=== PATIENT | female | born 1975 | race American Indian/Alaskan Native ===

== ENCOUNTER 2016-05-27 12:19 | Day surgery (SDC) | payer MEDICAID ==
--- NOTE | 2016-05-27 13:15 | History and Physical Report ---
HISTORY OF PRESENT ILLNESS: This is a female with a known history of HIV disease, asthma who comes in for procedure secondary to persistent cough, shortness of breath. The patient has been treated on multiple occasions for upper respiratory tract infection and still has a persistent cough. _she___ denies any lightheadedness, dizziness, numbness, any constipation, dysuria, hematuria, or polyuria. ALLERGIES: Penicillin. SOCIAL HISTORY: Lives at home. REVIEW OF SYSTEMS: No lightheadedness, dizziness. No numbness. No constipation. No dysuria, hematuria, or polyuria. PHYSICAL EXAMINATION: VITAL SIGNS: Blood pressure 120/60, pulse 92, respirations 18. GENERAL: -Central African, morbidly obese female. HEENT: Pupils reactive. Trachea midline. NECK: Supple. CARDIOVASCULAR: Normal S1, S2. LUNGS: Mild expiratory wheezes. ABDOMEN: Positive bowel sounds, soft, nontender. EXTREMITIES: Failed to reveal cyanosis, clubbing, or edema. SKIN: Eczema noted on face and hands. IMPRESSION: Female with HIV, Crohn's disease, asthma, persistent cough. The patient is to undergo bronchoscopy, we will send sputum for analysis. Risk and benefits explained to the patient. We will continue to monitor. The patient may need to receive nebulizer treatment in the perioperative period. JOB# [id number] SOFÍA/JULIETTE WHITFIELD
--- NOTE | 2016-05-27 13:29 | Anesthesia Consultation ---
Anesthesia Consult and Med Hx Date of service: 05/27/16 - Pre-Operative Health Status ASA Pre-Surgery Classification: ASA3 Proposed Anesthetic Plan: MAC - Pulmonary Hx Smoking: Yes (1/2 PPD X 17 YEARS) Hx Asthma: Yes Hx Sleep Apnea: No (possible WESTLEY) - Central Nervous System Hx Psychiatric Problems: No - Other Systems Hx Cancer: No - Additional Comments Anesthesia Medical History Comments: Morbid obesity with increased risk of WESTLEY, HIV+, Chrohn's disease. Patient states she has "constant cough."
== END 2016-05-27 12:20 | disposition home or self-care (01) ==
LOC: GIO 12:19
PROVIDERS: ATTEND Specialist
DX: R05 Cough (principal); Z53.8 Procedure and treatment not carried out for other reasons; J45.909 Unspecified asthma, uncomplicated

== ENCOUNTER 2016-12-23 10:35 | Day surgery (SDC) | payer MEDICAID ==
[2016-12-23] MEDS ORDERED: NACL 0.9% 1000 ML 1,000 ML IV SCH (11:00)
[2016-12-23] MEDS ORDERED: LIDOCAINE VISCOUS 2% ONE (11:02)
[2016-12-23] MEDS ORDERED: XYLOCAINE 1% 20 mL ONE (11:02)
[2016-12-23] MEDS ORDERED: ADRENALIN ONE (11:03)
[2016-12-23] MEDS ORDERED: WATER FOR IRRIG STERILE IR ONE (11:04)
[2016-12-23] MEDS ORDERED: HURRICAINE ONE 20% TOPICAL SPRAY MM (11:05)
--- NOTE | 2016-12-23 11:49 | Anesthesia Consultation ---
Anesthesia Consult and Med Hx Date of service: 12/23/16 - Airway Anesthetic Teeth Evaluation: Good ROM Head & Neck: Adequate Mental/Hyoid Distance: Adequate Mallampati Class: Class II Intubation Access Assessment: Probably Good - Pulmonary Exam CTA: Yes (rhonchi) - Cardiac Exam Cardiac Exam: RRR Anesthetic Concerns: HIV, crohn's disease. Chest x-ray 11/17 with unremarkable finding. - Pre-Operative Health Status ASA Pre-Surgery Classification: ASA3 Proposed Anesthetic Plan: MAC - Pulmonary Hx Smoking: Yes (stopped 11/17, 10 cigarrettes pd x 20yrs) Hx Asthma: Yes (Used inhaler this AM) Hx Respiratory Symptoms: Yes (PRODUCTIVE COUGH ) Hx Sleep Apnea: No - Cardiovascular System Hx Hypertension: No Hx Heart Attack/AMI: No - Central Nervous System Hx Psychiatric Problems: No - Other Systems Hx Cancer: No - Additional Comments Anesthesia Medical History Comments: NAC
--- NOTE | 2016-12-23 11:49 | Anesthesia Day of Surgery ---
Anesthesia Day of Surgery - Day of Surgery Patient Examined: Yes Patient H&P Reviewed: Yes Patient is NPO: Yes
[2016-12-23] MEDS ORDERED: DIPRIVAN 10 MG/ML IV ONE (11:50)
[2016-12-23] MEDS ORDERED: VERSED ONE (11:50)
[2016-12-23] MEDS ORDERED: AMIDATE IV ONE (12:20)
--- NOTE | 2016-12-23 12:53 | History and Physical Report ---
History of Present Illness History of present illness: This is a patient with hx of asthma, AIDS and crohns disease who has recurrent upper and lower resp tract infection with recent admission. She has persistent cough and congestion and is scheduled for bronch Past History Past Medical History: other (AIDS, Crohns disease) Social history: single, lives with family, smoking Family history: CAD, hypertension Medications and Allergies Allergies Allergy/AdvReac Type Severity Reaction Status Date / Time Penicillins Allergy Swelling Verified 12/14/14 17:38 Home Medications Medication Instructions Recorded Confirmed Last Taken Type Dolutegravir (Nf) [Tivicay (Nf)] 50 mg PO BID 03/29/14 12/22/16 12/22/16 History Emtricitabin/Tenofovir [TRUVADA 1 tab PO BID 03/29/14 12/22/16 12/22/16 History 200-300 mg] ALBUTEROL Inhaler [ProAir HFA 2 puff IH QID PRN #30 inha 11/06/16 12/22/16 Unknown Rx Inhaler] Acetaminophen [Acetaminophen TAB] 325 mg PO Q4H PRN #30 tablet 11/06/16 Unknown Rx Fluticasone/Salmeterol [Advair 1 puff IH Q12H #1 blst.w.dev 11/06/16 12/23/16 Rx Diskus 100-50 mcg] Ipratropium/Albuterol Sulfate 1 ampul IH Q8HR #30 ampul.neb 11/06/16 12/22/16 Unknown Rx [Duoneb 0.5 mg-3 mg/3 ml Soln] Sulfamethoxazole/Trimethoprim 1 each PO DAILY #30 tablet 11/06/16 12/22/1612/22 Rx [Bactrim DS TAB] Abacavir 300 mg PO BID 12/22/16 12/22/16 12/22/16 History Promethazine 5 ml PO Q6H PRN 12/22/16 12/23/16 12/22/16 History Active Meds: Active Medications Sodium Chloride (Nacl 0.9% 1000 Ml) 1,000 mls @ 50 mls/hr IV DIRECT BAY Last Admin: 12/23/16 11:15 Dose: 50 mls/hr Review of Systems Constitutional: fatigue Ears, nose, mouth and throat: nasal congestion, nasal discharge, sinus pressure , sore throat, post-nasal drip, headache Breasts: deferred Respiratory: cough, cough with sputum, excessive sputum, shortness of breath, congestion, wheezing, respiratory infections, home oxygen Gastrointestinal: nausea Musculoskeletal: morning stiffness Physical Examination Vital signs: Vital Signs Temp Pulse Resp BP Pulse Ox 98.8 F 114 H 21 143/83 90 12/23/16 11:00 12/23/16 11:00 12/23/16 11:00 12/23/16 11:00 12/23/16 11:00 General appearance: no acute distress Eyes: non-icteric ENT: oropharynx moist Neck: supple Ascultation: Bilateral: wheezes, rhonchi Cardiovascular: regular rate and rhythm Gastrointestinal: normoactive bowel sounds, soft, non-tender, non-distended Musculoskeletal: no deformities Gait: normal gait, normal posture normal mental status, non-focal exam Assessment and Plan - Patient Problems (1) Chronic respiratory failure with hypoxia Current Visit: Yes Status: Acute (2) Cough in adult Current Visit: Yes Status: Acute (3) Shortness of breath Current Visit: Yes Status: Acute (4) AIDS Current Visit: No Status: Acute (5) History of Crohn's disease Current Visit: No Status: Acute
--- NOTE | 2016-12-23 13:10 | Post Anesthesia Evaluation ---
- Post Anesthesia Evaluation Patient Participated: Yes Airway Patent: Yes Stable Respiratory Function: Yes Nausea/Vomiting: No Temp > 96.8F: Yes Pain Manageable: Yes Adequeate Hydration: Yes Anesthesia Complications: No Block Receding Appropriately: Not Applicable Patient on Ventilator: No
[2016-12-23] MEDS ORDERED: PROVENTIL IH ONE (13:30)
--- NOTE | 2016-12-23 13:41 | Procedure Note ---
Date of procedure: 12/23/16 Pre-op diagnosis: AIDS w chronic cough and shortness of breath Post-op diagnosis: same Procedure: bronch Anesthesia: MAC Surgeon: RADHA MCCLOUD Estimated blood loss: none Pathology: none Specimen disposition: to lab Condition: stable Disposition: other (home)
[2016-12-23 13:51] VITALS: BP 152/87
--- NOTE | 2016-12-23 21:01 | Operative Report ---
PROCEDURE: Bronchoscopy. INDICATION: Persistent cough, shortness of breath in a patient with HIV. DESCRIPTION OF PROCEDURE: With informed consent, procedure was performed. See nurse's note in reference to local analgesics given prior to procedure. See anesthesia and nursing note in reference to vitals. Via the left nares, endoscope was introduced. There was a lot of upper airway white plaque noted and especially over the epiglottis, consistent with Linda. Vocal cords appeared to be within normal limits with good abduction and adduction noted. There was a lot of mucus endotracheally. A lot of mucus also noted in the right main and left main stem area mainly on the right especially on the right lateral lobe. Area was suctioned, washing and brushings done in the right lateral lobe area. Specimens sent to pathology, C and S, fungal, AFB. The patient was placed on supplemental oxygen during the procedure. I spoke to patient's mother and patient at the end of procedure. JOB# [id number] SOFÍA/JULIETTE
== END 2016-12-23 10:36 | disposition home or self-care (01) ==
LOC: GIO 10:35
PROVIDERS: ATTEND Specialist
DX: J96.11 Chronic respiratory failure with hypoxia (principal); J45.909 Unspecified asthma, uncomplicated; B20 Human immunodeficiency virus [HIV] disease; Z87.19 Personal history of other diseases of the digestive system; Z88.0 Allergy status to penicillin; Z79.899 Other long term (current) drug therapy; Z87.891 Personal history of nicotine dependence; Z82.49 Family history of ischemic heart disease and other diseases of the circulatory system
CPT/HCPCS: 31623; 87102; 87116; 87220; 88104; 88112; J0171; J2250; J2704; J7030

== ENCOUNTER 2018-05-19 06:53 | Inpatient (IN) | payer MEDICAID ==
--- NOTE | 2018-05-19 07:05 | Emergency Department Report ---
ED Shortness of Breath HPI - General Chief Complaint: Dyspnea/Respdistress Stated Complaint: ELBA Time Seen by Provider: 05/19/18 06:55 Source: patient, EMS Mode of arrival: Stretcher Limitations: Other - History of Present Illness Initial Comments: Patient is a 42-year-old female that presents emergency room with respiratory distress and shortness of breath. Patient states her regular distress shortness of breath started approximately 3 days ago and have gradually worsened. Patient states that she recently started antibiotics for an upper respiratory infection but symptoms have worsened. Patient denies fever and chills. Patient complains of cough that is productive with yellow sputum. Patient states that she has a history of CHF and COPD but this feels like a COPD exacerbation. Patient was brought in by EMS and given mag, breathing treatment, Lasix and Solu-Medrol in route. MD Complaint: shortness of breath, cough -: Sudden - Related Data Home Medications Medication Instructions Recorded Confirmed Last Taken Emtricitabin/Tenofovir [TRUVADA 1 tab PO BID 03/29/14 02/26/18 02/19/18 200-300 mg] Previous Rx's Medication Instructions Recorded Last Taken Type Acetaminophen [Acetaminophen TAB] 325 mg PO Q4H PRN #30 tablet 11/06/16 02/19/18 Rx Fluticasone/Salmeterol [Advair 1 puff IH Q12H #1 blst.w.dev 11/06/16 02/19/18 Rx Diskus 100-50 mcg] Aspirin EC [Aspirin Enteric Coated 81 mg PO QDAY #30 tablet 02/28/18 Unknown Rx TAB] Atazanavir [Reyataz] 300 mg PO QDAY #30 capsule 02/28/18 Unknown Rx Azithromycin [Zithromax TAB] 1,200 mg PO QWEEK #4 tablet 02/28/18 Unknown Rx Benzocaine/Menth/Cetylpyrd 1 each MM Q2H PRN 2 Days packet 02/28/18 Unknown Rx [Cepacol X Strength] Budesonide [Pulmicort Respules] 0.5 mg IH Q12HRT #30 nebu 02/28/18 Unknown Rx Carvedilol [Coreg] 6.25 mg PO BID #60 tablet 02/28/18 Unknown Rx Darunavir [Prezista] 600 mg PO BID tablet 02/28/18 Unknown Rx Furosemide [Lasix TAB] 40 mg PO QDAY #30 tablet 02/28/18 Unknown Rx Ipratropium/Albuterol Sulfate 1 ampul IH Q8HR PRN #30 ampul.neb 02/28/18 Unknown Rx [DUONEB *Not for PRN Use*] LORazepam [Ativan] 0.5 mg PO Q4H PRN #20 tablet 02/28/18 Unknown Rx Lisinopril [Zestril TAB] 10 mg PO QDAY #30 tablet 02/28/18 Unknown Rx Nystatin [Nystatin SUSP] 500,000 unit PO QID 21 Days udc 02/28/18 Unknown Rx Posaconazole [Noxafil] 300 mg IV QDAY #1 vial 02/28/18 Unknown Rx Ritonavir [Norvir] 100 mg PO BID tab 02/28/18 Unknown Rx Sulfamethoxazole/Trimethoprim 2 each PO Q8HR 19 Days tablet 02/28/18 Unknown Rx [Bactrim DS TAB] predniSONE [Deltasone] 1 dose PO DAILY 20 Days tablet 02/28/18 Unknown Rx Allergies Allergy/AdvReac Type Severity Reaction Status Date / Time Penicillins Allergy Swelling Verified 12/14/14 17:38 ED Review of Systems ROS: Stated complaint: ELBA Other details as noted in HPI Constitutional: denies: chills, fever Eyes: denies: eye pain, eye discharge, vision change ENT: denies: ear pain, throat pain Respiratory: cough, shortness of breath, SOB with exertion, SOB at rest, wheezing Cardiovascular: denies: chest pain, palpitations Endocrine: no symptoms reported Gastrointestinal: denies: abdominal pain, nausea, diarrhea Genitourinary: denies: urgency, dysuria, discharge Musculoskeletal: denies: back pain, joint swelling, arthralgia Skin: denies: rash, lesions Neurological: denies: headache, weakness, paresthesias Psychiatric: denies: anxiety, depression Hematological/Lymphatic: denies: easy bleeding, easy bruising ED Past Medical Hx - Past Medical History Previous Medical History?: Yes Hx Congestive Heart Failure: Yes Hx Asthma: Yes Hx COPD: Yes Hx HIV: Yes Additional medical history: Eczema, Bronchitis - Surgical History Past Surgical History?: Yes Additional Surgical History: c section. CROHNS DISEASE - Family History Family history: no significant - Social History Smoking Status: Never Smoker Substance Use Type: None - Medications Home Medications: Home Medications Medication Instructions Recorded Confirmed Last Taken Type Emtricitabin/Tenofovir [TRUVADA 1 tab PO BID 03/29/14 02/26/18 02/19/18 History 200-300 mg] Acetaminophen [Acetaminophen TAB] 325 mg PO Q4H PRN #30 tablet 11/06/16 02/26/18 02/19/18 Rx Fluticasone/Salmeterol [Advair 1 puff IH Q12H #1 blst.w.dev 11/06/16 02/26/18 02/19/18 Rx Diskus 100-50 mcg] Aspirin EC [Aspirin Enteric Coated 81 mg PO QDAY #30 tablet 02/28/18 Unknown Rx TAB] Atazanavir [Reyataz] 300 mg PO QDAY #30 capsule 02/28/18 Unknown Rx Azithromycin [Zithromax TAB] 1,200 mg PO QWEEK #4 tablet 02/28/18 Unknown Rx Benzocaine/Menth/Cetylpyrd 1 each MM Q2H PRN 2 Days packet 02/28/18 Unknown Rx [Cepacol X Strength] Budesonide [Pulmicort Respules] 0.5 mg IH Q12HRT #30 nebu 02/28/18 Unknown Rx Carvedilol [Coreg] 6.25 mg PO BID #60 tablet 02/28/18 Unknown Rx Darunavir [Prezista] 600 mg PO BID tablet 02/28/18 Unknown Rx Furosemide [Lasix TAB] 40 mg PO QDAY #30 tablet 02/28/18 Unknown Rx Ipratropium/Albuterol Sulfate 1 ampul IH Q8HR PRN #30 ampul.neb 02/28/18 Unknown Rx [DUONEB *Not for PRN Use*] LORazepam [Ativan] 0.5 mg PO Q4H PRN #20 tablet 02/28/18 Unknown Rx Lisinopril [Zestril TAB] 10 mg PO QDAY #30 tablet 02/28/18 Unknown Rx Nystatin [Nystatin SUSP] 500,000 unit PO QID 21 Days udc 02/28/18 Unknown Rx Posaconazole [Noxafil] 300 mg IV QDAY #1 vial 02/28/18 Unknown Rx Ritonavir [Norvir] 100 mg PO BID tab 02/28/18 Unknown Rx Sulfamethoxazole/Trimethoprim 2 each PO Q8HR 19 Days tablet 02/28/18 Unknown Rx [Bactrim DS TAB] predniSONE [Deltasone] 1 dose PO DAILY 20 Days tablet 02/28/18 Unknown Rx ED Physical Exam - General Limitations: No Limitations, Other General appearance: alert, in distress - Head Head exam: Present: atraumatic, normocephalic - Eye Eye exam: Present: normal appearance - ENT ENT exam: Present: mucous membranes dry - Neck Neck exam: Present: normal inspection - Respiratory Respiratory exam: Present: respiratory distress, wheezes, accessory muscle use, decreased breath sounds - Cardiovascular Cardiovascular Exam: Present: regular rate, normal rhythm, tachycardia. Absent: systolic murmur, diastolic murmur, rubs, gallop - GI/Abdominal GI/Abdominal exam: Present: soft, normal bowel sounds - Extremities Exam Extremities exam: Present: normal inspection - Back Exam Back exam: Present: normal inspection - Neurological Exam Neurological exam: Present: alert, oriented X3 - Psychiatric Psychiatric exam: Present: normal affect, normal mood - Skin Skin exam: Present: warm, dry, intact, normal color. Absent: rash ED Course Vital Signs 05/19/18 05/19/18 05/19/18 06:56 06:58 07:00 Temperature 97.1 F L Pulse Rate 137 H 124 H 137 H Pulse Rate [ Anterior Bilateral Throughout] Respiratory 40 H 39 H Rate Respiratory Rate [Anterior Bilateral Throughout] Blood Pressure Blood Pressure 140/60 [Left] O2 Sat by Pulse 97 96 Oximetry 05/19/18 05/19/18 05/19/18 07:09 07:15 07:25 Temperature Pulse Rate 128 H 122 H Pulse Rate [ 128 H 122 H Anterior Bilateral Throughout] Respiratory 27 H 19 Rate Respiratory 24 24 Rate [Anterior Bilateral Throughout] Blood Pressure 140/60 89/45 Blood Pressure [Left] O2 Sat by Pulse 99 97 Oximetry 05/19/18 05/19/18 05/19/18 07:30 07:45 08:00 Temperature Pulse Rate 110 H 114 H 116 H Pulse Rate [ Anterior Bilateral Throughout] Respiratory 32 H 30 H 32 H Rate Respiratory Rate [Anterior Bilateral Throughout] Blood Pressure 81/54 94/55 96/52 Blood Pressure [Left] O2 Sat by Pulse 96 99 95 Oximetry 05/19/18 05/19/18 05/19/18 08:15 08:30 08:45 Temperature Pulse Rate 117 H 113 H 108 H Pulse Rate [ Anterior Bilateral Throughout] Respiratory 24 25 H 26 H Rate Respiratory Rate [Anterior Bilateral Throughout] Blood Pressure 104/39 91/54 89/50 Blood Pressure [Left] O2 Sat by Pulse 96 96 98 Oximetry 05/19/18 05/19/18 05/19/18 09:15 09:30 09:46 Temperature Pulse Rate 105 H 105 H 105 H Pulse Rate [ Anterior Bilateral Throughout] Respiratory 14 13 20 Rate Respiratory Rate [Anterior Bilateral Throughout] Blood Pressure 83/48 89/47 98/55 Blood Pressure [Left] O2 Sat by Pulse 100 100 99 Oximetry - Reevaluation(s) Reevaluation #1: Patient dilation done. Patient is placed on BiPAP. Patient's symptoms fully improving. Patient's wheezing. Patient was given a DuoNeb. An ABG has been ordered. Labs have been ordered. 05/19/18 06:56 Reevaluation #2: Patient's wheezing has decreased. Patient's work to breathe has improved. Retractions have resolved. 05/19/18 07:10 Reevaluation #3: Blood pressure is low. We'll monitor blood pressure. Blood pressure now is 90/60. 05/19/18 07:40 Patient's blood pressures improving. Patient states she is feeling better. 05/19/18 08:21 Discussed all results with patient. Patient admitted to the hospitalist alexsandra oates Patient will be given antibiotics as well as fluids. Blood pressure is 100/80. 05/19/18 10:24 - Consultations Consultation #1: Hospitalist consultation for admission. Hospitalist to admit patient. Hospitalist to assume care and bridge orders placed 05/19/18 10:35 ED Medical Decision Making - Lab Data Result diagrams: 05/19/18 07:31 05/19/18 07:40 - EKG Data -: EKG Interpreted by Mi EKG shows normal: sinus rhythm, axis, intervals, QRS complexes, ST-T waves Rate: tachycardia - Radiology Data Radiology results: report reviewed CTA CHEST INDICATION: Shortness of breath. COMPARISON: 02/22/[address] FINDINGS: Chest CTA performed following intravenous administration of 100 cc of Omnipaque 350. Rotational MIP's also obtained. Interval worsening noted with a new, large predominantly right upper and some right middle lobe pneumonia extending from the hilum and measuring approximately 6.3 x 5.8 cm adnexa series 2, image 52 with approximately 9 cm craniocaudal extent. Mild adjacent ground glass haziness also noted. Numerous scattered bilateral pulmonary nodules are also new as in the right upper lobe measuring 0.7 cm medially, axial series 2, image 30, an approximately 1.2 cm left upper lobe nodule, axial image 41, a 1.5 cm nodular consolidation in the right middle lobe, axial image 74, a 1 cm in the right lower lobe, axial image 74 and a 0.8 cm left lower lobe nodule as on axial image 71, amongst others. Lower lobes predominantly also demonstrates tree-in-bud opacities, subtle interstitial nodularity as also mild peribronchial thickening and areas of inspissated mucus along the secondary and tertiary airways. At least 4 bibasilar peripheral/pleural based calcified nodules/masses again noted as measuring approximately 2 cm laterally, axial image 180, series 4 and approximately 1 cm on axial image 201 at the right lung base while similar densities on the left are noted at 0.5 cm posterolaterally on axial image 194 and approximately 1.2 cm posteriorly on axial image 207. Normal heart size. No effusions or definite size significant adenopathy. Few small subcarinal lymph node calcifications may be present. Patent central airway. No aortic aneurysm or dissection. Mild pulmonary arterial hypertension. No suspicious pulmonary arterial filling defects. Normal imaged thyroid. Nonspecific distal esophageal mild wall prominence/thickening, not excluded for gastroesophageal reflux and/or hiatal hernia, amongst others. Few upper abdominal images again suggest cholelithiasis measuring up to 1.2 cm. Left hepatic lobe tip again extends into the left upper quadrant. Slightly lobulated renal contours, more so on the left. Mild multilevel mid to lower thoracic spine degenerative spurring. CONCLUSION: 1. Interval pulmonary worsening with new moderate to large right mid lung pneumonia noted, as described. Numerous bilateral pulmonary nodules are also new, again concerning for infection or inflammation. 2. Associated mild peribronchial thickening and inspissated mucus within peripheral bronchi again noted, though also may be worse. 3. Few other incidental findings, including cholelithiasis and mild pulmonary arterial hypertension without CT evidence of pulmonary embolism, as described. Thank you for the opportunity to participate in this patient's care. Transcribed By: RS Dictated By: ELIZABETH CRAWLEY MD Electronically Authenticated By: ELIZABETH CRAWLEY MD Signed Date/Time: 05/19/18 0952 - Medical Decision Making Patient is a 42-year-old female that presents emergency with complaints of hypoxia, shortness of breath and respiratory distress and cough. Patient found to have a right-sided pneumonia. Patient admitted to the hospitalist service for further evaluation treatment. Patient had an elevated white count as well as a lactic acidosis. Findings consistent with right-sided pneumonia and sepsis. Patient also had low blood pressure that improved on its own. Patient was placed on BiPAP upon arrival and lung sounds and worked her breathing improved. Patient's blood gas done on BiPAP was unremarkable. - Differential Diagnosis CHF. COPD. PNA. HYPOXIA. SOB. Critical Care Time: Yes Critical care attestation.: If time is entered above; I have spent that time in minutes in the direct care of this critically ill patient, excluding procedure time. Critical Care Time: 55 minutes ED Disposition Clinical Impression: Respiratory distress, Hypoxia, SOB (shortness of breath), Elevated brain natriuretic peptide (BNP) level, Lactic acid acidosis Sepsis Qualifiers: Sepsis type: sepsis due to unspecified organism Qualified Code(s): A41.9 - Sepsis, unspecified organism Pneumonia Qualifiers: Pneumonia type: due to unspecified organism Laterality: right Lung location: unspecified part of lung Qualified Code(s): J18.9 - Pneumonia, unspecified organism Disposition: -09 OP ADMIT IP TO THIS HOSP Is pt being admited?: Yes Does the pt Need Aspirin: No Condition: Critical Time of Disposition: 10:20
[2018-05-19] MEDS ORDERED: DUONEB *Not for PRN Use IH ONE (07:09)
[2018-05-19 07:55] LABS: Hemoglobin 9.6 gm/dl (10.1-14.3); Mean Corpuscular HGB Conc 33 % (30-34); Mean Corpuscular Volume 91 fl (79-97); Platelet Count 597 K/mm3 (140-440); Red Cell Distribution Width 18.7 % (13.2-15.2)
[2018-05-19 08:19] LABS: Albumin 2.5 g/dL (3.9-5); Calcium 9.3 mg/dL (8.4-10.2)
[2018-05-19] MEDS ORDERED: NACL 0.9% 300 ML ONE (08:45)
[2018-05-19 08:56] LABS: Creatine Kinase MB < 1.0 ng/mL (0.0-4.0)
[2018-05-19 09:13] LABS: Band Neutrophils # (Manual) 3.3 K/mm3; Basophils % (Manual) 0 % (0.0-1.8); Eosinophils % (Manual) 0 % (0.0-4.3); Myelocytes # (Manual) 0.9 K/mm3; Promyelocytes # (Manual) 0.1 K/mm3; Total Cells Counted 100
[2018-05-19 09:14] LABS: Anisocytosis 1+; Ovalocytes Few; Platelet Estimate Consistent w Auto; Target Cells 1+
--- NOTE | 2018-05-19 09:56 | Cat Scan Report ---
CTA CHEST INDICATION: Shortness of breath. COMPARISON: 02/22/[address] FINDINGS: Chest CTA performed following intravenous administration of 100 cc of Omnipaque 350. Rotational MIP's also obtained. Interval worsening noted with a new, large predominantly right upper and some right middle lobe pneumonia extending from the hilum and measuring approximately 6.3 x 5.8 cm adnexa series 2, image 52 with approximately 9 cm craniocaudal extent. Mild adjacent ground glass haziness also noted. Numerous scattered bilateral pulmonary nodules are also new as in the right upper lobe measuring 0.7 cm medially, axial series 2, image 30, an approximately 1.2 cm left upper lobe nodule, axial image 41, a 1.5 cm nodular consolidation in the right middle lobe, axial image 74, a 1 cm in the right lower lobe, axial image 74 and a 0.8 cm left lower lobe nodule as on axial image 71, amongst others. Lower lobes predominantly also demonstrates tree-in-bud opacities, subtle interstitial nodularity as also mild peribronchial thickening and areas of inspissated mucus along the secondary and tertiary airways. At least 4 bibasilar peripheral/pleural based calcified nodules/masses again noted as measuring approximately 2 cm laterally, axial image 180, series 4 and approximately 1 cm on axial image 201 at the right lung base while similar densities on the left are noted at 0.5 cm posterolaterally on axial image 194 and approximately 1.2 cm posteriorly on axial image 207. Normal heart size. No effusions or definite size significant adenopathy. Few small subcarinal lymph node calcifications may be present. Patent central airway. No aortic aneurysm or dissection. Mild pulmonary arterial hypertension. No suspicious pulmonary arterial filling defects. Normal imaged thyroid. Nonspecific distal esophageal mild wall prominence/thickening, not excluded for gastroesophageal reflux and/or hiatal hernia, amongst others. Few upper abdominal images again suggest cholelithiasis measuring up to 1.2 cm. Left hepatic lobe tip again extends into the left upper quadrant. Slightly lobulated renal contours, more so on the left. Mild multilevel mid to lower thoracic spine degenerative spurring. CONCLUSION: 1. Interval pulmonary worsening with new moderate to large right mid lung pneumonia noted, as described. Numerous bilateral pulmonary nodules are also new, again concerning for infection or inflammation. 2. Associated mild peribronchial thickening and inspissated mucus within peripheral bronchi again noted, though also may be worse. 3. Few other incidental findings, including cholelithiasis and mild pulmonary arterial hypertension without CT evidence of pulmonary embolism, as described. Thank you for the opportunity to participate in this patient's care.
[2018-05-19] MEDS ORDERED: NACL 0.9% 500 ML 500 ML IV ONE (10:22)
[2018-05-19] MEDS ORDERED: LEVAQUIN 500MG/100ML 500 MG/100 ML BAG IV ONE ×2 (10:23→11:36)
--- NOTE | 2018-05-19 17:39 | History and Physical Report ---
History of Present Illness Date of examination: 05/19/18 Date of admission: 05/19/18 10:39 Chief complaint: Worsening Shortness of breath and cough for the last 3-4 days History of present illness: Pleasant 42-year-old female patient with significant past medical history of HIV AIDS, on antiretrovirals, follows with private ID Dr. rodriguez, claims compliance with medications , presents to the emergency room with respiratory distress and shortness of breath. Patient states her regular distress shortness of breath started approximately 3 days ago and have gradually worsened. Patient states that she recently started antibiotics for an upper respiratory infection but symptoms have worsened. Patient denies fever and chills. Patient complains of cough that is productive with yellow sputum. Patient states that she has a history of CHF and COPD but this feels like a COPD exacerbation. Patient was brought in by EMS and given mag, breathing treatment, Lasix and Solu-Medrol in route. Patient complains of mild wheeze productive cough CTA chest consistent with pneumonia and pulmonary nodules Past History Past Medical History: COPD, heart failure, HIV/AIDS, hypertension, other (cardiomyopathy) Past Surgical History: , Other Social history: lives with family, full code. denies: smoking, alcohol abuse, IV drug use Family history: hypertension Medications and Allergies Allergies Allergy/AdvReac Type Severity Reaction Status Date / Time Penicillins Allergy Swelling Verified 12/14/14 17:38 Home Medications Medication Instructions Recorded Confirmed Last Taken Type Aspirin EC [Aspirin Enteric Coated 81 mg PO QDAY #30 tablet 02/28/18 05/19/18 Unknown Rx TAB] Atazanavir [Reyataz] 300 mg PO QDAY #30 capsule 02/28/18 05/19/18 Unknown Rx Carvedilol [Coreg] 6.25 mg PO BID #60 tablet 02/28/18 05/19/18 Unknown Rx Darunavir [Prezista] 600 mg PO BID tablet 02/28/18 05/19/18 Unknown Rx Furosemide [Lasix TAB] 40 mg PO QDAY #30 tablet 02/28/18 05/19/18 Unknown Rx Ipratropium/Albuterol Sulfate 1 ampul IH Q8HR PRN #30 ampul.neb 02/28/18 05/19/18 Unknown Rx [DUONEB *Not for PRN Use*] Lisinopril [Zestril TAB] 10 mg PO QDAY #30 tablet 02/28/18 05/19/18 Unknown Rx Nystatin [Nystatin SUSP] 500,000 unit PO QID 21 Days udc 02/28/18 05/19/18 Unknown Rx Ritonavir [Norvir] 100 mg PO BID tab 02/28/18 05/19/18 Unknown Rx Doxycycline [Vibramycin] 100 mg PO Q12HR 05/19/18 05/19/18 Unknown History Emtricitabine/Tenofov Alafenam 1 each PO DAILY 05/19/18 05/19/18 Unknown History [Descovy 200-25 mg Tablet] Review of Systems Constitutional: weakness, no weight loss, no weight gain, no anorexia, no fatigue Ears, nose, mouth and throat: no nasal congestion, no nasal discharge Cardiovascular: chest pain, palpitations, edema, shortness of breath, no orthopnea Respiratory: cough with sputum, shortness of breath Gastrointestinal: nausea, vomiting Genitourinary Female: no pelvic pain, no dysuria Musculoskeletal: no neck stiffness, no neck pain, no myalgias Integumentary: no rash, no lesions Neurological: no parathesias, no numbness Psychiatric: no anxiety, no depression Endocrine: no cold intolerance, no heat intolerance Hematologic/Lymphatic: no easy bruising, no easy bleeding Allergic/Immunologic: no urticaria, no allergic rhinitis Exam - Constitutional Vitals: Temp Pulse Resp BP Pulse Ox 97.1 F L 88 26 H 99/59 99 05/19/18 06:56 05/19/18 16:00 05/19/18 16:00 05/19/18 16:00 05/19/18 16:00 General appearance: Present: mild distress, well-nourished - EENT Eyes: Present: PERRL, EOM intact - Neck Neck: Present: supple, normal ROM - Respiratory Respiratory effort: normal Respiratory: bilateral: diminished, wheezing, negative: rales, rhonchi - Cardiovascular Rhythm: regular Heart Sounds: Present: S1 & S2 - Extremities Extremities: no ischemia, No edema - Abdominal General gastrointestinal: Present: soft, non-tender, non-distended, normal bowel sounds - Integumentary Integumentary: Present: clear, warm - Musculoskeletal Musculoskeletal: strength equal bilaterally - Psychiatric Psychiatric: appropriate mood/affect, cooperative - Neurologic Neurologic: moves all extremities Results - Labs CBC & Chem 7: 05/19/18 07:31 05/19/18 07:40 Labs: Abnormal lab results 05/19/18 05/19/18 05/19/18 Range/Units 07:31 07:36 07:40 WBC 14.8 H (4.5-11.0) K/mm3 RBC 3.20 L (3.65-5.03) M/mm3 Hgb 9.6 L (10.1-14.3) gm/dl Hct 29.0 L (30.3-42.9) % RDW 18.7 H (13.2-15.2) % Plt Count 597 H (140-440) K/mm3 Lymphocytes % (Manual) 0 L (13.4-35.0) % Lymphocytes # (Manual) 0.0 L (1.2-5.4) K/mm3 D-Dimer 1206.90 H (0-234) ng/mlDDU POC ABG pH 7.480 H (7.35-7.45) POC ABG pO2 69 L (80-105) Sodium (137-145) mmol/L Potassium (3.6-5.0) mmol/L Chloride (98-107) mmol/L BUN (7-17) mg/dL Glucose (65-100) mg/dL Lactic Acid (0.7-2.0) mmol/L ALT (7-56) units/L Total Creatine Kinase (30-135) units/L CK-MB (CK-2) Rel Index (0-4) NT-Pro-B Natriuret Pep (0-450) pg/mL Albumin (3.9-5) g/dL 05/19/18 05/19/18 05/19/18 Range/Units 07:40 07:40 07:40 WBC (4.5-11.0) K/mm3 RBC (3.65-5.03) M/mm3 Hgb (10.1-14.3) gm/dl Hct (30.3-42.9) % RDW (13.2-15.2) % Plt Count (140-440) K/mm3 Lymphocytes % (Manual) (13.4-35.0) % Lymphocytes # (Manual) (1.2-5.4) K/mm3 D-Dimer (0-234) ng/mlDDU POC ABG pH (7.35-7.45) POC ABG pO2 (80-105) Sodium 136 L (137-145) mmol/L Potassium 3.4 L (3.6-5.0) mmol/L Chloride 93.0 L (98-107) mmol/L BUN 32 H (7-17) mg/dL Glucose 153 H (65-100) mg/dL Lactic Acid 2.10 H* (0.7-2.0) mmol/L ALT 6 L (7-56) units/L Total Creatine Kinase 24 L (30-135) units/L CK-MB (CK-2) Rel Index 4.1 H (0-4) NT-Pro-B Natriuret Pep (0-450) pg/mL Albumin 2.5 L (3.9-5) g/dL 05/19/18 05/19/18 Range/Units 07:40 09:16 WBC (4.5-11.0) K/mm3 RBC (3.65-5.03) M/mm3 Hgb (10.1-14.3) gm/dl Hct (30.3-42.9) % RDW (13.2-15.2) % Plt Count (140-440) K/mm3 Lymphocytes % (Manual) (13.4-35.0) % Lymphocytes # (Manual) (1.2-5.4) K/mm3 D-Dimer (0-234) ng/mlDDU POC ABG pH (7.35-7.45) POC ABG pO2 (80-105) Sodium (137-145) mmol/L Potassium (3.6-5.0) mmol/L Chloride (98-107) mmol/L BUN (7-17) mg/dL Glucose (65-100) mg/dL Lactic Acid 2.10 H* (0.7-2.0) mmol/L ALT (7-56) units/L Total Creatine Kinase (30-135) units/L CK-MB (CK-2) Rel Index (0-4) NT-Pro-B Natriuret Pep 1473 H (0-450) pg/mL Albumin (3.9-5) g/dL Assessment and Plan --Acute on chronic hypoxic respiratory failure; requiring BiPAP Secondary to pneumonia underlying lung disease, oxygen titrate O2 sats to 90% Nebulizers, IV antibiotics, IV steroids, BiPAP as needed Pulmonary consultation Down grade to medical floor with telemetry, --HIV AIDS; Resume home antiretroviral medications Supportive care, ID evaluation --Sepsis secondary to pneumonia; Continue current management, antibiotics following cultures IV evaluation --Cardiomyopathy severe; EF 15%, continue anti-inflammatory medications Cardiology evaluation if needed --Leukocytosis ; due to sepsis --Lactic acidosis; due to underlying disease process --Hypokalemia; replace per protocol and monitor --Severe malnutrition hypoalbuminemia; nutrition supplements and supportive care --DVT prophylaxis; Lovenox ID consultation and pulmonary requested Monitor the patient and adjust management as needed DC planning but case management
[2018-05-19] MEDS ORDERED: DUONEB *Not for PRN Use IH (17:42)
[2018-05-19] MEDS: NYSTATIN PO SCH ×2 (21:51→21:52)
[2018-05-19] MEDS: COREG PO SCH (21:52)
[2018-05-19] MEDS: LOVENOX SUB-Q SCH (21:52)
[2018-05-19] MEDS: PREZISTA PO SCH (23:46)
[2018-05-20 07:22] LABS: Hematocrit 26.2 % (30.3-42.9); Hemoglobin 8.7 gm/dl (10.1-14.3); Mean Corpuscular HGB Conc 33 % (30-34); Mean Corpuscular Volume 91 fl (79-97); Platelet Count 525 K/mm3 (140-440); Red Blood Count 2.88 M/mm3 (3.65-5.03); Red Cell Distribution Width 18.8 % (13.2-15.2)
[2018-05-20 09:03] LABS: Alanine Aminotransferase 5 units/L (7-56); Albumin 2.4 g/dL (3.9-5); BUN/Creatinine Ratio 36; Blood Urea Nitrogen 32 mg/dL (7-17); Calcium 9.6 mg/dL (8.4-10.2); Hemolysis Index 10
[2018-05-20 09:16] LABS: Basophils % (Manual) 0 % (0.0-1.8); Eosinophils % (Manual) 0 % (0.0-4.3); Total Cells Counted 100
[2018-05-20 09:17] LABS: Anisocytosis 1+; Ovalocytes Few; Platelet Estimate Consistent w Auto; Target Cells Few
--- NOTE | 2018-05-20 09:30 | Progress Note ---
Assessment and Plan Assessment and plan: --Acute on chronic hypoxic respiratory failure; requiring BiPAP Secondary to pneumonia underlying lung disease, oxygen titrate O2 sats to 90% Nebulizers, IV antibiotics, IV steroids, BiPAP as needed Pulmonary consultation, possible bronchoscopy tomorrow --HIV AIDS; Resume home antiretroviral medications Supportive care, ID evaluation --Sepsis secondary to pneumonia; Continue current management, antibiotics following cultures, ID evaluation --Cardiomyopathy severe; EF 15%, continue anti-failure medications Cardiology evaluation if needed --Leukocytosis ; due to sepsis --Lactic acidosis; due to underlying disease process --Oral thrush; Diflucan, nystatin swish and swallow --Hypokalemia; replace per protocol and monitor --Severe malnutrition hypoalbuminemia; nutrition supplements and supportive care --DVT prophylaxis; Lovenox ID consultation and pulmonary requested Monitor the patient and adjust management as needed DC planning but case management History Interval history: Family medical records reviewed Patient feels slightly better no new complaints Saturating well on nasal cannula oxygen Alert awake oriented 3 Vital signs noted Hospitalist Physical - Constitutional Vitals: Temp Pulse Resp BP Pulse Ox 98.5 F 97 H 18 124/66 99 05/20/18 04:53 05/20/18 04:53 05/20/18 04:53 05/20/18 04:53 05/20/18 04:53 General appearance: Present: no acute distress, well-nourished - EENT Eyes: Present: PERRL, EOM intact ENT: other (thrush) - Neck Neck: Present: supple, normal ROM - Respiratory Respiratory effort: normal Respiratory: bilateral: diminished, rhonchi, negative: rales, wheezing - Cardiovascular Rhythm: regular Heart Sounds: Present: S1 & S2 - Extremities Extremities: no ischemia, No edema - Abdominal General gastrointestinal: soft, non-tender, non-distended, normal bowel sounds - Integumentary Integumentary: Present: clear, warm - Psychiatric Psychiatric: appropriate mood/affect, cooperative - Neurologic Neurologic: CNII-XII intact, moves all extremities Results - Labs CBC & Chem 7: 05/20/18 06:18 05/20/18 08:17 Labs: Laboratory Last Values WBC 9.3 K/mm3 (4.5-11.0) 05/20/18 06:18 RBC 2.88 M/mm3 (3.65-5.03) L 05/20/18 06:18 Hgb 8.7 gm/dl (10.1-14.3) L 05/20/18 06:18 Hct 26.2 % (30.3-42.9) L 05/20/18 06:18 MCV 91 fl (79-97) 05/20/18 06:18 MCH 30 pg (28-32) 05/20/18 06:18 MCHC 33 % (30-34) 05/20/18 06:18 RDW 18.8 % (13.2-15.2) H 05/20/18 06:18 Plt Count 525 K/mm3 (140-440) H 05/20/18 06:18 Add Manual Diff Complete 05/20/18 06:18 Total Counted 100 05/20/18 06:18 Seg Neutrophils % Instrument Adjuster 05/20/18 06:18 Seg Neuts % (Manual) 95.0 % (40.0-70.0) H 05/20/18 06:18 Band Neutrophils % 0 % 05/20/18 06:18 Lymphocytes % (Manual) 3.0 % (13.4-35.0) L 05/20/18 06:18 Reactive Lymphs % (Man) 0 % 05/20/18 06:18 Monocytes % (Manual) 2.0 % (0.0-7.3) 05/20/18 06:18 Eosinophils % (Manual) 0 % (0.0-4.3) 05/20/18 06:18 Basophils % (Manual) 0 % (0.0-1.8) 05/20/18 06:18 Metamyelocytes % 0 % 05/20/18 06:18 Myelocytes % 0 % 05/20/18 06:18 Promyelocytes % 0 % 05/20/18 06:18 Blast Cells % 0 % 05/20/18 06:18 Nucleated RBC % Not Reportable 05/20/18 06:18 Seg Neutrophils # Man 8.8 K/mm3 (1.8-7.7) H 05/20/18 06:18 Band Neutrophils # 0.0 K/mm3 05/20/18 06:18 Lymphocytes # (Manual) 0.3 K/mm3 (1.2-5.4) L 05/20/18 06:18 Abs React Lymphs (Man) 0.0 K/mm3 05/20/18 06:18 Monocytes # (Manual) 0.2 K/mm3 (0.0-0.8) 05/20/18 06:18 Eosinophils # (Manual) 0.0 K/mm3 (0.0-0.4) 05/20/18 06:18 Basophils # (Manual) 0.0 K/mm3 (0.0-0.1) 05/20/18 06:18 Metamyelocytes # 0.0 K/mm3 05/20/18 06:18 Myelocytes # 0.0 K/mm3 05/20/18 06:18 Promyelocytes # 0.0 K/mm3 05/20/18 06:18 Blast Cells # 0.0 K/mm3 05/20/18 06:18 WBC Morphology Not Reportable 05/20/18 06:18 Hypersegmented Neuts Not Reportable 05/20/18 06:18 Hyposegmented Neuts Not Reportable 05/20/18 06:18 Hypogranular Neuts Not Reportable 05/20/18 06:18 Smudge Cells Not Reportable 05/20/18 06:18 Toxic Granulation Not Reportable 05/20/18 06:18 Toxic Vacuolation Not Reportable 05/20/18 06:18 Dohle Bodies Not Reportable 05/20/18 06:18 Pelger-Huet Anomaly Not Reportable 05/20/18 06:18 Kj Rods Not Reportable 05/20/18 06:18 Platelet Estimate Consistent w auto 05/20/18 06:18 Clumped Platelets Not Reportable 05/20/18 06:18 Plt Clumps, EDTA Not Reportable 05/20/18 06:18 Large Platelets Not Reportable 05/20/18 06:18 Giant Platelets Not Reportable 05/20/18 06:18 Platelet Satelliting Not Reportable 05/20/18 06:18 Plt Morphology Comment Not Reportable 05/20/18 06:18 RBC Morphology Not Reportable 05/20/18 06:18 Dimorphic RBCs Not Reportable 05/20/18 06:18 Polychromasia 1+ 05/20/18 06:18 Hypochromasia Not Reportable 05/20/18 06:18 Poikilocytosis Not Reportable 05/20/18 06:18 Anisocytosis 1+ 05/20/18 06:18 Microcytosis Not Reportable 05/20/18 06:18 Macrocytosis Not Reportable 05/20/18 06:18 Spherocytes Not Reportable 05/20/18 06:18 Pappenheimer Bodies Not Reportable 05/20/18 06:18 Sickle Cells Not Reportable 05/20/18 06:18 Target Cells Few 05/20/18 06:18 Tear Drop Cells Not Reportable 05/20/18 06:18 Ovalocytes Few 05/20/18 06:18 Helmet Cells Not Reportable 05/20/18 06:18 [place] Bodies Not Reportable 05/20/18 06:18 [place] Rings Not Reportable 05/20/18 06:18 [place] Cells Not Reportable 05/20/18 06:18 Bite Cells Not Reportable 05/20/18 06:18 Crenated Cell Not Reportable 05/20/18 06:18 Elliptocytes Not Reportable 05/20/18 06:18 Acanthocytes (Spur) Not Reportable 05/20/18 06:18 Rouleaux Not Reportable 05/20/18 06:18 Hemoglobin C Crystals Not Reportable 05/20/18 06:18 Schistocytes Not Reportable 05/20/18 06:18 Malaria parasites Not Reportable 05/20/18 06:18 Ham Bodies Not Reportable 05/20/18 06:18 Hem Pathologist Commnt No 05/20/18 06:18 D-Dimer 1206.90 ng/mlDDU (0-234) H 05/19/18 07:40 POC ABG pH 7.480 (7.35-7.45) H 05/19/18 07:36 POC ABG pCO2 39.9 (35-45) 05/19/18 07:36 POC ABG pO2 69 (80-105) L 05/19/18 07:36 POC ABG HCO3 29.7 05/19/18 07:36 POC ABG Total CO2 31 05/19/18 07:36 POC ABG O2 Sat 95 05/19/18 07:36 POC ABG Base Excess 6 05/19/18 07:36 FiO2 50 % 05/19/18 07:36 Sodium 135 mmol/L (137-145) L 05/20/18 08:17 Potassium 4.2 mmol/L (3.6-5.0) D 05/20/18 08:17 Chloride 93.4 mmol/L (98-107) L 05/20/18 08:17 Carbon Dioxide 28 mmol/L (22-30) 05/20/18 08:17 Anion Gap 18 mmol/L 05/20/18 08:17 BUN 32 mg/dL (7-17) H 05/20/18 08:17 Creatinine 0.9 mg/dL (0.7-1.2) 05/20/18 08:17 Estimated GFR > 60 ml/min 05/20/18 08:17 BUN/Creatinine Ratio 36 % 05/20/18 08:17 Glucose 154 mg/dL (65-100) H 05/20/18 08:17 Lactic Acid 2.10 mmol/L (0.7-2.0) H* 05/19/18 09:16 Calcium 9.6 mg/dL (8.4-10.2) 05/20/18 08:17 Phosphorus 4.50 mg/dL (2.5-4.5) 05/20/18 08:17 Magnesium 2.10 mg/dL (1.7-2.3) 05/20/18 08:17 Total Bilirubin 0.20 mg/dL (0.1-1.2) 05/20/18 08:17 AST 14 units/L (5-40) 05/20/18 08:17 ALT 5 units/L (7-56) L 05/20/18 08:17 Alkaline Phosphatase 90 units/L (35-129) 05/20/18 08:17 Total Creatine Kinase 24 units/L (30-135) L 05/19/18 07:40 CK-MB (CK-2) < 1.0 ng/mL (0.0-4.0) 05/19/18 07:40 CK-MB (CK-2) Rel Index 4.1 (0-4) H 05/19/18 07:40 Troponin T < 0.010 ng/mL (0.00-0.029) 05/19/18 07:40 NT-Pro-B Natriuret Pep 1473 pg/mL (0-450) H 05/19/18 07:40 Total Protein 7.1 g/dL (6.3-8.2) 05/20/18 08:17 Albumin 2.4 g/dL (3.9-5) L 05/20/18 08:17 Albumin/Globulin Ratio 0.5 % 05/20/18 08:17
[2018-05-20] MEDS ORDERED: NON-FORMULARY (Emtricitabine/Tenofov Alafenam [Descovy 200-25 Mg Tablet] 1 EACH) PO SCH (10:00)
[2018-05-20] MEDS ORDERED: LEVAQUIN 750MG/150ML 750 MG/150 ML BAG IV SCH (10:00)
[2018-05-20] MEDS: NYSTATIN PO SCH ×4 (10:21→22:28)
[2018-05-20] MEDS: COREG PO SCH ×2 (10:21→22:31)
[2018-05-20] MEDS: ZESTRIL PO SCH (10:22)
[2018-05-20] MEDS: REYATAZ PO SCH (10:22)
[2018-05-20] MEDS: PREZISTA PO SCH ×2 (10:23→22:28)
[2018-05-20] MEDS: HALFPRIN EC PO SCH (10:23)
[2018-05-20] MEDS: LASIX PO SCH (10:23)
[2018-05-20] MEDS ORDERED: VANCOMYCIN PHARMACY TO DOSE IV SCH (13:00)
[2018-05-20] MEDS ORDERED: EMTRIVA 200 MG, VIREAD 300 MG PO SCH (13:00)
--- NOTE | 2018-05-20 13:05 | Consultation ---
History of Present Illness - Reason for Consult Consult date: 05/20/18 HIV, AIDS, PNA Requesting physician: BRANDON OCASIO - History of Present Illness The patient is a 42-year-old female with advanced HIV/AIDS, uncontrolled, highly treatment experienced, [id number] HIV, COPD, chronic respiratory failure, dilated cardiomyopathy who is known to us from her previous hospitalization in February 2018. The patient presented to the emergency room on 05/19/2018 with complaints of worsening shortness of breath. The patient reports that since her discharge from February 2018, she followed up with her outpatient HIV providers, had her regimen changed to Prezista twice a day, Reyataz once a day, Descovy once a day. She still hasn't been approved for IV Trogarzo. She has remained compliant with once weekly azithromycin however intermittently compliant with her PCP prophylaxis with Bactrim taking it every other day. She had been doing well since discharge. About 3 weeks ago, her nephew had been diagnosed with the flu. She tried to stay away from him however patient then started having some fevers, cough and shortness of breath. She did well in the first week however then started to have worsening shortness of breath. She saw her statistical financial analyst outpatient and was given a prescription for doxycycline. It did not help her much and finally she called the EMS and was hospitalized. CT scan here shows a moderate to large right-sided pneumonia with bilateral pulmonary nodules. Infectious diseases was consulted. Patient was empirically started on IV levofloxacin. Here, she has been afebrile. Denies any nausea, vomiting or diarrhea. Denies any urinary burning. Does still have some cough with expectoration. Still complains of oral thrush. Review of Systems: General: fevers,chills at home HEENT: no new visual disturbance Respiratory: cough, sputum, shortness of breath + Cardiovascular: mild pleuritic Right sided chest pain, no syncope Gastrointestinal: No nausea, vomiting or diarrhea Genitourinary: No dysuria or hematuria Musculoskeletal: No new or worsening neck pain or back pain Neurologic: No headaches, seizures Hematologic: No easy bruising or bleeding Endocrine: + night sweats. no acute weight loss Skin: negative for rash, jaundice Psychiatric: No suicidal or homicidal ideation Past History Past Medical History: COPD, heart failure, HIV/AIDS, hypertension, other (cardiomyopathy) Past Surgical History: , Other Social history: lives with family, full code. denies: smoking, alcohol abuse, IV drug use Family history: hypertension Medications and Allergies Allergies Allergy/AdvReac Type Severity Reaction Status Date / Time Penicillins Allergy Swelling Verified 12/14/14 17:38 Home Medications Medication Instructions Recorded Confirmed Last Taken Type Aspirin EC [Aspirin Enteric Coated 81 mg PO QDAY #30 tablet 02/28/18 05/19/18 Unknown Rx TAB] Atazanavir [Reyataz] 300 mg PO QDAY #30 capsule 02/28/18 05/19/18 Unknown Rx Carvedilol [Coreg] 6.25 mg PO BID #60 tablet 02/28/18 05/19/18 Unknown Rx Darunavir [Prezista] 600 mg PO BID tablet 02/28/18 05/19/18 Unknown Rx Furosemide [Lasix TAB] 40 mg PO QDAY #30 tablet 02/28/18 05/19/18 Unknown Rx Ipratropium/Albuterol Sulfate 1 ampul IH Q8HR PRN #30 ampul.neb 02/28/18 05/19/18 Unknown Rx [DUONEB *Not for PRN Use*] Lisinopril [Zestril TAB] 10 mg PO QDAY #30 tablet 02/28/18 05/19/18 Unknown Rx Nystatin [Nystatin SUSP] 500,000 unit PO QID 21 Days udc 02/28/18 05/19/18 Unknown Rx Ritonavir [Norvir] 100 mg PO BID tab 02/28/18 05/19/18 Unknown Rx Doxycycline [Vibramycin] 100 mg PO Q12HR 05/19/18 05/19/18 Unknown History Emtricitabine/Tenofov Alafenam 1 each PO DAILY 05/19/18 05/19/18 Unknown History [Descovy 200-25 mg Tablet] Active Meds: Active Medications Albuterol/Ipratropium (Duoneb *Not For Prn Use*) 1 ampul IH Q8HR PRN PRN Reason: Shortness Of Breath Aspirin (Halfprin Ec) 81 mg PO QDAY [facility] Last Admin: 05/20/18 10:23 Dose: 81 mg Documented by: Atazanavir (Reyataz) 300 mg PO QDAY [facility] Last Admin: 05/20/18 10:22 Dose: 300 mg Documented by: Carvedilol (Coreg) 6.25 mg PO BID [facility] Last Admin: 05/20/18 10:21 Dose: 6.25 mg Documented by: Emtricitabine 200 mg/Tenofovir Disoproxil Fumarate 300 mg 0 mg PO QDAY [facility] Darunavir (Prezista) 600 mg PO BID [facility] Last Admin: 05/20/18 10:23 Dose: 600 mg Documented by: Enoxaparin Sodium (Lovenox) 40 mg SUB-Q QDAY@2200 [facility] Last Admin: 05/19/18 21:52 Dose: 40 mg Documented by: Fluconazole (Diflucan) 200 mg PO ONCE ONE Stop: 05/21/18 12:31 Fluconazole (Diflucan) 100 mg PO QDAY [facility] Furosemide (Lasix) 40 mg PO QDAY [facility] Last Admin: 05/20/18 10:23 Dose: 40 mg Documented by: Cefepime HCl (Maxipime/Ns 2 Gm/100 Ml) 2 gm in 100 mls @ 200 mls/hr IV Q12HR [facility]; Protocol Lisinopril (Zestril) 10 mg PO QDAY [facility] Last Admin: 05/20/18 10:22 Dose: 10 mg Documented by: Miscellaneous Medication (Emtricitabine/Tenofov Alafenam [Descovy 200-25 Mg Tablet]) 1 each PO DAILY [facility] Nystatin (Nystatin) 500,000 unit PO QID [facility] Last Admin: 05/20/18 10:21 Dose: 500,000 unit Documented by: Ritonavir (Norvir) 100 mg PO BID [facility] Physical Examination - Physical Exam Narrative exam: Physical Exam: Constitutional: Alert, cooperative. No acute distress Head, Ears, Nose: Normocephalic, atraumatic. External ears, nose normal Eyes: Conjunctivae/corneas clear. No icterus. No ptosis. Neck: Supple, no meningeal signs Oral: dentition fair, + for thrush Cardiovascular: S1, S2 normal. Respiratory: right sided crackles + GI: Soft, non-tender; bowel sounds normal. No peritoneal signs Musculoskeletal: No pedal edema, no cyanosis. Skin: No rash or abscess Hem/Lymphatic: No palpable cervical or supraclavicular nodes. No lymphangitis Psych: Mood ok. Affect normal Neurological: Awake, alert, oriented. No gross abnormality - Constitutional Vitals: Vital Signs Temp Pulse Resp BP Pulse Ox 98.5 F 92 H 18 124/66 95 05/20/18 04:53 05/20/18 10:00 05/20/18 04:53 05/20/18 04:53 05/20/18 10:00 Temperature -Last 24 Hours Temperature 98.5 F Temperature 97.4 F Temperature 97.6 F Temperature 97.8 F Results - Labs CBC & Chem 7: 05/20/18 06:18 05/20/18 08:17 Labs: Abnormal lab results 05/20/18 05/20/18 Range/Units 06:18 08:17 RBC 2.88 L (3.65-5.03) M/mm3 Hgb 8.7 L (10.1-14.3) gm/dl Hct 26.2 L (30.3-42.9) % RDW 18.8 H (13.2-15.2) % Plt Count 525 H (140-440) K/mm3 Seg Neuts % (Manual) 95.0 H (40.0-70.0) % Lymphocytes % (Manual) 3.0 L (13.4-35.0) % Seg Neutrophils # Man 8.8 H (1.8-7.7) K/mm3 Lymphocytes # (Manual) 0.3 L (1.2-5.4) K/mm3 Sodium 135 L (137-145) mmol/L Chloride 93.4 L (98-107) mmol/L BUN 32 H (7-17) mg/dL Glucose 154 H (65-100) mg/dL ALT 5 L (7-56) units/L Albumin 2.4 L (3.9-5) g/dL - Imaging and Cardiology CT scan - chest: report reviewed, image reviewed (CT chest showed new moderate to large right mid lung pneumonia with numerous bilateral pulmonary nodules also appeared new compared to a prior CT scan in February 2018.) Assessment and Plan Cultures: None this admission A/P: 42-year-old female with advanced HIV/AIDS, uncontrolled, highly treatment experienced, [id number] HIV, COPD, chronic respiratory failure, dilated cardiomyopathy who is known to us from her previous hospitalization in February 2018, admitted with: #1 Sepsis, likely secondary to severe right-sided pneumonia: Patient reportedly had a sick contact: Her nephew was diagnosed with flu. CT scan findings con cerning for a dense pneumonia. Don't see much ground glass which would be more suspicious of PCP. Patient has been taking Bactrim every other day which would be reasonably good to prevent a PCP pneumonia. We will check her for influenza, order sputum culture. Start IV cefepime and vancomycin. Also check legionella urine Ag. #2 Bilateral pulmonary nodules: Will check serum cryptococcal antigen. Also await pulmonary consult. It is possible she may need a bronchoscopy. #3 HIV/AIDS: Secondary to [id number] HIV, highly treatment experienced, previously noncompliant but lately she has been. She is on an unusual regimen with 2 protease inhibitors. Continue norvir boosted darunavir twice a day, atazanavir once a day, replace nonformulary Descovy with Truvada. Check HIV RNA PCR and CD4 count. #4 Acute on chronic respiratory failure: Stable #5 oral candidiasis: Continue nystatin and fluconazole #6 dilated cardiomyopathy: Presumed to be HIV related in etiology. #7 PCN allergy: remote per patient. She thinks she has taken Keflex in the past without issues. Recs: - HIV regimen ordered: norvir boosted darunavir twice a day, atazanavir once a day, replace nonformulary Descovy with Truvada - check her for influenza, order sputum culture. Started IV cefepime and vanc omycin. Also check legionella urine Ag. - ordered serum Crypto Ag - continue fluconazole and nystatin - ordered HIV RNA PCR and CD4 count - await pulm consult, ?may need bronch due to bilateral pulm nodules, lora if crypto Ag negative. D/W Dr. Ocasio. Harris Cottrell MD [facility] C: [phone] O: [phone] F: [phone]
--- NOTE | 2018-05-20 14:38 | Consultation ---
History of Present Illness Consult date: 05/20/18 Requesting physician: BRANDON OCASIO Reason for consult: abnormal CXR/CT History of present illness: 42 y/o female, well known to our service admitted with acute shortness of breath. Abnormal CXR led to CTA being done. CTA shows dense consolidation, almost mass like in the right mid lung. Patient intitally required continuous bipap but has since been weaned off. Per patient nephew was sick recently with Flu. Patient follows with Dr. Aquino. Last Bronch was the one that I complete back in February/Mar. CT now shows the above with pulmonary nodules. Past History Past Medical History: COPD, heart failure, HIV/AIDS, hypertension, other (cardiomyopathy) Past Surgical History: , Other Social history: lives with family, full code. denies: smoking, alcohol abuse, IV drug use Family history: hypertension Medications and Allergies Allergies Allergy/AdvReac Type Severity Reaction Status Date / Time Penicillins Allergy Swelling Verified 12/14/14 17:38 Home Medications Medication Instructions Recorded Confirmed Last Taken Type Aspirin EC [Aspirin Enteric Coated 81 mg PO QDAY #30 tablet 02/28/18 05/19/18 Unknown Rx TAB] Atazanavir [Reyataz] 300 mg PO QDAY #30 capsule 02/28/18 05/19/18 Unknown Rx Carvedilol [Coreg] 6.25 mg PO BID #60 tablet 02/28/18 05/19/18 Unknown Rx Darunavir [Prezista] 600 mg PO BID tablet 02/28/18 05/19/18 Unknown Rx Furosemide [Lasix TAB] 40 mg PO QDAY #30 tablet 02/28/18 05/19/18 Unknown Rx Ipratropium/Albuterol Sulfate 1 ampul IH Q8HR PRN #30 ampul.neb 02/28/18 05/19/18 Unknown Rx [DUONEB *Not for PRN Use*] Lisinopril [Zestril TAB] 10 mg PO QDAY #30 tablet 02/28/18 05/19/18 Unknown Rx Nystatin [Nystatin SUSP] 500,000 unit PO QID 21 Days udc 02/28/18 05/19/18 Unknown Rx Ritonavir [Norvir] 100 mg PO BID tab 02/28/18 05/19/18 Unknown Rx Doxycycline [Vibramycin] 100 mg PO Q12HR 05/19/18 05/19/18 Unknown History Emtricitabine/Tenofov Alafenam 1 each PO DAILY 05/19/18 05/19/18 Unknown History [Descovy 200-25 mg Tablet] Active Meds: Active Medications Albuterol/Ipratropium (Duoneb *Not For Prn Use*) 1 ampul IH Q8HR PRN PRN Reason: Shortness Of Breath Aspirin (Halfprin Ec) 81 mg PO QDAY [facility] Last Admin: 05/20/18 10:23 Dose: 81 mg Documented by: Atazanavir (Reyataz) 300 mg PO QDAY [facility] Last Admin: 05/20/18 10:22 Dose: 300 mg Documented by: Carvedilol (Coreg) 6.25 mg PO BID [facility] Last Admin: 05/20/18 10:21 Dose: 6.25 mg Documented by: Emtricitabine 200 mg/Tenofovir Disoproxil Fumarate 300 mg 0 mg PO QDAY [facility] Darunavir (Prezista) 600 mg PO BID [facility] Last Admin: 05/20/18 10:23 Dose: 600 mg Documented by: Enoxaparin Sodium (Lovenox) 40 mg SUB-Q QDAY@2200 [facility] Last Admin: 05/19/18 21:52 Dose: 40 mg Documented by: Fluconazole (Diflucan) 200 mg PO ONCE ONE Stop: 05/21/18 12:31 Fluconazole (Diflucan) 100 mg PO QDAY [facility] Furosemide (Lasix) 40 mg PO QDAY [facility] Last Admin: 05/20/18 10:23 Dose: 40 mg Documented by: Cefepime HCl (Maxipime/Ns 2 Gm/100 Ml) 2 gm in 100 mls @ 200 mls/hr IV Q12HR [facility]; Protocol Vancomycin HCl 2,000 mg/ (Sodium Chloride) 540 mls @ 250 mls/hr IV ONCE ONE Stop: 05/20/18 17:09 Lisinopril (Zestril) 10 mg PO QDAY [facility] Last Admin: 05/20/18 10:22 Dose: 10 mg Documented by: Miscellaneous Medication (Emtricitabine/Tenofov Alafenam [Descovy 200-25 Mg Tablet]) 1 each PO DAILY [facility] Nystatin (Nystatin) 500,000 unit PO QID [facility] Last Admin: 05/20/18 10:21 Dose: 500,000 unit Documented by: Ritonavir (Norvir) 100 mg PO BID [facility] Physical Examination Vital signs: Vital Signs Temp Pulse Resp BP Pulse Ox 97.1 F L 137 H 40 H 140/60 97 05/19/18 06:56 05/19/18 06:56 05/19/18 06:56 05/19/18 06:56 05/19/18 06:56 General appearance: no acute distress, alert Eyes: non-icteric Neck: supple Ascultation: Bilateral: diminished breath sounds Percussion: Bilateral: not dull Tactile fremitus: Bilateral: normal Gastrointestinal: normoactive bowel sounds, soft, non-tender Results - Laboratory Findings CBC and BMP: 05/20/18 06:18 05/20/18 08:17 ABG POC ABG pH 7.480 (7.35-7.45) H 05/19/18 07:36 POC ABG pCO2 39.9 (35-45) 05/19/18 07:36 POC ABG pO2 69 (80-105) L 05/19/18 07:36 POC ABG HCO3 29.7 05/19/18 07:36 POC ABG Total CO2 31 05/19/18 07:36 POC ABG O2 Sat 95 05/19/18 07:36 PT/INR, D-dimer D-Dimer 1206.90 ng/mlDDU (0-234) H 05/19/18 07:40 Abnormal lab findings: Abnormal Labs 05/19/18 05/19/18 05/19/18 07:31 07:36 07:40 WBC 14.8 H RBC 3.20 L Hgb 9.6 L Hct 29.0 L RDW 18.7 H Plt Count 597 H Seg Neuts % (Manual) Lymphocytes % (Manual) 0 L Seg Neutrophils # Man Lymphocytes # (Manual) 0.0 L D-Dimer 1206.90 H POC ABG pH 7.480 H POC ABG pO2 69 L Sodium Potassium Chloride BUN Glucose Lactic Acid ALT Total Creatine Kinase CK-MB (CK-2) Rel Index NT-Pro-B Natriuret Pep Albumin 05/19/18 05/19/18 05/19/18 07:40 07:40 07:40 WBC RBC Hgb Hct RDW Plt Count Seg Neuts % (Manual) Lymphocytes % (Manual) Seg Neutrophils # Man Lymphocytes # (Manual) D-Dimer POC ABG pH POC ABG pO2 Sodium 136 L Potassium 3.4 L Chloride 93.0 L BUN 32 H Glucose 153 H Lactic Acid 2.10 H* ALT 6 L Total Creatine Kinase 24 L CK-MB (CK-2) Rel Index 4.1 H NT-Pro-B Natriuret Pep Albumin 2.5 L 05/19/18 05/19/18 05/20/18 07:40 09:16 06:18 WBC RBC 2.88 L Hgb 8.7 L Hct 26.2 L RDW 18.8 H Plt Count 525 H Seg Neuts % (Manual) 95.0 H Lymphocytes % (Manual) 3.0 L Seg Neutrophils # Man 8.8 H Lymphocytes # (Manual) 0.3 L D-Dimer POC ABG pH POC ABG pO2 Sodium Potassium Chloride BUN Glucose Lactic Acid 2.10 H* ALT Total Creatine Kinase CK-MB (CK-2) Rel Index NT-Pro-B Natriuret Pep 1473 H Albumin 05/20/18 08:17 WBC RBC Hgb Hct RDW Plt Count Seg Neuts % (Manual) Lymphocytes % (Manual) Seg Neutrophils # Man Lymphocytes # (Manual) D-Dimer POC ABG pH POC ABG pO2 Sodium 135 L Potassium Chloride 93.4 L BUN 32 H Glucose 154 H Lactic Acid ALT 5 L Total Creatine Kinase CK-MB (CK-2) Rel Index NT-Pro-B Natriuret Pep Albumin 2.4 L - Diagnostic Findings CT scan - chest: image reviewed Assessment and Plan 42 y/o female with acute on chronic respiratory failure. 1. Will attempt to bronch tomorrow. May consider biopsy but will check coags first 2. Supplemental O2 3. Follow ID recs.
[2018-05-20] MEDS ORDERED: VANCOMYCIN 2,000 MG in NACL 0.9% 500 ML 500 ML IV ONE (15:00)
[2018-05-20 16:10] LABS: INR 1.11 (0.87-1.13)
[2018-05-20 16:11] LABS: Partial Thromboplastin Time 38.5 Sec. (24.2-36.6)
[2018-05-20] MEDS: MAXIPIME/NS 2 GM/100 ML 2 GM/100 ML BAG IV SCH ×2 (17:31→22:27)
[2018-05-20] MEDS: VIREAD PO SCH (18:36)
[2018-05-20] MEDS: NORVIR PO SCH ×2 (18:36→22:28)
[2018-05-20] MEDS: EMTRIVA PO SCH (18:36)
[2018-05-20] MEDS: LOVENOX SUB-Q SCH (22:31)
[2018-05-20] MEDS ORDERED: DILAUDID IM PRN (22:42)
[2018-05-21] MEDS: VANCOMYCIN 1,250 MG in NACL 0.9% 250ML 250 ML IV SCH ×2 (05:14→19:06)
[2018-05-21] MEDS: MAXIPIME/NS 2 GM/100 ML 2 GM/100 ML BAG IV SCH ×2 (09:42→22:53)
[2018-05-21] MEDS ORDERED: KETALAR ONE (10:17)
[2018-05-21] MEDS ORDERED: DIPRIVAN 10 MG/ML IV ONE (10:19)
[2018-05-21] MEDS ORDERED: VERSED ONE (10:23)
[2018-05-21] MEDS ORDERED: PROAIR IH ONE (10:25)
--- NOTE | 2018-05-21 10:28 | Anesthesia Day of Surgery ---
Anesthesia Day of Surgery - Day of Surgery Patient Examined: Yes Patient H&P Reviewed: Yes Patient is NPO: Yes Beta Blockers: Yes
--- NOTE | 2018-05-21 10:28 | Anesthesia Consultation ---
Anesthesia Consult and Med Hx Date of service: 05/21/18 - Airway Anesthetic Teeth Evaluation: Poor (denies loose theeth) ROM Head & Neck: Adequate Mental/Hyoid Distance: Adequate Mallampati Class: Class II Intubation Access Assessment: Probably Good - Pulmonary Exam CTA: No - Cardiac Exam Cardiac Exam: RRR - Pre-Operative Health Status ASA Pre-Surgery Classification: ASA4 Proposed Anesthetic Plan: MAC - Pulmonary Hx Smoking: Yes Hx Asthma: Yes Hx Respiratory Symptoms: Yes (productive cough) SOB: Yes (on admission; possibly 2/2 pulmonary consolidation) COPD: Yes Hx Sleep Apnea: Yes - Cardiovascular System Hx Hypertension: Yes Hx Pacemaker: No Hx Internal Defibrillator: No - Central Nervous System Hx Seizures: No CVA: No - Endocrine Hx Renal Disease: No Hx Liver Disease: No Hx Insulin Dependent Diabetes: No Hx Non-Insulin Dependent Diabetes: No - Hematic Hx Anemia: Yes - Additional Comments Anesthesia Medical History Comments: Hx HIV, CHF EF 15-20% with moderate pulmonary hypertension, COPD, recent flu exposure and dyspnea with pulmonary consolidation and nodules on imaging scheduled for bronchoscopy. Has had multiple bronchs in the past and denies hx anesthetic complications.
[2018-05-21] MEDS ORDERED: XYLOCAINE 1% 20 mL ONE (10:36)
[2018-05-21] MEDS ORDERED: LIDOCAINE VISCOUS 2% ONE (10:36)
[2018-05-21] MEDS ORDERED: HURRICAINE ONE 20% TOPICAL SPRAY MM (10:36)
[2018-05-21] MEDS ORDERED: NACL 0.9% 1000 ML 1,000 ML IV SCH (11:00)
[2018-05-21] MEDS ORDERED: WATER FOR IRRIG STERILE IR ONE (11:02)
--- NOTE | 2018-05-21 11:31 | Procedure Note ---
Date of procedure: 05/21/18 Pre-op diagnosis: Pneumonia Post-op diagnosis: same Procedure: Flexible Bronchoscopy After obtaining informed consent, transitioned to Endo. Prepped and right nare most patent. Once adequate sedation achieved, scoped passed without difficulty. Lidocaine used on vocal cords, trachea and right and left main stem. Thick copious secretions seen immediately in trachea and right mainstem. Trap applied and samples taken from right middle lobe. Attempted to clean out right lung as best as possible. Samples taken and sent for cytology with special stains for PCP and CMV. Fungal and AFB cultures sent as well as respiratory culture. Anesthesia: MAC Surgeon: ADELE MARTINEZ Estimated blood loss: none Specimen disposition: to lab Condition: stable Disposition: floor
[2018-05-21] MEDS ORDERED: DIFLUCAN PO ONE (12:30)
--- NOTE | 2018-05-21 13:44 | Progress Note ---
Assessment and Plan 42 y/o female with acute on chronic respiratory failure. 1. Follow up bronch results. Washing sent for cytology with special stains for PCP and CMV. Also respiratory cultures, AFB and FUngal cultures as well as gram stain. 2. Stop isolation as flu is negative 3. Will continue to follow. Subjective Date of service: 05/21/18 Interval history: Tolerated bronch well with no complications. Thick copious secretions seen on the right and sample taken from right middle lobe. No biopsies Objective Vital Signs - 12hr 05/21/18 05/21/18 05/21/18 01:54 05:59 10:10 Temperature 97.5 F L 98.3 F Pulse Rate 77 59 L 66 Respiratory 20 18 66 H Rate Blood Pressure 127/74 139/78 O2 Sat by Pulse 100 100 98 Oximetry 05/21/18 05/21/18 05/21/18 11:16 11:31 11:46 Temperature 97.5 F L Pulse Rate 96 H 104 H 99 H Respiratory 22 14 19 Rate Blood Pressure 121/67 114/92 119/77 O2 Sat by Pulse 100 99 100 Oximetry 05/21/18 05/21/18 12:07 12:09 Temperature 98.3 F 98.3 F Pulse Rate 66 66 Respiratory 20 20 Rate Blood Pressure 139/78 139/78 O2 Sat by Pulse 98 98 Oximetry Constitutional: no acute distress, alert Eyes: non-icteric Neck: supple Ascultation: Bilateral: diminished breath sounds Percussion: Bilateral: not dull Tactile fremitus: Bilateral: normal Gastrointestinal: normoactive bowel sounds, soft, non-tender CBC and BMP: 05/20/18 06:18 05/20/18 08:17 ABG, PT/INR, D-dimer: ABG POC ABG pH 7.480 (7.35-7.45) H 05/19/18 07:36 POC ABG pCO2 39.9 (35-45) 05/19/18 07:36 POC ABG pO2 69 (80-105) L 05/19/18 07:36 POC ABG HCO3 29.7 05/19/18 07:36 POC ABG Total CO2 31 05/19/18 07:36 POC ABG O2 Sat 95 05/19/18 07:36 PT/INR, D-dimer PT 14.7 Sec. (12.2-14.9) 05/20/18 15:22 INR 1.11 (0.87-1.13) 05/20/18 15:22 D-Dimer 1206.90 ng/mlDDU (0-234) H 05/19/18 07:40 Abnormal lab findings: Abnormal Labs 05/19/18 05/19/18 05/19/18 07:31 07:36 07:40 WBC 14.8 H RBC 3.20 L Hgb 9.6 L Hct 29.0 L RDW 18.7 H Plt Count 597 H Seg Neuts % (Manual) Lymphocytes % (Manual) 0 L Seg Neutrophils # Man Lymphocytes # (Manual) 0.0 L APTT D-Dimer 1206.90 H POC ABG pH 7.480 H POC ABG pO2 69 L Sodium Potassium Chloride BUN Glucose Lactic Acid ALT Total Creatine Kinase CK-MB (CK-2) Rel Index NT-Pro-B Natriuret Pep Albumin 05/19/18 05/19/18 05/19/18 07:40 07:40 07:40 WBC RBC Hgb Hct RDW Plt Count Seg Neuts % (Manual) Lymphocytes % (Manual) Seg Neutrophils # Man Lymphocytes # (Manual) APTT D-Dimer POC ABG pH POC ABG pO2 Sodium 136 L Potassium 3.4 L Chloride 93.0 L BUN 32 H Glucose 153 H Lactic Acid 2.10 H* ALT 6 L Total Creatine Kinase 24 L CK-MB (CK-2) Rel Index 4.1 H NT-Pro-B Natriuret Pep Albumin 2.5 L 05/19/18 05/19/18 05/20/18 07:40 09:16 06:18 WBC RBC 2.88 L Hgb 8.7 L Hct 26.2 L RDW 18.8 H Plt Count 525 H Seg Neuts % (Manual) 95.0 H Lymphocytes % (Manual) 3.0 L Seg Neutrophils # Man 8.8 H Lymphocytes # (Manual) 0.3 L APTT D-Dimer POC ABG pH POC ABG pO2 Sodium Potassium Chloride BUN Glucose Lactic Acid 2.10 H* ALT Total Creatine Kinase CK-MB (CK-2) Rel Index NT-Pro-B Natriuret Pep 1473 H Albumin 05/20/18 05/20/18 08:17 15:22 WBC RBC Hgb Hct RDW Plt Count Seg Neuts % (Manual) Lymphocytes % (Manual) Seg Neutrophils # Man Lymphocytes # (Manual) APTT 38.5 H D-Dimer POC ABG pH POC ABG pO2 Sodium 135 L Potassium Chloride 93.4 L BUN 32 H Glucose 154 H Lactic Acid ALT 5 L Total Creatine Kinase CK-MB (CK-2) Rel Index NT-Pro-B Natriuret Pep Albumin 2.4 L
--- NOTE | 2018-05-21 15:55 | Progress Note ---
Assessment and Plan Cultures: Influenza PCR negative Sputum culture in process BAL culture in process Serum crypto Ag negative A/P: 42-year-old female with advanced HIV/AIDS, uncontrolled, highly treatment experienced, [id number] HIV, COPD, chronic respiratory failure, dilated cardiomyopathy who is known to us from her previous hospitalization in February 2018, admitted with: #1 Sepsis, likely secondary to severe right-sided pneumonia: Patient reportedly had a sick contact: Her nephew was diagnosed with flu. CT scan findings concerning for a dense pneumonia. Don't see much ground glass which would be more suspicious of PCP. Patient has been taking Bactrim every other day which would be reasonably good to prevent a PCP pneumonia. Continue IV cefepime and vancomycin. F/U legionella urine Ag. Influenza PCR negative. #2 Bilateral pulmonary nodules: serum cryptococcal antigen negative. s/p bronchoscopy. Pulm following. D/W Dr. Landa. #3 HIV/AIDS: Secondary to [id number] HIV, highly treatment experie nced, previously noncompliant but lately she has been compliant. She is on an unusual regimen with 2 protease inhibitors (but that apparently is per some discussions with a physician at [facility]). Continue norvir boosted darunavir twice a day, atazanavir once a day, replace nonformulary Descovy with Truvada. F/U HIV RNA PCR and CD4 count. #4 Acute on chronic respiratory failure: Stable #5 oral candidiasis: Continue nystatin and fluconazole #6 Dilated cardiomyopathy: Presumed to be HIV related in etiology. #7 PCN allergy: remote per patient. She thinks she has taken Keflex in the past without issues. Recs: - continue HIV regimen: norvir boosted darunavir twice a day, atazanavir once a day, replaced nonformulary Descovy with Truvada - Continue IV cefepime and vancomycin. - f/u legionella urine Ag. - continue fluconazole and nystatin - f/u HIV RNA PCR and CD4 count - appreciate pulm recs, may need a repeat CT scan on outpatient follow up - continue Bactrim prophylaxis D/W MD [facility] C: [phone] O: [phone] F: [phone] Subjective Date of service: 05/21/18 Interval history: Feeling better today. Had bronch with extensive secretions suctioned. Slight cough still present along with SOB. No fever. Objective - Exam Narrative Exam: Physical Exam: Constitutional: Alert, cooperative. No acute distress. Head, Ears, Nose: Normocephalic, atraumatic. External ears, nose normal Eyes: Conjunctivae/corneas clear. No icterus. No ptosis. Neck: Supple, no meningeal signs Oral: dentition fair, + for thrush Cardiovascular: S1, S2 normal. Respiratory: bilateral basal crackles + GI: Soft, non-tender; bowel sounds normal. No peritoneal signs. Musculoskeletal: No pedal edema, no cyanosis. Skin: No rash or abscess. Hem/Lymphatic: No palpable cervical or supraclavicular nodes. No lymphangitis Psych: Mood ok. Affect normal. Neurological: Awake, alert, oriented. No gross abnormality - Constitutional Vitals: Vital Signs Temp Pulse Resp BP Pulse Ox 98.3 F 66 20 139/78 98 05/21/18 12:09 05/21/18 12:09 05/21/18 12:09 05/21/18 12:09 05/21/18 12:09 Temperature -Last 24 Hours Temperature 98.3 F Temperature 98.3 F Temperature 97.5 F Temperature 98.3 F Temperature 97.5 F Temperature 98.3 F Temperature 97.6 F - Labs CBC & Chem 7: 05/20/18 06:18 05/20/18 08:17 Labs: Abnormal lab results 05/20/18 Range/Units 15:22 APTT 38.5 H (24.2-36.6) Sec.
[2018-05-21] MEDS: COREG PO SCH ×2 (16:55→23:05)
[2018-05-21] MEDS: LASIX PO SCH (16:55)
[2018-05-21] MEDS: DIFLUCAN PO SCH (16:56)
[2018-05-21] MEDS: HALFPRIN EC PO SCH (16:57)
[2018-05-21] MEDS: EMTRIVA PO SCH (16:57)
[2018-05-21] MEDS: NYSTATIN PO SCH ×4 (16:58→22:52)
[2018-05-21] MEDS: NORVIR PO SCH ×2 (16:58→22:53)
[2018-05-21] MEDS: REYATAZ PO SCH (17:00)
[2018-05-21] MEDS: PREZISTA PO SCH ×2 (17:00→22:53)
[2018-05-21] MEDS: VIREAD PO SCH (17:01)
[2018-05-21] MEDS: ZESTRIL PO SCH (17:01)
[2018-05-21] MEDS: BACTRIM DS PO SCH (17:09)
--- NOTE | 2018-05-21 17:41 | Progress Note ---
Assessment and Plan Assessment and plan: --Acute on chronic hypoxic respiratory failure; requiring BiPAP Secondary to pneumonia underlying lung disease, oxygen titrate O2 sats to 90% Nebulizers, IV antibiotics, IV steroids, BiPAP as needed Pulmonary following S/P bronchoscopy; copious secretions in trachea and right mainstem Attempted to clean right lung, samples taken for histopathology Stains for PCP CMV and fungal and AFB respiratory cultures sent. --HIV AIDS; Resume home antiretroviral medications Supportive care, ID evaluation --Sepsis secondary to pneumonia; Continue current management, antibiotics following cultures ID evaluation noted and appreciated, antibiotics adjusted --Cardiomyopathy severe; EF 15%, continue anti-failure medications Cardiology evaluation if needed --Leukocytosis ; due to sepsis --Lactic acidosis; due to underlying disease process --Oral thrush; Diflucan, nystatin swish and swallow --Hypokalemia; replace per protocol and monitor --Severe malnutrition hypoalbuminemia; nutrition supplements and supportive care --DVT prophylaxis; Lovenox Consults and recommendations noted and appreciated Monitor the patient and adjust management as needed DC planning but case management History Interval history: Patient seen and examined medical records reviewed Patient feels better no new complaints Underwent bronchoscopy today Alert awake oriented 3 Not in acute distress Hospitalist Physical - Constitutional Vitals: Temp Pulse Resp BP Pulse Ox 98.3 F 101 H 20 125/75 98 05/21/18 12:09 05/21/18 17:01 05/21/18 12:09 05/21/18 17:01 05/21/18 12:09 General appearance: Present: no acute distress, well-nourished - EENT Eyes: Present: PERRL, EOM intact - Neck Neck: Present: supple, normal ROM - Respiratory Respiratory effort: normal Respiratory: bilateral: diminished, rhonchi, negative: rales, wheezing - Cardiovascular Rhythm: regular Heart Sounds: Present: S1 & S2 - Extremities Extremities: no ischemia, No edema - Abdominal General gastrointestinal: soft, non-tender, non-distended, normal bowel sounds - Integumentary Integumentary: Present: clear, warm - Psychiatric Psychiatric: appropriate mood/affect, cooperative - Neurologic Neurologic: CNII-XII intact, moves all extremities Results - Labs CBC & Chem 7: 05/20/18 06:18 05/20/18 08:17 Labs: Laboratory Last Values WBC 9.3 K/mm3 (4.5-11.0) 05/20/18 06:18 RBC 2.88 M/mm3 (3.65-5.03) L 05/20/18 06:18 Hgb 8.7 gm/dl (10.1-14.3) L 05/20/18 06:18 Hct 26.2 % (30.3-42.9) L 05/20/18 06:18 MCV 91 fl (79-97) 05/20/18 06:18 MCH 30 pg (28-32) 05/20/18 06:18 MCHC 33 % (30-34) 05/20/18 06:18 RDW 18.8 % (13.2-15.2) H 05/20/18 06:18 Plt Count 525 K/mm3 (140-440) H 05/20/18 06:18 Add Manual Diff Complete 05/20/18 06:18 Total Counted 100 05/20/18 06:18 Seg Neutrophils % Technical Operator 05/20/18 06:18 Seg Neuts % (Manual) 95.0 % (40.0-70.0) H 05/20/18 06:18 Band Neutrophils % 0 % 05/20/18 06:18 Lymphocytes % (Manual) 3.0 % (13.4-35.0) L 05/20/18 06:18 Reactive Lymphs % (Man) 0 % 05/20/18 06:18 Monocytes % (Manual) 2.0 % (0.0-7.3) 05/20/18 06:18 Eosinophils % (Manual) 0 % (0.0-4.3) 05/20/18 06:18 Basophils % (Manual) 0 % (0.0-1.8) 05/20/18 06:18 Metamyelocytes % 0 % 05/20/18 06:18 Myelocytes % 0 % 05/20/18 06:18 Promyelocytes % 0 % 05/20/18 06:18 Blast Cells % 0 % 05/20/18 06:18 Nucleated RBC % Not Reportable 05/20/18 06:18 Seg Neutrophils # Man 8.8 K/mm3 (1.8-7.7) H 05/20/18 06:18 Band Neutrophils # 0.0 K/mm3 05/20/18 06:18 Lymphocytes # (Manual) 0.3 K/mm3 (1.2-5.4) L 05/20/18 06:18 Abs React Lymphs (Man) 0.0 K/mm3 05/20/18 06:18 Monocytes # (Manual) 0.2 K/mm3 (0.0-0.8) 05/20/18 06:18 Eosinophils # (Manual) 0.0 K/mm3 (0.0-0.4) 05/20/18 06:18 Basophils # (Manual) 0.0 K/mm3 (0.0-0.1) 05/20/18 06:18 Metamyelocytes # 0.0 K/mm3 05/20/18 06:18 Myelocytes # 0.0 K/mm3 05/20/18 06:18 Promyelocytes # 0.0 K/mm3 05/20/18 06:18 Blast Cells # 0.0 K/mm3 05/20/18 06:18 WBC Morphology Not Reportable 05/20/18 06:18 Hypersegmented Neuts Not Reportable 05/20/18 06:18 Hyposegmented Neuts Not Reportable 05/20/18 06:18 Hypogranular Neuts Not Reportable 05/20/18 06:18 Smudge Cells Not Reportable 05/20/18 06:18 Toxic Granulation Not Reportable 05/20/18 06:18 Toxic Vacuolation Not Reportable 05/20/18 06:18 Dohle Bodies Not Reportable 05/20/18 06:18 Pelger-Huet Anomaly Not Reportable 05/20/18 06:18 Kj Rods Not Reportable 05/20/18 06:18 Platelet Estimate Consistent w auto 05/20/18 06:18 Clumped Platelets Not Reportable 05/20/18 06:18 Plt Clumps, EDTA Not Reportable 05/20/18 06:18 Large Platelets Not Reportable 05/20/18 06:18 Giant Platelets Not Reportable 05/20/18 06:18 Platelet Satelliting Not Reportable 05/20/18 06:18 Plt Morphology Comment Not Reportable 05/20/18 06:18 RBC Morphology Not Reportable 05/20/18 06:18 Dimorphic RBCs Not Reportable 05/20/18 06:18 Polychromasia 1+ 05/20/18 06:18 Hypochromasia Not Reportable 05/20/18 06:18 Poikilocytosis Not Reportable 05/20/18 06:18 Anisocytosis 1+ 05/20/18 06:18 Microcytosis Not Reportable 05/20/18 06:18 Macrocytosis Not Reportable 05/20/18 06:18 Spherocytes Not Reportable 05/20/18 06:18 Pappenheimer Bodies Not Reportable 05/20/18 06:18 Sickle Cells Not Reportable 05/20/18 06:18 Target Cells Few 05/20/18 06:18 Tear Drop Cells Not Reportable 05/20/18 06:18 Ovalocytes Few 05/20/18 06:18 Helmet Cells Not Reportable 05/20/18 06:18 [place] Bodies Not Reportable 05/20/18 06:18 [place] Rings Not Reportable 05/20/18 06:18 [place] Cells Not Reportable 05/20/18 06:18 Bite Cells Not Reportable 05/20/18 06:18 Crenated Cell Not Reportable 05/20/18 06:18 Elliptocytes Not Reportable 05/20/18 06:18 Acanthocytes (Spur) Not Reportable 05/20/18 06:18 Rouleaux Not Reportable 05/20/18 06:18 Hemoglobin C Crystals Not Reportable 05/20/18 06:18 Schistocytes Not Reportable 05/20/18 06:18 Malaria parasites Not Reportable 05/20/18 06:18 Ham Bodies Not Reportable 05/20/18 06:18 Hem Pathologist Commnt No 05/20/18 06:18 PT 14.7 Sec. (12.2-14.9) 05/20/18 15:22 INR 1.11 (0.87-1.13) 05/20/18 15:22 APTT 38.5 Sec. (24.2-36.6) H 05/20/18 15:22 D-Dimer 1206.90 ng/mlDDU (0-234) H 05/19/18 07:40 POC ABG pH 7.480 (7.35-7.45) H 05/19/18 07:36 POC ABG pCO2 39.9 (35-45) 05/19/18 07:36 POC ABG pO2 69 (80-105) L 05/19/18 07:36 POC ABG HCO3 29.7 05/19/18 07:36 POC ABG Total CO2 31 05/19/18 07:36 POC ABG O2 Sat 95 05/19/18 07:36 POC ABG Base Excess 6 05/19/18 07:36 FiO2 50 % 05/19/18 07:36 Sodium 135 mmol/L (137-145) L 05/20/18 08:17 Potassium 4.2 mmol/L (3.6-5.0) D 05/20/18 08:17 Chloride 93.4 mmol/L (98-107) L 05/20/18 08:17 Carbon Dioxide 28 mmol/L (22-30) 05/20/18 08:17 Anion Gap 18 mmol/L 05/20/18 08:17 BUN 32 mg/dL (7-17) H 05/20/18 08:17 Creatinine 0.9 mg/dL (0.7-1.2) 05/20/18 08:17 Estimated GFR > 60 ml/min 05/20/18 08:17 BUN/Creatinine Ratio 36 % 05/20/18 08:17 Glucose 154 mg/dL (65-100) H 05/20/18 08:17 Lactic Acid 2.10 mmol/L (0.7-2.0) H* 05/19/18 09:16 Calcium 9.6 mg/dL (8.4-10.2) 05/20/18 08:17 Phosphorus 4.50 mg/dL (2.5-4.5) 05/20/18 08:17 Magnesium 2.10 mg/dL (1.7-2.3) 05/20/18 08:17 Total Bilirubin 0.20 mg/dL (0.1-1.2) 05/20/18 08:17 AST 14 units/L (5-40) 05/20/18 08:17 ALT 5 units/L (7-56) L 05/20/18 08:17 Alkaline Phosphatase 90 units/L (35-129) 05/20/18 08:17 Total Creatine Kinase 24 units/L (30-135) L 05/19/18 07:40 CK-MB (CK-2) < 1.0 ng/mL (0.0-4.0) 05/19/18 07:40 CK-MB (CK-2) Rel Index 4.1 (0-4) H 05/19/18 07:40 Troponin T < 0.010 ng/mL (0.00-0.029) 05/19/18 07:40 NT-Pro-B Natriuret Pep 1473 pg/mL (0-450) H 05/19/18 07:40 Total Protein 7.1 g/dL (6.3-8.2) 05/20/18 08:17 Albumin 2.4 g/dL (3.9-5) L 05/20/18 08:17 Albumin/Globulin Ratio 0.5 % 05/20/18 08:17 Influenza A (Rapid) Negative (Negative) 05/20/18 17:30 Influenza A (RT-PCR) Negative (Negative) 05/20/18 Unknown Influenza B (Rapid) Negative (Negative) 05/20/18 17:30 Influenza B (RT-PCR) Negative (Negative) 05/20/18 Unknown
[2018-05-21] MEDS: DILAUDID IV PRN ×2 (18:13→22:53)
--- NOTE | 2018-05-21 18:50 | Post Anesthesia Evaluation ---
- Post Anesthesia Evaluation Patient Participated: Yes Airway Patent: Yes Stable Respiratory Function: Yes Nausea/Vomiting: No Temp > 96.8F: Yes Pain Manageable: Yes Adequeate Hydration: Yes Anesthesia Complications: No
[2018-05-21 21:43] LABS: HIV-1 RNA QN PCR 5.16 Log cps/mL
[2018-05-21] MEDS: LOVENOX SUB-Q SCH (22:52)
[2018-05-22] MEDS: DILAUDID IV PRN ×4 (02:57→20:13)
[2018-05-22] MEDS: VANCOMYCIN 1,250 MG in NACL 0.9% 250ML 250 ML IV SCH ×2 (05:28→18:20)
[2018-05-22 08:01] LABS: BUN/Creatinine Ratio 28; Blood Urea Nitrogen 22 mg/dL (7-17); Calcium 8.5 mg/dL (8.4-10.2); Hemolysis Index 0
[2018-05-22 08:28] LABS: Hematocrit 25.7 % (30.3-42.9); Hemoglobin 8.6 gm/dl (10.1-14.3); Mean Corpuscular HGB Conc 34 % (30-34); Mean Corpuscular Volume 91 fl (79-97); Platelet Count 503 K/mm3 (140-440); Red Blood Count 2.81 M/mm3 (3.65-5.03)
[2018-05-22] MEDS: NYSTATIN PO SCH ×4 (09:57→21:55)
[2018-05-22] MEDS: BACTRIM DS PO SCH (09:57)
[2018-05-22] MEDS: LASIX PO SCH (09:59)
[2018-05-22] MEDS: COREG PO SCH ×2 (09:59→21:55)
[2018-05-22] MEDS: HALFPRIN EC PO SCH (10:00)
[2018-05-22] MEDS: EMTRIVA PO SCH (10:00)
[2018-05-22] MEDS: PREZISTA PO SCH ×2 (10:01→21:55)
[2018-05-22] MEDS: REYATAZ PO SCH (10:01)
[2018-05-22] MEDS: VIREAD PO SCH (10:04)
[2018-05-22] MEDS: NORVIR PO SCH ×2 (10:06→21:58)
[2018-05-22] MEDS: ZESTRIL PO SCH (10:06)
[2018-05-22] MEDS: DIFLUCAN PO SCH (10:10)
[2018-05-22] MEDS: MAXIPIME/NS 2 GM/100 ML 2 GM/100 ML BAG IV SCH ×2 (10:11→21:54)
[2018-05-22 11:10] LABS: Basophils % (Manual) 0 % (0.0-1.8); Eosinophils % (Manual) 0 % (0.0-4.3); Myelocytes # (Manual) 0.1 K/mm3; Total Cells Counted 100
[2018-05-22 11:11] LABS: Hypochromasia Few; Platelet Estimate Consistent w Auto; Stomatocytes Few
--- NOTE | 2018-05-22 11:43 | Progress Note ---
Assessment and Plan Assessment and plan: --Sepsis secondary to pneumonia;CAP Continue vancomycin and cefepime,follow cultures ID evaluation noted and appreciated, --Acute on chronic hypoxic respiratory failure; requiring BiPAP Secondary to pneumonia underlying lung disease, symptoms significantly improved S/P bronchoscopy; copious secretions in trachea and right mainstem Attempted to clean right lung, samples taken for histopathology Stains for PCP CMV and fungal and AFB respiratory cultures sent. --HIV AIDS; Resume home antiretroviral medications Supportive care, ID following, viral load 144,000s --Cardiomyopathy severe; EF 15%, continue anti-failure medications --Leukocytosis ; due to sepsis --Lactic acidosis; due to underlying disease process --Oral thrush; Diflucan, nystatin swish and swallow --Hypokalemia; corrected --Severe malnutrition hypoalbuminemia; nutrition supplements and supportive care --DVT prophylaxis; Lovenox Consults and recommendations noted and appreciated Continue current management Possible discharge in 2-3 days if stable History Interval history: Patient Seen and examined medical records reviewed No new events reported by the nursing staff Patient underwent bronchoscopy yesterday Denies any chest pain or shortness of breath Vital signs reviewed Hospitalist Physical - Constitutional Vitals: Temp Pulse Resp BP Pulse Ox 98.4 F 91 H 18 111/71 95 05/22/18 05:33 05/22/18 09:59 05/22/18 05:33 05/22/18 10:06 05/22/18 09:25 General appearance: Present: no acute distress, well-nourished - EENT Eyes: Present: PERRL, EOM intact - Neck Neck: Present: supple, normal ROM - Respiratory Respiratory effort: normal Respiratory: bilateral: diminished, rhonchi, negative: rales, wheezing - Cardiovascular Rhythm: regular Heart Sounds: Present: S1 & S2 - Extremities Extremities: no ischemia, No edema - Abdominal General gastrointestinal: soft, non-tender, non-distended, normal bowel sounds - Integumentary Integumentary: Present: clear, warm - Psychiatric Psychiatric: appropriate mood/affect, cooperative - Neurologic Neurologic: CNII-XII intact, moves all extremities Results - Labs CBC & Chem 7: 05/22/18 07:25 05/22/18 07:25 Labs: Laboratory Last Values WBC 8.3 K/mm3 (4.5-11.0) 05/22/18 07:25 RBC 2.81 M/mm3 (3.65-5.03) L 05/22/18 07:25 Hgb 8.6 gm/dl (10.1-14.3) L 05/22/18 07:25 Hct 25.7 % (30.3-42.9) L 05/22/18 07:25 MCV 91 fl (79-97) 05/22/18 07:25 MCH 31 pg (28-32) 05/22/18 07:25 MCHC 34 % (30-34) 05/22/18 07:25 RDW 19.0 % (13.2-15.2) H 05/22/18 07:25 Plt Count 503 K/mm3 (140-440) H 05/22/18 07:25 Add Manual Diff Complete 05/22/18 07:25 Total Counted 100 05/22/18 07:25 Seg Neutrophils % Sales Support Engineer 05/22/18 07:25 Seg Neuts % (Manual) 89.0 % (40.0-70.0) H 05/22/18 07:25 Band Neutrophils % 0 % 05/22/18 07:25 Lymphocytes % (Manual) 2.0 % (13.4-35.0) L 05/22/18 07:25 Reactive Lymphs % (Man) 0 % 05/22/18 07:25 Monocytes % (Manual) 6.0 % (0.0-7.3) 05/22/18 07:25 Eosinophils % (Manual) 0 % (0.0-4.3) 05/22/18 07:25 Basophils % (Manual) 0 % (0.0-1.8) 05/22/18 07:25 Metamyelocytes % 2.0 % 05/22/18 07:25 Myelocytes % 1.0 % 05/22/18 07:25 Promyelocytes % 0 % 05/22/18 07:25 Blast Cells % 0 % 05/22/18 07:25 Nucleated RBC % Not Reportable 05/22/18 07:25 Seg Neutrophils # Man 7.4 K/mm3 (1.8-7.7) 05/22/18 07:25 Band Neutrophils # 0.0 K/mm3 05/22/18 07:25 Lymphocytes # (Manual) 0.2 K/mm3 (1.2-5.4) L 05/22/18 07:25 Abs React Lymphs (Man) 0.0 K/mm3 05/22/18 07:25 Monocytes # (Manual) 0.5 K/mm3 (0.0-0.8) 05/22/18 07:25 Eosinophils # (Manual) 0.0 K/mm3 (0.0-0.4) 05/22/18 07:25 Basophils # (Manual) 0.0 K/mm3 (0.0-0.1) 05/22/18 07:25 Metamyelocytes # 0.2 K/mm3 05/22/18 07:25 Myelocytes # 0.1 K/mm3 05/22/18 07:25 Promyelocytes # 0.0 K/mm3 05/22/18 07:25 Blast Cells # 0.0 K/mm3 05/22/18 07:25 WBC Morphology Not Reportable 05/22/18 07:25 Hypersegmented Neuts Not Reportable 05/22/18 07:25 Hyposegmented Neuts Not Reportable 05/22/18 07:25 Hypogranular Neuts Not Reportable 05/22/18 07:25 Smudge Cells Not Reportable 05/22/18 07:25 Toxic Granulation Not Reportable 05/22/18 07:25 Toxic Vacuolation Not Reportable 05/22/18 07:25 Dohle Bodies Not Reportable 05/22/18 07:25 Pelger-Huet Anomaly Not Reportable 05/22/18 07:25 Kj Rods Not Reportable 05/22/18 07:25 Platelet Estimate Consistent w auto 05/22/18 07:25 Clumped Platelets Not Reportable 05/22/18 07:25 Plt Clumps, EDTA Not Reportable 05/22/18 07:25 Large Platelets Not Reportable 05/22/18 07:25 Giant Platelets Not Reportable 05/22/18 07:25 Platelet Satelliting Not Reportable 05/22/18 07:25 Plt Morphology Comment Not Reportable 05/22/18 07:25 RBC Morphology Not Reportable 05/22/18 07:25 Dimorphic RBCs Not Reportable 05/22/18 07:25 Polychromasia Not Reportable 05/22/18 07:25 Hypochromasia Few 05/22/18 07:25 Poikilocytosis Not Reportable 05/22/18 07:25 Anisocytosis Not Reportable 05/22/18 07:25 Microcytosis Not Reportable 05/22/18 07:25 Macrocytosis Not Reportable 05/22/18 07:25 Spherocytes Not Reportable 05/22/18 07:25 Pappenheimer Bodies Not Reportable 05/22/18 07:25 Sickle Cells Not Reportable 05/22/18 07:25 Target Cells Not Reportable 05/22/18 07:25 Tear Drop Cells Not Reportable 05/22/18 07:25 Ovalocytes Not Reportable 05/22/18 07:25 Stomatocytes Few 05/22/18 07:25 Helmet Cells Not Reportable 05/22/18 07:25 [place] Bodies Not Reportable 05/22/18 07:25 [place] Rings Not Reportable 05/22/18 07:25 [place] Cells Not Reportable 05/22/18 07:25 Bite Cells Not Reportable 05/22/18 07:25 Crenated Cell Not Reportable 05/22/18 07:25 Elliptocytes Not Reportable 05/22/18 07:25 Acanthocytes (Spur) Not Reportable 05/22/18 07:25 Rouleaux Not Reportable 05/22/18 07:25 Hemoglobin C Crystals Not Reportable 05/22/18 07:25 Schistocytes Not Reportable 05/22/18 07:25 Malaria parasites Not Reportable 05/22/18 07:25 Ham Bodies Not Reportable 05/22/18 07:25 Hem Pathologist Commnt No 05/22/18 07:25 PT 14.7 Sec. (12.2-14.9) 05/20/18 15:22 INR 1.11 (0.87-1.13) 05/20/18 15:22 APTT 38.5 Sec. (24.2-36.6) H 05/20/18 15:22 D-Dimer 1206.90 ng/mlDDU (0-234) H 05/19/18 07:40 POC ABG pH 7.480 (7.35-7.45) H 05/19/18 07:36 POC ABG pCO2 39.9 (35-45) 05/19/18 07:36 POC ABG pO2 69 (80-105) L 05/19/18 07:36 POC ABG HCO3 29.7 05/19/18 07:36 POC ABG Total CO2 31 05/19/18 07:36 POC ABG O2 Sat 95 05/19/18 07:36 POC ABG Base Excess 6 05/19/18 07:36 FiO2 50 % 05/19/18 07:36 Sodium 139 mmol/L (137-145) 05/22/18 07:25 Potassium 3.7 mmol/L (3.6-5.0) 05/22/18 07:25 Chloride 95.1 mmol/L (98-107) L 05/22/18 07:25 Carbon Dioxide 31 mmol/L (22-30) H 05/22/18 07:25 Anion Gap 17 mmol/L 05/22/18 07:25 BUN 22 mg/dL (7-17) H 05/22/18 07:25 Creatinine 0.8 mg/dL (0.7-1.2) 05/22/18 07:25 Estimated GFR > 60 ml/min 05/22/18 07:25 BUN/Creatinine Ratio 28 % 05/22/18 07:25 Glucose 84 mg/dL (65-100) 05/22/18 07:25 Lactic Acid 2.10 mmol/L (0.7-2.0) H* 05/19/18 09:16 Calcium 8.5 mg/dL (8.4-10.2) 05/22/18 07:25 Phosphorus 4.50 mg/dL (2.5-4.5) 05/20/18 08:17 Magnesium 2.10 mg/dL (1.7-2.3) 05/20/18 08:17 Total Bilirubin 0.20 mg/dL (0.1-1.2) 05/20/18 08:17 AST 14 units/L (5-40) 05/20/18 08:17 ALT 5 units/L (7-56) L 05/20/18 08:17 Alkaline Phosphatase 90 units/L (35-129) 05/20/18 08:17 Total Creatine Kinase 24 units/L (30-135) L 05/19/18 07:40 CK-MB (CK-2) < 1.0 ng/mL (0.0-4.0) 05/19/18 07:40 CK-MB (CK-2) Rel Index 4.1 (0-4) H 05/19/18 07:40 Troponin T < 0.010 ng/mL (0.00-0.029) 05/19/18 07:40 NT-Pro-B Natriuret Pep 1473 pg/mL (0-450) H 05/19/18 07:40 Total Protein 7.1 g/dL (6.3-8.2) 05/20/18 08:17 Albumin 2.4 g/dL (3.9-5) L 05/20/18 08:17 Albumin/Globulin Ratio 0.5 % 05/20/18 08:17 HIV-1 RNA PCR copies/ml [id number] Copies/mL H 05/20/18 12:58 HIV-1 RNA (PCR) log 5.16 Log cps/mL H 05/20/18 12:58 Influenza A (Rapid) Negative (Negative) 05/20/18 17:30 Influenza A (RT-PCR) Negative (Negative) 05/20/18 Unknown Influenza B (Rapid) Negative (Negative) 05/20/18 17:30 Influenza B (RT-PCR) Negative (Negative) 05/20/18 Unknown
[2018-05-22] MEDS: LOVENOX SUB-Q SCH (21:54)
[2018-05-23] MEDS: DILAUDID IV PRN ×4 (01:52→22:01)
[2018-05-23] MEDS: TESSALON PERLES PO SCH ×3 (06:11→22:00)
[2018-05-23] MEDS: VANCOMYCIN 1,250 MG in NACL 0.9% 250ML 250 ML IV SCH ×2 (07:04→18:03)
--- NOTE | 2018-05-23 10:31 | Progress Note ---
Assessment and Plan Assessment and plan: --Sepsis secondary to pneumonia;CAP Continue vancomycin and cefepime,follow cultures ID evaluation noted and appreciated, --Acute on chronic hypoxic respiratory failure; requiring BiPAP Secondary to pneumonia underlying lung disease, symptoms significantly improved S/P bronchoscopy; copious secretions in trachea and right mainstem Attempted to clean right lung, samples taken for histopathology Stains for PCP CMV and fungal and AFB respiratory cultures --HIV AIDS; Resume home antiretroviral medications Supportive care, ID following, viral load 144,000s --Cardiomyopathy severe; EF 15%, continue anti-failure medications --Leukocytosis ; due to sepsis --Lactic acidosis; due to underlying disease process --Oral thrush; vaginal candidiasis/ Diflucan, nystatin swish and swallow --Hypokalemia; corrected --Severe malnutrition hypoalbuminemia; nutrition supplements and supportive care --DVT prophylaxis; Lovenox Consults and recommendations noted and appreciated Continue current management Possible discharge in1-2 days, home health services if needed History Interval history: Patient seen and examined medical records reviewed Patient complains of some lower extremity numbness, probably neuropathy Also complains of vaginal yeast infection Patient is already on Diflucan for oral thrush Anxious to go home No new complaints Vital signs stable Hospitalist Physical - Constitutional Vitals: Temp Pulse Resp BP Pulse Ox 97.8 F 94 H 18 102/72 92 05/22/18 21:56 05/22/18 22:00 05/22/18 21:56 05/22/18 21:56 05/22/18 22:00 General appearance: Present: no acute distress, well-nourished - EENT Eyes: Present: PERRL, EOM intact - Neck Neck: Present: supple, normal ROM - Respiratory Respiratory effort: normal Respiratory: bilateral: diminished, negative: rales, rhonchi, wheezing - Cardiovascular Rhythm: regular Heart Sounds: Present: S1 & S2 - Extremities Extremities: no ischemia, No edema - Abdominal General gastrointestinal: soft, non-tender, non-distended, normal bowel sounds - Integumentary Integumentary: Present: clear, warm - Psychiatric Psychiatric: appropriate mood/affect, cooperative - Neurologic Neurologic: CNII-XII intact, moves all extremities Results - Labs CBC & Chem 7: 05/22/18 07:25 05/22/18 07:25 Labs: Laboratory Last Values WBC 8.3 K/mm3 (4.5-11.0) 05/22/18 07:25 RBC 2.81 M/mm3 (3.65-5.03) L 05/22/18 07:25 Hgb 8.6 gm/dl (10.1-14.3) L 05/22/18 07:25 Hct 25.7 % (30.3-42.9) L 05/22/18 07:25 MCV 91 fl (79-97) 05/22/18 07:25 MCH 31 pg (28-32) 05/22/18 07:25 MCHC 34 % (30-34) 05/22/18 07:25 RDW 19.0 % (13.2-15.2) H 05/22/18 07:25 Plt Count 503 K/mm3 (140-440) H 05/22/18 07:25 Add Manual Diff Complete 05/22/18 07:25 Total Counted 100 05/22/18 07:25 Seg Neutrophils % Cold Roll Catcher 05/22/18 07:25 Seg Neuts % (Manual) 89.0 % (40.0-70.0) H 05/22/18 07:25 Band Neutrophils % 0 % 05/22/18 07:25 Lymphocytes % (Manual) 2.0 % (13.4-35.0) L 05/22/18 07:25 Reactive Lymphs % (Man) 0 % 05/22/18 07:25 Monocytes % (Manual) 6.0 % (0.0-7.3) 05/22/18 07:25 Eosinophils % (Manual) 0 % (0.0-4.3) 05/22/18 07:25 Basophils % (Manual) 0 % (0.0-1.8) 05/22/18 07:25 Metamyelocytes % 2.0 % 05/22/18 07:25 Myelocytes % 1.0 % 05/22/18 07:25 Promyelocytes % 0 % 05/22/18 07:25 Blast Cells % 0 % 05/22/18 07:25 Nucleated RBC % Not Reportable 05/22/18 07:25 Seg Neutrophils # Man 7.4 K/mm3 (1.8-7.7) 05/22/18 07:25 Band Neutrophils # 0.0 K/mm3 05/22/18 07:25 Lymphocytes # (Manual) 0.2 K/mm3 (1.2-5.4) L 05/22/18 07:25 Abs React Lymphs (Man) 0.0 K/mm3 05/22/18 07:25 Monocytes # (Manual) 0.5 K/mm3 (0.0-0.8) 05/22/18 07:25 Eosinophils # (Manual) 0.0 K/mm3 (0.0-0.4) 05/22/18 07:25 Basophils # (Manual) 0.0 K/mm3 (0.0-0.1) 05/22/18 07:25 Metamyelocytes # 0.2 K/mm3 05/22/18 07:25 Myelocytes # 0.1 K/mm3 05/22/18 07:25 Promyelocytes # 0.0 K/mm3 05/22/18 07:25 Blast Cells # 0.0 K/mm3 05/22/18 07:25 WBC Morphology Not Reportable 05/22/18 07:25 Hypersegmented Neuts Not Reportable 05/22/18 07:25 Hyposegmented Neuts Not Reportable 05/22/18 07:25 Hypogranular Neuts Not Reportable 05/22/18 07:25 Smudge Cells Not Reportable 05/22/18 07:25 Toxic Granulation Not Reportable 05/22/18 07:25 Toxic Vacuolation Not Reportable 05/22/18 07:25 Dohle Bodies Not Reportable 05/22/18 07:25 Pelger-Huet Anomaly Not Reportable 05/22/18 07:25 Kj Rods Not Reportable 05/22/18 07:25 Platelet Estimate Consistent w auto 05/22/18 07:25 Clumped Platelets Not Reportable 05/22/18 07:25 Plt Clumps, EDTA Not Reportable 05/22/18 07:25 Large Platelets Not Reportable 05/22/18 07:25 Giant Platelets Not Reportable 05/22/18 07:25 Platelet Satelliting Not Reportable 05/22/18 07:25 Plt Morphology Comment Not Reportable 05/22/18 07:25 RBC Morphology Not Reportable 05/22/18 07:25 Dimorphic RBCs Not Reportable 05/22/18 07:25 Polychromasia Not Reportable 05/22/18 07:25 Hypochromasia Few 05/22/18 07:25 Poikilocytosis Not Reportable 05/22/18 07:25 Anisocytosis Not Reportable 05/22/18 07:25 Microcytosis Not Reportable 05/22/18 07:25 Macrocytosis Not Reportable 05/22/18 07:25 Spherocytes Not Reportable 05/22/18 07:25 Pappenheimer Bodies Not Reportable 05/22/18 07:25 Sickle Cells Not Reportable 05/22/18 07:25 Target Cells Not Reportable 05/22/18 07:25 Tear Drop Cells Not Reportable 05/22/18 07:25 Ovalocytes Not Reportable 05/22/18 07:25 Stomatocytes Few 05/22/18 07:25 Helmet Cells Not Reportable 05/22/18 07:25 [place] Bodies Not Reportable 05/22/18 07:25 [place] Rings Not Reportable 05/22/18 07:25 Farhana Cells Not Reportable 05/22/18 07:25 Bite Cells Not Reportable 05/22/18 07:25 Crenated Cell Not Reportable 05/22/18 07:25 Elliptocytes Not Reportable 05/22/18 07:25 Acanthocytes (Spur) Not Reportable 05/22/18 07:25 Rouleaux Not Reportable 05/22/18 07:25 Hemoglobin C Crystals Not Reportable 05/22/18 07:25 Schistocytes Not Reportable 05/22/18 07:25 Malaria parasites Not Reportable 05/22/18 07:25 Ham Bodies Not Reportable 05/22/18 07:25 Hem Pathologist Commnt No 05/22/18 07:25 PT 14.7 Sec. (12.2-14.9) 05/20/18 15:22 INR 1.11 (0.87-1.13) 05/20/18 15:22 APTT 38.5 Sec. (24.2-36.6) H 05/20/18 15:22 D-Dimer 1206.90 ng/mlDDU (0-234) H 05/19/18 07:40 POC ABG pH 7.480 (7.35-7.45) H 05/19/18 07:36 POC ABG pCO2 39.9 (35-45) 05/19/18 07:36 POC ABG pO2 69 (80-105) L 05/19/18 07:36 POC ABG HCO3 29.7 05/19/18 07:36 POC ABG Total CO2 31 05/19/18 07:36 POC ABG O2 Sat 95 05/19/18 07:36 POC ABG Base Excess 6 05/19/18 07:36 FiO2 50 % 05/19/18 07:36 Sodium 139 mmol/L (137-145) 05/22/18 07:25 Potassium 3.7 mmol/L (3.6-5.0) 05/22/18 07:25 Chloride 95.1 mmol/L (98-107) L 05/22/18 07:25 Carbon Dioxide 31 mmol/L (22-30) H 05/22/18 07:25 Anion Gap 17 mmol/L 05/22/18 07:25 BUN 22 mg/dL (7-17) H 05/22/18 07:25 Creatinine 0.8 mg/dL (0.7-1.2) 05/22/18 07:25 Estimated GFR > 60 ml/min 05/22/18 07:25 BUN/Creatinine Ratio 28 % 05/22/18 07:25 Glucose 84 mg/dL (65-100) 05/22/18 07:25 Lactic Acid 2.10 mmol/L (0.7-2.0) H* 05/19/18 09:16 Calcium 8.5 mg/dL (8.4-10.2) 05/22/18 07:25 Phosphorus 4.50 mg/dL (2.5-4.5) 05/20/18 08:17 Magnesium 2.10 mg/dL (1.7-2.3) 05/20/18 08:17 Total Bilirubin 0.20 mg/dL (0.1-1.2) 05/20/18 08:17 AST 14 units/L (5-40) 05/20/18 08:17 ALT 5 units/L (7-56) L 05/20/18 08:17 Alkaline Phosphatase 90 units/L (35-129) 05/20/18 08:17 Total Creatine Kinase 24 units/L (30-135) L 05/19/18 07:40 CK-MB (CK-2) < 1.0 ng/mL (0.0-4.0) 05/19/18 07:40 CK-MB (CK-2) Rel Index 4.1 (0-4) H 05/19/18 07:40 Troponin T < 0.010 ng/mL (0.00-0.029) 05/19/18 07:40 NT-Pro-B Natriuret Pep 1473 pg/mL (0-450) H 05/19/18 07:40 Total Protein 7.1 g/dL (6.3-8.2) 05/20/18 08:17 Albumin 2.4 g/dL (3.9-5) L 05/20/18 08:17 Albumin/Globulin Ratio 0.5 % 05/20/18 08:17 Vancomycin Trough 19.2 ug/mL (5.0-20.0) 05/22/18 16:58 HIV-1 RNA PCR copies/ml [id number] Copies/mL H 05/20/18 12:58 HIV-1 RNA (PCR) log 5.16 Log cps/mL H 05/20/18 12:58 Influenza A (Rapid) Negative (Negative) 05/20/18 17:30 Influenza A (RT-PCR) Negative (Negative) 05/20/18 Unknown Influenza B (Rapid) Negative (Negative) 05/20/18 17:30 Influenza B (RT-PCR) Negative (Negative) 05/20/18 Unknown
[2018-05-23] MEDS: NYSTATIN PO SCH ×4 (10:41→22:02)
[2018-05-23] MEDS: LASIX PO SCH (10:41)
[2018-05-23] MEDS: BACTRIM DS PO SCH (10:41)
[2018-05-23] MEDS: HALFPRIN EC PO SCH (10:42)
[2018-05-23] MEDS: MAXIPIME/NS 2 GM/100 ML 2 GM/100 ML BAG IV SCH ×2 (10:43→22:00)
[2018-05-23] MEDS: PREZISTA PO SCH ×2 (10:44→22:01)
[2018-05-23] MEDS: EMTRIVA PO SCH (10:44)
[2018-05-23] MEDS: NORVIR PO SCH ×2 (10:44→22:07)
[2018-05-23] MEDS: VIREAD PO SCH (10:44)
[2018-05-23] MEDS: DIFLUCAN PO SCH (10:48)
[2018-05-23] MEDS: COREG PO SCH ×2 (10:51→22:10)
--- NOTE | 2018-05-23 10:52 | Progress Note ---
Assessment and Plan 42 y/o female with HIV, admitted with acute on chronic respiratory failure found to have large right sided pneumonia on CT with bilateral nodules, all new compared to last admit. 1. Follow up bronch results. Washing sent for cytology with special stains for PCP and CMV. Also respiratory cultures, AFB and FUngal cultures as well as gram stain. 2. Follows with [facility], will need repeat CT after cycle of abx therapy has been completed, we or ID can order this pending whom she follows up with [facility] 3. Continue supplemental O2 and attempt to wean but patient may need home O2. Subjective Date of service: 05/23/18 Interval history: No acute events. Down to 2 liters NC. Micro and path not back yet. Objective Constitutional: no acute distress, alert Eyes: non-icteric Neck: supple Ascultation: Bilateral: diminished breath sounds Percussion: Bilateral: not dull Tactile fremitus: Bilateral: normal Gastrointestinal: normoactive bowel sounds, soft, non-tender CBC and BMP: 05/22/18 07:25 05/22/18 07:25 ABG, PT/INR, D-dimer: ABG POC ABG pH 7.480 (7.35-7.45) H 05/19/18 07:36 POC ABG pCO2 39.9 (35-45) 05/19/18 07:36 POC ABG pO2 69 (80-105) L 05/19/18 07:36 POC ABG HCO3 29.7 05/19/18 07:36 POC ABG Total CO2 31 05/19/18 07:36 POC ABG O2 Sat 95 05/19/18 07:36 PT/INR, D-dimer PT 14.7 Sec. (12.2-14.9) 05/20/18 15:22 INR 1.11 (0.87-1.13) 05/20/18 15:22 D-Dimer 1206.90 ng/mlDDU (0-234) H 05/19/18 07:40 Abnormal lab findings: Abnormal Labs 05/19/18 05/19/18 05/19/18 07:31 07:36 07:40 WBC 14.8 H RBC 3.20 L Hgb 9.6 L Hct 29.0 L RDW 18.7 H Plt Count 597 H Seg Neuts % (Manual) Lymphocytes % (Manual) 0 L Seg Neutrophils # Man Lymphocytes # (Manual) 0.0 L APTT D-Dimer 1206.90 H POC ABG pH 7.480 H POC ABG pO2 69 L Sodium Potassium Chloride Carbon Dioxide BUN Glucose Lactic Acid ALT Total Creatine Kinase CK-MB (CK-2) Rel Index NT-Pro-B Natriuret Pep Albumin HIV-1 RNA PCR copies/ml HIV-1 RNA (PCR) log 05/19/18 05/19/18 05/19/18 07:40 07:40 07:40 WBC RBC Hgb Hct RDW Plt Count Seg Neuts % (Manual) Lymphocytes % (Manual) Seg Neutrophils # Man Lymphocytes # (Manual) APTT D-Dimer POC ABG pH POC ABG pO2 Sodium 136 L Potassium 3.4 L Chloride 93.0 L Carbon Dioxide BUN 32 H Glucose 153 H Lactic Acid 2.10 H* ALT 6 L Total Creatine Kinase 24 L CK-MB (CK-2) Rel Index 4.1 H NT-Pro-B Natriuret Pep Albumin 2.5 L HIV-1 RNA PCR copies/ml HIV-1 RNA (PCR) log 05/19/18 05/19/18 05/20/18 07:40 09:16 06:18 WBC RBC 2.88 L Hgb 8.7 L Hct 26.2 L RDW 18.8 H Plt Count 525 H Seg Neuts % (Manual) 95.0 H Lymphocytes % (Manual) 3.0 L Seg Neutrophils # Man 8.8 H Lymphocytes # (Manual) 0.3 L APTT D-Dimer POC ABG pH POC ABG pO2 Sodium Potassium Chloride Carbon Dioxide BUN Glucose Lactic Acid 2.10 H* ALT Total Creatine Kinase CK-MB (CK-2) Rel Index NT-Pro-B Natriuret Pep 1473 H Albumin HIV-1 RNA PCR copies/ml HIV-1 RNA (PCR) log 05/20/18 05/20/18 05/20/18 08:17 12:58 15:22 WBC RBC Hgb Hct RDW Plt Count Seg Neuts % (Manual) Lymphocytes % (Manual) Seg Neutrophils # Man Lymphocytes # (Manual) APTT 38.5 H D-Dimer POC ABG pH POC ABG pO2 Sodium 135 L Potassium Chloride 93.4 L Carbon Dioxide BUN 32 H Glucose 154 H Lactic Acid ALT 5 L Total Creatine Kinase CK-MB (CK-2) Rel Index NT-Pro-B Natriuret Pep Albumin 2.4 L HIV-1 RNA PCR copies/ml [id number] H HIV-1 RNA (PCR) log 5.16 H 05/22/18 05/22/18 07:25 07:25 WBC RBC 2.81 L Hgb 8.6 L Hct 25.7 L RDW 19.0 H Plt Count 503 H Seg Neuts % (Manual) 89.0 H Lymphocytes % (Manual) 2.0 L Seg Neutrophils # Man Lymphocytes # (Manual) 0.2 L APTT D-Dimer POC ABG pH POC ABG pO2 Sodium Potassium Chloride 95.1 L Carbon Dioxide 31 H BUN 22 H Glucose Lactic Acid ALT Total Creatine Kinase CK-MB (CK-2) Rel Index NT-Pro-B Natriuret Pep Albumin HIV-1 RNA PCR copies/ml HIV-1 RNA (PCR) log
[2018-05-23] MEDS ORDERED: PROVENTIL IH PRN (10:53)
[2018-05-23] MEDS: REYATAZ PO SCH (11:02)
[2018-05-23] MEDS: ZESTRIL PO SCH (11:07)
[2018-05-23 17:04] LABS: CD4/CD8 Ratio 0.02 (0.86-5.00)
[2018-05-23] MEDS: LOVENOX SUB-Q SCH (22:00)
[2018-05-24] MEDS: VANCOMYCIN 1,250 MG in NACL 0.9% 250ML 250 ML IV SCH ×2 (06:26→18:12)
[2018-05-24] MEDS: TESSALON PERLES PO SCH ×3 (06:26→22:29)
--- NOTE | 2018-05-24 09:12 | Progress Note ---
Assessment and Plan Assessment and plan: --Sepsis secondary to pneumonia;CAP Continue vancomycin and cefepime,follow cultures ID following, may discharge on oral antibiotics --Acute on chronic hypoxic respiratory failure; requiring BiPAP Secondary to pneumonia underlying lung disease, symptoms significantly improved S/P bronchoscopy; copious secretions in trachea and right mainstem Attempted to clean right lung, samples taken for histopathology Stains for PCP CMV and fungal and AFB respiratory cultures --HIV AIDS; Resume home antiretroviral medications Supportive care, ID following, viral load 144,000s --Cardiomyopathy severe; EF 15%, continue anti-failure medications --Leukocytosis ; due to sepsis --Lactic acidosis; due to underlying disease process --Oral thrush; vaginal candidiasis/ Diflucan, nystatin swish and swallow --Hypokalemia; corrected --Severe malnutrition hypoalbuminemia; nutrition supplements and supportive care --DVT prophylaxis; Lovenox Consults and recommendations noted and appreciated Continue current management Possible discharge in1-2 days, home health services if needed History Interval history: Patient seen and examined medical records reviewed Physical aspect is anxious to go home No new complaints Vital signs reviewed Hospitalist Physical - Constitutional Vitals: Temp Pulse Resp BP Pulse Ox 97.9 F 91 H 18 92/49 99 05/23/18 22:51 05/23/18 22:51 05/23/18 22:51 05/23/18 22:51 05/23/18 22:51 General appearance: Present: no acute distress, well-nourished - EENT Eyes: Present: PERRL, EOM intact - Neck Neck: Present: supple, normal ROM - Respiratory Respiratory effort: normal Respiratory: bilateral: diminished, negative: rales, rhonchi, wheezing - Cardiovascular Rhythm: regular Heart Sounds: Present: S1 & S2 - Extremities Extremities: no ischemia, No edema - Abdominal General gastrointestinal: soft, non-tender, non-distended, normal bowel sounds - Integumentary Integumentary: Present: clear, warm - Psychiatric Psychiatric: appropriate mood/affect, cooperative - Neurologic Neurologic: CNII-XII intact, moves all extremities Results - Labs CBC & Chem 7: 05/22/18 07:25 05/22/18 07:25 Labs: Laboratory Last Values WBC 8.3 K/mm3 (4.5-11.0) 05/22/18 07:25 RBC 2.81 M/mm3 (3.65-5.03) L 05/22/18 07:25 Hgb 8.6 gm/dl (10.1-14.3) L 05/22/18 07:25 Hct 25.7 % (30.3-42.9) L 05/22/18 07:25 MCV 91 fl (79-97) 05/22/18 07:25 MCH 31 pg (28-32) 05/22/18 07:25 MCHC 34 % (30-34) 05/22/18 07:25 RDW 19.0 % (13.2-15.2) H 05/22/18 07:25 Plt Count 503 K/mm3 (140-440) H 05/22/18 07:25 Add Manual Diff Complete 05/22/18 07:25 Total Counted 100 05/22/18 07:25 Seg Neutrophils % Retail Performance Specialist 05/22/18 07:25 Seg Neuts % (Manual) 89.0 % (40.0-70.0) H 05/22/18 07:25 Band Neutrophils % 0 % 05/22/18 07:25 Lymphocytes % (Manual) 2.0 % (13.4-35.0) L 05/22/18 07:25 Reactive Lymphs % (Man) 0 % 05/22/18 07:25 Monocytes % (Manual) 6.0 % (0.0-7.3) 05/22/18 07:25 Eosinophils % (Manual) 0 % (0.0-4.3) 05/22/18 07:25 Basophils % (Manual) 0 % (0.0-1.8) 05/22/18 07:25 Metamyelocytes % 2.0 % 05/22/18 07:25 Myelocytes % 1.0 % 05/22/18 07:25 Promyelocytes % 0 % 05/22/18 07:25 Blast Cells % 0 % 05/22/18 07:25 Nucleated RBC % Not Reportable 05/22/18 07:25 Seg Neutrophils # Man 7.4 K/mm3 (1.8-7.7) 05/22/18 07:25 Band Neutrophils # 0.0 K/mm3 05/22/18 07:25 Abs Lymphs (Manual) 175 cells/uL (850-3900) L 05/20/18 12:58 Lymphocytes # (Manual) 0.2 K/mm3 (1.2-5.4) L 05/22/18 07:25 Abs React Lymphs (Man) 0.0 K/mm3 05/22/18 07:25 Monocytes # (Manual) 0.5 K/mm3 (0.0-0.8) 05/22/18 07:25 Eosinophils # (Manual) 0.0 K/mm3 (0.0-0.4) 05/22/18 07:25 Basophils # (Manual) 0.0 K/mm3 (0.0-0.1) 05/22/18 07:25 Metamyelocytes # 0.2 K/mm3 05/22/18 07:25 Myelocytes # 0.1 K/mm3 05/22/18 07:25 Promyelocytes # 0.0 K/mm3 05/22/18 07:25 Blast Cells # 0.0 K/mm3 05/22/18 07:25 WBC Morphology Not Reportable 05/22/18 07:25 Hypersegmented Neuts Not Reportable 05/22/18 07:25 Hyposegmented Neuts Not Reportable 05/22/18 07:25 Hypogranular Neuts Not Reportable 05/22/18 07:25 Smudge Cells Not Reportable 05/22/18 07:25 Toxic Granulation Not Reportable 05/22/18 07:25 Toxic Vacuolation Not Reportable 05/22/18 07:25 Dohle Bodies Not Reportable 05/22/18 07:25 Pelger-Huet Anomaly Not Reportable 05/22/18 07:25 Kj Rods Not Reportable 05/22/18 07:25 Platelet Estimate Consistent w auto 05/22/18 07:25 Clumped Platelets Not Reportable 05/22/18 07:25 Plt Clumps, EDTA Not Reportable 05/22/18 07:25 Large Platelets Not Reportable 05/22/18 07:25 Giant Platelets Not Reportable 05/22/18 07:25 Platelet Satelliting Not Reportable 05/22/18 07:25 Plt Morphology Comment Not Reportable 05/22/18 07:25 RBC Morphology Not Reportable 05/22/18 07:25 Dimorphic RBCs Not Reportable 05/22/18 07:25 Polychromasia Not Reportable 05/22/18 07:25 Hypochromasia Few 05/22/18 07:25 Poikilocytosis Not Reportable 05/22/18 07:25 Anisocytosis Not Reportable 05/22/18 07:25 Microcytosis Not Reportable 05/22/18 07:25 Macrocytosis Not Reportable 05/22/18 07:25 Spherocytes Not Reportable 05/22/18 07:25 Pappenheimer Bodies Not Reportable 05/22/18 07:25 Sickle Cells Not Reportable 05/22/18 07:25 Target Cells Not Reportable 05/22/18 07:25 Tear Drop Cells Not Reportable 05/22/18 07:25 Ovalocytes Not Reportable 05/22/18 07:25 Stomatocytes Few 05/22/18 07:25 Helmet Cells Not Reportable 05/22/18 07:25 [place] Bodies Not Reportable 05/22/18 07:25 [place] Rings Not Reportable 05/22/18 07:25 Farhana Cells Not Reportable 05/22/18 07:25 Bite Cells Not Reportable 05/22/18 07:25 Crenated Cell Not Reportable 05/22/18 07:25 Elliptocytes Not Reportable 05/22/18 07:25 Acanthocytes (Spur) Not Reportable 05/22/18 07:25 Rouleaux Not Reportable 05/22/18 07:25 Hemoglobin C Crystals Not Reportable 05/22/18 07:25 Schistocytes Not Reportable 05/22/18 07:25 Malaria parasites Not Reportable 05/22/18 07:25 Ham Bodies Not Reportable 05/22/18 07:25 Hem Pathologist Commnt No 05/22/18 07:25 PT 14.7 Sec. (12.2-14.9) 05/20/18 15:22 INR 1.11 (0.87-1.13) 05/20/18 15:22 APTT 38.5 Sec. (24.2-36.6) H 05/20/18 15:22 D-Dimer 1206.90 ng/mlDDU (0-234) H 05/19/18 07:40 POC ABG pH 7.480 (7.35-7.45) H 05/19/18 07:36 POC ABG pCO2 39.9 (35-45) 05/19/18 07:36 POC ABG pO2 69 (80-105) L 05/19/18 07:36 POC ABG HCO3 29.7 05/19/18 07:36 POC ABG Total CO2 31 05/19/18 07:36 POC ABG O2 Sat 95 05/19/18 07:36 POC ABG Base Excess 6 05/19/18 07:36 FiO2 50 % 05/19/18 07:36 Sodium 139 mmol/L (137-145) 05/22/18 07:25 Potassium 3.7 mmol/L (3.6-5.0) 05/22/18 07:25 Chloride 95.1 mmol/L (98-107) L 05/22/18 07:25 Carbon Dioxide 31 mmol/L (22-30) H 05/22/18 07:25 Anion Gap 17 mmol/L 05/22/18 07:25 BUN 22 mg/dL (7-17) H 05/22/18 07:25 Creatinine 0.8 mg/dL (0.7-1.2) 05/22/18 07:25 Estimated GFR > 60 ml/min 05/22/18 07:25 BUN/Creatinine Ratio 28 % 05/22/18 07:25 Glucose 84 mg/dL (65-100) 05/22/18 07:25 Lactic Acid 2.10 mmol/L (0.7-2.0) H* 05/19/18 09:16 Calcium 8.5 mg/dL (8.4-10.2) 05/22/18 07:25 Phosphorus 4.50 mg/dL (2.5-4.5) 05/20/18 08:17 Magnesium 2.10 mg/dL (1.7-2.3) 05/20/18 08:17 Total Bilirubin 0.20 mg/dL (0.1-1.2) 05/20/18 08:17 AST 14 units/L (5-40) 05/20/18 08:17 ALT 5 units/L (7-56) L 05/20/18 08:17 Alkaline Phosphatase 90 units/L (35-129) 05/20/18 08:17 Total Creatine Kinase 24 units/L (30-135) L 05/19/18 07:40 CK-MB (CK-2) < 1.0 ng/mL (0.0-4.0) 05/19/18 07:40 CK-MB (CK-2) Rel Index 4.1 (0-4) H 05/19/18 07:40 Troponin T < 0.010 ng/mL (0.00-0.029) 05/19/18 07:40 NT-Pro-B Natriuret Pep 1473 pg/mL (0-450) H 05/19/18 07:40 Total Protein 7.1 g/dL (6.3-8.2) 05/20/18 08:17 Albumin 2.4 g/dL (3.9-5) L 05/20/18 08:17 Albumin/Globulin Ratio 0.5 % 05/20/18 08:17 Vancomycin Trough 38.1 ug/mL (5.0-20.0) H 05/23/18 05:54 Lymph Enumerat CD4/CD8 0.02 (0.86-5.00) L 05/20/18 12:58 % CD3 Cells 66 % (57-85) 05/20/18 12:58 Absolute CD3 Count 116 cells/uL (840-3060) L 05/20/18 12:58 % CD4 Cells 1 % (30-61) L 05/20/18 12:58 Absolute CD4 Count 1 cells/uL (490-1740) L 05/20/18 12:58 % CD8 Cells 60 % (12-42) H 05/20/18 12:58 Absolute CD8 Count 113 cells/uL (180-1170) L 05/20/18 12:58 % CD19 Cells 2 % (6-29) L 05/20/18 12:58 Absolute CD19 Count 4 cells/uL (110-660) L 05/20/18 12:58 HIV-1 RNA PCR copies/ml [id number] Copies/mL H 05/20/18 12:58 HIV-1 RNA (PCR) log 5.16 Log cps/mL H 05/20/18 12:58 Influenza A (Rapid) Negative (Negative) 05/20/18 17:30 Influenza A (RT-PCR) Negative (Negative) 05/20/18 Unknown Influenza B (Rapid) Negative (Negative) 05/20/18 17:30 Influenza B (RT-PCR) Negative (Negative) 05/20/18 Unknown
--- NOTE | 2018-05-24 09:52 | Progress Note ---
Assessment and Plan Cultures: Influenza PCR negative Sputum culture in process BAL culture in process Serum crypto Ag negative A/P: 42-year-old female with advanced HIV/AIDS, uncontrolled, highly treatment experienced, [id number] HIV, COPD, chronic respiratory failure, dilated cardiomyopathy who is known to us from her previous hospitalization in February 2018, admitted with: #1 Sepsis, likely secondary to severe right-sided pneumonia: Patient reportedly had a sick contact: Her nephew was diagnosed with flu. CT scan findings concerning for a dense pneumonia. Don't see much ground glass which would be more suspicious of PCP. Patient has been taking Bactrim every other day which would be reasonably good to prevent a PCP pneumonia. Continue IV cefepime and vancomycin. F/U legionella urine Ag. Influenza PCR negative. #2 Bilateral pulmonary nodules: serum cryptococcal antigen negative. s/p bronchoscopy. Pulm following. D/W Dr. Landa. #3 HIV/AIDS: Secondary to udiir-hyij-inrbelxap HIV, highly treatment experie nced, previously noncompliant but lately she has been compliant. She is on an unusual regimen with 2 protease inhibitors (but that apparently is per some discussions with a physician at [facility]). Continue norvir boosted darunavir twice a day, atazanavir once a day, replace nonformulary Descovy with Truvada. CD4 1, VL/ 144K #4 Acute on chronic respiratory failure: Stable #5 oral candidiasis: Continue nystatin and fluconazole #6 Dilated cardiomyopathy: Presumed to be HIV related in etiology. #7 PCN allergy: remote per patient. She thinks she has taken Keflex in the past without issues. Recs: - continue HIV regimen: norvir boosted darunavir twice a day, atazanavir once a day, replaced nonformulary Descovy with Truvada - Continue IV cefepime and vancomycin. - f/u legionella urine Ag. - continue fluconazole at 400 mg and nystatin -Order Micafungin time 1 dose - appreciate pulm recs, may need a repeat CT scan on outpatient follow up - continue Bactrim prophylaxis -anticipate discharge tomorrow on oral antibiotics [facility] M: [phone] O:[phone] Subjective Date of service: 05/24/18 Interval history: Patient seen and examined. Denied genearlized pain, fever or rashes. Continues to have painful swallowing. Nurses notes, labs and reports reviewed, discussed with patient. Objective - Exam Narrative Exam: Constitutional: Alert, cooperative. Mild distress Head, Ears, Nose: Normocephalic, atraumatic. External ears, nose normal Eyes: Conjunctivae/corneas clear. No icterus. No ptosis. Neck: Supple, no meningeal signs Oral: dentition fair, + for thrush Cardiovascular: S1, S2 normal. Respiratory: bilateral basal crackles + GI: Soft, non-tender; bowel sounds normal. No peritoneal signs. Musculoskeletal: No pedal edema, no cyanosis. Skin: No rash or abscess. Hem/Lymphatic: No palpable cervical or supraclavicular nodes. No lymphangitis Psych: Mood ok. Affect normal. Neurological: Awake, alert, oriented. No gross abnormality - Constitutional Vitals: Vital Signs Temp Pulse Resp BP Pulse Ox 97.9 F 91 H 18 92/49 99 05/23/18 22:51 05/23/18 22:51 05/23/18 22:51 05/23/18 22:51 05/23/18 22:51 Temperature -Last 24 Hours Temperature 97.9 F Temperature 98.8 F Temperature 98.6 F - Labs CBC & Chem 7: 05/22/18 07:25 05/22/18 07:25 Labs: Abnormal lab results 05/20/18 05/23/18 Range/Units 12:58 05:54 Abs Lymphs (Manual) 175 L (850-3900) cells/uL Vancomycin Trough 38.1 H (5.0-20.0) ug/mL Lymph Enumerat CD4/CD8 0.02 L (0.86-5.00) Absolute CD3 Count 116 L (840-3060) cells/uL % CD4 Cells 1 L (30-61) % Absolute CD4 Count 1 L (490-1740) cells/uL % CD8 Cells 60 H (12-42) % Absolute CD8 Count 113 L (180-1170) cells/uL % CD19 Cells 2 L (6-29) % Absolute CD19 Count 4 L (110-660) cells/uL
[2018-05-24] MEDS: HALFPRIN EC PO SCH (10:58)
[2018-05-24] MEDS: LASIX PO SCH (10:58)
[2018-05-24] MEDS: EMTRIVA PO SCH (10:58)
[2018-05-24] MEDS: MAXIPIME/NS 2 GM/100 ML 2 GM/100 ML BAG IV SCH ×2 (10:58→22:30)
[2018-05-24] MEDS: DIFLUCAN PO SCH ×2 (10:58→16:02)
[2018-05-24] MEDS: PREZISTA PO SCH ×2 (10:59→22:30)
[2018-05-24] MEDS: VIREAD PO SCH (10:59)
[2018-05-24] MEDS: NORVIR PO SCH ×2 (10:59→22:30)
[2018-05-24] MEDS: REYATAZ PO SCH (10:59)
[2018-05-24] MEDS: NYSTATIN PO SCH ×4 (11:00→22:29)
[2018-05-24] MEDS: ZESTRIL PO SCH (11:00)
[2018-05-24] MEDS: COREG PO SCH ×3 (11:01→22:29)
[2018-05-24] MEDS: DILAUDID IV PRN ×3 (11:18→22:36)
[2018-05-24] MEDS: BACTRIM DS PO SCH (11:18)
--- NOTE | 2018-05-24 14:18 | Progress Note ---
Assessment and Plan Imp: 1. HIV/AIDS, CD4 of 1 2. Pneumonia 3. Pulm nodules 4. Acute respiratory failure, hypoxia 5. S/p Sepsis Rec: 1. ABX per ID 2. F/u remaining bronch data including cytology, fungal and AFB cultures 3. Repeat CXR 4. Wean O2 to off, keeping sats 88% or greater, although patient states she has it at home for unclear reasons Plan of care reviewed with patient, she understands/agrees Subjective Date of service: 05/24/18 Principal diagnosis: Pneumonia Interval history: Afebrile. SOB improving. Cough better. On minimal O2 by NC. Active Medications Albuterol (Proventil) 2.5 mg IH Q4HRT PRN PRN Reason: Shortness Of Breath Last Admin: 05/23/18 11:04 Dose: 2.5 mg Documented by: Aspirin (Halfprin Ec) 81 mg PO QDAY [facility] Last Admin: 05/24/18 10:58 Dose: 81 mg Documented by: Atazanavir (Reyataz) 300 mg PO QDAY [facility] Last Admin: 05/24/18 10:59 Dose: 300 mg Documented by: Benzonatate (Tessalon Perles) 100 mg PO Q8HR [facility] Last Admin: 05/24/18 06:26 Dose: 100 mg Documented by: Carvedilol (Coreg) 6.25 mg PO BID [facility] Last Admin: 05/24/18 11:08 Dose: 6.25 mg Documented by: Darunavir (Prezista) 600 mg PO BID [facility] Last Admin: 05/24/18 10:59 Dose: 600 mg Documented by: Emtricitabine (Emtriva) 200 mg PO QDAY [facility] Last Admin: 05/24/18 10:58 Dose: 200 mg Documented by: Enoxaparin Sodium (Lovenox) 40 mg SUB-Q QDAY@2200 [facility] Last Admin: 05/23/18 22:00 Dose: 40 mg Documented by: Fluconazole (Diflucan) 400 mg PO QDAY [facility] Furosemide (Lasix) 40 mg PO QDAY [facility] Last Admin: 05/24/18 10:58 Dose: 40 mg Documented by: Hydromorphone HCl (Dilaudid) 0.5 mg IV Q4H PRN PRN Reason: Pain , Severe (7-10) Last Admin: 05/24/18 11:18 Dose: 0.5 mg Documented by: Cefepime HCl (Maxipime/Ns 2 Gm/100 Ml) 2 gm in 100 mls @ 200 mls/hr IV Q12HR [facility]; Protocol Last Admin: 05/24/18 10:58 Dose: 200 mls/hr Documented by: Vancomycin HCl 1,250 mg/ (Sodium Chloride) 275 mls @ 166.667 mls/hr IV Q12H [facility] Last Admin: 05/24/18 06:26 Dose: 166.667 mls/hr Documented by: Sodium Chloride (Nacl 0.9% 1000 Ml) 1,000 mls @ 50 mls/hr IV DIRECT [facility] Last Admin: 05/21/18 10:25 Dose: 50 mls/hr Documented by: Micafungin Sodium 150 mg/ (Sodium Chloride) 100 mls @ 100 mls/hr IV ONCE ONE; Protocol Stop: 05/24/18 15:59 Lisinopril (Zestril) 10 mg PO QDAY [facility] Last Admin: 05/24/18 11:00 Dose: Not Given Documented by: Nystatin (Nystatin) 500,000 unit PO QID [facility] Last Admin: 05/24/18 11:00 Dose: 500,000 unit Documented by: Ritonavir (Norvir) 100 mg PO BID [facility] Last Admin: 05/24/18 10:59 Dose: 100 mg Documented by: Tenofovir Disoproxil Fumarate (Viread) 300 mg PO QDAY [facility] Last Admin: 05/24/18 10:59 Dose: 300 mg Documented by: Trimethoprim/Sulfamethoxazole (Bactrim Ds) 1 each PO Q24HR [facility] Last Admin: 05/24/18 11:18 Dose: 1 each Documented by: Objective Vital Signs - 12hr 05/24/18 05/24/18 05/24/18 10:00 11:00 11:25 Pulse Rate 93 H Blood Pressure 99/58 O2 Sat by Pulse 97 97 Oximetry Constitutional: no acute distress, alert Eyes: non-icteric Neck: supple Effort: normal Ascultation: Bilateral: clear (anteriorly) Cardiovascular: regular rate and rhythm (no mrg) Gastrointestinal: normoactive bowel sounds, soft, non-tender, non-distended Integumentary: normal Extremities: no cyanosis, no edema, pink and warm Neurologic: normal mental status, non-focal exam, pupils equal and round, CN II- XII normal Psychiatric: mood appropriate, affect normal CBC and BMP: 05/22/18 07:25 05/22/18 07:25 ABG, PT/INR, D-dimer: ABG POC ABG pH 7.480 (7.35-7.45) H 05/19/18 07:36 POC ABG pCO2 39.9 (35-45) 05/19/18 07:36 POC ABG pO2 69 (80-105) L 05/19/18 07:36 POC ABG HCO3 29.7 05/19/18 07:36 POC ABG Total CO2 31 05/19/18 07:36 POC ABG O2 Sat 95 05/19/18 07:36 PT/INR, D-dimer PT 14.7 Sec. (12.2-14.9) 05/20/18 15:22 INR 1.11 (0.87-1.13) 05/20/18 15:22 D-Dimer 1206.90 ng/mlDDU (0-234) H 05/19/18 07:40 Abnormal lab findings: Abnormal Labs 05/19/18 05/19/18 05/19/18 07:31 07:36 07:40 WBC 14.8 H RBC 3.20 L Hgb 9.6 L Hct 29.0 L RDW 18.7 H Plt Count 597 H Seg Neuts % (Manual) Lymphocytes % (Manual) 0 L Seg Neutrophils # Man Abs Lymphs (Manual) Lymphocytes # (Manual) 0.0 L APTT D-Dimer 1206.90 H POC ABG pH 7.480 H POC ABG pO2 69 L Sodium Potassium Chloride Carbon Dioxide BUN Glucose Lactic Acid ALT Total Creatine Kinase CK-MB (CK-2) Rel Index NT-Pro-B Natriuret Pep Albumin Vancomycin Trough Lymph Enumerat CD4/CD8 Absolute CD3 Count % CD4 Cells Absolute CD4 Count % CD8 Cells Absolute CD8 Count % CD19 Cells Absolute CD19 Count HIV-1 RNA PCR copies/ml HIV-1 RNA (PCR) log 05/19/18 05/19/18 05/19/18 07:40 07:40 07:40 WBC RBC Hgb Hct RDW Plt Count Seg Neuts % (Manual) Lymphocytes % (Manual) Seg Neutrophils # Man Abs Lymphs (Manual) Lymphocytes # (Manual) APTT D-Dimer POC ABG pH POC ABG pO2 Sodium 136 L Potassium 3.4 L Chloride 93.0 L Carbon Dioxide BUN 32 H Glucose 153 H Lactic Acid 2.10 H* ALT 6 L Total Creatine Kinase 24 L CK-MB (CK-2) Rel Index 4.1 H NT-Pro-B Natriuret Pep Albumin 2.5 L Vancomycin Trough Lymph Enumerat CD4/CD8 Absolute CD3 Count % CD4 Cells Absolute CD4 Count % CD8 Cells Absolute CD8 Count % CD19 Cells Absolute CD19 Count HIV-1 RNA PCR copies/ml HIV-1 RNA (PCR) log 05/19/18 05/19/18 05/20/18 07:40 09:16 06:18 WBC RBC 2.88 L Hgb 8.7 L Hct 26.2 L RDW 18.8 H Plt Count 525 H Seg Neuts % (Manual) 95.0 H Lymphocytes % (Manual) 3.0 L Seg Neutrophils # Man 8.8 H Abs Lymphs (Manual) Lymphocytes # (Manual) 0.3 L APTT D-Dimer POC ABG pH POC ABG pO2 Sodium Potassium Chloride Carbon Dioxide BUN Glucose Lactic Acid 2.10 H* ALT Total Creatine Kinase CK-MB (CK-2) Rel Index NT-Pro-B Natriuret Pep 1473 H Albumin Vancomycin Trough Lymph Enumerat CD4/CD8 Absolute CD3 Count % CD4 Cells Absolute CD4 Count % CD8 Cells Absolute CD8 Count % CD19 Cells Absolute CD19 Count HIV-1 RNA PCR copies/ml HIV-1 RNA (PCR) log 05/20/18 05/20/18 05/20/18 08:17 12:58 12:58 WBC RBC Hgb Hct RDW Plt Count Seg Neuts % (Manual) Lymphocytes % (Manual) Seg Neutrophils # Man Abs Lymphs (Manual) 175 L Lymphocytes # (Manual) APTT D-Dimer POC ABG pH POC ABG pO2 Sodium 135 L Potassium Chloride 93.4 L Carbon Dioxide BUN 32 H Glucose 154 H Lactic Acid ALT 5 L Total Creatine Kinase CK-MB (CK-2) Rel Index NT-Pro-B Natriuret Pep Albumin 2.4 L Vancomycin Trough Lymph Enumerat CD4/CD8 0.02 L Absolute CD3 Count 116 L % CD4 Cells 1 L Absolute CD4 Count 1 L % CD8 Cells 60 H Absolute CD8 Count 113 L % CD19 Cells 2 L Absolute CD19 Count 4 L HIV-1 RNA PCR copies/ml 099818 H HIV-1 RNA (PCR) log 5.16 H 05/20/18 05/22/18 05/22/18 15:22 07:25 07:25 WBC RBC 2.81 L Hgb 8.6 L Hct 25.7 L RDW 19.0 H Plt Count 503 H Seg Neuts % (Manual) 89.0 H Lymphocytes % (Manual) 2.0 L Seg Neutrophils # Man Abs Lymphs (Manual) Lymphocytes # (Manual) 0.2 L APTT 38.5 H D-Dimer POC ABG pH POC ABG pO2 Sodium Potassium Chloride 95.1 L Carbon Dioxide 31 H BUN 22 H Glucose Lactic Acid ALT Total Creatine Kinase CK-MB (CK-2) Rel Index NT-Pro-B Natriuret Pep Albumin Vancomycin Trough Lymph Enumerat CD4/CD8 Absolute CD3 Count % CD4 Cells Absolute CD4 Count % CD8 Cells Absolute CD8 Count % CD19 Cells Absolute CD19 Count HIV-1 RNA PCR copies/ml HIV-1 RNA (PCR) log 05/23/18 05:54 WBC RBC Hgb Hct RDW Plt Count Seg Neuts % (Manual) Lymphocytes % (Manual) Seg Neutrophils # Man Abs Lymphs (Manual) Lymphocytes # (Manual) APTT D-Dimer POC ABG pH POC ABG pO2 Sodium Potassium Chloride Carbon Dioxide BUN Glucose Lactic Acid ALT Total Creatine Kinase CK-MB (CK-2) Rel Index NT-Pro-B Natriuret Pep Albumin Vancomycin Trough 38.1 H Lymph Enumerat CD4/CD8 Absolute CD3 Count % CD4 Cells Absolute CD4 Count % CD8 Cells Absolute CD8 Count % CD19 Cells Absolute CD19 Count HIV-1 RNA PCR copies/ml HIV-1 RNA (PCR) log Chest x-ray: report reviewed, image reviewed CT scan - chest: report reviewed, image reviewed
[2018-05-24] MEDS ORDERED: MYCAMINE IV ONE (15:00)
[2018-05-24] MEDS ORDERED: NACL 0.9% IV ONE (15:00)
--- NOTE | 2018-05-24 15:13 | XRay Report ---
AP CHEST: HISTORY: Pneumonia Minimal patchy infiltrate is suggested in the right lung. No consolidation, pleural effusion or pneumothorax. The left lung is clear. Normal heart and mediastinal structures. IMPRESSION: Minimal patchy infiltrate in the right lung which is decreased since the CT chest performed 05/19/17.
[2018-05-24] MEDS: LOVENOX SUB-Q SCH (22:00)
[2018-05-25] MEDS: TESSALON PERLES PO SCH ×2 (07:03→15:27)
[2018-05-25] MEDS: VANCOMYCIN 1,250 MG in NACL 0.9% 250ML 250 ML IV SCH (07:03)
[2018-05-25] MEDS: DILAUDID IV PRN ×2 (07:12→12:15)
--- NOTE | 2018-05-25 09:14 | Progress Note ---
Assessment and Plan Cultures: Influenza PCR negative Sputum culture usual resp debbie BAL culture: usual resp debbie. AFB and fungal: pending Serum crypto Ag negative A/P: 42-year-old female with advanced HIV/AIDS, uncontrolled, highly treatment experienced, [id number] HIV, COPD, chronic respiratory failure, d ilated cardiomyopathy who is known to us from her previous hospitalization in February 2018, admitted with: #1 Sepsis, likely secondary to severe right-sided pneumonia: Patient reportedly had a sick contact: Her nephew was diagnosed with flu. CT scan findings concerning for a dense pneumonia. Don't see much ground glass which would be more suspicious of PCP. Patient has been taking Bactrim every other day which would be reasonably good to prevent a PCP pneumonia. Continue IV cefepime and vancomycin. F/U legionella urine Ag. Influenza PCR negative. #2 Bilateral pulmonary nodules: serum cryptococcal antigen negative. s/p bronchoscopy. Pulm following. D/W Dr. Landa. #3 HIV/AIDS: Secondary to [id number] HIV, highly treatment experienced, previously noncompliant but lately she has been compliant. She is on an unusual regimen with 2 protease inhibitors (but that apparently is per some discussions with a physician at [facility]). Continue norvir boosted darunavir twice a day, atazanavir once a day, replace nonformulary Descovy with Truvada. CD4 1, VL/ 144K #4 Acute on chronic respiratory failure: Stable #5 oral candidiasis: Continue nystatin and fluconazole #6 Dilated cardiomyopathy: Presumed to be HIV related in etiology. #7 PCN allergy: remote per patient. she has taken Keflex in the past without issues and has tolerated Cefepime without issues here. Recs: - resume home HIV regimen upon discharge: norvir boosted darunavir twice a day, atazanavir once a day, Descovy once a day - PO Ceftin 500 mg BID + PO Doxycycline 100 mg BID x 7 days - PO fluconazole 400 mg daily x 2 weeks and then resume home dose of fluconazole 100 mg daily. Continue nystatin swish + swallow - f/u pulm clinic, may need a repeat CT scan in 4-6 weeks on outpatient follow up - continue Bactrim DS 1 tab daily for prophylaxis indefinitely - follow up with her HIV providers Dr. Camara/Prokesh and hopefully she can get on IV Trogarzo to help reduce her viral load - overall poor prognosis D/W Dr. Jones. Carli Snowden, [facility] M: [phone] O:[phone] Subjective Date of service: 05/25/18 Principal diagnosis: Pneumonia Interval history: Patient seen and examined. Denied genearlized pain, fever or rashes. States that swallowing is better today. Discharge medications reviewed with patient. Follow up with HIV provider discussed. Verbalized understanding. Objective - Exam Narrative Exam: Constitutional: Alert, cooperative. Mild distress Head, Ears, Nose: Normocephalic, atraumatic. External ears, nose normal Eyes: Conjunctivae/corneas clear. No icterus. No ptosis. Neck: Supple, no meningeal signs Oral: dentition fair, + for thrush Cardiovascular: S1, S2 normal. Respiratory: bilateral basal crackles + GI: Soft, non-tender; bowel sounds normal. No peritoneal signs. Musculoskeletal: No pedal edema, no cyanosis. Skin: No rash or abscess. Hem/Lymphatic: No palpable cervical or supraclavicular nodes. No lymphangitis Psych: Mood ok. Affect flat. Neurological: Awake, alert, oriented. No gross abnormality - Constitutional Vitals: Vital Signs Temp Pulse Resp BP Pulse Ox 98.5 F 81 20 96/57 94 05/25/18 06:30 05/25/18 06:30 05/25/18 06:30 05/25/18 06:30 05/25/18 08:37 Temperature -Last 24 Hours Temperature 98.5 F Temperature 98.7 F Temperature 98.5 F Temperature 97.8 F - Labs CBC & Chem 7: 05/22/18 07:25 05/22/18 07:25
[2018-05-25] MEDS: COREG PO SCH (10:00)
[2018-05-25] MEDS: ZESTRIL PO SCH (10:00)
[2018-05-25] MEDS: DIFLUCAN PO SCH (10:28)
[2018-05-25] MEDS: HALFPRIN EC PO SCH (10:29)
[2018-05-25] MEDS: EMTRIVA PO SCH (10:29)
[2018-05-25] MEDS: NORVIR PO SCH (10:29)
[2018-05-25] MEDS: BACTRIM DS PO SCH (10:29)
[2018-05-25] MEDS: LASIX PO SCH (10:29)
[2018-05-25] MEDS: VIREAD PO SCH (10:30)
[2018-05-25] MEDS: PREZISTA PO SCH (10:30)
[2018-05-25] MEDS: REYATAZ PO SCH (10:30)
[2018-05-25] MEDS: NYSTATIN PO SCH ×2 (10:41→15:27)
[2018-05-25] MEDS: MAXIPIME/NS 2 GM/100 ML 2 GM/100 ML BAG IV SCH (12:15)
[2018-05-25 12:25] VITALS: BP 110/71
--- NOTE | 2018-05-25 12:36 | Progress Note ---
Assessment and Plan Imp: 1. HIV/AIDS, CD4 of 1 2. Pneumonia, radiographically/clinically better 3. Pulm nodules, likely infectious 4. Acute respiratory failure, hypoxia 5. S/p Sepsis Rec: 1. ABX as per ID 2. F/u remaining bronch data including cytology, fungal and AFB cultures; AFB smear, routine culture, cytology for PJP negative (CMV pending) 3. Wean O2 to off, keeping sats 88% or greater, although patient states she has it at home for unclear reasons 4. No pulmonary objections to d/c on oral regimen today as per ID recs; would f/u with Dr. Aquino for repeat CXR in 2 weeks, and can decide whether she needs a f/u CT chest re: pulm nodules at some point at that time Plan of care reviewed with patient, she understands/agrees Subjective Date of service: 05/25/18 Principal diagnosis: Pneumonia Interval history: Afebrile. SOB improving. Cough better. On minimal O2 by NC. Active Medications Albuterol (Proventil) 2.5 mg IH Q4HRT PRN PRN Reason: Shortness Of Breath Last Admin: 05/23/18 11:04 Dose: 2.5 mg Documented by: Aspirin (Halfprin Ec) 81 mg PO QDAY [facility] Last Admin: 05/25/18 10:29 Dose: 81 mg Documented by: Atazanavir (Reyataz) 300 mg PO QDAY [facility] Last Admin: 05/25/18 10:30 Dose: 300 mg Documented by: Benzonatate (Tessalon Perles) 100 mg PO Q8HR [facility] Last Admin: 05/25/18 07:03 Dose: 100 mg Documented by: Carvedilol (Coreg) 6.25 mg PO BID [facility] Last Admin: 05/25/18 10:00 Dose: Not Given Documented by: Darunavir (Prezista) 600 mg PO BID [facility] Last Admin: 05/25/18 10:30 Dose: 600 mg Documented by: Emtricitabine (Emtriva) 200 mg PO QDAY [facility] Last Admin: 05/25/18 10:29 Dose: 200 mg Documented by: Enoxaparin Sodium (Lovenox) 40 mg SUB-Q QDAY@2200 [facility] Last Admin: 05/24/18 22:00 Dose: Not Given Documented by: Fluconazole (Diflucan) 400 mg PO QDAY [facility] Last Admin: 05/25/18 10:28 Dose: 400 mg Documented by: Furosemide (Lasix) 40 mg PO QDAY [facility] Last Admin: 05/25/18 10:29 Dose: 40 mg Documented by: Hydromorphone HCl (Dilaudid) 0.5 mg IV Q4H PRN PRN Reason: Pain , Severe (7-10) Last Admin: 05/25/18 12:15 Dose: 0.5 mg Documented by: Cefepime HCl (Maxipime/Ns 2 Gm/100 Ml) 2 gm in 100 mls @ 200 mls/hr IV Q12HR [facility]; Protocol Last Admin: 05/25/18 12:15 Dose: 200 mls/hr Documented by: Vancomycin HCl 1,250 mg/ (Sodium Chloride) 275 mls @ 166.667 mls/hr IV Q12H [facility] Last Admin: 05/25/18 07:03 Dose: 166.667 mls/hr Documented by: Sodium Chloride (Nacl 0.9% 1000 Ml) 1,000 mls @ 50 mls/hr IV DIRECT [facility] Last Admin: 05/21/18 10:25 Dose: 50 mls/hr Documented by: Lisinopril (Zestril) 10 mg PO QDAY [facility] Last Admin: 05/25/18 10:00 Dose: Not Given Documented by: Nystatin (Nystatin) 500,000 unit PO QID [facility] Last Admin: 05/25/18 10:41 Dose: 500,000 unit Documented by: Ritonavir (Norvir) 100 mg PO BID [facility] Last Admin: 05/25/18 10:29 Dose: 100 mg Documented by: Tenofovir Disoproxil Fumarate (Viread) 300 mg PO QDAY [facility] Last Admin: 05/25/18 10:30 Dose: 300 mg Documented by: Trimethoprim/Sulfamethoxazole (Bactrim Ds) 1 each PO Q24HR [facility] Last Admin: 05/25/18 10:29 Dose: 1 each Documented by: Objective Vital Signs - 12hr 05/25/18 05/25/18 05/25/18 06:30 08:37 10:21 Temperature 98.5 F Pulse Rate 81 Respiratory 20 Rate Blood Pressure 96/57 111/71 O2 Sat by Pulse 95 94 Oximetry 05/25/18 12:23 Temperature 97.9 F Pulse Rate 92 H Respiratory 20 Rate Blood Pressure 110/71 O2 Sat by Pulse 94 Oximetry Constitutional: no acute distress, alert Eyes: non-icteric Neck: supple Effort: normal Ascultation: Bilateral: wheezes (few very faint expiratory wheezes bilaterally) Cardiovascular: regular rate and rhythm (no mrg) Gastrointestinal: normoactive bowel sounds, soft, non-tender, non-distended Integumentary: normal Extremities: no cyanosis, no edema, pink and warm Neurologic: normal mental status, non-focal exam, pupils equal and round, CN II- XII normal Psychiatric: mood appropriate, affect normal CBC and BMP: 05/22/18 07:25 05/22/18 07:25 ABG, PT/INR, D-dimer: ABG POC ABG pH 7.480 (7.35-7.45) H 05/19/18 07:36 POC ABG pCO2 39.9 (35-45) 05/19/18 07:36 POC ABG pO2 69 (80-105) L 05/19/18 07:36 POC ABG HCO3 29.7 05/19/18 07:36 POC ABG Total CO2 31 05/19/18 07:36 POC ABG O2 Sat 95 05/19/18 07:36 PT/INR, D-dimer PT 14.7 Sec. (12.2-14.9) 05/20/18 15:22 INR 1.11 (0.87-1.13) 05/20/18 15:22 D-Dimer 1206.90 ng/mlDDU (0-234) H 05/19/18 07:40 Abnormal lab findings: Abnormal Labs 05/19/18 05/19/18 05/19/18 07:31 07:36 07:40 WBC 14.8 H RBC 3.20 L Hgb 9.6 L Hct 29.0 L RDW 18.7 H Plt Count 597 H Seg Neuts % (Manual) Lymphocytes % (Manual) 0 L Seg Neutrophils # Man Abs Lymphs (Manual) Lymphocytes # (Manual) 0.0 L APTT D-Dimer 1206.90 H POC ABG pH 7.480 H POC ABG pO2 69 L Sodium Potassium Chloride Carbon Dioxide BUN Glucose Lactic Acid ALT Total Creatine Kinase CK-MB (CK-2) Rel Index NT-Pro-B Natriuret Pep Albumin Vancomycin Trough Lymph Enumerat CD4/CD8 Absolute CD3 Count % CD4 Cells Absolute CD4 Count % CD8 Cells Absolute CD8 Count % CD19 Cells Absolute CD19 Count HIV-1 RNA PCR copies/ml HIV-1 RNA (PCR) log 05/19/18 05/19/18 05/19/18 07:40 07:40 07:40 WBC RBC Hgb Hct RDW Plt Count Seg Neuts % (Manual) Lymphocytes % (Manual) Seg Neutrophils # Man Abs Lymphs (Manual) Lymphocytes # (Manual) APTT D-Dimer POC ABG pH POC ABG pO2 Sodium 136 L Potassium 3.4 L Chloride 93.0 L Carbon Dioxide BUN 32 H Glucose 153 H Lactic Acid 2.10 H* ALT 6 L Total Creatine Kinase 24 L CK-MB (CK-2) Rel Index 4.1 H NT-Pro-B Natriuret Pep Albumin 2.5 L Vancomycin Trough Lymph Enumerat CD4/CD8 Absolute CD3 Count % CD4 Cells Absolute CD4 Count % CD8 Cells Absolute CD8 Count % CD19 Cells Absolute CD19 Count HIV-1 RNA PCR copies/ml HIV-1 RNA (PCR) log 05/19/18 05/19/18 05/20/18 07:40 09:16 06:18 WBC RBC 2.88 L Hgb 8.7 L Hct 26.2 L RDW 18.8 H Plt Count 525 H Seg Neuts % (Manual) 95.0 H Lymphocytes % (Manual) 3.0 L Seg Neutrophils # Man 8.8 H Abs Lymphs (Manual) Lymphocytes # (Manual) 0.3 L APTT D-Dimer POC ABG pH POC ABG pO2 Sodium Potassium Chloride Carbon Dioxide BUN Glucose Lactic Acid 2.10 H* ALT Total Creatine Kinase CK-MB (CK-2) Rel Index NT-Pro-B Natriuret Pep 1473 H Albumin Vancomycin Trough Lymph Enumerat CD4/CD8 Absolute CD3 Count % CD4 Cells Absolute CD4 Count % CD8 Cells Absolute CD8 Count % CD19 Cells Absolute CD19 Count HIV-1 RNA PCR copies/ml HIV-1 RNA (PCR) log 05/20/18 05/20/18 05/20/18 08:17 12:58 12:58 WBC RBC Hgb Hct RDW Plt Count Seg Neuts % (Manual) Lymphocytes % (Manual) Seg Neutrophils # Man Abs Lymphs (Manual) 175 L Lymphocytes # (Manual) APTT D-Dimer POC ABG pH POC ABG pO2 Sodium 135 L Potassium Chloride 93.4 L Carbon Dioxide BUN 32 H Glucose 154 H Lactic Acid ALT 5 L Total Creatine Kinase CK-MB (CK-2) Rel Index NT-Pro-B Natriuret Pep Albumin 2.4 L Vancomycin Trough Lymph Enumerat CD4/CD8 0.02 L Absolute CD3 Count 116 L % CD4 Cells 1 L Absolute CD4 Count 1 L % CD8 Cells 60 H Absolute CD8 Count 113 L % CD19 Cells 2 L Absolute CD19 Count 4 L HIV-1 RNA PCR copies/ml 956494 H HIV-1 RNA (PCR) log 5.16 H 05/20/18 05/22/18 05/22/18 15:22 07:25 07:25 WBC RBC 2.81 L Hgb 8.6 L Hct 25.7 L RDW 19.0 H Plt Count 503 H Seg Neuts % (Manual) 89.0 H Lymphocytes % (Manual) 2.0 L Seg Neutrophils # Man Abs Lymphs (Manual) Lymphocytes # (Manual) 0.2 L APTT 38.5 H D-Dimer POC ABG pH POC ABG pO2 Sodium Potassium Chloride 95.1 L Carbon Dioxide 31 H BUN 22 H Glucose Lactic Acid ALT Total Creatine Kinase CK-MB (CK-2) Rel Index NT-Pro-B Natriuret Pep Albumin Vancomycin Trough Lymph Enumerat CD4/CD8 Absolute CD3 Count % CD4 Cells Absolute CD4 Count % CD8 Cells Absolute CD8 Count % CD19 Cells Absolute CD19 Count HIV-1 RNA PCR copies/ml HIV-1 RNA (PCR) log 05/23/18 05:54 WBC RBC Hgb Hct RDW Plt Count Seg Neuts % (Manual) Lymphocytes % (Manual) Seg Neutrophils # Man Abs Lymphs (Manual) Lymphocytes # (Manual) APTT D-Dimer POC ABG pH POC ABG pO2 Sodium Potassium Chloride Carbon Dioxide BUN Glucose Lactic Acid ALT Total Creatine Kinase CK-MB (CK-2) Rel Index NT-Pro-B Natriuret Pep Albumin Vancomycin Trough 38.1 H Lymph Enumerat CD4/CD8 Absolute CD3 Count % CD4 Cells Absolute CD4 Count % CD8 Cells Absolute CD8 Count % CD19 Cells Absolute CD19 Count HIV-1 RNA PCR copies/ml HIV-1 RNA (PCR) log Chest x-ray: report reviewed, image reviewed (improved R lung densities)
--- NOTE | 2018-05-25 16:02 | Discharge Summary ---
Providers - Providers Date of Admission: 05/19/18 10:39 Date of discharge: 05/25/18 Attending physician: BRANDON OCASIO 05/19/18 11:28 Consult to Physician [CONS] Routine Comment: Consulting Provider: ADELE MARTINEZ Physician Instructions: Reason For Exam: critical care 05/20/18 08:00 Consult to Physician [CONS] Routine Comment: Consulting Provider: SHERMAN CARRANZA Physician Instructions: Reason For Exam: HIV/AIDS, Pneumonia Primary care physician: [employer] Hospitalization Reason for admission: acute respiratory failure/large right-sided pneumonia Condition: Fair Pertinent studies: CTA chest, chest x-ray Procedures: Bronchoscopy Hospital course: 42-year-old female patient with significant past medical history of HIV AIDS on antiretrovirals follows with private ID Dr. rodriguez who present to the emergency room with respiratory distress workup is consistent with pneumonia[community-acquired] Patient was admitted symptomatically managed with empiric antibiotics and supportive care She was evaluated by pulmonary critical, underwent bronchoscopy, and cultures were followed Subsequently evaluated by infectious diseases, adjusted antibiotics Patient's medications were optimized, Symptoms significantly improved Today patient is comfortable in no new complaints, Vital signs stable Physical examination is unremarkable, ID cleared for discharge on Diflucan, Ceftin and doxycycline Patient advised to follow with private ID, continue on antiretrovirals Discharge Diagnosis: --Sepsis secondary to right pneumonia;CAP Continue vancomycin and cefepime,follow cultures ID following, september discharge on oral antibiotics --Acute on chronic hypoxic respiratory failure; requiring BiPAP Secondary to pneumonia underlying lung disease, symptoms significantly improved S/P bronchoscopy; copious secretions in trachea and right mainstem Attempted to clean right lung, samples taken for histopathology Stains for PCP CMV and fungal and AFB respiratory cultures --HIV AIDS; antiretroviral medications ID evaluated, optimized medications, viral load 144,000s --Cardiomyopathy severe; EF 15%, continue anti-failure medications --Leukocytosis ; due to sepsis --Lactic acidosis; due to underlying disease process --Oral thrush; vaginal candidiasis/ Diflucan, nystatin swish and swallow --Hypokalemia; corrected --Severe malnutrition hypoalbuminemia; nutrition supplements and supportive care Cleared by pulmonary, ID for discharge and follow-up for further evaluation and management Disposition: TO HOME OR SELFCARE Time spent for discharge: 32 min Core Measure Documentation - Palliative Care Palliative Care/ Comfort Measures: Not Applicable - Core Measures Any of the following diagnoses?: none Exam - Constitutional Vitals: Temp Pulse Resp BP Pulse Ox 97.9 F 92 H 20 110/71 94 05/25/18 12:23 05/25/18 12:23 05/25/18 12:23 05/25/18 12:23 05/25/18 12:23 General appearance: Present: no acute distress, well-nourished - EENT Eyes: Present: PERRL, EOM intact - Neck Neck: Present: supple, normal ROM - Respiratory Respiratory effort: normal Respiratory: bilateral: diminished, negative: rales, rhonchi, wheezing - Cardiovascular Rhythm: regular Heart Sounds: Present: S1 & S2 - Extremities Extremities: no ischemia, No edema - Abdominal General gastrointestinal: Present: soft, non-tender, non-distended, normal bowel sounds - Integumentary Integumentary: Present: clear, warm - Musculoskeletal Musculoskeletal: strength equal bilaterally, generalized weakness - Psychiatric Psychiatric: appropriate mood/affect, cooperative - Neurologic Neurologic: CNII-XII intact, moves all extremities Plan Activity: advance as tolerated Diet: low salt Additional Instructions: Follow private ID per schedule. Follow-up private cardiology per schedule Follow up with: PRIMARY CARE, [Primary Care Provider] - 3-5 Days RADHA MCCLOUD MD [Staff Physician] - 7 Days Prescriptions: Benzonatate [Tessalon Perles] 100 mg PO Q8HR #15 capsule cefUROXime [Ceftin] 500 mg PO Q12H 7 Days #28 tablet Doxycycline [Vibramycin CAP] 100 mg PO Q12HR #14 capsule Fluconazole [Diflucan TAB] 400 mg PO QDAY 14 Days #28 tablet Sulfamethoxazole/Trimethoprim [Bactrim DS TAB] 1 each PO Q24HR #30 tablet
== END 2018-05-25 17:50 | disposition home or self-care (01) | DRG 974 ==
LOC: ED 06:53 → CC1 10:39 → 3A 18:19
PROVIDERS: ADMIT Internal Medicine; ATTEND Internal Medicine
PROC: 5A09357 Assistance with Respiratory Ventilation, Less than 24 Consecutive Hours, Continuous Positive Airway Pressure (ICD-10-PCS; 2018-05-19)
PROC: 4A033R1 Measurement of Arterial Saturation, Peripheral, Percutaneous Approach (ICD-10-PCS; 2018-05-19)
PROC: 0BDD8ZX Extraction of Right Middle Lung Lobe, Via Natural or Artificial Opening Endoscopic, Diagnostic (ICD-10-PCS; principal; 2018-05-21)
DX: A41.9 Sepsis, unspecified organism (principal); B20 Human immunodeficiency virus [HIV] disease; J96.21 Acute and chronic respiratory failure with hypoxia; J18.9 Pneumonia, unspecified organism; E43 Unspecified severe protein-calorie malnutrition; F17.200 Nicotine dependence, unspecified, uncomplicated; J44.0 Chronic obstructive pulmonary disease with (acute) lower respiratory infection; J44.9 Chronic obstructive pulmonary disease, unspecified; G47.30 Sleep apnea, unspecified; B37.0 Candidal stomatitis; B37.3 Candidiasis of vulva and vagina; E87.6 Hypokalemia; E88.09 Other disorders of plasma-protein metabolism, not elsewhere classified; I11.0 Hypertensive heart disease with heart failure; I50.9 Heart failure, unspecified; K50.90 Crohn's disease, unspecified, without complications; I42.0 Dilated cardiomyopathy; R91.1 Solitary pulmonary nodule; Z68.32 Body mass index [BMI] 32.0-32.9, adult; Z82.49 Family history of ischemic heart disease and other diseases of the circulatory system; Z88.0 Allergy status to penicillin; Z79.82 Long term (current) use of aspirin; Z79.899 Other long term (current) drug therapy
CPT/HCPCS: 36415; 71045; 71275; 80048; 80053; 80202; 82024; 82140; 82550; 82553; 82803; 83735; 83880; 84100; 84484; 85007; 85025; 85379; 85610; 85730; 86403; 87040; 87070; 87102; 87116; 87205; 87400; 87536; 88112; 88312; 88342; 93005; 93010; 94640; 94760; 96365; G0378; J0692; J1170; J1650; J1956; J2248; J2250; J2704; J3370; J7030; J7040; J7050; Q9967

== ENCOUNTER 2018-07-22 12:49 | Inpatient (IN) | payer MEDICAID ==
[2018-07-22] MEDS ORDERED: IBUPROFEN PO ONE (14:05)
--- NOTE | 2018-07-22 14:05 | Emergency Department Report ---
Blank Doc - Documentation Documentation: This is a 42-year-old female that presents with URI symptoms. This initial assessment/diagnostic orders/clinical plan/treatment(s) is/are subject to change based on patient's health status, clinical progression and re- assessment by fellow clinical providers in the ED. Further treatment and workup at subsequent clinical providers discretion. Patient/guardians urged not to elope from the ED as their condition may be serious if not clinically assessed and managed. Initial orders include: 1- Patient sent to [facility] for further evaluation and treatment 2- CXR 3- Motrin
--- NOTE | 2018-07-22 14:29 | XRay Report ---
ROUTINE CHEST, TWO VIEWS: HISTORY: Cough. Subtle infiltration in the right lung has resolved since 06/01/17. There is new subtle infiltration in the superior lingula on today's exam which could represent a new infiltrate. No pleural effusion or pneumothorax. Normal heart and mediastinal structures. Normal bony thorax. IMPRESSION: Resolved right lung infiltrate since 06/01/17. New subtle infiltrate in the left upper lobe.
[2018-07-22 14:35] LABS: Hematocrit 28.3 % (30.3-42.9); Hemoglobin 9.3 gm/dl (10.1-14.3); Mean Corpuscular HGB Conc 33 % (30-34); Mean Corpuscular Volume 86 fl (79-97); Platelet Count 351 K/mm3 (140-440); Red Blood Count 3.29 M/mm3 (3.65-5.03); Red Cell Distribution Width 19.1 % (13.2-15.2)
[2018-07-22 15:00] LABS: Albumin 3.1 g/dL (3.9-5); BUN/Creatinine Ratio 15; Blood Urea Nitrogen 9 mg/dL (7-17); Hemolysis Index 13
[2018-07-22 15:06] LABS: Alanine Aminotransferase < 5 units/L (7-56)
[2018-07-22 15:14] LABS: Basophils % (Manual) 0 % (0.0-1.8); Eosinophils % (Manual) 0 % (0.0-4.3); Total Cells Counted 100
[2018-07-22] MEDS ORDERED: TYLENOL PO ONE (15:16)
[2018-07-22 15:17] LABS: Platelet Estimate Consistent w Auto
[2018-07-22 15:18] LABS: Anisocytosis 1+; Stomatocytes Few
[2018-07-22] MEDS ORDERED: LEVAQUIN 750MG/150ML 750 MG/150 ML BAG IV ONE (15:22)
--- NOTE | 2018-07-22 15:34 | Emergency Department Report ---
ED Fever HPI - General Chief Complaint: Fever Stated Complaint: FEVER 103/HBP/DOC ORDERED Time Seen by Provider: 07/22/18 14:03 Source: patient, old records Exam Limitations: no limitations - History of Present Illness Initial Comments: 42-year-old female the past medical history AIDS, COPD with O2 dependence 2.5 L, cardiomyopathy with an EF of 15%, and recurrent oral candidiasis presents to the hospital with cough and fever. Patient has had cough 2 weeks productive of green sputum. She was seen by her group contract analyst Dr. Aquino and placed on doxycycline. Patient was not improving and saw her infectious disease doctor Dr. Portillo/Mateusz 3 days ago and prednisone was added to her regimen. Patient developed fever yesterday and complains of worsening shortness of breath. Patient denies hemoptysis. Patient is on prophylactic daily Bactrim. She is compliant with her antiretrovirals. As per medical record review, patient had a CD4 count of 1 during May admission for pneumonia. ED Review of Systems ROS: Stated complaint: FEVER 103/HBP/DOC ORDERED Other details as noted in HPI Comment: All other systems reviewed and negative ED Past Medical Hx - Past Medical History Hx Hypertension: Yes Hx Congestive Heart Failure: Yes (cardiomyopathy with EF of 15%) Hx Liver Disease: No Hx Renal Disease: No Hx Seizures: No Hx Asthma: Yes Hx COPD: Yes Hx HIV: Yes Additional medical history: Eczema, Bronchitis, crohns disease - Surgical History Hx Pacemaker: No Hx Internal Defibrillator: No Additional Surgical History: c section - Social History Smoking Status: Former Smoker Substance Use Type: None - Medications Home Medications: Home Medications Medication Instructions Recorded Confirmed Last Taken Type Atazanavir [Reyataz] 300 mg PO QDAY #30 capsule 02/28/18 07/22/18 Unknown Rx Carvedilol [Coreg] 6.25 mg PO BID #60 tablet 02/28/18 07/22/18 Unknown Rx Darunavir [Prezista] 600 mg PO BID tablet 02/28/18 07/22/18 Unknown Rx Furosemide [Lasix TAB] 40 mg PO QDAY #30 tablet 02/28/18 07/22/18 Unknown Rx Ipratropium/Albuterol Sulfate 1 ampul IH Q8HR PRN #30 ampul.neb 02/28/18 07/22/18 Unknown Rx [DUONEB *Not for PRN Use*] Lisinopril [Zestril TAB] 10 mg PO QDAY #30 tablet 02/28/18 07/22/18 Unknown Rx Nystatin [Nystatin SUSP] 500,000 unit PO QID 21 Days udc 02/28/18 07/22/18 Unknown Rx Ritonavir [Norvir] 100 mg PO BID tab 02/28/18 07/22/18 Unknown Rx Emtricitabine/Tenofov Alafenam 1 each PO DAILY 05/19/18 07/22/18 Unknown History [Descovy 200-25 mg Tablet] Fluconazole [Diflucan TAB] 400 mg PO QDAY 14 Days #28 tablet 05/25/18 07/22/18 Unknown Rx Sulfamethoxazole/Trimethoprim 1 each PO Q24HR #30 tablet 05/25/18 07/22/18 Unknown Rx [Bactrim DS TAB] ED Physical Exam - General Limitations: No Limitations - Other Other exam information: General: No limitations, patient is alert in no acute distress Head exam: Atraumatic, normocephalic Eyes exam: Normal appearance ENT: Oral and posterior pharyngeal candidiasis Neck exam: Normal inspection, full range of motion, no meningismus nontender Respiratory exam: Mild crackles without tachypnea Cardiovascular: Tachycardic regular rate Abdomen: Soft, nondistended, and nontender, with normal bowel sounds, no rebound, or guarding Extremity: Full range of motion normal inspection no deformity, no calf tenderness or edema Back: Normal Inspection, full range of motion, no tenderness Neurologic: Alert, oriented x3, cranial nerves intact, no motor or sensory deficit Psychiatric: normal affect, normal mood Skin: Warm, dry, intact ED Course Vital Signs 07/22/18 07/22/18 07/22/18 13:53 15:18 16:58 Temperature 100.4 F H 98.6 F 98.3 F Pulse Rate 112 H 92 H 95 H Respiratory 20 22 20 Rate Blood Pressure 142/84 Blood Pressure 124/74 136/89 [Right] O2 Sat by Pulse 92 98 100 Oximetry ED Medical Decision Making - Lab Data Result diagrams: 07/22/18 14:13 07/22/18 14:13 Lab Results 07/22/18 07/22/18 07/22/18 Range/Units 14:13 14:13 14:13 WBC 8.1 (4.5-11.0) K/mm3 RBC 3.29 L (3.65-5.03) M/mm3 Hgb 9.3 L (10.1-14.3) gm/dl Hct 28.3 L (30.3-42.9) % MCV 86 (79-97) fl MCH 28 (28-32) pg MCHC 33 (30-34) % RDW 19.1 H (13.2-15.2) % Plt Count 351 (140-440) K/mm3 Add Manual Diff Complete Total Counted 100 Seg Neutrophils % Waste Cotton Cleaner Seg Neuts % (Manual) 98.0 H (40.0-70.0) % Band Neutrophils % 0 % Lymphocytes % (Manual) 0 L (13.4-35.0) % Reactive Lymphs % (Man) 0 % Monocytes % (Manual) 2.0 (0.0-7.3) % Eosinophils % (Manual) 0 (0.0-4.3) % Basophils % (Manual) 0 (0.0-1.8) % Metamyelocytes % 0 % Myelocytes % 0 % Promyelocytes % 0 % Blast Cells % 0 % Nucleated RBC % Not Reportable Seg Neutrophils # Man 7.9 H (1.8-7.7) K/mm3 Band Neutrophils # 0.0 K/mm3 Lymphocytes # (Manual) 0.0 L (1.2-5.4) K/mm3 Abs React Lymphs (Man) 0.0 K/mm3 Monocytes # (Manual) 0.2 (0.0-0.8) K/mm3 Eosinophils # (Manual) 0.0 (0.0-0.4) K/mm3 Basophils # (Manual) 0.0 (0.0-0.1) K/mm3 Metamyelocytes # 0.0 K/mm3 Myelocytes # 0.0 K/mm3 Promyelocytes # 0.0 K/mm3 Blast Cells # 0.0 K/mm3 WBC Morphology Not Reportable Hypersegmented Neuts Not Reportable Hyposegmented Neuts Not Reportable Hypogranular Neuts Not Reportable Smudge Cells Not Reportable Toxic Granulation Not Reportable Toxic Vacuolation Not Reportable Dohle Bodies Not Reportable Pelger-Huet Anomaly Not Reportable Kj Rods Not Reportable Platelet Estimate Consistent w auto Clumped Platelets Not Reportable Plt Clumps, EDTA Not Reportable Large Platelets Not Reportable Giant Platelets Not Reportable Platelet Satelliting Not Reportable Plt Morphology Comment Not Reportable RBC Morphology Not Reportable Dimorphic RBCs Not Reportable Polychromasia Not Reportable Hypochromasia Not Reportable Poikilocytosis Not Reportable Anisocytosis 1+ Microcytosis Not Reportable Macrocytosis Not Reportable Spherocytes Not Reportable Pappenheimer Bodies Not Reportable Sickle Cells Not Reportable Target Cells Not Reportable Tear Drop Cells Not Reportable Ovalocytes Not Reportable Stomatocytes Few Helmet Cells Not Reportable [place] Bodies Not Reportable New Era Rings Not Reportable [place] Cells Not Reportable Bite Cells Not Reportable Crenated Cell Not Reportable Elliptocytes Not Reportable Acanthocytes (Spur) Not Reportable Rouleaux Not Reportable Hemoglobin C Crystals Not Reportable Schistocytes Not Reportable Malaria parasites Not Reportable Ham Bodies Not Reportable Hem Pathologist Commnt No Sodium 132 L (137-145) mmol/L Potassium 3.4 L (3.6-5.0) mmol/L Chloride 90.3 L (98-107) mmol/L Carbon Dioxide 26 (22-30) mmol/L Anion Gap 19 mmol/L BUN 9 (7-17) mg/dL Creatinine 0.6 L (0.7-1.2) mg/dL Estimated GFR > 60 ml/min BUN/Creatinine Ratio 15 % Glucose 140 H (65-100) mg/dL Lactic Acid 2.10 H* (0.7-2.0) mmol/L Calcium 9.0 (8.4-10.2) mg/dL Total Bilirubin 1.10 (0.1-1.2) mg/dL AST 20 (5-40) units/L ALT < 5 L (7-56) units/L Alkaline Phosphatase 87 (35-129) units/L Total Protein 7.0 (6.3-8.2) g/dL Albumin 3.1 L (3.9-5) g/dL Albumin/Globulin Ratio 0.8 % 07/22/18 Range/Units 15:58 WBC (4.5-11.0) K/mm3 RBC (3.65-5.03) M/mm3 Hgb (10.1-14.3) gm/dl Hct (30.3-42.9) % MCV (79-97) fl MCH (28-32) pg MCHC (30-34) % RDW (13.2-15.2) % Plt Count (140-440) K/mm3 Add Manual Diff Total Counted Seg Neutrophils % Seg Neuts % (Manual) (40.0-70.0) % Band Neutrophils % % Lymphocytes % (Manual) (13.4-35.0) % Reactive Lymphs % (Man) % Monocytes % (Manual) (0.0-7.3) % Eosinophils % (Manual) (0.0-4.3) % Basophils % (Manual) (0.0-1.8) % Metamyelocytes % % Myelocytes % % Promyelocytes % % Blast Cells % % Nucleated RBC % Seg Neutrophils # Man (1.8-7.7) K/mm3 Band Neutrophils # K/mm3 Lymphocytes # (Manual) (1.2-5.4) K/mm3 Abs React Lymphs (Man) K/mm3 Monocytes # (Manual) (0.0-0.8) K/mm3 Eosinophils # (Manual) (0.0-0.4) K/mm3 Basophils # (Manual) (0.0-0.1) K/mm3 Metamyelocytes # K/mm3 Myelocytes # K/mm3 Promyelocytes # K/mm3 Blast Cells # K/mm3 WBC Morphology Hypersegmented Neuts Hyposegmented Neuts Hypogranular Neuts Smudge Cells Toxic Granulation Toxic Vacuolation Dohle Bodies Pelger-Huet Anomaly Kj Rods Platelet Estimate Clumped Platelets Plt Clumps, EDTA Large Platelets Giant Platelets Platelet Satelliting Plt Morphology Comment RBC Morphology Dimorphic RBCs Polychromasia Hypochromasia Poikilocytosis Anisocytosis Microcytosis Macrocytosis Spherocytes Pappenheimer Bodies Sickle Cells Target Cells Tear Drop Cells Ovalocytes Stomatocytes Helmet Cells [place] Bodies New Era Rings Farhana Cells Bite Cells Crenated Cell Elliptocytes Acanthocytes (Spur) Rouleaux Hemoglobin C Crystals Schistocytes Malaria parasites Ham Bodies Hem Pathologist Commnt Sodium (137-145) mmol/L Potassium (3.6-5.0) mmol/L Chloride (98-107) mmol/L Carbon Dioxide (22-30) mmol/L Anion Gap mmol/L BUN (7-17) mg/dL Creatinine (0.7-1.2) mg/dL Estimated GFR ml/min BUN/Creatinine Ratio % Glucose (65-100) mg/dL Lactic Acid 4.00 H* (0.7-2.0) mmol/L Calcium (8.4-10.2) mg/dL Total Bilirubin (0.1-1.2) mg/dL AST (5-40) units/L ALT (7-56) units/L Alkaline Phosphatase (35-129) units/L Total Protein (6.3-8.2) g/dL Albumin (3.9-5) g/dL Albumin/Globulin Ratio % - Radiology Data Radiology results: report reviewed ROUTINE CHEST, TWO VIEWS: HISTORY: Cough. Subtle infiltration in the right lung has resolved since 06/01/17. There is new subtle infiltration in the superior lingula on today's exam which could represent a new infiltrate. No pleural effusion or pneumothorax. Normal heart and mediastinal structures. Normal bony thorax. IMPRESSION: Resolved right lung infiltrate since 06/01/17. New subtle infiltrate in the left upper lobe. - Medical Decision Making Patient be admitted to the hospital for pneumonia. She'll be treated for healthcare associated pneumonia given recent hospitalization in May. Patient was treated with doxycycline as outpatient without improvement. In the ED vancomycin and Levaquin was initiated. We'll defer to admitting service to determine other antibiotics. Cultures pending. Patient placed in respiratory isolation given upper lobe infiltrate until TB can be ruled out. - Differential Diagnosis sepsis, pneumonia, URI, bronchitis Critical Care Time: No Critical care attestation.: If time is entered above; I have spent that time in minutes in the direct care of this critically ill patient, excluding procedure time. ED Disposition Clinical Impression: Left upper lobe pneumonia, AIDS, COPD (chronic obstructive pulmonary disease), O2 dependent, Oral candidiasis, HCAP (healthcare-associated pneumonia) Disposition: OP ADMIT IP TO THIS HOSP Is pt being admited?: Yes Condition: Stable Time of Disposition: 15:34 (Dr Persaud/hosp)
--- NOTE | 2018-07-22 16:18 | History and Physical Report ---
History of Present Illness Chief complaint: I cant breath, and I have a fever History of present illness: 42 YO Female with AIDS, Cardiomyopathy with EF 15%, HTN, Asthma, Chronic Respiratory Failure on 2.5L Home Oxygen, COPD, Eczema, Crohns Disease presents to ED for evaluation. Pt states that she has experienced subjective fever, productive cough with green sputum over the past 2 weeks, with worsening symptoms over the past 3 days. Pt was seen by her algebra tutor Dr. Aquino and placed on doxycycline without improvement in symptoms. Pt was subsequently seen by her infectious disease physician, Dr. Portillo/Mateusz and was initiated on prednisone without improvement in symptoms. Pt transported to [facility] via private vehicle. Pt seen and evaluated in ED and found to have PATRICA Pneumonia, Acute on Chronic Respiratory Failure, Acidosis. Pt admitted to medical floor and placed on Airborne Precautions, and initiated on Pneumonia protocol. Pt admitted on 05/19/18 for Pneumonia/Respiratory Failure. All listed medication reconciled at admission. Pt denies chills, CP, Palpitations, NVD, Trauma, Skin Rash, Difficulty Swallowing, Prolonged Travel/Immobility, Unilateral Leg Swelling, Calf Pain, or Recent ill contacts. Past History Past Medical History: COPD, HIV/AIDS, other (Cardiomyopathy) Past Surgical History: Social history: smoking Family history: no significant family history (reviewed) Medications and Allergies Allergies Allergy/AdvReac Type Severity Reaction Status Date / Time Penicillins Allergy Swelling Verified 12/14/14 17:38 Home Medications Medication Instructions Recorded Confirmed Last Taken Type Atazanavir [Reyataz] 300 mg PO QDAY #30 capsule 02/28/18 07/22/18 Unknown Rx Carvedilol [Coreg] 6.25 mg PO BID #60 tablet 02/28/18 07/22/18 Unknown Rx Darunavir [Prezista] 600 mg PO BID tablet 02/28/18 07/22/18 Unknown Rx Furosemide [Lasix TAB] 40 mg PO QDAY #30 tablet 02/28/18 07/22/18 Unknown Rx Ipratropium/Albuterol Sulfate 1 ampul IH Q8HR PRN #30 ampul.neb 02/28/18 Unknown Rx [DUONEB *Not for PRN Use*] Lisinopril [Zestril TAB] 10 mg PO QDAY #30 tablet 02/28/18 07/22/18 Unknown Rx Nystatin [Nystatin SUSP] 500,000 unit PO QID 21 Days udc 02/28/18 07/22/18 Unknown Rx Ritonavir [Norvir] 100 mg PO BID tab 02/28/18 07/22/18 Unknown Rx Emtricitabine/Tenofov Alafenam 1 each PO DAILY 05/19/18 07/22/18 Unknown History [Descovy 200-25 mg Tablet] Fluconazole [Diflucan TAB] 400 mg PO QDAY 14 Days #28 tablet 05/25/18 07/22/18 Unknown Rx Sulfamethoxazole/Trimethoprim 1 each PO Q24HR #30 tablet 05/25/18 07/22/18 Unknown Rx [Bactrim DS TAB] Active Meds: Active Medications Levofloxacin/Dextrose (Levaquin 750mg/150ml) 750 mg in 150 mls @ 100 mls/hr IV ONCE ONE Stop: 07/22/18 16:51 Last Admin: 07/22/18 16:12 Dose: 100 mls/hr Documented by: Vancomycin HCl 1,750 mg/ (Sodium Chloride) 535 mls @ 333 mls/hr IV ONCE ONE; Protocol Stop: 07/22/18 17:58 Review of Systems Constitutional: fever, no weight loss, no weight gain, no chills Ears, nose, mouth and throat: no ear pain, no ear discharge, no tinnitis, no decreased hearing, no nose pain Breasts: no change in shape, no swelling, no mass Cardiovascular: shortness of breath, no chest pain, no orthopnea, no palpitations Respiratory: cough, cough with sputum, excessive sputum, shortness of breath Gastrointestinal: no abdominal pain, no nausea, no vomiting, no diarrhea Genitourinary Female: no pelvic pain, no flank pain, no menorrhagia, no dysuria, no urinary frequency, no urgency Rectal: no pain, no incontinence, no bleeding Musculoskeletal: no neck stiffness, no neck pain, no shooting arm pain, no arm numbness/tingling, no low back pain Integumentary: no rash, no pruritis, no redness, no sores, no wounds Neurological: no transient paralysis, no paralysis, no weakness, no parathesias, no numbness Psychiatric: no anxiety, no memory loss, no change in sleep habits, no sleep disturbances, no insomnia, no hypersomnia, no change in appetite Endocrine: no cold intolerance, no heat intolerance, no polyphagia, no excessive thirst, no polydipsia Hematologic/Lymphatic: no easy bruising, no easy bleeding, no lymphadenopathy, no lymphedema Allergic/Immunologic: no urticaria, no allergic rhinitis, no wheezing, no persistent infections, no anaphylaxis Exam - Constitutional Vitals: Temp Pulse Resp BP Pulse Ox 98.6 F 92 H 22 124/74 98 07/22/18 15:18 07/22/18 15:18 07/22/18 15:18 07/22/18 15:18 07/22/18 15:18 General appearance: Present: mild distress - EENT Eyes: Present: PERRL ENT: hearing intact, clear oral mucosa - Neck Neck: Present: supple, normal ROM - Respiratory Respiratory effort: normal Respiratory: left: diminished, rhonchi - Cardiovascular Heart Sounds: Present: S1 & S2. Absent: rub, click - Extremities Extremities: pulses symmetrical, No edema Peripheral Pulses: within normal limits - Abdominal General gastrointestinal: Present: soft, non-tender, non-distended, normal bowel sounds Female genitourinary: Present: normal - Integumentary Integumentary: Present: clear, warm, dry - Musculoskeletal Musculoskeletal: gait normal, strength equal bilaterally - Psychiatric Psychiatric: appropriate mood/affect, intact judgment & insight - Neurologic Neurologic: CNII-XII intact, moves all extremities Results - Labs CBC & Chem 7: 07/22/18 14:13 07/22/18 14:13 Labs: Abnormal lab results 07/22/18 07/22/18 07/22/18 Range/Units 14:13 14:13 14:13 RBC 3.29 L (3.65-5.03) M/mm3 Hgb 9.3 L (10.1-14.3) gm/dl Hct 28.3 L (30.3-42.9) % RDW 19.1 H (13.2-15.2) % Seg Neuts % (Manual) 98.0 H (40.0-70.0) % Lymphocytes % (Manual) 0 L (13.4-35.0) % Seg Neutrophils # Man 7.9 H (1.8-7.7) K/mm3 Lymphocytes # (Manual) 0.0 L (1.2-5.4) K/mm3 Sodium 132 L (137-145) mmol/L Potassium 3.4 L (3.6-5.0) mmol/L Chloride 90.3 L (98-107) mmol/L Creatinine 0.6 L (0.7-1.2) mg/dL Glucose 140 H (65-100) mg/dL Lactic Acid 2.10 H* (0.7-2.0) mmol/L ALT < 5 L (7-56) units/L Albumin 3.1 L (3.9-5) g/dL Assessment and Plan - Patient Problems (1) Acute and chronic respiratory failure with hypoxia Current Visit: No Status: Acute Plan to address problem: Supplemental oxygen, nebulizer therapy, pulse oximetry, chest x ray, NIPPV as clinically indicated, pulse oximetry, pain control (2) Pneumonia Current Visit: Yes Status: Acute Qualifiers: Laterality: left Lung location: upper lobe of lung Plan to address problem: IV antibiotic therapy, supplemental oxygen, nebulizer therapy, hydromet bid for cough suppression and pain control, Chest x ray, nebulizer therapy, NIPPV as clinically indicated, CBC, BMP, Pulse oximetry. (3) Hyponatremia syndrome Current Visit: Yes Status: Acute Plan to address problem: IVF resuscitation therapy, repeat bmp in am to monitor serum sodium level. (4) Acidosis Current Visit: Yes Status: Acute Plan to address problem: IVF resuscitation therapy, repeat bmp in am. (5) AIDS Current Visit: Yes Status: Acute Plan to address problem: Resume antiretroviral therapy, PCP prophylaxis with bactrim. outpatient I/D F/U care. (6) Crohns disease Current Visit: Yes Status: Acute Qualifiers: Digestive disease complication type: without complication Plan to address problem: Controlled, No exacerbation at this time. (7) DVT prophylaxis Current Visit: Yes Status: Acute Plan to address problem: SCD to BLE while in bed,
[2018-07-22] MEDS ORDERED: VANCOMYCIN 1,750 MG in NACL 0.9% 500 ML 500 ML IV ONE (16:22)
[2018-07-22] MEDS ORDERED: DUONEB *Not for PRN Use IH (16:29)
[2018-07-22] MEDS ORDERED: SODIUM CHLORIDE FLUSH SYRINGE 10 ML IV PRN (16:36)
[2018-07-22] MEDS ORDERED: TYLENOL PO PRN (16:36)
[2018-07-22] MEDS ORDERED: PROVENTIL IH PRN (16:36)
[2018-07-22] MEDS ORDERED: HYDROMET PO ONE (18:28)
[2018-07-22] MEDS: NYSTATIN PO SCH ×2 (19:55→22:23)
[2018-07-22] MEDS: NACL 0.9% 1000 ML 1,000 ML IV SCH (22:20)
[2018-07-22] MEDS: DIFLUCAN PO SCH (22:21)
[2018-07-22] MEDS: TESSALON PERLES PO SCH (22:21)
[2018-07-22] MEDS: SODIUM CHLORIDE FLUSH SYRINGE 10 ML IV SCH (22:21)
[2018-07-22] MEDS: NORVIR PO SCH (22:22)
[2018-07-22] MEDS: COREG PO SCH (22:22)
[2018-07-22] MEDS: LASIX PO SCH (22:22)
[2018-07-22] MEDS: BACTRIM DS PO SCH (22:23)
[2018-07-22] MEDS: PREZISTA PO SCH (22:23)
[2018-07-22] MEDS: PERCOCET 5/325 PO PRN (22:32)
[2018-07-22] MEDS: DUONEB *Not for PRN Use IH SCH (23:12)
[2018-07-23] MEDS: TESSALON PERLES PO SCH ×3 (06:05→21:31)
[2018-07-23] MEDS: DUONEB *Not for PRN Use IH SCH ×3 (08:19→23:33)
[2018-07-23] MEDS ORDERED: NON-FORMULARY (Emtricitabine/Tenofov Alafenam [Descovy 200-25 Mg Tablet] 1 EACH) PO SCH (10:00)
[2018-07-23] MEDS: REYATAZ PO SCH (10:08)
[2018-07-23] MEDS: NORVIR PO SCH ×2 (10:09→21:31)
[2018-07-23] MEDS: DIFLUCAN PO SCH (10:09)
[2018-07-23] MEDS: COREG PO SCH ×2 (10:10→21:32)
[2018-07-23] MEDS: ZESTRIL PO SCH (10:10)
[2018-07-23] MEDS: HALFPRIN EC PO SCH (10:10)
[2018-07-23] MEDS: NYSTATIN PO SCH ×3 (10:10→21:31)
[2018-07-23] MEDS: LASIX PO SCH (10:10)
[2018-07-23] MEDS: PREZISTA PO SCH ×2 (10:11→21:31)
[2018-07-23] MEDS: SODIUM CHLORIDE FLUSH SYRINGE 10 ML IV SCH ×2 (10:11→22:32)
--- NOTE | 2018-07-23 12:19 | Consultation ---
History of Present Illness Consult date: 07/23/18 Requesting physician: SUHAIL WAGNER Reason for consult: pneumonia History of present illness: 42 yo with HIV/AIDS, presents w/ several days of cough w/ green sputum, fevers. No chest pain, change in baseline SOB, wheezing, hemoptysis. On 2.5L NC at home. Active Medications Acetaminophen (Tylenol) 650 mg PO Q4H PRN PRN Reason: Pain MILD(1-3)/Fever >100.5/BILL Albuterol (Proventil) 2.5 mg IH Q4HRT PRN PRN Reason: Shortness Of Breath Albuterol/Ipratropium (Duoneb *Not For Prn Use*) 1 ampul IH Q8HRT [facility] Stop: 07/24/18 00:00 Last Admin: 07/23/18 08:19 Dose: 1 ampul Documented by: Aspirin (Halfprin Ec) 81 mg PO QDAY [facility] Last Admin: 07/23/18 10:10 Dose: 81 mg Documented by: Atazanavir (Reyataz) 300 mg PO QDAY [facility] Last Admin: 07/23/18 10:08 Dose: 300 mg Documented by: Benzonatate (Tessalon Perles) 100 mg PO Q8HR [facility] Last Admin: 07/23/18 06:05 Dose: 100 mg Documented by: Carvedilol (Coreg) 6.25 mg PO BID [facility] Last Admin: 07/23/18 10:10 Dose: 6.25 mg Documented by: Darunavir (Prezista) 600 mg PO BID [facility] Last Admin: 07/23/18 10:11 Dose: 600 mg Documented by: Fluconazole (Diflucan) 400 mg PO QDAY [facility] Last Admin: 07/23/18 10:09 Dose: 400 mg Documented by: Furosemide (Lasix) 40 mg PO QDAY [facility] Last Admin: 07/23/18 10:10 Dose: 40 mg Documented by: Sodium Chloride (Nacl 0.9% 1000 Ml) 1,000 mls @ 42 mls/hr IV DIRECT [facility] Last Admin: 07/22/18 22:20 Dose: 42 mls/hr Documented by: Levofloxacin/Dextrose (Levaquin 750mg/150ml) 750 mg in 150 mls @ 100 mls/hr IV Q24HR [facility]; Protocol Cefepime HCl (Maxipime/Ns 2 Gm/100 Ml) 2 gm in 100 mls @ 200 mls/hr IV Q12HR [facility]; Protocol Lisinopril (Zestril) 10 mg PO QDAY [facility] Last Admin: 07/23/18 10:10 Dose: 10 mg Documented by: Miscellaneous Medication (Emtricitabine/Tenofov Alafenam [Descovy 200-25 Mg Tablet]) 1 each PO DAILY [facility] Nystatin (Nystatin) 500,000 unit PO QID [facility] Last Admin: 07/23/18 10:10 Dose: 500,000 unit Documented by: Ondansetron HCl (Zofran) 4 mg IV Q8H PRN PRN Reason: Nausea And Vomiting Oxycodone/Acetaminophen (Percocet 5/325) 1 tab PO Q6H PRN PRN Reason: Pain, Moderate (4-6) Last Admin: 07/22/18 22:32 Dose: 1 tab Documented by: Ritonavir (Norvir) 100 mg PO BID [facility] Last Admin: 07/23/18 10:09 Dose: 100 mg Documented by: Sodium Chloride (Sodium Chloride Flush Syringe 10 Ml) 10 ml IV BID [facility] Last Admin: 07/23/18 10:11 Dose: 10 ml Documented by: Sodium Chloride (Sodium Chloride Flush Syringe 10 Ml) 10 ml IV PRN PRN PRN Reason: LINE FLUSH Trimethoprim/Sulfamethoxazole (Bactrim Ds) 1 each PO Q24H [facility] Last Admin: 07/22/18 22:23 Dose: 1 each Documented by: Past History Past Medical History: COPD, HIV/AIDS, other (Cardiomyopathy) Past Surgical History: Social history: full code. denies: smoking, alcohol abuse, prescription drug abuse, IV drug use Family history: no significant family history (denies pulm problems) Medications and Allergies Allergies Allergy/AdvReac Type Severity Reaction Status Date / Time Penicillins Allergy Swelling Verified 12/14/14 17:38 Home Medications Medication Instructions Recorded Confirmed Last Taken Type Atazanavir [Reyataz] 300 mg PO QDAY #30 capsule 02/28/18 07/22/18 Unknown Rx Carvedilol [Coreg] 6.25 mg PO BID #60 tablet 02/28/18 07/22/18 Unknown Rx Darunavir [Prezista] 600 mg PO BID tablet 02/28/18 07/22/18 Unknown Rx Furosemide [Lasix TAB] 40 mg PO QDAY #30 tablet 02/28/18 07/22/18 Unknown Rx Ipratropium/Albuterol Sulfate 1 ampul IH Q8HR PRN #30 ampul.neb 02/28/18 Unknown Rx [DUONEB *Not for PRN Use*] Lisinopril [Zestril TAB] 10 mg PO QDAY #30 tablet 02/28/18 07/22/18 Unknown Rx Nystatin [Nystatin SUSP] 500,000 unit PO QID 21 Days udc 02/28/18 07/22/18 Unknown Rx Ritonavir [Norvir] 100 mg PO BID tab 02/28/18 07/22/18 Unknown Rx Emtricitabine/Tenofov Alafenam 1 each PO DAILY 05/19/18 07/22/18 Unknown History [Descovy 200-25 mg Tablet] Fluconazole [Diflucan TAB] 400 mg PO QDAY 14 Days #28 tablet 05/25/18 07/22/18 Unknown Rx Sulfamethoxazole/Trimethoprim 1 each PO Q24HR #30 tablet 05/25/18 07/22/18 Unknown Rx [Bactrim DS TAB] Active Meds: Active Medications Acetaminophen (Tylenol) 650 mg PO Q4H PRN PRN Reason: Pain MILD(1-3)/Fever >100.5/BILL Albuterol (Proventil) 2.5 mg IH Q4HRT PRN PRN Reason: Shortness Of Breath Albuterol/Ipratropium (Duoneb *Not For Prn Use*) 1 ampul IH Q8HRT [facility] Stop: 07/24/18 00:00 Last Admin: 07/23/18 08:19 Dose: 1 ampul Documented by: Aspirin (Halfprin Ec) 81 mg PO QDAY [facility] Last Admin: 07/23/18 10:10 Dose: 81 mg Documented by: Atazanavir (Reyataz) 300 mg PO QDAY [facility] Last Admin: 07/23/18 10:08 Dose: 300 mg Documented by: Benzonatate (Tessalon Perles) 100 mg PO Q8HR [facility] Last Admin: 07/23/18 06:05 Dose: 100 mg Documented by: Carvedilol (Coreg) 6.25 mg PO BID [facility] Last Admin: 07/23/18 10:10 Dose: 6.25 mg Documented by: Darunavir (Prezista) 600 mg PO BID [facility] Last Admin: 07/23/18 10:11 Dose: 600 mg Documented by: Fluconazole (Diflucan) 400 mg PO QDAY [facility] Last Admin: 07/23/18 10:09 Dose: 400 mg Documented by: Furosemide (Lasix) 40 mg PO QDAY [facility] Last Admin: 07/23/18 10:10 Dose: 40 mg Documented by: Sodium Chloride (Nacl 0.9% 1000 Ml) 1,000 mls @ 42 mls/hr IV DIRECT [facility] Last Admin: 07/22/18 22:20 Dose: 42 mls/hr Documented by: Levofloxacin/Dextrose (Levaquin 750mg/150ml) 750 mg in 150 mls @ 100 mls/hr IV Q24HR [facility]; Protocol Cefepime HCl (Maxipime/Ns 2 Gm/100 Ml) 2 gm in 100 mls @ 200 mls/hr IV Q12HR [facility]; Protocol Lisinopril (Zestril) 10 mg PO QDAY [facility] Last Admin: 07/23/18 10:10 Dose: 10 mg Documented by: Miscellaneous Medication (Emtricitabine/Tenofov Alafenam [Descovy 200-25 Mg Tablet]) 1 each PO DAILY [facility] Nystatin (Nystatin) 500,000 unit PO QID [facility] Last Admin: 07/23/18 10:10 Dose: 500,000 unit Documented by: Ondansetron HCl (Zofran) 4 mg IV Q8H PRN PRN Reason: Nausea And Vomiting Oxycodone/Acetaminophen (Percocet 5/325) 1 tab PO Q6H PRN PRN Reason: Pain, Moderate (4-6) Last Admin: 07/22/18 22:32 Dose: 1 tab Documented by: Ritonavir (Norvir) 100 mg PO BID [facility] Last Admin: 07/23/18 10:09 Dose: 100 mg Documented by: Sodium Chloride (Sodium Chloride Flush Syringe 10 Ml) 10 ml IV BID [facility] Last Admin: 07/23/18 10:11 Dose: 10 ml Documented by: Sodium Chloride (Sodium Chloride Flush Syringe 10 Ml) 10 ml IV PRN PRN PRN Reason: LINE FLUSH Trimethoprim/Sulfamethoxazole (Bactrim Ds) 1 each PO Q24H [facility] Last Admin: 07/22/18 22:23 Dose: 1 each Documented by: Review of Systems All systems: negative Physical Examination Vital signs: Vital Signs Temp Pulse Resp BP Pulse Ox 100.4 F H 112 H 20 142/84 92 07/22/18 13:53 07/22/18 13:53 07/22/18 13:53 07/22/18 13:53 07/22/18 13:53 General appearance: no acute distress, alert Eyes: non-icteric ENT: oropharynx moist Neck: supple Effort: normal Ascultation: Bilateral: clear Cardiovascular: regular rate and rhythm (no mrg) Gastrointestinal: normoactive bowel sounds, soft, non-tender, non-distended Integumentary: normal Extremities: no cyanosis, pink and warm normal mental status, non-focal exam, pupils equal and round, CN II-XII normal mood appropriate, affect normal Results - Laboratory Findings CBC and BMP: 07/22/18 14:13 07/22/18 14:13 Abnormal lab findings: Abnormal Labs 07/22/18 07/22/18 07/22/18 14:13 14:13 14:13 RBC 3.29 L Hgb 9.3 L Hct 28.3 L RDW 19.1 H Seg Neuts % (Manual) 98.0 H Lymphocytes % (Manual) 0 L Seg Neutrophils # Man 7.9 H Lymphocytes # (Manual) 0.0 L Sodium 132 L Potassium 3.4 L Chloride 90.3 L Creatinine 0.6 L Glucose 140 H Lactic Acid 2.10 H* ALT < 5 L Albumin 3.1 L 07/22/18 07/22/18 15:58 20:39 RBC Hgb Hct RDW Seg Neuts % (Manual) Lymphocytes % (Manual) Seg Neutrophils # Man Lymphocytes # (Manual) Sodium Potassium Chloride Creatinine Glucose Lactic Acid 4.00 H* 2.50 H* ALT Albumin - Diagnostic Findings Chest x-ray: report reviewed, image reviewed (PATRICA nodular consolidation) Assessment and Plan Imp: 1. HCAP 2. HIV/AIDS 3. Chronic respiratory failure, hypoxia 4. Dilated CMP 5. Anemia of chronic disease 6. Pulm nodules 05/2018 Rec: 1. Resume Vanco/Cefipime which she tolerated last admit; would consult ID to assist; f/u cultures 2. Repeat CT chest re: prior nodules seen on 05/2018 3. Further plans pending clinical course Plan of care reviewed w/ patient, she understands/agrees Thanks for the consult. Will follow w/ you.
[2018-07-23] MEDS ORDERED: VANCOMYCIN PHARMACY TO DOSE IV SCH (13:00)
--- NOTE | 2018-07-23 14:56 | Consultation ---
History of Present Illness - Reason for Consult Consult date: 07/23/18 pneumonia, AIDS Requesting physician: SAMI SALGADO - History of Present Illness not seen Past History Past Medical History: COPD, HIV/AIDS, other (Cardiomyopathy) Past Surgical History: Social history: full code. denies: smoking, alcohol abuse, prescription drug abuse, IV drug use Family history: no significant family history (denies pulm problems) Medications and Allergies Allergies Allergy/AdvReac Type Severity Reaction Status Date / Time Penicillins Allergy Swelling Verified 12/14/14 17:38 Home Medications Medication Instructions Recorded Confirmed Last Taken Type Atazanavir [Reyataz] 300 mg PO QDAY #30 capsule 02/28/18 07/22/18 Unknown Rx Carvedilol [Coreg] 6.25 mg PO BID #60 tablet 02/28/18 07/22/18 Unknown Rx Darunavir [Prezista] 600 mg PO BID tablet 02/28/18 07/22/18 Unknown Rx Furosemide [Lasix TAB] 40 mg PO QDAY #30 tablet 02/28/18 07/22/18 Unknown Rx Ipratropium/Albuterol Sulfate 1 ampul IH Q8HR PRN #30 ampul.neb 02/28/18 07/22/18 Unknown Rx [DUONEB *Not for PRN Use*] Lisinopril [Zestril TAB] 10 mg PO QDAY #30 tablet 02/28/18 07/22/18 Unknown Rx Nystatin [Nystatin SUSP] 500,000 unit PO QID 21 Days udc 02/28/18 07/22/18 Unknown Rx Ritonavir [Norvir] 100 mg PO BID tab 02/28/18 07/22/18 Unknown Rx Emtricitabine/Tenofov Alafenam 1 each PO DAILY 05/19/18 07/22/18 Unknown History [Descovy 200-25 mg Tablet] Fluconazole [Diflucan TAB] 400 mg PO QDAY 14 Days #28 tablet 05/25/18 07/22/18 Unknown Rx Sulfamethoxazole/Trimethoprim 1 each PO Q24HR #30 tablet 05/25/18 07/22/18 Unknown Rx [Bactrim DS TAB] Active Meds: Active Medications Acetaminophen (Tylenol) 650 mg PO Q4H PRN PRN Reason: Pain MILD(1-3)/Fever >100.5/BILL Albuterol (Proventil) 2.5 mg IH Q4HRT PRN PRN Reason: Shortness Of Breath Albuterol/Ipratropium (Duoneb *Not For Prn Use*) 1 ampul IH Q8HRT [facility] Stop: 07/24/18 00:00 Last Admin: 07/23/18 08:19 Dose: 1 ampul Documented by: Aspirin (Halfprin Ec) 81 mg PO QDAY [facility] Last Admin: 07/23/18 10:10 Dose: 81 mg Documented by: Atazanavir (Reyataz) 300 mg PO QDAY [facility] Last Admin: 07/23/18 10:08 Dose: 300 mg Documented by: Benzonatate (Tessalon Perles) 100 mg PO Q8HR [facility] Last Admin: 07/23/18 14:01 Dose: 100 mg Documented by: Carvedilol (Coreg) 6.25 mg PO BID [facility] Last Admin: 07/23/18 10:10 Dose: 6.25 mg Documented by: Darunavir (Prezista) 600 mg PO BID [facility] Last Admin: 07/23/18 10:11 Dose: 600 mg Documented by: Fluconazole (Diflucan) 400 mg PO QDAY [facility] Last Admin: 07/23/18 10:09 Dose: 400 mg Documented by: Furosemide (Lasix) 40 mg PO QDAY [facility] Last Admin: 07/23/18 10:10 Dose: 40 mg Documented by: Sodium Chloride (Nacl 0.9% 1000 Ml) 1,000 mls @ 42 mls/hr IV DIRECT [facility] Last Admin: 07/22/18 22:20 Dose: 42 mls/hr Documented by: Levofloxacin/Dextrose (Levaquin 750mg/150ml) 750 mg in 150 mls @ 100 mls/hr IV Q24HR [facility]; Protocol Cefepime HCl (Maxipime/Ns 2 Gm/100 Ml) 2 gm in 100 mls @ 200 mls/hr IV Q12HR [facility]; Protocol Lisinopril (Zestril) 10 mg PO QDAY [facility] Last Admin: 07/23/18 10:10 Dose: 10 mg Documented by: Miscellaneous Medication (Emtricitabine/Tenofov Alafenam [Descovy 200-25 Mg Tablet]) 1 each PO DAILY [facility] Nystatin (Nystatin) 500,000 unit PO QID [facility] Last Admin: 07/23/18 14:01 Dose: 500,000 unit Documented by: Ondansetron HCl (Zofran) 4 mg IV Q8H PRN PRN Reason: Nausea And Vomiting Oxycodone/Acetaminophen (Percocet 5/325) 1 tab PO Q6H PRN PRN Reason: Pain, Moderate (4-6) Last Admin: 07/22/18 22:32 Dose: 1 tab Documented by: Ritonavir (Norvir) 100 mg PO BID [facility] Last Admin: 07/23/18 10:09 Dose: 100 mg Documented by: Sodium Chloride (Sodium Chloride Flush Syringe 10 Ml) 10 ml IV BID [facility] Last Admin: 07/23/18 10:11 Dose: 10 ml Documented by: Sodium Chloride (Sodium Chloride Flush Syringe 10 Ml) 10 ml IV PRN PRN PRN Reason: LINE FLUSH Trimethoprim/Sulfamethoxazole (Bactrim Ds) 1 each PO Q24H [facility] Last Admin: 07/22/18 22:23 Dose: 1 each Documented by: Physical Examination - Physical Exam Narrative exam: not seen out of room - Constitutional Vitals: Vital Signs Temp Pulse Resp BP Pulse Ox 97.2 F L 63 22 131/88 99 07/23/18 12:24 07/23/18 12:24 07/23/18 12:24 07/23/18 12:24 07/23/18 12:24 Temperature -Last 24 Hours Temperature 97.2 F Temperature 97.3 F Temperature 98.5 F Temperature 98.3 F Temperature 98.6 F Results - Labs CBC & Chem 7: 07/24/18 08:27 07/24/18 08:27 Labs: Abnormal lab results 07/22/18 07/22/18 07/22/18 Range/Units 14:13 14:13 14:13 Seg Neuts % (Manual) 98.0 H (40.0-70.0) % Lymphocytes % (Manual) 0 L (13.4-35.0) % Seg Neutrophils # Man 7.9 H (1.8-7.7) K/mm3 Lymphocytes # (Manual) 0.0 L (1.2-5.4) K/mm3 Sodium 132 L (137-145) mmol/L Potassium 3.4 L (3.6-5.0) mmol/L Chloride 90.3 L (98-107) mmol/L Creatinine 0.6 L (0.7-1.2) mg/dL Glucose 140 H (65-100) mg/dL Lactic Acid 2.10 H* (0.7-2.0) mmol/L ALT < 5 L (7-56) units/L Albumin 3.1 L (3.9-5) g/dL 07/22/18 07/22/18 Range/Units 15:58 20:39 Seg Neuts % (Manual) (40.0-70.0) % Lymphocytes % (Manual) (13.4-35.0) % Seg Neutrophils # Man (1.8-7.7) K/mm3 Lymphocytes # (Manual) (1.2-5.4) K/mm3 Sodium (137-145) mmol/L Potassium (3.6-5.0) mmol/L Chloride (98-107) mmol/L Creatinine (0.7-1.2) mg/dL Glucose (65-100) mg/dL Lactic Acid 4.00 H* 2.50 H* (0.7-2.0) mmol/L ALT (7-56) units/L Albumin (3.9-5) g/dL Assessment and Plan not seen, out of room
--- NOTE | 2018-07-23 15:35 | Progress Note ---
Assessment and Plan Assessment and plan: 42 YO Female with AIDS, Cardiomyopathy with EF 15%, HTN, Asthma, Chronic Respiratory Failure on 2.5L Home Oxygen, COPD, Eczema, Crohns Disease presents to ED for evaluation. Pt states that she has experienced subjective fever, productive cough with green sputum over the past 2 weeks, with worsening sympt oms over the past 3 days. Pt was seen by her director private music therapy agency Dr. Aquino and placed on doxycycline without improvement in symptoms. Pt was subsequently seen by her infectious disease physician, Dr. Portillo/Mateusz and was initiated on prednisone without improvement in symptoms. Pt transported to [facility] via private vehicle. Pt seen and evaluated in ED and found to have PATRICA Pneumonia, Acute on Chronic Respiratory Failure, Acidosis. Pt admitted to medical floor and placed on Airborne Precautions, and initiated on Pneumonia protocol. Pt admitted on 05/19/18 for Pneumonia/Respiratory Failure. All listed medication reconciled at admission. Pt denies chills, CP, Palpitations, NVD, Trauma, Skin Rash, Diffi culty Swallowing, Prolonged Travel/Immobility, Unilateral Leg Swelling, Calf Pain, or Recent ill contacts. (1) Acute and chronic respiratory failure with hypoxia Current Visit: No Status: Acute Plan to address problem: Supplemental oxygen, nebulizer therapy, pulse oximetry, chest x ray, NIPPV as clinically indicated, pulse oximetry, pain control Consult Pulmonary: Possible acute bronchitis. Consult with ID Prior pulmonary nodule-Repeat CT chest (2) Pneumonia Current Visit: Yes Status: Acute Qualifiers: Laterality: left Lung location: upper lobe of lung Plan to address problem: IV antibiotic therapy, supplemental oxygen, nebulizer therapy, hydromet bid for cough suppression and pain control, nebulizer therapy, NIPPV as clinically indicated, CBC, BMP, Pulse oximetry. (3) Hyponatremia syndrome Current Visit: Yes Status: Acute Plan to address problem: IVF resuscitation therapy, repeat bmp in am to monitor serum sodium level. (4) Acidosis Current Visit: Yes Status: Acute Plan to address problem: IVF resuscitation therapy, repeat bmp in am. (5) AIDS Current Visit: Yes Status: Acute Plan to address problem: Resume antiretroviral therapy, PCP prophylaxis with bactrim. outpatient I/D F/U care. (6) Crohns disease Current Visit: Yes Status: Acute Qualifiers: Digestive disease complication type: without complication Plan to address problem: Controlled, No exacerbation at this time. (7) DVT prophylaxis Current Visit: Yes Status: Acute Plan to address problem: SCD to BLE while in bed, History Interval history: Patient seen, sitting up in bed, with repeated cough. and still with shortness of breath. Hospitalist Physical - Physical exam Narrative exam: General appearance: Present: mild distress, sitting up - EENT Eyes: Present: PERRL ENT: hearing intact, clear oral mucosa - Neck Neck: Present: supple, normal ROM - Respiratory Respiratory effort: normal Respiratory: left: diminished, rhonchi - Cardiovascular Heart Sounds: Present: S1 & S2. Absent: rub, click - Extremities Extremities: pulses symmetrical, No edema Peripheral Pulses: within normal limits - Abdominal General gastrointestinal: Present: soft, non-tender, non-distended, normal bowel sounds Female genitourinary: Present: normal - Integumentary Integumentary: Present: clear, warm, dry - Musculoskeletal Musculoskeletal: gait normal, strength equal bilaterally - Psychiatric Psychiatric: appropriate mood/affect, intact judgment & insight - Neurologic Neurologic: CNII-XII intact, moves all extremities - Constitutional Vitals: Temp Pulse Resp BP Pulse Ox 97.2 F L 63 22 131/88 99 07/23/18 12:24 07/23/18 12:24 07/23/18 12:24 07/23/18 12:24 07/23/18 12:24 General appearance: Present: mild distress Results - Labs CBC & Chem 7: 07/24/18 08:27 07/24/18 08:27 Labs: Laboratory Last Values WBC 8.1 K/mm3 (4.5-11.0) 07/22/18 14:13 RBC 3.29 M/mm3 (3.65-5.03) L 07/22/18 14:13 Hgb 9.3 gm/dl (10.1-14.3) L 07/22/18 14:13 Hct 28.3 % (30.3-42.9) L 07/22/18 14:13 MCV 86 fl (79-97) 07/22/18 14:13 MCH 28 pg (28-32) 07/22/18 14:13 MCHC 33 % (30-34) 07/22/18 14:13 RDW 19.1 % (13.2-15.2) H 07/22/18 14:13 Plt Count 351 K/mm3 (140-440) 07/22/18 14:13 Add Manual Diff Complete 07/22/18 14:13 Total Counted 100 07/22/18 14:13 Seg Neutrophils % Manager Marketing 07/22/18 14:13 Seg Neuts % (Manual) 98.0 % (40.0-70.0) H 07/22/18 14:13 Band Neutrophils % 0 % 07/22/18 14:13 Lymphocytes % (Manual) 0 % (13.4-35.0) L 07/22/18 14:13 Reactive Lymphs % (Man) 0 % 07/22/18 14:13 Monocytes % (Manual) 2.0 % (0.0-7.3) 07/22/18 14:13 Eosinophils % (Manual) 0 % (0.0-4.3) 07/22/18 14:13 Basophils % (Manual) 0 % (0.0-1.8) 07/22/18 14:13 Metamyelocytes % 0 % 07/22/18 14:13 Myelocytes % 0 % 07/22/18 14:13 Promyelocytes % 0 % 07/22/18 14:13 Blast Cells % 0 % 07/22/18 14:13 Nucleated RBC % Not Reportable 07/22/18 14:13 Seg Neutrophils # Man 7.9 K/mm3 (1.8-7.7) H 07/22/18 14:13 Band Neutrophils # 0.0 K/mm3 07/22/18 14:13 Lymphocytes # (Manual) 0.0 K/mm3 (1.2-5.4) L 07/22/18 14:13 Abs React Lymphs (Man) 0.0 K/mm3 07/22/18 14:13 Monocytes # (Manual) 0.2 K/mm3 (0.0-0.8) 07/22/18 14:13 Eosinophils # (Manual) 0.0 K/mm3 (0.0-0.4) 07/22/18 14:13 Basophils # (Manual) 0.0 K/mm3 (0.0-0.1) 07/22/18 14:13 Metamyelocytes # 0.0 K/mm3 07/22/18 14:13 Myelocytes # 0.0 K/mm3 07/22/18 14:13 Promyelocytes # 0.0 K/mm3 07/22/18 14:13 Blast Cells # 0.0 K/mm3 07/22/18 14:13 WBC Morphology Not Reportable 07/22/18 14:13 Hypersegmented Neuts Not Reportable 07/22/18 14:13 Hyposegmented Neuts Not Reportable 07/22/18 14:13 Hypogranular Neuts Not Reportable 07/22/18 14:13 Smudge Cells Not Reportable 07/22/18 14:13 Toxic Granulation Not Reportable 07/22/18 14:13 Toxic Vacuolation Not Reportable 07/22/18 14:13 Dohle Bodies Not Reportable 07/22/18 14:13 Pelger-Huet Anomaly Not Reportable 07/22/18 14:13 Kj Rods Not Reportable 07/22/18 14:13 Platelet Estimate Consistent w auto 07/22/18 14:13 Clumped Platelets Not Reportable 07/22/18 14:13 Plt Clumps, EDTA Not Reportable 07/22/18 14:13 Large Platelets Not Reportable 07/22/18 14:13 Giant Platelets Not Reportable 07/22/18 14:13 Platelet Satelliting Not Reportable 07/22/18 14:13 Plt Morphology Comment Not Reportable 07/22/18 14:13 RBC Morphology Not Reportable 07/22/18 14:13 Dimorphic RBCs Not Reportable 07/22/18 14:13 Polychromasia Not Reportable 07/22/18 14:13 Hypochromasia Not Reportable 07/22/18 14:13 Poikilocytosis Not Reportable 07/22/18 14:13 Anisocytosis 1+ 07/22/18 14:13 Microcytosis Not Reportable 07/22/18 14:13 Macrocytosis Not Reportable 07/22/18 14:13 Spherocytes Not Reportable 07/22/18 14:13 Pappenheimer Bodies Not Reportable 07/22/18 14:13 Sickle Cells Not Reportable 07/22/18 14:13 Target Cells Not Reportable 07/22/18 14:13 Tear Drop Cells Not Reportable 07/22/18 14:13 Ovalocytes Not Reportable 07/22/18 14:13 Stomatocytes Few 07/22/18 14:13 Helmet Cells Not Reportable 07/22/18 14:13 [place] Bodies Not Reportable 07/22/18 14:13 [place] Rings Not Reportable 07/22/18 14:13 Kress Cells Not Reportable 07/22/18 14:13 Bite Cells Not Reportable 07/22/18 14:13 Crenated Cell Not Reportable 07/22/18 14:13 Elliptocytes Not Reportable 07/22/18 14:13 Acanthocytes (Spur) Not Reportable 07/22/18 14:13 Rouleaux Not Reportable 07/22/18 14:13 Hemoglobin C Crystals Not Reportable 07/22/18 14:13 Schistocytes Not Reportable 07/22/18 14:13 Malaria parasites Not Reportable 07/22/18 14:13 Ham Bodies Not Reportable 07/22/18 14:13 Hem Pathologist Commnt No 07/22/18 14:13 Sodium 132 mmol/L (137-145) L 07/22/18 14:13 Potassium 3.4 mmol/L (3.6-5.0) L 07/22/18 14:13 Chloride 90.3 mmol/L (98-107) L 07/22/18 14:13 Carbon Dioxide 26 mmol/L (22-30) 07/22/18 14:13 Anion Gap 19 mmol/L 07/22/18 14:13 BUN 9 mg/dL (7-17) 07/22/18 14:13 Creatinine 0.6 mg/dL (0.7-1.2) L 07/22/18 14:13 Estimated GFR > 60 ml/min 07/22/18 14:13 BUN/Creatinine Ratio 15 % 07/22/18 14:13 Glucose 140 mg/dL (65-100) H 07/22/18 14:13 Lactic Acid 1.20 mmol/L (0.7-2.0) 07/23/18 00:44 Calcium 9.0 mg/dL (8.4-10.2) 07/22/18 14:13 Total Bilirubin 1.10 mg/dL (0.1-1.2) 07/22/18 14:13 AST 20 units/L (5-40) 07/22/18 14:13 ALT < 5 units/L (7-56) L 07/22/18 14:13 Alkaline Phosphatase 87 units/L (35-129) 07/22/18 14:13 Total Protein 7.0 g/dL (6.3-8.2) 07/22/18 14:13 Albumin 3.1 g/dL (3.9-5) L 07/22/18 14:13 Albumin/Globulin Ratio 0.8 % 07/22/18 14:13 - Imaging and Cardiology Chest x-ray: image reviewed (left upper infiltrate) Active Medications - Current Medications Current Medications: Generic Name Dose Route Start Last Admin Trade Name Freq PRN Reason Stop Dose Admin Acetaminophen 650 mg 07/22/18 16:36 Tylenol PO Q4H PRN Pain MILD(1-3)/Fever >100.5/BILL Albuterol 2.5 mg 07/22/18 16:36 Proventil IH Q4HRT PRN Shortness Of Breath Albuterol/Ipratropium 1 ampul 07/23/18 00:00 07/23/18 08:19 Duoneb *Not For Prn Use* IH 07/24/18 00:00 1 ampul Q8HRT BAY Administration Aspirin 81 mg 07/23/18 10:00 07/23/18 10:10 Halfprin Ec PO 81 mg QDAY BAY Administration Atazanavir 300 mg 07/23/18 10:00 07/23/18 10:08 Reyataz PO 300 mg QDAY BAY Administration Benzonatate 100 mg 07/22/18 22:00 07/23/18 14:01 Tessalon Perles PO 100 mg Q8HR BAY Administration Carvedilol 6.25 mg 07/22/18 22:00 07/23/18 10:10 Coreg PO 6.25 mg BID BAY Administration Darunavir 600 mg 07/22/18 22:00 07/23/18 10:11 Prezista PO 600 mg BID BAY Administration Fluconazole 400 mg 07/22/18 20:00 07/23/18 10:09 Diflucan PO 400 mg QDAY BAY Administration Furosemide 40 mg 07/22/18 20:00 07/23/18 10:10 Lasix PO 40 mg QDAY BAY Administration Sodium Chloride 1,000 mls @ 42 mls/hr 07/22/18 18:00 07/22/18 22:20 Nacl 0.9% 1000 Ml IV 42 mls/hr DIRECT BAY Administration Levofloxacin/Dextrose 750 mg in 150 mls @ 100 mls/hr 07/23/18 12:00 Levaquin 750mg/150ml IV Q24HR [facility] Protocol Cefepime HCl 2 gm in 100 mls @ 200 mls/hr 07/23/18 13:00 Maxipime/Ns 2 Gm/100 Ml IV Q12HR [facility] Protocol Vancomycin HCl 1,250 mg/ 275 mls @ 166.667 mls/hr 07/23/18 15:30 Sodium Chloride IV Q12H [facility] Lisinopril 10 mg 07/23/18 10:00 07/23/18 10:10 Zestril PO 10 mg QDAY BAY Administration Miscellaneous Medication 1 each 07/23/18 10:00 Emtricitabine/Tenofov Alafenam [Descovy 200-25 Mg Tablet] PO DAILY [facility] Nystatin 500,000 unit 07/22/18 18:00 07/23/18 14:01 Nystatin PO 500,000 unit QID BAY Administration Ondansetron HCl 4 mg 07/22/18 16:36 Zofran IV Q8H PRN Nausea And Vomiting Oxycodone/Acetaminophen 1 tab 07/22/18 16:36 07/22/18 22:32 Percocet 5/325 PO 1 tab Q6H PRN Administration Pain, Moderate (4-6) Ritonavir 100 mg 07/22/18 22:00 07/23/18 10:09 Norvir PO 100 mg BID BAY Administration Sodium Chloride 10 ml 07/22/18 22:00 07/23/18 10:11 Sodium Chloride Flush Syringe 10 Ml IV 10 ml BID BAY Administration Sodium Chloride 10 ml 07/22/18 16:36 Sodium Chloride Flush Syringe 10 Ml IV PRN PRN LINE FLUSH Trimethoprim/Sulfamethoxazole 1 each 07/22/18 20:00 07/22/18 22:23 Bactrim Ds PO 1 each Q24H BAY Administration Nutrition/Malnutrition Assess - Dietary Evaluation Nutrition/Malnutrition Findings: Nutrition Notes Start: 07/23/18 13:58 Freq: Status: Active Protocol: Document 07/23/18 13:58 RM (Rec: 07/23/18 14:15 RM [id number]) Nutrition Notes Need for Assessment generated from: liner reroll tender,MST Initial or Follow up Brief Note Current Diagnosis COPD,Hypertension Other Pertinent Diagnosis Eczema, Chrohn's disease, HIV/ AIDS, Pneu Current Diet Regular Labs/Tests Reviewed Pertinent Medications Lasix Height 5 ft 6 in Weight 83.91 kg Usual Body Weight 105.45 kg [place] Body Weight (kg) 59.09 BMI 29.8 Weight change and time frame 20% X 1 year and 3 months ago Subjective/Other Information Screened for malnutrition and skin risk. Abiodun 20 points. 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 Stated her appetite is improving now. Stated that yesterday she didnt eat anything but today she ate most of her breakfast. Stated UBW was 232 lbs May of 2017. Burn Absent Trauma Absent Nutrition Intervention Follow-Up By: 07/27/18 Additional Comments Follow for stable intakes
[2018-07-23] MEDS: MAXIPIME/NS 2 GM/100 ML 2 GM/100 ML BAG IV SCH ×2 (16:38→21:30)
[2018-07-23] MEDS: VANCOMYCIN 1,250 MG in NACL 0.9% 250ML 250 ML IV SCH (16:42)
[2018-07-23] MEDS: LEVAQUIN 750MG/150ML 750 MG/150 ML BAG IV SCH (16:45)
[2018-07-23] MEDS: BACTRIM DS PO SCH (21:32)
[2018-07-24] MEDS: NACL 0.9% 1000 ML 1,000 ML IV SCH (04:15)
[2018-07-24] MEDS: VANCOMYCIN 1,250 MG in NACL 0.9% 250ML 250 ML IV SCH ×2 (04:15→18:09)
[2018-07-24] MEDS: TESSALON PERLES PO SCH ×3 (06:07→22:00)
[2018-07-24 08:54] LABS: Hematocrit 28.8 % (30.3-42.9); Hemoglobin 9.5 gm/dl (10.1-14.3); Mean Corpuscular HGB Conc 33 % (30-34); Mean Corpuscular Volume 87 fl (79-97); Platelet Count 368 K/mm3 (140-440); Red Blood Count 3.33 M/mm3 (3.65-5.03); Red Cell Distribution Width 18.6 % (13.2-15.2)
[2018-07-24 09:12] LABS: BUN/Creatinine Ratio 17; Blood Urea Nitrogen 12 mg/dL (7-17); Calcium 8.6 mg/dL (8.4-10.2); Hemolysis Index 2
--- NOTE | 2018-07-24 11:54 | Progress Note ---
Assessment and Plan Assessment and plan: 42 YO Female with AIDS, Cardiomyopathy with EF 15%, HTN, Asthma, Chronic Respiratory Failure on 2.5L Home Oxygen, COPD, Eczema, Crohns Disease presents to ED for evaluation. Pt states that she has experienced subjective fever, productive cough with green sputum over the past 2 weeks, with worsening sympt oms over the past 3 days. 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 Aquino and placed on doxycycline without improvement in symptoms. Pt was subsequently seen by her infectious disease physician, Dr. Portillo/Mateusz and was initiated on prednisone without improvement in symptoms. Pt transported to [facility] via private vehicle. Pt seen and evaluated in ED and found to have PATRICA Pneumonia, Acute on Chronic Respiratory Failure, Acidosis. Pt admitted to medical floor and placed on Airborne Precautions, and initiated on Pneumonia protocol. Pt admitted on 05/19/18 for Pneumonia/Respiratory Failure. All listed medication reconciled at admission. Pt denies chills, CP, Palpitations, NVD, Trauma, Skin Rash, Diffi culty Swallowing, Prolonged Travel/Immobility, Unilateral Leg Swelling, Calf Pain, or Recent ill contacts. (1) Acute and chronic respiratory failure with hypoxia Current Visit: No Status: Acute Plan to address problem: Supplemental oxygen, nebulizer therapy, pulse oximetry, chest x ray, NIPPV as clinically indicated, pulse oximetry, pain control Consult Pulmonary input noted. Consult with ID Prior pulmonary nodule-Repeat CT chest- per pulmonary- Reviewed CT chest although radiology report is still pending; R lung pneumonia has basically resolved; there is a nodule in the RML and what looks to be new nodules PATRICA and new areas of pleural-based consolidation PATRICA as well; will await final radiology report before considering invasive work-up such as bronch or CT guided biopsy (2) Pneumonia- RUL Current Visit: Yes Status: Acute Qualifiers: Laterality: left Lung location: upper lobe of lung Plan to address problem: IV antibiotic therapy, supplemental oxygen, nebulizer therapy, hydromet bid for cough suppression and pain control, nebulizer therapy, NIPPV as clinically indicated, CBC, BMP, Pulse oximetry. ID input noted (3) Hyponatremia syndrome Current Visit: Yes Status: Acute Plan to address problem: IVF resuscitation therapy, repeat bmp in am to monitor serum sodium level. (4) Acidosis Current Visit: Yes Status: Acute Plan to address problem: IVF resuscitation therapy, repeat bmp in am. (5) AIDS Current Visit: Yes Status: Acute Plan to address problem: Resume antiretroviral therapy, PCP prophylaxis with bactrim. outpatient I/D F/U care. (6) Crohns disease Current Visit: Yes Status: Acute Qualifiers: Digestive disease complication type: without complication Plan to address problem: Controlled, No exacerbation at this time. (7) DVT prophylaxis Current Visit: Yes Status: Acute Plan to address problem: SCD to BLE while in bed, History Interval history: Patient seen, sitting up in bed, Cough improved, resting comfortable. Hospitalist Physical - Physical exam Narrative exam: General appearance: Present: resting comfortable, sitting up - EENT Eyes: Present: PERRL ENT: hearing intact, clear oral mucosa - Neck Neck: Present: supple, normal ROM - Respiratory Respiratory effort: normal Respiratory: left: diminished, rhonchi - Cardiovascular Heart Sounds: Present: S1 & S2. Absent: rub, click - Extremities Extremities: pulses symmetrical, No edema Peripheral Pulses: within normal limits - Abdominal General gastrointestinal: Present: soft, non-tender, non-distended, normal bowel sounds Female genitourinary: Present: normal - Integumentary Integumentary: Present: clear, warm, dry - Musculoskeletal Musculoskeletal: gait normal, strength equal bilaterally - Psychiatric Psychiatric: appropriate mood/affect, intact judgment & insight - Neurologic Neurologic: CNII-XII intact, moves all extremities - Constitutional Vitals: Temp Pulse Resp BP Pulse Ox 97.4 F L 67 28 H 141/78 100 07/24/18 05:07 07/24/18 05:07 07/24/18 05:07 07/24/18 05:07 07/24/18 05:07 General appearance: Present: mild distress Results - Labs CBC & Chem 7: 07/24/18 08:27 07/24/18 08:27 Labs: Laboratory Last Values WBC 3.6 K/mm3 (4.5-11.0) L 07/24/18 08:27 RBC 3.33 M/mm3 (3.65-5.03) L 07/24/18 08:27 Hgb 9.5 gm/dl (10.1-14.3) L 07/24/18 08:27 Hct 28.8 % (30.3-42.9) L 07/24/18 08:27 MCV 87 fl (79-97) 07/24/18 08:27 MCH 29 pg (28-32) 07/24/18 08:27 MCHC 33 % (30-34) 07/24/18 08:27 RDW 18.6 % (13.2-15.2) H 07/24/18 08:27 Plt Count 368 K/mm3 (140-440) 07/24/18 08:27 Add Manual Diff Complete 07/22/18 14:13 Total Counted 100 07/22/18 14:13 Seg Neutrophils % Assistant Professor Of Biochemistry 07/22/18 14:13 Seg Neuts % (Manual) 98.0 % (40.0-70.0) H 07/22/18 14:13 Band Neutrophils % 0 % 07/22/18 14:13 Lymphocytes % (Manual) 0 % (13.4-35.0) L 07/22/18 14:13 Reactive Lymphs % (Man) 0 % 07/22/18 14:13 Monocytes % (Manual) 2.0 % (0.0-7.3) 07/22/18 14:13 Eosinophils % (Manual) 0 % (0.0-4.3) 07/22/18 14:13 Basophils % (Manual) 0 % (0.0-1.8) 07/22/18 14:13 Metamyelocytes % 0 % 07/22/18 14:13 Myelocytes % 0 % 07/22/18 14:13 Promyelocytes % 0 % 07/22/18 14:13 Blast Cells % 0 % 07/22/18 14:13 Nucleated RBC % Not Reportable 07/22/18 14:13 Seg Neutrophils # Man 7.9 K/mm3 (1.8-7.7) H 07/22/18 14:13 Band Neutrophils # 0.0 K/mm3 07/22/18 14:13 Lymphocytes # (Manual) 0.0 K/mm3 (1.2-5.4) L 07/22/18 14:13 Abs React Lymphs (Man) 0.0 K/mm3 07/22/18 14:13 Monocytes # (Manual) 0.2 K/mm3 (0.0-0.8) 07/22/18 14:13 Eosinophils # (Manual) 0.0 K/mm3 (0.0-0.4) 07/22/18 14:13 Basophils # (Manual) 0.0 K/mm3 (0.0-0.1) 07/22/18 14:13 Metamyelocytes # 0.0 K/mm3 07/22/18 14:13 Myelocytes # 0.0 K/mm3 07/22/18 14:13 Promyelocytes # 0.0 K/mm3 07/22/18 14:13 Blast Cells # 0.0 K/mm3 07/22/18 14:13 WBC Morphology Not Reportable 07/22/18 14:13 Hypersegmented Neuts Not Reportable 07/22/18 14:13 Hyposegmented Neuts Not Reportable 07/22/18 14:13 Hypogranular Neuts Not Reportable 07/22/18 14:13 Smudge Cells Not Reportable 07/22/18 14:13 Toxic Granulation Not Reportable 07/22/18 14:13 Toxic Vacuolation Not Reportable 07/22/18 14:13 Dohle Bodies Not Reportable 07/22/18 14:13 Pelger-Huet Anomaly Not Reportable 07/22/18 14:13 Kj Rods Not Reportable 07/22/18 14:13 Platelet Estimate Consistent w auto 07/22/18 14:13 Clumped Platelets Not Reportable 07/22/18 14:13 Plt Clumps, EDTA Not Reportable 07/22/18 14:13 Large Platelets Not Reportable 07/22/18 14:13 Giant Platelets Not Reportable 07/22/18 14:13 Platelet Satelliting Not Reportable 07/22/18 14:13 Plt Morphology Comment Not Reportable 07/22/18 14:13 RBC Morphology Not Reportable 07/22/18 14:13 Dimorphic RBCs Not Reportable 07/22/18 14:13 Polychromasia Not Reportable 07/22/18 14:13 Hypochromasia Not Reportable 07/22/18 14:13 Poikilocytosis Not Reportable 07/22/18 14:13 Anisocytosis 1+ 07/22/18 14:13 Microcytosis Not Reportable 07/22/18 14:13 Macrocytosis Not Reportable 07/22/18 14:13 Spherocytes Not Reportable 07/22/18 14:13 Pappenheimer Bodies Not Reportable 07/22/18 14:13 Sickle Cells Not Reportable 07/22/18 14:13 Target Cells Not Reportable 07/22/18 14:13 Tear Drop Cells Not Reportable 07/22/18 14:13 Ovalocytes Not Reportable 07/22/18 14:13 Stomatocytes Few 07/22/18 14:13 Helmet Cells Not Reportable 07/22/18 14:13 [place] Bodies Not Reportable 07/22/18 14:13 [place] Rings Not Reportable 07/22/18 14:13 [place] Cells Not Reportable 07/22/18 14:13 Bite Cells Not Reportable 07/22/18 14:13 Crenated Cell Not Reportable 07/22/18 14:13 Elliptocytes Not Reportable 07/22/18 14:13 Acanthocytes (Spur) Not Reportable 07/22/18 14:13 Rouleaux Not Reportable 07/22/18 14:13 Hemoglobin C Crystals Not Reportable 07/22/18 14:13 Schistocytes Not Reportable 07/22/18 14:13 Malaria parasites Not Reportable 07/22/18 14:13 Ham Bodies Not Reportable 07/22/18 14:13 Hem Pathologist Commnt No 07/22/18 14:13 Sodium 137 mmol/L (137-145) 07/24/18 08:27 Potassium 3.4 mmol/L (3.6-5.0) L 07/24/18 08:27 Chloride 95.7 mmol/L (98-107) L 07/24/18 08:27 Carbon Dioxide 26 mmol/L (22-30) 07/24/18 08:27 Anion Gap 19 mmol/L 07/24/18 08:27 BUN 12 mg/dL (7-17) 07/24/18 08:27 Creatinine 0.7 mg/dL (0.7-1.2) 07/24/18 08:27 Estimated GFR > 60 ml/min 07/24/18 08:27 BUN/Creatinine Ratio 17 % 07/24/18 08:27 Glucose 91 mg/dL (65-100) 07/24/18 08:27 Lactic Acid 1.20 mmol/L (0.7-2.0) 07/23/18 00:44 Calcium 8.6 mg/dL (8.4-10.2) 07/24/18 08:27 Total Bilirubin 1.10 mg/dL (0.1-1.2) 07/22/18 14:13 AST 20 units/L (5-40) 07/22/18 14:13 ALT < 5 units/L (7-56) L 07/22/18 14:13 Alkaline Phosphatase 87 units/L (35-129) 07/22/18 14:13 Total Protein 7.0 g/dL (6.3-8.2) 07/22/18 14:13 Albumin 3.1 g/dL (3.9-5) L 07/22/18 14:13 Albumin/Globulin Ratio 0.8 % 07/22/18 14:13 Active Medications - Current Medications Current Medications: Generic Name Dose Route Start Last Admin Trade Name Freq PRN Reason Stop Dose Admin Acetaminophen 650 mg 07/22/18 16:36 Tylenol PO Q4H PRN Pain MILD(1-3)/Fever >100.5/BILL Albuterol 2.5 mg 07/22/18 16:36 Proventil IH Q4HRT PRN Shortness Of Breath Aspirin 81 mg 07/23/18 10:00 07/23/18 10:10 Halfprin Ec PO 81 mg QDAY BAY Administration Atazanavir 300 mg 07/23/18 10:00 07/23/18 10:08 Reyataz PO 300 mg QDAY BAY Administration Benzonatate 100 mg 07/22/18 22:00 07/24/18 06:07 Tessalon Perles PO 100 mg Q8HR BAY Administration Carvedilol 6.25 mg 07/22/18 22:00 07/23/18 21:32 Coreg PO 6.25 mg BID BAY Administration Darunavir 600 mg 07/22/18 22:00 07/23/18 21:31 Prezista PO 600 mg BID BAY Administration Emtricitabine 200 mg 07/24/18 10:00 Emtriva PO QDAY BAY Fluconazole 400 mg 07/22/18 20:00 07/23/18 10:09 Diflucan PO 400 mg QDAY BAY Administration Furosemide 40 mg 07/22/18 20:00 07/23/18 10:10 Lasix PO 40 mg QDAY BAY Administration Sodium Chloride 1,000 mls @ 42 mls/hr 07/22/18 18:00 07/24/18 04:15 Nacl 0.9% 1000 Ml IV 42 mls/hr DIRECT BAY Administration Levofloxacin/Dextrose 750 mg in 150 mls @ 100 mls/hr 07/23/18 12:00 07/23/18 16:45 Levaquin 750mg/150ml IV 100 mls/hr Q24HR BAY Administration Protocol Cefepime HCl 2 gm in 100 mls @ 200 mls/hr 07/23/18 13:00 07/23/18 21:30 Maxipime/Ns 2 Gm/100 Ml IV 200 mls/hr Q12HR BAY Administration Protocol Vancomycin HCl 1,250 mg/ 275 mls @ 166.667 mls/hr 07/23/18 15:30 07/24/18 04:15 Sodium Chloride IV 166.667 mls/hr Q12H BAY Administration Lisinopril 10 mg 07/23/18 10:00 07/23/18 10:10 Zestril PO 10 mg QDAY BAY Administration Nystatin 500,000 unit 07/22/18 18:00 07/23/18 21:31 Nystatin PO 500,000 unit QID BAY Administration Ondansetron HCl 4 mg 07/22/18 16:36 Zofran IV Q8H PRN Nausea And Vomiting Oxycodone/Acetaminophen 1 tab 07/22/18 16:36 07/22/18 22:32 Percocet 5/325 PO 1 tab Q6H PRN Administration Pain, Moderate (4-6) Ritonavir 100 mg 07/22/18 22:00 07/23/18 21:31 Norvir PO 100 mg BID BAY Administration Sodium Chloride 10 ml 07/22/18 22:00 07/23/18 22:32 Sodium Chloride Flush Syringe 10 Ml IV Not Given BID BAY Sodium Chloride 10 ml 07/22/18 16:36 Sodium Chloride Flush Syringe 10 Ml IV PRN PRN LINE FLUSH Tenofovir Disoproxil Fumarate 300 mg 07/24/18 10:00 Viread PO QDAY BAY Trimethoprim/Sulfamethoxazole 1 each 07/22/18 20:00 07/23/18 21:32 Bactrim Ds PO 1 each Q24H BAY Administration Nutrition/Malnutrition Assess - Dietary Evaluation Nutrition/Malnutrition Findings: Nutrition Notes Start: 07/23/18 13:58 Freq: Status: Active Protocol: Document 07/23/18 13:58 RM (Rec: 07/23/18 14:15 RM [id number]) Nutrition Notes Need for Assessment generated from: breaker tender,MST Initial or Follow up Brief Note Current Diagnosis COPD,Hypertension Other Pertinent Diagnosis Eczema, Chrohn's disease, HIV/ AIDS, Pneu Current Diet Regular Labs/Tests Reviewed Pertinent Medications Lasix Height 5 ft 6 in Weight 83.91 kg Usual Body Weight 105.45 kg [place] Body Weight (kg) 59.09 BMI 29.8 Weight change and time frame 20% X 1 year and 3 months ago Subjective/Other Information Screened for malnutrition and skin risk. Abiodun 20 points. Pt stated that [employer] her appetite was "so so" and that she ate 2 meals daily w/fruit as snacks throughout the day X 6 months. Stated her appetite is improving now. Stated that yesterday she didnt eat anything but today she ate most of her breakfast. Stated UBW was 232 lbs May of 2017. Burn Absent Trauma Absent Nutrition Intervention Follow-Up By: 07/27/18 Additional Comments Follow for stable intakes
[2018-07-24] MEDS: NYSTATIN PO SCH ×4 (12:04→22:00)
[2018-07-24] MEDS: DIFLUCAN PO SCH (12:04)
[2018-07-24] MEDS: LEVAQUIN 750MG/150ML 750 MG/150 ML BAG IV SCH (12:04)
[2018-07-24] MEDS: REYATAZ PO SCH (12:05)
[2018-07-24] MEDS: NORVIR PO SCH ×2 (12:05→22:00)
[2018-07-24] MEDS: HALFPRIN EC PO SCH (12:06)
[2018-07-24] MEDS: COREG PO SCH ×2 (12:08)
[2018-07-24] MEDS: MAXIPIME/NS 2 GM/100 ML 2 GM/100 ML BAG IV SCH ×2 (12:09→22:00)
[2018-07-24] MEDS: SODIUM CHLORIDE FLUSH SYRINGE 10 ML IV SCH (12:09)
[2018-07-24] MEDS: VIREAD PO SCH (12:09)
[2018-07-24] MEDS: PREZISTA PO SCH ×2 (12:10→22:00)
[2018-07-24] MEDS: LASIX PO SCH (12:10)
[2018-07-24] MEDS: ZESTRIL PO SCH (12:10)
[2018-07-24] MEDS: EMTRIVA PO SCH (12:12)
[2018-07-24] MEDS: PERCOCET 5/325 PO PRN ×2 (12:35→18:21)
--- NOTE | 2018-07-24 15:42 | Progress Note ---
Assessment and Plan Imp: 1. HCAP 2. HIV/AIDS 3. Chronic respiratory failure, hypoxia 4. Dilated CMP 5. Anemia of chronic disease 6. Pulm nodules 05/2018 Rec: 1. Resumed Vanco/Cefipime which she tolerated last admit; F/u ID recs; f/u cultures 2. Reviewed CT chest although radiology report is still pending; R lung pneumonia has basically resolved; there is a nodule in the RML and what looks to be new nodules PATRICA and new areas of pleural-based consolidation PATRICA as well; will await final radiology report before considering invasive work-up such as bronch or CT guided biopsy 3. Further plans pending clinical course Plan of care reviewed w/ patient, she understands/agrees Subjective Date of service: 07/24/18 Principal diagnosis: Pneumonia Interval history: No events. Cough, SOB better. On NC. No new complaints. Active Medications Acetaminophen (Tylenol) 650 mg PO Q4H PRN PRN Reason: Pain MILD(1-3)/Fever >100.5/BILL Albuterol (Proventil) 2.5 mg IH Q4HRT PRN PRN Reason: Shortness Of Breath Aspirin (Halfprin Ec) 81 mg PO QDAY [facility] Last Admin: 07/24/18 12:06 Dose: 81 mg Documented by: Atazanavir (Reyataz) 300 mg PO QDAY [facility] Last Admin: 07/24/18 12:05 Dose: 300 mg Documented by: Benzonatate (Tessalon Perles) 100 mg PO Q8HR [facility] Last Admin: 07/24/18 06:07 Dose: 100 mg Documented by: Carvedilol (Coreg) 6.25 mg PO BID [facility] Last Admin: 07/24/18 12:08 Dose: 6.25 mg Documented by: Darunavir (Prezista) 600 mg PO BID [facility] Last Admin: 07/24/18 12:10 Dose: 600 mg Documented by: Emtricitabine (Emtriva) 200 mg PO QDAY [facility] Last Admin: 07/24/18 12:12 Dose: 200 mg Documented by: Fluconazole (Diflucan) 400 mg PO QDAY [facility] Last Admin: 07/24/18 12:04 Dose: 400 mg Documented by: Furosemide (Lasix) 40 mg PO QDAY [facility] Last Admin: 07/24/18 12:10 Dose: 40 mg Documented by: Sodium Chloride (Nacl 0.9% 1000 Ml) 1,000 mls @ 42 mls/hr IV DIRECT [facility] Last Admin: 07/24/18 04:15 Dose: 42 mls/hr Documented by: Levofloxacin/Dextrose (Levaquin 750mg/150ml) 750 mg in 150 mls @ 100 mls/hr IV Q24HR [facility]; Protocol Last Admin: 07/24/18 12:04 Dose: 100 mls/hr Documented by: Cefepime HCl (Maxipime/Ns 2 Gm/100 Ml) 2 gm in 100 mls @ 200 mls/hr IV Q12HR [facility]; Protocol Last Admin: 07/24/18 12:09 Dose: 200 mls/hr Documented by: Vancomycin HCl 1,250 mg/ (Sodium Chloride) 275 mls @ 166.667 mls/hr IV Q12H [facility] Last Admin: 07/24/18 04:15 Dose: 166.667 mls/hr Documented by: Lisinopril (Zestril) 10 mg PO QDAY [facility] Last Admin: 07/24/18 12:10 Dose: 10 mg Documented by: Nystatin (Nystatin) 500,000 unit PO QID [facility] Last Admin: 07/24/18 12:04 Dose: 500,000 unit Documented by: Ondansetron HCl (Zofran) 4 mg IV Q8H PRN PRN Reason: Nausea And Vomiting Oxycodone/Acetaminophen (Percocet 5/325) 1 tab PO Q6H PRN PRN Reason: Pain, Moderate (4-6) Last Admin: 07/24/18 12:35 Dose: 1 tab Documented by: Ritonavir (Norvir) 100 mg PO BID [facility] Last Admin: 07/24/18 12:05 Dose: 100 mg Documented by: Sodium Chloride (Sodium Chloride Flush Syringe 10 Ml) 10 ml IV BID [facility] Last Admin: 07/24/18 12:09 Dose: 10 ml Documented by: Sodium Chloride (Sodium Chloride Flush Syringe 10 Ml) 10 ml IV PRN PRN PRN Reason: LINE FLUSH Tenofovir Disoproxil Fumarate (Viread) 300 mg PO QDAY [facility] Last Admin: 07/24/18 12:09 Dose: 300 mg Documented by: Trimethoprim/Sulfamethoxazole (Bactrim Ds) 1 each PO Q24H [facility] Last Admin: 07/23/18 21:32 Dose: 1 each Documented by: Objective Vital Signs - 12hr 07/24/18 07/24/18 07/24/18 05:07 11:43 12:08 Temperature 97.4 F L 98.2 F Pulse Rate 67 81 81 Respiratory 28 H 22 Rate Blood Pressure 141/78 149/88 149/88 O2 Sat by Pulse 100 99 Oximetry 07/24/18 12:10 Temperature Pulse Rate 81 Respiratory Rate Blood Pressure 149/88 O2 Sat by Pulse Oximetry Constitutional: no acute distress, alert Eyes: non-icteric ENT: oropharynx moist Neck: supple Effort: normal Ascultation: Bilateral: clear Cardiovascular: regular rate and rhythm (no mrg) Gastrointestinal: normoactive bowel sounds, soft, non-tender, non-distended Integumentary: normal Extremities: no cyanosis, pink and warm Neurologic: normal mental status, non-focal exam, pupils equal and round, CN II- XII normal Psychiatric: mood appropriate, affect normal CBC and BMP: 07/24/18 08:27 07/24/18 08:27 Abnormal lab findings: Abnormal Labs 07/22/18 07/22/18 07/22/18 14:13 14:13 14:13 WBC RBC 3.29 L Hgb 9.3 L Hct 28.3 L RDW 19.1 H Seg Neuts % (Manual) 98.0 H Lymphocytes % (Manual) 0 L Seg Neutrophils # Man 7.9 H Lymphocytes # (Manual) 0.0 L Sodium 132 L Potassium 3.4 L Chloride 90.3 L Creatinine 0.6 L Glucose 140 H Lactic Acid 2.10 H* ALT < 5 L Albumin 3.1 L 07/22/18 07/22/18 07/24/18 15:58 20:39 08:27 WBC 3.6 L RBC 3.33 L Hgb 9.5 L Hct 28.8 L RDW 18.6 H Seg Neuts % (Manual) Lymphocytes % (Manual) Seg Neutrophils # Man Lymphocytes # (Manual) Sodium Potassium Chloride Creatinine Glucose Lactic Acid 4.00 H* 2.50 H* ALT Albumin 07/24/18 08:27 WBC RBC Hgb Hct RDW Seg Neuts % (Manual) Lymphocytes % (Manual) Seg Neutrophils # Man Lymphocytes # (Manual) Sodium Potassium 3.4 L Chloride 95.7 L Creatinine Glucose Lactic Acid ALT Albumin Chest x-ray: report reviewed, image reviewed CT scan - chest: report reviewed, image reviewed
[2018-07-24] MEDS ORDERED: K-DUR PO ONE (15:54)
--- NOTE | 2018-07-24 16:35 | Progress Note ---
Assessment and Plan A/P: 42-year-old female with advanced HIV/AIDS, uncontrolled, highly treatment experienced, [id number] HIV, COPD, chronic respiratory failure, dilated cardiomyopathy who is known to us from her previous hospitalizations in February 2018 and May 2018, admitted with: #1 Acute on chronic respiratory failure secondary to bilateral nodular infiltrates and pneumonia: CT reviewed, don't see much ground glass which would be more suspicious of PCP. Patient has been taking Bactrim daily. Continue IV cefepime and vancomycin. Likely will need a bronchoscopy. Given her immunocompromised state, will need eval for fungal etiologies. Pulmonary following. #2 HIV/AIDS: Secondary to [id number] HIV, highly treatment experienced, previously noncompliant but lately she has been compliant. She is on an unusual regimen with 2 protease inhibitors (but that apparently is per some discussions with a physician at [facility]) and now also on Trogarzo. Continue norvir boosted darunavir twice a day, atazanavir once a day, continue nonformulary Descovy. Last CD4 1, VL/ 144K here, will repeat. #3 Acute on chronic respiratory failure: Stable #4 oral candidiasis: treat with nystatin and fluconazole, if no response, may need to switch to Micafungin since she has had extensive prior Fluconazole exposure. #5 Dilated cardiomyopathy: Presumed to be HIV related in etiology. #6 PCN allergy: remote per patient. she has taken Keflex in the past without issues and has tolerated Cefepime without issues here. Recs: - ordered 1,3 [id number], Cryptococcus Ag, Histoplasma Ag - ordered Aspergillus Galactomannan on blood - may need bronch, pulm following - continue Cefepime and Vancomycin for now - Continue norvir boosted darunavir twice a day, atazanavir once a day, continue Descovy (non formulary, so switched to TDF and FTC). Last CD4 1, VL/ 144K here, will repeat - continue Bactrim prophylaxis - continue Fluconazole 400 mg daily, if no response, may need to switch to Micafungin since she has had extensive prior Fluconazole exposure d/w Dr. Clark. Harris Cottrell MD [facility] C: [phone] O: [phone] F: [phone] Subjective Date of service: 07/24/18 Principal diagnosis: Pneumonia Interval history: Reports cough but not bringing up much phlegm. Reports compliance with Bactrim. She was started on Trogarzo infusions, reports compliance with that as well as her HIV meds. Objective - Exam Narrative Exam: Physical Exam: Constitutional: Alert, cooperative. No acute distress Head, Ears, Nose: Normocephalic, atraumatic. External ears, nose normal Eyes: Conjunctivae/corneas clear. No icterus. No ptosis. Neck: Supple, no meningeal signs Oral: thrush, extensive Cardiovascular: S1, S2 normal. Respiratory: clear to auscultation bilaterally GI: Soft, non-tender; bowel sounds normal. No peritoneal signs Musculoskeletal: No pedal edema, no cyanosis. Skin: No rash or abscess Hem/Lymphatic: No palpable cervical or supraclavicular nodes. No lymphangitis Psych: Mood ok. Affect normal Neurological: Awake, alert, oriented. No gross abnormality - Constitutional Vitals: Vital Signs Temp Pulse Resp BP Pulse Ox 98.2 F 81 22 149/88 99 07/24/18 11:43 07/24/18 12:10 07/24/18 11:43 07/24/18 12:10 07/24/18 11:43 Temperature -Last 24 Hours Temperature 98.2 F Temperature 97.4 F Temperature 98.4 F Temperature 97.5 F - Labs CBC & Chem 7: 07/24/18 08:27 07/24/18 08:27 Labs: Abnormal lab results 07/24/18 07/24/18 Range/Units 08:27 08:27 WBC 3.6 L (4.5-11.0) K/mm3 RBC 3.33 L (3.65-5.03) M/mm3 Hgb 9.5 L (10.1-14.3) gm/dl Hct 28.8 L (30.3-42.9) % RDW 18.6 H (13.2-15.2) % Potassium 3.4 L (3.6-5.0) mmol/L Chloride 95.7 L (98-107) mmol/L - Imaging and cardiology CT scan - chest: image reviewed (official read pending, but shows bilateral nodular infiltrates. )
--- NOTE | 2018-07-24 18:08 | Cat Scan Report ---
PROCEDURE: CT CHEST W CON TECHNIQUE: Technique: Axial images were acquired from the thoracic inlet through the upper abdomen f ollowing the administration of IV contrast. Coronal and sagittal reconstructed images were acquired. DOSE: DLP 861.69 mGy-cm. HISTORY: HIV/AIDS, pneumonia, pulm nodules. COMPARISONS: CT pulmonary angiogram dated May 19, 2018. FINDINGS: CHEST: TUBES/LINES: None. LUNGS AND LARGE AIRWAYS: Multifocal groundglass consolidative nodules are present throughout OF the l mara, within the lower lobes there are calcific calcified nodules. When compared to the prior above-re ferenced CT, there is significant interval improvement particularly within the right middle lobe cons olidation, with persistent opacities, bronchial thickening noted. Left upper lobe opacities have mild ly increased in the interval with groundglass opacities measuring approximately 3.1 and 3.5 cm in ron meter. Lower lobe opacities have decreased in the interval. PLEURA: No effusion or pneumothorax. VESSELS: Unremarkable. HEART: Top normal for size. No pericardial effusion. CHEST WALL/LOWER NECK: Degenerative changes. No displaced rib fracture. UPPER ABDOMEN/PELVIS: Cholelithiasis. Mild hepatomegaly. Multifocal parenchymal contour abnormalities of the kidneys. No suspicious lesion or obstructive uropathy. IMPRESSION: 1. Multifocal groundglass and nodular opacities with significant interval improvement within the righ t middle lobe opacities and mild increased left upper lobe opacities when compared to the prior CT ch est dated May 19, 2018. Consider bacterial pneumonia or atypical infection given provided clinica l history. Request correlation with CD4 count and exam. 2. There is no pleural effusion or pneumothorax. 3. Cholelithiasis and mild hepatomegaly. This document is electronically signed by Amado Chairez DO., July 24 2018 06:07:06 PM ET
[2018-07-24] MEDS: BACTRIM DS PO SCH (20:00)
[2018-07-25] MEDS: PERCOCET 5/325 PO PRN ×2 (00:14→23:33)
[2018-07-25] MEDS: VANCOMYCIN 1,250 MG in NACL 0.9% 250ML 250 ML IV SCH ×2 (03:00→17:13)
[2018-07-25] MEDS: NACL 0.9% 1000 ML 1,000 ML IV SCH (05:56)
[2018-07-25] MEDS: TESSALON PERLES PO SCH ×3 (06:03→23:08)
[2018-07-25] MEDS: SODIUM CHLORIDE FLUSH SYRINGE 10 ML IV SCH ×3 (06:04→23:06)
[2018-07-25] MEDS: NYSTATIN PO SCH ×5 (06:06→23:05)
[2018-07-25] MEDS: NORVIR PO SCH ×2 (11:29→23:05)
[2018-07-25] MEDS: LEVAQUIN 750MG/150ML 750 MG/150 ML BAG IV SCH (11:29)
[2018-07-25] MEDS: VIREAD PO SCH (11:30)
[2018-07-25] MEDS: HALFPRIN EC PO SCH (11:30)
[2018-07-25] MEDS: DIFLUCAN PO SCH (11:30)
[2018-07-25] MEDS: PREZISTA PO SCH ×2 (11:31→23:05)
[2018-07-25] MEDS: REYATAZ PO SCH (11:31)
[2018-07-25] MEDS: LASIX PO SCH (11:31)
[2018-07-25] MEDS: EMTRIVA PO SCH (11:32)
[2018-07-25] MEDS: ZESTRIL PO SCH (11:32)
[2018-07-25] MEDS: COREG PO SCH ×2 (11:33→23:05)
[2018-07-25] MEDS: MAXIPIME/NS 2 GM/100 ML 2 GM/100 ML BAG IV SCH ×2 (11:41→23:06)
--- NOTE | 2018-07-25 13:51 | Progress Note ---
Assessment and Plan Assessment and plan: 42 YO Female with AIDS, Cardiomyopathy with EF 15%, HTN, Asthma, Chronic Respiratory Failure on 2.5L Home Oxygen, COPD, Eczema, Crohns Disease presents to ED for evaluation. Pt states that she has experienced subjective fever, productive cough with green sputum over the past 2 weeks, with worsening sympt oms over the past 3 days. Pt was seen by her senior production manager Dr. Aquino and placed on doxycycline without improvement in symptoms. Pt was subsequently seen by her infectious disease physician, Dr. Portillo/Mateusz and was initiated on prednisone without improvement in symptoms. Pt transported to [facility] via private vehicle. Pt seen and evaluated in ED and found to have PATRICA Pneumonia, Acute on Chronic Respiratory Failure, Acidosis. Pt admitted to medical floor and placed on Airborne Precautions, and initiated on Pneumonia protocol. Pt admitted on 05/19/18 for Pneumonia/Respiratory Failure. All listed medication reconciled at admission. Pt denies chills, CP, Palpitations, NVD, Trauma, Skin Rash, Diffi culty Swallowing, Prolonged Travel/Immobility, Unilateral Leg Swelling, Calf Pain, or Recent ill contacts. (1) Acute and chronic respiratory failure with hypoxia Current Visit: No Status: Acute Plan to address problem: Supplemental oxygen, nebulizer therapy, pulse oximetry, chest x ray, NIPPV as clinically indicated, pulse oximetry, pain control Consult Pulmonary input noted. Consult with ID and input noted (2)Pulmonary Nodule per pulmonary possible biopsy vs bronchoscopy to evaluate nodule Prior pulmonary nodule-Repeat CT chest- per pulmonary- Reviewed CT chest althou gh radiology report is still pending; R lung pneumonia has basically resolved; there is a nodule in the RML and what looks to be new nodules PATRICA and new areas of pleural-based consolidation PATRICA as well; will await final radiology report before considering invasive work-up such as bronch or CT guided biopsy (3) Pneumonia- RUL Current Visit: Yes Status: Acute Qualifiers: Laterality: left Lung location: upper lobe of lung Plan to address problem: IV antibiotic therapy, supplemental oxygen, nebulizer therapy, hydromet bid for cough suppression and pain control, nebulizer therapy, NIPPV as clinically indicated, CBC, BMP, Pulse oximetry. ID AND PULMONARY INPUT NOTED BRONCHOSCOPY VS NIDDLE ASPIRATION (4) Hyponatremia syndrome Current Visit: Yes Status: Acute Plan to address problem: IVF resuscitation therapy, repeat bmp in am to monitor serum sodium level. (5) Acidosis Current Visit: Yes Status: Acute Plan to address problem: IVF resuscitation therapy, IMPROVED (6) AIDS Current Visit: Yes Status: Acute Plan to address problem: Resume antiretroviral therapy, PCP prophylaxis with bactrim. Per ID management (6) Crohns disease Current Visit: Yes Status: Acute Qualifiers: Digestive disease complication type: without complication Plan to address problem: Controlled, No exacerbation at this time. (7) Oral Candidiasis: on Nystatin and Fluconazole (8) DVT prophylaxis Current Visit: Yes Status: Acute Plan to address problem: SCD to BLE while in bed, History Interval history: Patient seen, sitting up in bed, Cough improved, resting comfortable. no further shortness of breath Hospitalist Physical - Physical exam Narrative exam: General appearance: Present: resting comfortable - EENT Eyes: Present: PERRL ENT: hearing intact, clear oral mucosa - Neck Neck: Present: supple, normal ROM - Respiratory Respiratory effort: normal Respiratory: left: diminished, rhonchi - Cardiovascular Heart Sounds: Present: S1 & S2. Absent: rub, click - Extremities Extremities: pulses symmetrical, No edema Peripheral Pulses: within normal limits - Abdominal General gastrointestinal: Present: soft, non-tender, non-distended, normal bowel sounds Female genitourinary: Present: normal - Integumentary Integumentary: Present: clear, warm, dry - Musculoskeletal Musculoskeletal: gait normal, strength equal bilaterally - Psychiatric Psychiatric: appropriate mood/affect, intact judgment & insight - Neurologic Neurologic: CNII-XII intact, moves all extremities - Constitutional Vitals: Temp Pulse Resp BP Pulse Ox 97.6 F 78 20 145/91 94 07/25/18 12:02 07/25/18 12:02 07/25/18 12:02 07/25/18 12:02 07/25/18 12:02 General appearance: Present: mild distress Results - Labs CBC & Chem 7: 07/24/18 08:27 07/24/18 08:27 Labs: Laboratory Last Values WBC 3.6 K/mm3 (4.5-11.0) L 07/24/18 08:27 RBC 3.33 M/mm3 (3.65-5.03) L 07/24/18 08:27 Hgb 9.5 gm/dl (10.1-14.3) L 07/24/18 08:27 Hct 28.8 % (30.3-42.9) L 07/24/18 08:27 MCV 87 fl (79-97) 07/24/18 08:27 MCH 29 pg (28-32) 07/24/18 08:27 MCHC 33 % (30-34) 07/24/18 08:27 RDW 18.6 % (13.2-15.2) H 07/24/18 08:27 Plt Count 368 K/mm3 (140-440) 07/24/18 08:27 Add Manual Diff Complete 07/22/18 14:13 Total Counted 100 07/22/18 14:13 Seg Neutrophils % System Operation Superintendent 07/22/18 14:13 Seg Neuts % (Manual) 98.0 % (40.0-70.0) H 07/22/18 14:13 Band Neutrophils % 0 % 07/22/18 14:13 Lymphocytes % (Manual) 0 % (13.4-35.0) L 07/22/18 14:13 Reactive Lymphs % (Man) 0 % 07/22/18 14:13 Monocytes % (Manual) 2.0 % (0.0-7.3) 07/22/18 14:13 Eosinophils % (Manual) 0 % (0.0-4.3) 07/22/18 14:13 Basophils % (Manual) 0 % (0.0-1.8) 07/22/18 14:13 Metamyelocytes % 0 % 07/22/18 14:13 Myelocytes % 0 % 07/22/18 14:13 Promyelocytes % 0 % 07/22/18 14:13 Blast Cells % 0 % 07/22/18 14:13 Nucleated RBC % Not Reportable 07/22/18 14:13 Seg Neutrophils # Man 7.9 K/mm3 (1.8-7.7) H 07/22/18 14:13 Band Neutrophils # 0.0 K/mm3 07/22/18 14:13 Lymphocytes # (Manual) 0.0 K/mm3 (1.2-5.4) L 07/22/18 14:13 Abs React Lymphs (Man) 0.0 K/mm3 07/22/18 14:13 Monocytes # (Manual) 0.2 K/mm3 (0.0-0.8) 07/22/18 14:13 Eosinophils # (Manual) 0.0 K/mm3 (0.0-0.4) 07/22/18 14:13 Basophils # (Manual) 0.0 K/mm3 (0.0-0.1) 07/22/18 14:13 Metamyelocytes # 0.0 K/mm3 07/22/18 14:13 Myelocytes # 0.0 K/mm3 07/22/18 14:13 Promyelocytes # 0.0 K/mm3 07/22/18 14:13 Blast Cells # 0.0 K/mm3 07/22/18 14:13 WBC Morphology Not Reportable 07/22/18 14:13 Hypersegmented Neuts Not Reportable 07/22/18 14:13 Hyposegmented Neuts Not Reportable 07/22/18 14:13 Hypogranular Neuts Not Reportable 07/22/18 14:13 Smudge Cells Not Reportable 07/22/18 14:13 Toxic Granulation Not Reportable 07/22/18 14:13 Toxic Vacuolation Not Reportable 07/22/18 14:13 Dohle Bodies Not Reportable 07/22/18 14:13 Pelger-Huet Anomaly Not Reportable 07/22/18 14:13 Kj Rods Not Reportable 07/22/18 14:13 Platelet Estimate Consistent w auto 07/22/18 14:13 Clumped Platelets Not Reportable 07/22/18 14:13 Plt Clumps, EDTA Not Reportable 07/22/18 14:13 Large Platelets Not Reportable 07/22/18 14:13 Giant Platelets Not Reportable 07/22/18 14:13 Platelet Satelliting Not Reportable 07/22/18 14:13 Plt Morphology Comment Not Reportable 07/22/18 14:13 RBC Morphology Not Reportable 07/22/18 14:13 Dimorphic RBCs Not Reportable 07/22/18 14:13 Polychromasia Not Reportable 07/22/18 14:13 Hypochromasia Not Reportable 07/22/18 14:13 Poikilocytosis Not Reportable 07/22/18 14:13 Anisocytosis 1+ 07/22/18 14:13 Microcytosis Not Reportable 07/22/18 14:13 Macrocytosis Not Reportable 07/22/18 14:13 Spherocytes Not Reportable 07/22/18 14:13 Pappenheimer Bodies Not Reportable 07/22/18 14:13 Sickle Cells Not Reportable 07/22/18 14:13 Target Cells Not Reportable 07/22/18 14:13 Tear Drop Cells Not Reportable 07/22/18 14:13 Ovalocytes Not Reportable 07/22/18 14:13 Stomatocytes Few 07/22/18 14:13 Helmet Cells Not Reportable 07/22/18 14:13 [place] Bodies Not Reportable 07/22/18 14:13 [place] Rings Not Reportable 07/22/18 14:13 [place] Cells Not Reportable 07/22/18 14:13 Bite Cells Not Reportable 07/22/18 14:13 Crenated Cell Not Reportable 07/22/18 14:13 Elliptocytes Not Reportable 07/22/18 14:13 Acanthocytes (Spur) Not Reportable 07/22/18 14:13 Rouleaux Not Reportable 07/22/18 14:13 Hemoglobin C Crystals Not Reportable 07/22/18 14:13 Schistocytes Not Reportable 07/22/18 14:13 Malaria parasites Not Reportable 07/22/18 14:13 Ham Bodies Not Reportable 07/22/18 14:13 Hem Pathologist Commnt No 07/22/18 14:13 Sodium 137 mmol/L (137-145) 07/24/18 08:27 Potassium 3.4 mmol/L (3.6-5.0) L 07/24/18 08:27 Chloride 95.7 mmol/L (98-107) L 07/24/18 08:27 Carbon Dioxide 26 mmol/L (22-30) 07/24/18 08:27 Anion Gap 19 mmol/L 07/24/18 08:27 BUN 12 mg/dL (7-17) 07/24/18 08:27 Creatinine 0.7 mg/dL (0.7-1.2) 07/24/18 08:27 Estimated GFR > 60 ml/min 07/24/18 08:27 BUN/Creatinine Ratio 17 % 07/24/18 08:27 Glucose 91 mg/dL (65-100) 07/24/18 08:27 Lactic Acid 1.20 mmol/L (0.7-2.0) 07/23/18 00:44 Calcium 8.6 mg/dL (8.4-10.2) 07/24/18 08:27 Total Bilirubin 1.10 mg/dL (0.1-1.2) 07/22/18 14:13 AST 20 units/L (5-40) 07/22/18 14:13 ALT < 5 units/L (7-56) L 07/22/18 14:13 Alkaline Phosphatase 87 units/L (35-129) 07/22/18 14:13 Total Protein 7.0 g/dL (6.3-8.2) 07/22/18 14:13 Albumin 3.1 g/dL (3.9-5) L 07/22/18 14:13 Albumin/Globulin Ratio 0.8 % 07/22/18 14:13 Active Medications - Current Medications Current Medications: Generic Name Dose Route Start Last Admin Trade Name Freq PRN Reason Stop Dose Admin Acetaminophen 650 mg 07/22/18 16:36 Tylenol PO Q4H PRN Pain MILD(1-3)/Fever >100.5/BILL Albuterol 2.5 mg 07/22/18 16:36 Proventil IH Q4HRT PRN Shortness Of Breath Aspirin 81 mg 07/23/18 10:00 07/25/18 11:30 Halfprin Ec PO 81 mg QDAY BAY Administration Atazanavir 300 mg 07/23/18 10:00 07/25/18 11:31 Reyataz PO 300 mg QDAY BAY Administration Benzonatate 100 mg 07/22/18 22:00 07/25/18 06:03 Tessalon Perles PO 100 mg Q8HR BAY Administration Carvedilol 6.25 mg 07/22/18 22:00 07/25/18 11:33 Coreg PO 6.25 mg BID BAY Administration Darunavir 600 mg 07/22/18 22:00 07/25/18 11:31 Prezista PO 600 mg BID BAY Administration Emtricitabine 200 mg 07/24/18 10:00 07/25/18 11:32 Emtriva PO 200 mg QDAY BAY Administration Fluconazole 400 mg 07/22/18 20:00 07/25/18 11:30 Diflucan PO 400 mg QDAY [facility]AY Administration Furosemide 40 mg 07/22/18 20:00 07/25/18 11:31 Lasix PO 40 mg QDAY BAY Administration Sodium Chloride 1,000 mls @ 42 mls/hr 07/22/18 18:00 07/25/18 05:56 Nacl 0.9% 1000 Ml IV 42 mls/hr DIRECT BAY Administration Levofloxacin/Dextrose 750 mg in 150 mls @ 100 mls/hr 07/23/18 12:00 07/25/18 11:29 Levaquin 750mg/150ml IV 100 mls/hr Q24HR BAY Administration Protocol Cefepime HCl 2 gm in 100 mls @ 200 mls/hr 07/23/18 13:00 07/25/18 11:41 Maxipime/Ns 2 Gm/100 Ml IV 200 mls/hr Q12HR BAY Administration Protocol Vancomycin HCl 1,250 mg/ 275 mls @ 166.667 mls/hr 07/23/18 15:30 07/25/18 03:00 Sodium Chloride IV 166.667 mls/hr Q12H BAY Administration Lisinopril 10 mg 07/23/18 10:00 07/25/18 11:32 Zestril PO 10 mg QDAY [facility]AY Administration Nystatin 500,000 unit 07/22/18 18:00 07/25/18 11:31 Nystatin PO 500,000 unit QID BAY Administration Ondansetron HCl 4 mg 07/22/18 16:36 Zofran IV Q8H PRN Nausea And Vomiting Oxycodone/Acetaminophen 1 tab 07/22/18 16:36 07/25/18 00:14 Percocet 5/325 PO 1 tab Q6H PRN Administration Pain, Moderate (4-6) Ritonavir 100 mg 07/22/18 22:00 07/25/18 11:29 Norvir PO 100 mg BID BAY Administration Sodium Chloride 10 ml 07/22/18 22:00 07/25/18 11:40 Sodium Chloride Flush Syringe 10 Ml IV 10 ml BID BAY Administration Sodium Chloride 10 ml 07/22/18 16:36 Sodium Chloride Flush Syringe 10 Ml IV PRN PRN LINE FLUSH Tenofovir Disoproxil Fumarate 300 mg 07/24/18 10:00 07/25/18 11:30 Viread PO 300 mg QDAY [facility] Administration Trimethoprim/Sulfamethoxazole 1 each 07/22/18 20:00 07/24/18 20:00 Bactrim Ds PO 1 each Q24H BAY Administration Nutrition/Malnutrition Assess - Dietary Evaluation Nutrition/Malnutrition Findings: Nutrition Notes Start: 07/23/18 13:58 Freq: Status: Active Protocol: Document 07/23/18 13:58 RM (Rec: 07/23/18 14:15 RM [id number]) Nutrition Notes Need for Assessment generated from: photographer assistant,MST Initial or Follow up Brief Note Current Diagnosis COPD,Hypertension Other Pertinent Diagnosis Eczema, Chrohn's disease, HIV/ AIDS, Pneu Current Diet Regular Labs/Tests Reviewed Pertinent Medications Lasix Height 5 ft 6 in Weight 83.91 kg Usual Body Weight 105.45 kg [place] Body Weight (kg) 59.09 BMI 29.8 Weight change and time frame 20% X 1 year and 3 months ago Subjective/Other Information Screened for malnutrition and skin risk. Abiodun 20 points. 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 Stated her appetite is improving now. Stated that yesterday she didnt eat anything but today she ate most of her breakfast. Stated UBW was 232 lbs May of 2017. Burn Absent Trauma Absent Nutrition Intervention Follow-Up By: 07/27/18 Additional Comments Follow for stable intakes
--- NOTE | 2018-07-25 15:08 | Progress Note ---
Assessment and Plan Imp: 1. HCAP 2. HIV/AIDS 3. Chronic respiratory failure, hypoxia 4. Dilated CMP 5. Anemia of chronic disease 6. Pulm nodules 05/2018 Rec: 1. Resumed Vanco/Cefipime which she tolerated last admit; F/u ID recs; f/u cultures 2. PATRICA nodules worse, and there is a R lung nodule that is fairly significant as well; cannot exclude malignancy in light of smoking and HIV; options include CT guided biopsy versus bronchoscopy; the former may be higher yield to get a definitive answer but patient was hesitant to proceed today; will have Dr. Landa review CT in AM and discuss plan further with the patient 3. Further plans pending clinical course Plan of care reviewed w/ patient, she understands/agrees Subjective Date of service: 07/25/18 Principal diagnosis: Pneumonia Interval history: No events. Still w/ cough, no sputum. Still w/ SOB above baseline. On NC. No new complaints. Active Medications Acetaminophen (Tylenol) 650 mg PO Q4H PRN PRN Reason: Pain MILD(1-3)/Fever >100.5/BILL Albuterol (Proventil) 2.5 mg IH Q4HRT PRN PRN Reason: Shortness Of Breath Aspirin (Halfprin Ec) 81 mg PO QDAY [facility] Last Admin: 07/25/18 11:30 Dose: 81 mg Documented by: Atazanavir (Reyataz) 300 mg PO QDAY [facility] Last Admin: 07/25/18 11:31 Dose: 300 mg Documented by: Benzonatate (Tessalon Perles) 100 mg PO Q8HR [facility] Last Admin: 07/25/18 06:03 Dose: 100 mg Documented by: Carvedilol (Coreg) 6.25 mg PO BID [facility] Last Admin: 07/25/18 11:33 Dose: 6.25 mg Documented by: Darunavir (Prezista) 600 mg PO BID [facility] Last Admin: 07/25/18 11:31 Dose: 600 mg Documented by: Emtricitabine (Emtriva) 200 mg PO QDAY [facility] Last Admin: 07/25/18 11:32 Dose: 200 mg Documented by: Fluconazole (Diflucan) 400 mg PO QDAY [facility] Last Admin: 07/25/18 11:30 Dose: 400 mg Documented by: Furosemide (Lasix) 40 mg PO QDAY [facility] Last Admin: 07/25/18 11:31 Dose: 40 mg Documented by: Sodium Chloride (Nacl 0.9% 1000 Ml) 1,000 mls @ 42 mls/hr IV DIRECT [facility] Last Admin: 07/25/18 05:56 Dose: 42 mls/hr Documented by: Levofloxacin/Dextrose (Levaquin 750mg/150ml) 750 mg in 150 mls @ 100 mls/hr IV Q24HR [facility]; Protocol Last Admin: 07/25/18 11:29 Dose: 100 mls/hr Documented by: Cefepime HCl (Maxipime/Ns 2 Gm/100 Ml) 2 gm in 100 mls @ 200 mls/hr IV Q12HR [facility]; Protocol Last Admin: 07/25/18 11:41 Dose: 200 mls/hr Documented by: Vancomycin HCl 1,250 mg/ (Sodium Chloride) 275 mls @ 166.667 mls/hr IV Q12H [facility] Last Admin: 07/25/18 03:00 Dose: 166.667 mls/hr Documented by: Lisinopril (Zestril) 10 mg PO QDAY [facility] Last Admin: 07/25/18 11:32 Dose: 10 mg Documented by: Nystatin (Nystatin) 500,000 unit PO QID [facility] Last Admin: 07/25/18 11:31 Dose: 500,000 unit Documented by: Ondansetron HCl (Zofran) 4 mg IV Q8H PRN PRN Reason: Nausea And Vomiting Oxycodone/Acetaminophen (Percocet 5/325) 1 tab PO Q6H PRN PRN Reason: Pain, Moderate (4-6) Last Admin: 07/25/18 00:14 Dose: 1 tab Documented by: Ritonavir (Norvir) 100 mg PO BID [facility] Last Admin: 07/25/18 11:29 Dose: 100 mg Documented by: Sodium Chloride (Sodium Chloride Flush Syringe 10 Ml) 10 ml IV BID [facility] Last Admin: 07/25/18 11:40 Dose: 10 ml Documented by: Sodium Chloride (Sodium Chloride Flush Syringe 10 Ml) 10 ml IV PRN PRN PRN Reason: LINE FLUSH Tenofovir Disoproxil Fumarate (Viread) 300 mg PO QDAY [facility] Last Admin: 07/25/18 11:30 Dose: 300 mg Documented by: Trimethoprim/Sulfamethoxazole (Bactrim Ds) 1 each PO Q24H [facility] Last Admin: 07/24/18 20:00 Dose: 1 each Documented by: Objective Vital Signs - 12hr 07/25/18 07/25/18 07/25/18 06:32 11:32 11:33 Temperature 97.6 F Pulse Rate 67 67 67 Respiratory 18 Rate Blood Pressure 133/74 133/74 133/74 O2 Sat by Pulse 99 Oximetry 07/25/18 12:02 Temperature 97.6 F Pulse Rate 78 Respiratory 20 Rate Blood Pressure 145/91 O2 Sat by Pulse 94 Oximetry Constitutional: no acute distress, alert Eyes: non-icteric ENT: oropharynx moist Neck: supple Effort: normal Ascultation: Bilateral: clear Cardiovascular: regular rate and rhythm (no mrg) Gastrointestinal: normoactive bowel sounds, soft, non-tender, non-distended Integumentary: normal Extremities: no cyanosis, pink and warm Neurologic: normal mental status, non-focal exam, pupils equal and round, CN II- XII normal Psychiatric: mood appropriate, affect normal CBC and BMP: 07/24/18 08:27 07/24/18 08:27 Abnormal lab findings: Abnormal Labs 07/22/18 07/22/18 07/22/18 14:13 14:13 14:13 WBC RBC 3.29 L Hgb 9.3 L Hct 28.3 L RDW 19.1 H Seg Neuts % (Manual) 98.0 H Lymphocytes % (Manual) 0 L Seg Neutrophils # Man 7.9 H Lymphocytes # (Manual) 0.0 L Sodium 132 L Potassium 3.4 L Chloride 90.3 L Creatinine 0.6 L Glucose 140 H Lactic Acid 2.10 H* ALT < 5 L Albumin 3.1 L 07/22/18 07/22/18 07/24/18 15:58 20:39 08:27 WBC 3.6 L RBC 3.33 L Hgb 9.5 L Hct 28.8 L RDW 18.6 H Seg Neuts % (Manual) Lymphocytes % (Manual) Seg Neutrophils # Man Lymphocytes # (Manual) Sodium Potassium Chloride Creatinine Glucose Lactic Acid 4.00 H* 2.50 H* ALT Albumin 07/24/18 08:27 WBC RBC Hgb Hct RDW Seg Neuts % (Manual) Lymphocytes % (Manual) Seg Neutrophils # Man Lymphocytes # (Manual) Sodium Potassium 3.4 L Chloride 95.7 L Creatinine Glucose Lactic Acid ALT Albumin Chest x-ray: report reviewed, image reviewed CT scan - chest: report reviewed, image reviewed
[2018-07-25] MEDS: ZOFRAN IV PRN (17:10)
[2018-07-25] MEDS: BACTRIM DS PO SCH (23:05)
[2018-07-26] MEDS: VANCOMYCIN 1,250 MG in NACL 0.9% 250ML 250 ML IV SCH (04:35)
[2018-07-26] MEDS: TESSALON PERLES PO SCH ×3 (05:41→21:42)
--- NOTE | 2018-07-26 08:32 | Consultation ---
History of Present Illness - Reason for Consult Consult date: 07/26/18 pneumonia/HIV Requesting physician: JOSE ROBERTO MCGEE - History of Present Illness 42 y/o female with history of AIDS CD4=1, VL 144,000 on 05/20/[address] Portillo/Mateusz, COPD with O2 dependence 2.[address] Aquino, cardiomyopathy with an EF of 15%, recurrent pneumonia s/p multiple bronch/BAL and recurrent oral candidiasis; admitted on 07/22/2018 due to worsening cough and fever for 2 weeks. Patient has had cough 2 weeks productive of green sputum. She was seen by her prehemmer Dr. Aquino and placed on doxycycline. Patient was not improving and saw her infectious disease doctor Dr. Portillo/Mateusz 3 days ago and prednisone was added to her regimen. Patient developed fever the day before admission and complains of worsening shortness of breath. Patient denies hemoptysis. Patient is on prophylactic daily Bactrim. Her HIV/AIDS is uncontrolled, highly treatment experienced and [id number]. Of note, fungitell test was negative in Feb 2018. Multiple BAL positive for Linda glabrata. Last BAL 05/21/2018 positive for Linda albicans, cytology PJP neg. In the ED, temp 100.4, HR 112, R 20, O2 sat 92%, BP 142/84. WBC 8.1, Hg 9.3, Plat 351. Creat 0.6. UA 20 wbc, trace LE. Blood culture 07/22/2018 no growth today. MRSA culture screeing neg. Cryptococcal serum neg. CTA showed multifocal groundglass and nodular opacities with significant interval improvement within the right middle lobe opacities and mild increased left upper lobe opacities when compared to the prior CT chest dated May 19, 2018. Noted cholelithiasis and mild hepatomegaly. Review of Systems: General:+ fever Cutaneous: no rash, pruritus Head: no headaches or injury Eyes: no changes in vision, eye pain, double vision Ears: no ear pain, ear discharge, ringing or hearing loss Nose: no nose bleeding, stuffiness Mouth & throat: no bleeding gums, no horseness, no dental problems, or swollen glands Neck: no pain, node enlargement/lumps, tyroid enlargement or tenderness Respiratory: +cough +SOB Cardiovascular: no chest pain, leg edema, cyanosis, [place], orthopnea Musculoskeletal: no decreased joint motion, bone or joint pain, joint swelling, muscle aches Gastrointestinal: no nausea, vomiting, hematemesis, diarrhea, constipation, melena, bright red blood in stools, fecal incontinence, jaundice Genitourinary/Reproductive: no frequent urination, dysuria, hematuria, incontinence Neurogical: no seizures, no headaches, no weakness, no paresthesias, no loss of speech or vision; no memory loss, no vertigo, no tremors, no numbness Psychiatric: stable mood; no excessive anxiety, sadness or moodiness Past History Past Medical History: COPD, HIV/AIDS, other (Cardiomyopathy) Past Surgical History: Social history: full code. denies: smoking, alcohol abuse, prescription drug abuse, IV drug use Family history: no significant family history (denies pulm problems) Medications and Allergies Allergies Allergy/AdvReac Type Severity Reaction Status Date / Time Penicillins Allergy Swelling Verified 12/14/14 17:38 Home Medications Medication Instructions Recorded Confirmed Last Taken Type Atazanavir [Reyataz] 300 mg PO QDAY #30 capsule 02/28/18 07/22/18 Unknown Rx Carvedilol [Coreg] 6.25 mg PO BID #60 tablet 02/28/18 07/22/18 Unknown Rx Darunavir [Prezista] 600 mg PO BID tablet 02/28/18 07/22/18 Unknown Rx Furosemide [Lasix TAB] 40 mg PO QDAY #30 tablet 02/28/18 07/22/18 Unknown Rx Ipratropium/Albuterol Sulfate 1 ampul IH Q8HR PRN #30 ampul.neb 02/28/18 07/22/18 Unknown Rx [DUONEB *Not for PRN Use*] Lisinopril [Zestril TAB] 10 mg PO QDAY #30 tablet 02/28/18 07/22/18 Unknown Rx Nystatin [Nystatin SUSP] 500,000 unit PO QID 21 Days udc 02/28/18 07/22/18 Unknown Rx Ritonavir [Norvir] 100 mg PO BID tab 02/28/18 07/22/18 Unknown Rx Emtricitabine/Tenofov Alafenam 1 each PO DAILY 05/19/18 07/22/18 Unknown History [Descovy 200-25 mg Tablet] Fluconazole [Diflucan TAB] 400 mg PO QDAY 14 Days #28 tablet 05/25/18 07/22/18 Unknown Rx Sulfamethoxazole/Trimethoprim 1 each PO Q24HR #30 tablet 05/25/18 07/22/18 Unknown Rx [Bactrim DS TAB] Active Meds: Active Medications Acetaminophen (Tylenol) 650 mg PO Q4H PRN PRN Reason: Pain MILD(1-3)/Fever >100.5/BILL Last Admin: 07/25/18 23:11 Dose: 650 mg Documented by: Albuterol (Proventil) 2.5 mg IH Q4HRT PRN PRN Reason: Shortness Of Breath Last Admin: 07/25/18 22:11 Dose: 2.5 mg Documented by: Aspirin (Halfprin Ec) 81 mg PO QDAY [facility] Last Admin: 07/25/18 11:30 Dose: 81 mg Documented by: Atazanavir (Reyataz) 300 mg PO QDAY [facility] Last Admin: 07/25/18 11:31 Dose: 300 mg Documented by: Benzonatate (Tessalon Perles) 100 mg PO Q8HR [facility] Last Admin: 07/26/18 05:41 Dose: 100 mg Documented by: Carvedilol (Coreg) 6.25 mg PO BID [facility] Last Admin: 07/25/18 23:05 Dose: 6.25 mg Documented by: Darunavir (Prezista) 600 mg PO BID [facility] Last Admin: 07/25/18 23:05 Dose: 600 mg Documented by: Emtricitabine (Emtriva) 200 mg PO QDAY [facility] Last Admin: 07/25/18 11:32 Dose: 200 mg Documented by: Fluconazole (Diflucan) 400 mg PO QDAY [facility] Last Admin: 07/25/18 11:30 Dose: 400 mg Documented by: Furosemide (Lasix) 40 mg PO QDAY [facility] Last Admin: 07/25/18 11:31 Dose: 40 mg Documented by: Sodium Chloride (Nacl 0.9% 1000 Ml) 1,000 mls @ 42 mls/hr IV DIRECT [facility] Last Infusion: 07/26/18 06:38 Dose: Infused Documented by: Levofloxacin/Dextrose (Levaquin 750mg/150ml) 750 mg in 150 mls @ 100 mls/hr IV Q24HR [facility]; Protocol Last Infusion: 07/25/18 22:52 Dose: Infused Documented by: Cefepime HCl (Maxipime/Ns 2 Gm/100 Ml) 2 gm in 100 mls @ 200 mls/hr IV Q12HR [facility]; Protocol Last Infusion: 07/26/18 01:51 Dose: Infused Documented by: Vancomycin HCl 1,250 mg/ (Sodium Chloride) 275 mls @ 166.667 mls/hr IV Q12H [facility] Last Infusion: 07/26/18 06:38 Dose: Infused Documented by: Lisinopril (Zestril) 10 mg PO QDAY [facility] Last Admin: 07/25/18 11:32 Dose: 10 mg Documented by: Nystatin (Nystatin) 500,000 unit PO QID [facility] Last Admin: 07/25/18 23:05 Dose: 500,000 unit Documented by: Ondansetron HCl (Zofran) 4 mg IV Q8H PRN PRN Reason: Nausea And Vomiting Last Admin: 07/25/18 17:10 Dose: 4 mg Documented by: Oxycodone/Acetaminophen (Percocet 5/325) 1 tab PO Q6H PRN PRN Reason: Pain, Moderate (4-6) Last Admin: 07/25/18 23:33 Dose: 1 tab Documented by: Ritonavir (Norvir) 100 mg PO BID [facility] Last Admin: 07/25/18 23:05 Dose: 100 mg Documented by: Sodium Chloride (Sodium Chloride Flush Syringe 10 Ml) 10 ml IV BID [facility] Last Admin: 07/25/18 23:06 Dose: 10 ml Documented by: Sodium Chloride (Sodium Chloride Flush Syringe 10 Ml) 10 ml IV PRN PRN PRN Reason: LINE FLUSH Tenofovir Disoproxil Fumarate (Viread) 300 mg PO QDAY [facility] Last Admin: 07/25/18 11:30 Dose: 300 mg Documented by: Trimethoprim/Sulfamethoxazole (Bactrim Ds) 1 each PO Q24H [facility] Last Admin: 07/25/18 23:05 Dose: 1 each Documented by: Physical Examination - Physical Exam Narrative exam: General appearance: Alert in NAD, conversant Eyes: anicteric sclerae, moist conjunctivae; no lid-lag; PERRLA HENT: Atraumatic; oropharynx marked oral thrush and no mucosal ulcerations/no oral thrush; normal hard and soft palate. Normal external ears. Neck: Trachea midline; supple, no thyromegaly or lymphadenopathy Lungs: sahra crackles CV: tachy Abdomen: Soft, non-tender; no masses or hepatosplenomegaly Extremities: No peripheral edema or extremity lymphadenopathy Skin: Normal temperature, turgor and texture; no rash, ulcers or subcutaneous nodules Psych: Appropriate affect, alert and oriented to person, place and time. Neuro: alert and oriented x 3. Moving all extermities - Constitutional Vitals: Vital Signs Temp Pulse Resp BP Pulse Ox 97.8 F 81 18 108/62 96 07/26/18 04:51 07/26/18 04:51 07/26/18 04:51 07/26/18 04:51 07/26/18 04:51 Temperature -Last 24 Hours Temperature 97.8 F Temperature 98.1 F Temperature 97.9 F Temperature 97.6 F Results - Labs CBC & Chem 7: 07/24/18 08:27 07/24/18 08:27 Assessment and Plan Culture: Blood culture 07/22/2018 no growth so far MRSA screening neg A/P: 42 y/o female with history of AIDS CD4=1, VL 144,000 on 05/20/[address] Portillo/Mateusz, COPD with O2 dependence 2.[address] Aquino, cardiomyopathy with an EF of 15%, recurrent pneumonia s/p multiple bronch/BAL and recurrent oral candidiasis; admitted on 07/22/2018 due to worsening cough and fever for 2 weeks. 1) Acute on chronic respiratory failure secondary to bilateral nodular infiltrates and pneumonia: 2) Bilateral multifocal pnuemonia: heide invasive fungal pneumonia v/s PJP v/s other etiology; patient with recurrent pneumonia s/p multiple bronch/BAL positive for Linda glabrata and albicans, also history of recurrent oral candidiasis Fungitell test was negative in Feb 2018. Last BAL 05/21/2018 posit gama for Linda albicans, cytology PJP neg. 3) HIV/AIDS: Secondary to [id number] HIV, highly treatment experienced, previously noncompliant but lately she has been compliant. She is on an unusual regimen with 2 protease inhibitors (but that apparently is per some discussions with a physician at [facility]) and now also on Trogarzo. On norvir boosted darunavir twice a day, atazanavir once a day, continue nonformulary Descovy. CD4=1, VL 144,000 on 05/20/2018 4) Acute on chronic respiratory failure: Stable 5) Oral candidiasis: on nystatin and fluconazole 6) Dilated cardiomyopathy: Presumed to be HIV related in etiology. 7) PCN allergy: remote per patient. she has taken Keflex in the past without issues and has tolerated Cefepime without issues here. Recs: - start micafungin - suspect highly resistant Linda - start bactrim DS 2 tab QID - stop fluconazole - ordered 1,3 [id number], Histoplasma Ag - ordered Aspergillus Galactomannan on blood - continue Cefepime - stop vanco - MRSA culture neg- check CD4/VL - Continue norvir boosted darunavir twice a day, atazanavir once a day, continue Descovy (non formulary, so switched to TDF and FTC). - if not better will request bronch Will follow Samantha Hughes MD Infectious Diseases Director [facility] M [phone] O [phone]
[2018-07-26] MEDS: LEVAQUIN 750MG/150ML 750 MG/150 ML BAG IV SCH (09:39)
[2018-07-26] MEDS: SODIUM CHLORIDE FLUSH SYRINGE 10 ML IV SCH ×2 (09:39→21:53)
[2018-07-26] MEDS: PREZISTA PO SCH ×2 (09:40→21:43)
[2018-07-26] MEDS: HALFPRIN EC PO SCH (09:40)
[2018-07-26] MEDS: NYSTATIN PO SCH ×4 (09:40→21:43)
[2018-07-26] MEDS: VIREAD PO SCH (09:40)
[2018-07-26] MEDS: LASIX PO SCH (09:40)
[2018-07-26] MEDS: NORVIR PO SCH ×2 (09:40→21:43)
[2018-07-26] MEDS: EMTRIVA PO SCH (09:41)
[2018-07-26] MEDS: DIFLUCAN PO SCH (09:41)
[2018-07-26] MEDS: ZESTRIL PO SCH (09:41)
[2018-07-26] MEDS: REYATAZ PO SCH (09:41)
[2018-07-26] MEDS: COREG PO SCH ×2 (09:41→21:44)
[2018-07-26] MEDS: MAXIPIME/NS 2 GM/100 ML 2 GM/100 ML BAG IV SCH ×2 (10:00→21:42)
--- NOTE | 2018-07-26 11:15 | Progress Note ---
Assessment and Plan 42 y/o female with known HIV/AIDs admitted with shortness of breath and concern for recurrent infection. 1. No current plan for bronch 2. Follow up ID recs 3. Continue IV abx 4. Continue supplemental O2 Subjective Date of service: 07/26/18 Principal diagnosis: Pneumonia Interval history: No acute events. ID consult pending. Objective Vital Signs - 12hr 07/25/18 07/26/18 07/26/18 23:27 04:51 09:08 Temperature 98.1 F 97.8 F Pulse Rate 86 81 Respiratory 20 18 Rate Blood Pressure 125/76 108/62 O2 Sat by Pulse 100 96 98 Oximetry Constitutional: no acute distress, alert Eyes: non-icteric ENT: oropharynx moist Neck: supple Effort: normal Ascultation: Bilateral: clear Cardiovascular: regular rate and rhythm (no mrg) Gastrointestinal: normoactive bowel sounds, soft, non-tender, non-distended Integumentary: normal Extremities: no cyanosis, pink and warm Neurologic: normal mental status, non-focal exam, pupils equal and round, CN II- XII normal Psychiatric: mood appropriate, affect normal CBC and BMP: 07/24/18 08:27 07/24/18 08:27 Abnormal lab findings: Abnormal Labs 07/22/18 07/22/18 07/22/18 14:13 14:13 14:13 WBC RBC 3.29 L Hgb 9.3 L Hct 28.3 L RDW 19.1 H Seg Neuts % (Manual) 98.0 H Lymphocytes % (Manual) 0 L Seg Neutrophils # Man 7.9 H Lymphocytes # (Manual) 0.0 L Sodium 132 L Potassium 3.4 L Chloride 90.3 L Creatinine 0.6 L Glucose 140 H Lactic Acid 2.10 H* ALT < 5 L Albumin 3.1 L 07/22/18 07/22/18 07/24/18 15:58 20:39 08:27 WBC 3.6 L RBC 3.33 L Hgb 9.5 L Hct 28.8 L RDW 18.6 H Seg Neuts % (Manual) Lymphocytes % (Manual) Seg Neutrophils # Man Lymphocytes # (Manual) Sodium Potassium Chloride Creatinine Glucose Lactic Acid 4.00 H* 2.50 H* ALT Albumin 07/24/18 08:27 WBC RBC Hgb Hct RDW Seg Neuts % (Manual) Lymphocytes % (Manual) Seg Neutrophils # Man Lymphocytes # (Manual) Sodium Potassium 3.4 L Chloride 95.7 L Creatinine Glucose Lactic Acid ALT Albumin
[2018-07-26] MEDS: BACTRIM DS PO SCH ×3 (18:46→21:59)
[2018-07-26] MEDS: PERCOCET 5/325 PO PRN (18:53)
[2018-07-26] MEDS: MYCAMINE 100 MG in NACL 0.9% 100 ML IV SCH (19:04)
--- NOTE | 2018-07-26 19:15 | Progress Note ---
Assessment and Plan Assessment and plan: 42 YO Female with AIDS, Cardiomyopathy with EF 15%, HTN, Asthma, Chronic Respiratory Failure on 2.5L Home Oxygen, COPD, Eczema, Crohns Disease presents to ED for evaluation. Pt states that she has experienced subjective fever, productive cough with green sputum over the past 2 weeks, with worsening sympt oms over the past 3 days. Pt was seen by her sprayer hand Dr. Aquino and placed on doxycycline without improvement in symptoms. Pt was subsequently seen by her infectious disease physician, Dr. Portillo/Mateusz and was initiated on prednisone without improvement in symptoms. Pt transported to [facility] via private vehicle. Pt seen and evaluated in ED and found to have PATRICA Pneumonia, Acute on Chronic Respiratory Failure, Acidosis. Pt admitted to medical floor and placed on Airborne Precautions, and initiated on Pneumonia protocol. Pt admitted on 05/19/18 for Pneumonia/Respiratory Failure. All listed medication reconciled at admission. Pt denies chills, CP, Palpitations, NVD, Trauma, Skin Rash, Diffi culty Swallowing, Prolonged Travel/Immobility, Unilateral Leg Swelling, Calf Pain, or Recent ill contacts. (1) Acute and chronic respiratory failure with hypoxia Current Visit: No Status: Acute Plan to address problem: Supplemental oxygen, nebulizer therapy, Consult Pulmonary input noted. No plan for Broch Consult with ID and input noted (2)Pulmonary Nodule per pulmonary possible biopsy vs bronchoscopy to evaluate nodule Prior pulmonary nodule-Repeat CT chest- per pulmonary- Reviewed CT chest although radiology report is still pending; R lung pneumonia has basically resolved; there is a nodule in the RML and what looks to be new nodules PATRICA and new areas of pleural-based consolidation PATRICA as well; will await final radiology report before considering invasive work-up such as bronch or CT guided biopsy (3) Pneumonia- RUL Current Visit: Yes Status: Acute Qualifiers: Laterality: left Lung location: upper lobe of lung Plan to address problem: IV antibiotic therapy, supplemental oxygen, nebulizer therapy, hydromet bid for cough suppression and pain control, nebulizer therapy, NIPPV as clinically indicated, CBC, BMP, Pulse oximetry. ID AND PULMONARY INPUT NOTED BRONCHOSCOPY VS NIDDLE ASPIRATION (4) Hyponatremia syndrome Current Visit: Yes Status: Acute Plan to address problem: IVF resuscitation therapy, repeat bmp in am to monitor serum sodium level. (5) Acidosis Current Visit: Yes Status: Acute Plan to address problem: IVF resuscitation therapy, IMPROVED (6) AIDS Current Visit: Yes Status: Acute Plan to address problem: Resume antiretroviral therapy, PCP prophylaxis with bactrim. Per ID management (6) Crohns disease Current Visit: Yes Status: Acute Qualifiers: Digestive disease complication type: without complication Plan to address problem: Controlled, No exacerbation at this time. (7) Oral Candidiasis: per ID management (8) Hypokalemia Replace (9) DVT prophylaxis Current Visit: Yes Status: Acute Plan to address problem: SCD to BLE while in bed, plan discussed with patient and sprayer hand History Interval history: Patient seen, sitting up in bed, Cough improved, resting comfortable. no further shortness of breath, No new complaints Hospitalist Physical - Physical exam Narrative exam: General appearance: Present: resting comfortable - EENT Eyes: Present: PERRL ENT: hearing intact, clear oral mucosa - Neck Neck: Present: supple, normal ROM - Respiratory Respiratory effort: normal Respiratory: left: diminished, - Cardiovascular Heart Sounds: Present: S1 & S2. Absent: rub, click - Extremities Extremities: pulses symmetrical, No edema Peripheral Pulses: within normal limits - Abdominal General gastrointestinal: Present: soft, non-tender, non-distended, normal bowel sounds Female genitourinary: Present: normal - Integumentary Integumentary: Present: clear, warm, dry - Musculoskeletal Musculoskeletal: gait normal, strength equal bilaterally - Psychiatric Psychiatric: appropriate mood/affect, intact judgment & insight - Neurologic Neurologic: CNII-XII intact, moves all extremities - Constitutional Vitals: Temp Pulse Resp BP Pulse Ox 98.1 F 83 22 129/79 97 07/26/18 16:18 07/26/18 16:18 07/26/18 16:18 07/26/18 16:18 07/26/18 16:18 General appearance: Present: mild distress Results - Labs CBC & Chem 7: 07/24/18 08:27 07/24/18 08:27 Labs: Laboratory Last Values WBC 3.6 K/mm3 (4.5-11.0) L 07/24/18 08:27 RBC 3.33 M/mm3 (3.65-5.03) L 07/24/18 08:27 Hgb 9.5 gm/dl (10.1-14.3) L 07/24/18 08:27 Hct 28.8 % (30.3-42.9) L 07/24/18 08:27 MCV 87 fl (79-97) 07/24/18 08:27 MCH 29 pg (28-32) 07/24/18 08:27 MCHC 33 % (30-34) 07/24/18 08:27 RDW 18.6 % (13.2-15.2) H 07/24/18 08:27 Plt Count 368 K/mm3 (140-440) 07/24/18 08:27 Add Manual Diff Complete 07/22/18 14:13 Total Counted 100 07/22/18 14:13 Seg Neutrophils % Geography Department Chair 07/22/18 14:13 Seg Neuts % (Manual) 98.0 % (40.0-70.0) H 07/22/18 14:13 Band Neutrophils % 0 % 07/22/18 14:13 Lymphocytes % (Manual) 0 % (13.4-35.0) L 07/22/18 14:13 Reactive Lymphs % (Man) 0 % 07/22/18 14:13 Monocytes % (Manual) 2.0 % (0.0-7.3) 07/22/18 14:13 Eosinophils % (Manual) 0 % (0.0-4.3) 07/22/18 14:13 Basophils % (Manual) 0 % (0.0-1.8) 07/22/18 14:13 Metamyelocytes % 0 % 07/22/18 14:13 Myelocytes % 0 % 07/22/18 14:13 Promyelocytes % 0 % 07/22/18 14:13 Blast Cells % 0 % 07/22/18 14:13 Nucleated RBC % Not Reportable 07/22/18 14:13 Seg Neutrophils # Man 7.9 K/mm3 (1.8-7.7) H 07/22/18 14:13 Band Neutrophils # 0.0 K/mm3 07/22/18 14:13 Lymphocytes # (Manual) 0.0 K/mm3 (1.2-5.4) L 07/22/18 14:13 Abs React Lymphs (Man) 0.0 K/mm3 07/22/18 14:13 Monocytes # (Manual) 0.2 K/mm3 (0.0-0.8) 07/22/18 14:13 Eosinophils # (Manual) 0.0 K/mm3 (0.0-0.4) 07/22/18 14:13 Basophils # (Manual) 0.0 K/mm3 (0.0-0.1) 07/22/18 14:13 Metamyelocytes # 0.0 K/mm3 07/22/18 14:13 Myelocytes # 0.0 K/mm3 07/22/18 14:13 Promyelocytes # 0.0 K/mm3 07/22/18 14:13 Blast Cells # 0.0 K/mm3 07/22/18 14:13 WBC Morphology Not Reportable 07/22/18 14:13 Hypersegmented Neuts Not Reportable 07/22/18 14:13 Hyposegmented Neuts Not Reportable 07/22/18 14:13 Hypogranular Neuts Not Reportable 07/22/18 14:13 Smudge Cells Not Reportable 07/22/18 14:13 Toxic Granulation Not Reportable 07/22/18 14:13 Toxic Vacuolation Not Reportable 07/22/18 14:13 Dohle Bodies Not Reportable 07/22/18 14:13 Pelger-Huet Anomaly Not Reportable 07/22/18 14:13 Kj Rods Not Reportable 07/22/18 14:13 Platelet Estimate Consistent w auto 07/22/18 14:13 Clumped Platelets Not Reportable 07/22/18 14:13 Plt Clumps, EDTA Not Reportable 07/22/18 14:13 Large Platelets Not Reportable 07/22/18 14:13 Giant Platelets Not Reportable 07/22/18 14:13 Platelet Satelliting Not Reportable 07/22/18 14:13 Plt Morphology Comment Not Reportable 07/22/18 14:13 RBC Morphology Not Reportable 07/22/18 14:13 Dimorphic RBCs Not Reportable 07/22/18 14:13 Polychromasia Not Reportable 07/22/18 14:13 Hypochromasia Not Reportable 07/22/18 14:13 Poikilocytosis Not Reportable 07/22/18 14:13 Anisocytosis 1+ 07/22/18 14:13 Microcytosis Not Reportable 07/22/18 14:13 Macrocytosis Not Reportable 07/22/18 14:13 Spherocytes Not Reportable 07/22/18 14:13 Pappenheimer Bodies Not Reportable 07/22/18 14:13 Sickle Cells Not Reportable 07/22/18 14:13 Target Cells Not Reportable 07/22/18 14:13 Tear Drop Cells Not Reportable 07/22/18 14:13 Ovalocytes Not Reportable 07/22/18 14:13 Stomatocytes Few 07/22/18 14:13 Helmet Cells Not Reportable 07/22/18 14:13 [place] Bodies Not Reportable 07/22/18 14:13 [place] Rings Not Reportable 07/22/18 14:13 [place] Cells Not Reportable 07/22/18 14:13 Bite Cells Not Reportable 07/22/18 14:13 Crenated Cell Not Reportable 07/22/18 14:13 Elliptocytes Not Reportable 07/22/18 14:13 Acanthocytes (Spur) Not Reportable 07/22/18 14:13 Rouleaux Not Reportable 07/22/18 14:13 Hemoglobin C Crystals Not Reportable 07/22/18 14:13 Schistocytes Not Reportable 07/22/18 14:13 Malaria parasites Not Reportable 07/22/18 14:13 Ham Bodies Not Reportable 07/22/18 14:13 Hem Pathologist Commnt No 07/22/18 14:13 Sodium 137 mmol/L (137-145) 07/24/18 08:27 Potassium 3.4 mmol/L (3.6-5.0) L 07/24/18 08:27 Chloride 95.7 mmol/L (98-107) L 07/24/18 08:27 Carbon Dioxide 26 mmol/L (22-30) 07/24/18 08:27 Anion Gap 19 mmol/L 07/24/18 08:27 BUN 12 mg/dL (7-17) 07/24/18 08:27 Creatinine 0.7 mg/dL (0.7-1.2) 07/24/18 08:27 Estimated GFR > 60 ml/min 07/24/18 08:27 BUN/Creatinine Ratio 17 % 07/24/18 08:27 Glucose 91 mg/dL (65-100) 07/24/18 08:27 Lactic Acid 1.20 mmol/L (0.7-2.0) 07/23/18 00:44 Calcium 8.6 mg/dL (8.4-10.2) 07/24/18 08:27 Total Bilirubin 1.10 mg/dL (0.1-1.2) 07/22/18 14:13 AST 20 units/L (5-40) 07/22/18 14:13 ALT < 5 units/L (7-56) L 07/22/18 14:13 Alkaline Phosphatase 87 units/L (35-129) 07/22/18 14:13 Total Protein 7.0 g/dL (6.3-8.2) 07/22/18 14:13 Albumin 3.1 g/dL (3.9-5) L 07/22/18 14:13 Albumin/Globulin Ratio 0.8 % 07/22/18 14:13 Vancomycin Trough 12.8 ug/mL (5.0-20.0) 07/25/18 17:20 Active Medications - Current Medications Current Medications: Generic Name Dose Route Start Last Admin Trade Name Freq PRN Reason Stop Dose Admin Acetaminophen 650 mg 07/22/18 16:36 07/25/18 23:11 Tylenol PO 650 mg Q4H PRN Administration Pain MILD(1-3)/Fever >100.5/BILL Albuterol 2.5 mg 07/22/18 16:36 07/25/18 22:11 Proventil IH 2.5 mg Q4HRT PRN Administration Shortness Of Breath Aspirin 81 mg 07/23/18 10:00 07/26/18 09:40 Halfprin Ec PO 81 mg QDAY BAY Administration Atazanavir 300 mg 07/23/18 10:00 07/26/18 09:41 Reyataz PO 300 mg QDAY BAY Administration Benzonatate 100 mg 07/22/18 22:00 07/26/18 13:26 Tessalon Perles PO 100 mg Q8HR BAY Administration Carvedilol 6.25 mg 07/22/18 22:00 07/26/18 09:41 Coreg PO 6.25 mg BID BAY Administration Darunavir 600 mg 07/22/18 22:00 07/26/18 09:40 Prezista PO 600 mg BID BAY Administration Emtricitabine 200 mg 07/24/18 10:00 07/26/18 09:41 Emtriva PO 200 mg QDAY BAY Administration Furosemide 40 mg 07/22/18 20:00 07/26/18 09:40 Lasix PO 40 mg QDAY BAY Administration Sodium Chloride 1,000 mls @ 42 mls/hr 07/22/18 18:00 07/26/18 06:38 Nacl 0.9% 1000 Ml IV Infused DIRECT BAY Infusion Levofloxacin/Dextrose 750 mg in 150 mls @ 100 mls/hr 07/23/18 12:00 07/26/18 09:39 Levaquin 750mg/150ml IV 100 mls/hr Q24HR BAY Administration Protocol Cefepime HCl 2 gm in 100 mls @ 200 mls/hr 07/23/18 13:00 07/26/18 10:00 Maxipime/Ns 2 Gm/100 Ml IV 200 mls/hr Q12HR BAY Administration Protocol Micafungin Sodium 100 mg/ 100 mls @ 100 mls/hr 07/26/18 15:00 07/26/18 19:04 Sodium Chloride IV 100 mls/hr QDAY BAY Administration Protocol Lisinopril 10 mg 07/23/18 10:00 07/26/18 09:41 Zestril PO 10 mg QDAY BAY Administration Nystatin 500,000 unit 07/22/18 18:00 07/26/18 18:47 Nystatin PO 500,000 unit QID BAY Administration Ondansetron HCl 4 mg 07/22/18 16:36 07/25/18 17:10 Zofran IV 4 mg Q8H PRN Administration Nausea And Vomiting Oxycodone/Acetaminophen 1 tab 07/22/18 16:36 07/26/18 18:53 Percocet 5/325 PO 1 tab Q6H PRN Administration Pain, Moderate (4-6) Ritonavir 100 mg 07/22/18 22:00 07/26/18 09:40 Norvir PO 100 mg BID BAY Administration Sodium Chloride 10 ml 07/22/18 22:00 07/26/18 09:39 Sodium Chloride Flush Syringe 10 Ml IV 10 ml BID BAY Administration Sodium Chloride 10 ml 07/22/18 16:36 Sodium Chloride Flush Syringe 10 Ml IV PRN PRN LINE FLUSH Tenofovir Disoproxil Fumarate 300 mg 07/24/18 10:00 07/26/18 09:40 Viread PO 300 mg QDAY BAY Administration Trimethoprim/Sulfamethoxazole 2 each 07/26/18 18:00 07/26/18 18:46 Bactrim Ds PO 2 each Q8HR BAY Administration Nutrition/Malnutrition Assess - Dietary Evaluation Nutrition/Malnutrition Findings: Nutrition Notes Start: 07/23/18 13:58 Freq: Status: Active Protocol: Document 07/23/18 13:58 RM (Rec: 07/23/18 14:15 RM [id number]) Nutrition Notes Need for Assessment generated from: circular sawyer stone,MST Initial or Follow up Brief Note Current Diagnosis COPD,Hypertension Other Pertinent Diagnosis Eczema, Chrohn's disease, HIV/ AIDS, Pneu Current Diet Regular Labs/Tests Reviewed Pertinent Medications Lasix Height 5 ft 6 in Weight 83.91 kg Usual Body Weight 105.45 kg [place] Body Weight (kg) 59.09 BMI 29.8 Weight change and time frame 20% X 1 year and 3 months ago Subjective/Other Information Screened for malnutrition and skin risk. Abiodun 20 points. 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 Stated her appetite is improving now. Stated that yesterday she didnt eat anything but today she ate most of her breakfast. Stated UBW was 232 lbs May of 2017. Burn Absent Trauma Absent Nutrition Intervention Follow-Up By: 07/27/18 Additional Comments Follow for stable intakes
[2018-07-27] MEDS: BACTRIM DS PO SCH ×3 (05:58→22:30)
[2018-07-27] MEDS: TESSALON PERLES PO SCH ×3 (05:58→22:30)
[2018-07-27 07:30] LABS: Hemoglobin 9.2 gm/dl (10.1-14.3); Mean Corpuscular HGB Conc 33 % (30-34); Mean Corpuscular Volume 86 fl (79-97); Platelet Count 371 K/mm3 (140-440); Red Blood Count 3.24 M/mm3 (3.65-5.03); Red Cell Distribution Width 18.7 % (13.2-15.2)
[2018-07-27 08:08] LABS: BUN/Creatinine Ratio 14; Blood Urea Nitrogen 10 mg/dL (7-17); Calcium 8.9 mg/dL (8.4-10.2); Hemolysis Index 2
[2018-07-27] MEDS: HALFPRIN EC PO SCH (09:31)
[2018-07-27] MEDS: REYATAZ PO SCH (09:31)
[2018-07-27] MEDS: NORVIR PO SCH ×2 (09:32→22:31)
[2018-07-27] MEDS: VIREAD PO SCH (09:32)
[2018-07-27] MEDS: EMTRIVA PO SCH (09:32)
[2018-07-27] MEDS: PREZISTA PO SCH ×2 (09:32→22:31)
[2018-07-27] MEDS: ZESTRIL PO SCH (09:33)
[2018-07-27] MEDS: MAXIPIME/NS 2 GM/100 ML 2 GM/100 ML BAG IV SCH ×2 (09:33→22:32)
[2018-07-27] MEDS: COREG PO SCH ×2 (09:33→22:31)
[2018-07-27] MEDS: NYSTATIN PO SCH ×3 (09:33→22:32)
[2018-07-27] MEDS: LASIX PO SCH (09:33)
[2018-07-27] MEDS: SODIUM CHLORIDE FLUSH SYRINGE 10 ML IV SCH ×2 (09:34→22:33)
--- NOTE | 2018-07-27 10:41 | Progress Note ---
Assessment and Plan Culture: 07/22/18 Blood:no growth to date 07/22/18 MRSA PCR: negative 07/26/18 Fungal: in progress 07/26/18 Cryptococcal antigen: negative A/P: 42 y/o female with history of AIDS CD4=1, VL 144,000 on 05/20/[address] Portillo/Mateusz, COPD with O2 dependence 2.[address] Aquino, cardiomyopathy with an EF of 15%, recurrent pneumonia s/p multiple bronch/BAL and recurrent oral candidiasis; admitted on 07/22/2018 due to worsening cough and fever for 2 weeks. 1) Acute on chronic respiratory failure secondary to bilateral nodular infiltrates and pneumonia: 2) Bilateral multifocal pnuemonia: likely invasive fungal pneumonia v/s PJP v/s other etiology; patient with recurrent pneumonia s/p multiple bronch/BAL positive for Gulshan glabrata and albicans, also history of recurrent oral candidiasis Fungitell test was negative in Feb 2018. Last BAL 05/21/2018 positive for Gulshan albicans, cytology negative for PJP, CMV,Fungi and malignancy. 3) HIV/AIDS: Secondary to [id number] HIV, highly treatment experienced, previously noncompliant but lately she has been compliant. She is o n an unusual regimen with 2 protease inhibitors (but that apparently is per some discussions with a physician at [facility]) and now also on Trogarzo. On norvir boosted darunavir twice a day, atazanavir once a day, continue nonformulary Descovy. 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 7) PCN allergy: remote per patient. she has taken Keflex in the past without issues and has tolerated Cefepime without issues here. Recs: - continue micafungin - suspect highly resistant Gulshan - continue bactrim DS 2 tab QID - continue Cefepime - f/u 1,3 [id number], Histoplasma Ag - f/u Aspergillus Galactomannan on blood - f/u CD4/VL - Continue norvir boosted darunavir twice a day, atazanavir once a day, continue Descovy (non formulary, so switched to TDF and FTC). - upon discharge will consider Levaquin 750mg PO q 24 hours to complete 7 days, Bactrim DS 2 tabs PO TID to complete 21 days and Posaconazole 400 BID PO with meals for 21 days -Discussion with Dr. Clark, pulmonary decided not to do Bronch at this time [facility] M: [phone] O:[phone] Subjective Date of service: 07/27/18 Principal diagnosis: Pneumonia Interval history: Patient seen and examined. Complained of continued coughing and SOB, but states she is doing better today. No fevers. Objective - Exam Narrative Exam: General appearance: Alert in NAD, conversant Eyes: anicteric sclerae, moist conjunctivae; no lid-lag; PERRLA HENT: Atraumatic; oropharynx marked oral thrush and no mucosal ulcerations/no oral thrush; normal hard and soft palate. Normal external ears. Neck: Trachea midline; supple, no thyromegaly or lymphadenopathy Lungs: sahra crackles, + productive cough CV: RRR Abdomen: Soft, non-tender; no masses or hepatosplenomegaly Extremities: No peripheral edema or extremity lymphadenopathy Skin: Normal temperature, turgor and texture; no rash, ulcers or subcutaneous nodules Psych: Appropriate affect, alert and oriented to person, place and time. Neuro: alert and oriented x 3. Moving all extermities - Constitutional Vitals: Vital Signs Temp Pulse Resp BP Pulse Ox 97.4 F L 88 20 140/83 100 07/27/18 05:53 07/27/18 05:53 07/27/18 05:53 07/27/18 05:53 07/27/18 05:53 Temperature -Last 24 Hours Temperature 97.4 F Temperature 98.1 F Temperature 98.3 F Temperature 98.1 F Temperature 98.1 F - Labs CBC & Chem 7: 07/27/18 07:09 07/27/18 07:09 Labs: Abnormal lab results 07/27/18 07/27/18 Range/Units 07:09 07:09 WBC 4.1 L (4.5-11.0) K/mm3 RBC 3.24 L (3.65-5.03) M/mm3 Hgb 9.2 L (10.1-14.3) gm/dl Hct 28.0 L (30.3-42.9) % RDW 18.7 H (13.2-15.2) % Sodium 136 L (137-145) mmol/L Chloride 94.7 L (98-107) mmol/L Carbon Dioxide 31 H (22-30) mmol/L
[2018-07-27] MEDS: MYCAMINE 100 MG in NACL 0.9% 100 ML IV SCH (10:43)
--- NOTE | 2018-07-27 13:57 | Progress Note ---
Assessment and Plan 42 y/o female with known HIV/AIDs admitted with shortness of breath and concern for recurrent infection. 1. Reviewed ID note yesterday. Ms. Hayes has been bronched several times in the past and I know at least twice myself in less than 6-8 months. Im not convinced that repeat bronch is going to help which is why we have not scheduled one. If further info is needed, I would suggest CT guided biopsy of one of these peripheral nodules if the patient would agree to it. Clinically though, she does appear to be improving. Subjective Date of service: 07/27/18 Principal diagnosis: Pneumonia Interval history: No acute events. Objective Vital Signs - 12hr 07/27/18 07/27/18 07/27/18 05:53 11:02 11:45 Temperature 97.4 F L 98.1 F Pulse Rate 88 81 Respiratory 20 20 Rate Blood Pressure 140/83 125/79 O2 Sat by Pulse 100 95 100 Oximetry Constitutional: no acute distress, alert Eyes: non-icteric ENT: oropharynx moist Neck: supple Effort: normal Ascultation: Bilateral: clear Cardiovascular: regular rate and rhythm (no mrg) Gastrointestinal: normoactive bowel sounds, soft, non-tender, non-distended Integumentary: normal Extremities: no cyanosis, pink and warm Neurologic: normal mental status, non-focal exam, pupils equal and round, CN II- XII normal Psychiatric: mood appropriate, affect normal CBC and BMP: 07/27/18 07:09 07/27/18 07:09 Abnormal lab findings: Abnormal Labs 07/22/18 07/22/18 07/22/18 14:13 14:13 14:13 WBC RBC 3.29 L Hgb 9.3 L Hct 28.3 L RDW 19.1 H Seg Neuts % (Manual) 98.0 H Lymphocytes % (Manual) 0 L Seg Neutrophils # Man 7.9 H Lymphocytes # (Manual) 0.0 L Sodium 132 L Potassium 3.4 L Chloride 90.3 L Carbon Dioxide Creatinine 0.6 L Glucose 140 H Lactic Acid 2.10 H* ALT < 5 L Albumin 3.1 L 07/22/18 07/22/18 07/24/18 15:58 20:39 08:27 WBC 3.6 L RBC 3.33 L Hgb 9.5 L Hct 28.8 L RDW 18.6 H Seg Neuts % (Manual) Lymphocytes % (Manual) Seg Neutrophils # Man Lymphocytes # (Manual) Sodium Potassium Chloride Carbon Dioxide Creatinine Glucose Lactic Acid 4.00 H* 2.50 H* ALT Albumin 07/24/18 07/27/18 07/27/18 08:27 07:09 07:09 WBC 4.1 L RBC 3.24 L Hgb 9.2 L Hct 28.0 L RDW 18.7 H Seg Neuts % (Manual) Lymphocytes % (Manual) Seg Neutrophils # Man Lymphocytes # (Manual) Sodium 136 L Potassium 3.4 L Chloride 95.7 L 94.7 L Carbon Dioxide 31 H Creatinine Glucose Lactic Acid ALT Albumin
[2018-07-27] MEDS: ZOFRAN IV PRN (16:13)
--- NOTE | 2018-07-27 17:47 | Progress Note ---
Assessment and Plan Assessment and plan: 42 YO Female with AIDS, Cardiomyopathy with EF 15%, HTN, Asthma, Chronic Respiratory Failure on 2.5L Home Oxygen, COPD, Eczema, Crohns Disease presents to ED for evaluation. Pt states that she has experienced subjective fever, productive cough with green sputum over the past 2 weeks, with worsening sympt oms over the past 3 days. Pt was seen by her hand sprayer Dr. Aquino and placed on doxycycline without improvement in symptoms. Pt was subsequently seen by her infectious disease physician, Dr. Portillo/Mateusz and was initiated on prednisone without improvement in symptoms. Pt transported to [facility] via private vehicle. Pt seen and evaluated in ED and found to have PATRICA Pneumonia, Acute on Chronic Respiratory Failure, Acidosis. Pt admitted to medical floor and placed on Airborne Precautions, and initiated on Pneumonia protocol. Pt admitted on 05/19/18 for Pneumonia/Respiratory Failure. All listed medication reconciled at admission. Pt denies chills, CP, Palpitations, NVD, Trauma, Skin Rash, Diffi culty Swallowing, Prolonged Travel/Immobility, Unilateral Leg Swelling, Calf Pain, or Recent ill contacts. (1) Acute and chronic respiratory failure with hypoxia Current Visit: No Status: Acute Plan to address problem: Supplemental oxygen, nebulizer therapy, Consult Pulmonary input noted. No plan for Broch Consult with ID and input noted (2)Pulmonary Nodule per pulmonary possible biopsy vs bronchoscopy to evaluate nodule Prior pulmonary nodule-Repeat CT chest- per pulmonary- Reviewed CT chest although radiology report is still pending; R lung pneumonia has basically resolved; there is a nodule in the RML and what looks to be new nodules PATRICA and new areas of pleural-based consolidation PATRICA as well; will await final radiology report before considering invasive work-up such as bronch or CT guided biopsy (3) Pneumonia- RUL Current Visit: Yes Status: Acute Qualifiers: Laterality: left Lung location: upper lobe of lung Plan to address problem: IV antibiotic therapy, supplemental oxygen, nebulizer therapy, hydromet bid for cough suppression and pain control, nebulizer therapy, NIPPV as clinically indicated, CBC, BMP, Pulse oximetry. ID AND PULMONARY INPUT NOTED BRONCHOSCOPY VS NIDDLE ASPIRATION (4) Hyponatremia syndrome Current Visit: Yes Status: Acute Plan to address problem: IVF resuscitation therapy, repeat bmp in am to monitor serum sodium level. (5) Acidosis Current Visit: Yes Status: Acute Plan to address problem: IVF resuscitation therapy, IMPROVED (6) AIDS Current Visit: Yes Status: Acute Plan to address problem: Resume antiretroviral therapy, PCP prophylaxis with bactrim. Per ID management (6) Crohns disease Current Visit: Yes Status: Acute Qualifiers: Digestive disease complication type: without complication Plan to address problem: Controlled, No exacerbation at this time. (7) Oral Candidiasis: per ID management (8) Hypokalemia Replace (9) DVT prophylaxis Current Visit: Yes Status: Acute Plan to address problem: SCD to BLE while in bed, plan discussed with patient and hand sprayer History Interval history: Patient seen, sitting up in bed, Cough improved, resting comfortable. no further shortness of breath, No new complaints, Sitting up at bedside Hospitalist Physical - Physical exam Narrative exam: General appearance: Present: resting comfortable - EENT Eyes: Present: PERRL ENT: hearing intact, clear oral mucosa - Neck Neck: Present: supple, normal ROM - Respiratory Respiratory effort: normal Respiratory: left: diminished, - Cardiovascular Heart Sounds: Present: S1 & S2. Absent: rub, click - Extremities Extremities: pulses symmetrical, No edema Peripheral Pulses: within normal limits - Abdominal General gastrointestinal: Present: soft, non-tender, non-distended, normal bowel sounds Female genitourinary: Present: normal - Integumentary Integumentary: Present: clear, warm, dry - Musculoskeletal Musculoskeletal: gait normal, strength equal bilaterally - Psychiatric Psychiatric: appropriate mood/affect, intact judgment & insight - Neurologic Neurologic: CNII-XII intact, moves all extremities - Constitutional Vitals: Temp Pulse Resp BP Pulse Ox 98.1 F 81 20 125/79 100 07/27/18 11:45 07/27/18 11:45 07/27/18 11:45 07/27/18 11:45 07/27/18 11:45 General appearance: Present: mild distress Results - Labs CBC & Chem 7: 07/27/18 07:09 07/27/18 07:09 Labs: Laboratory Last Values WBC 4.1 K/mm3 (4.5-11.0) L 07/27/18 07:09 RBC 3.24 M/mm3 (3.65-5.03) L 07/27/18 07:09 Hgb 9.2 gm/dl (10.1-14.3) L 07/27/18 07:09 Hct 28.0 % (30.3-42.9) L 07/27/18 07:09 MCV 86 fl (79-97) 07/27/18 07:09 MCH 29 pg (28-32) 07/27/18 07:09 MCHC 33 % (30-34) 07/27/18 07:09 RDW 18.7 % (13.2-15.2) H 07/27/18 07:09 Plt Count 371 K/mm3 (140-440) 07/27/18 07:09 Add Manual Diff Complete 07/22/18 14:13 Total Counted 100 07/22/18 14:13 Seg Neutrophils % Ultrasound Spec 07/22/18 14:13 Seg Neuts % (Manual) 98.0 % (40.0-70.0) H 07/22/18 14:13 Band Neutrophils % 0 % 07/22/18 14:13 Lymphocytes % (Manual) 0 % (13.4-35.0) L 07/22/18 14:13 Reactive Lymphs % (Man) 0 % 07/22/18 14:13 Monocytes % (Manual) 2.0 % (0.0-7.3) 07/22/18 14:13 Eosinophils % (Manual) 0 % (0.0-4.3) 07/22/18 14:13 Basophils % (Manual) 0 % (0.0-1.8) 07/22/18 14:13 Metamyelocytes % 0 % 07/22/18 14:13 Myelocytes % 0 % 07/22/18 14:13 Promyelocytes % 0 % 07/22/18 14:13 Blast Cells % 0 % 07/22/18 14:13 Nucleated RBC % Not Reportable 07/22/18 14:13 Seg Neutrophils # Man 7.9 K/mm3 (1.8-7.7) H 07/22/18 14:13 Band Neutrophils # 0.0 K/mm3 07/22/18 14:13 Lymphocytes # (Manual) 0.0 K/mm3 (1.2-5.4) L 07/22/18 14:13 Abs React Lymphs (Man) 0.0 K/mm3 07/22/18 14:13 Monocytes # (Manual) 0.2 K/mm3 (0.0-0.8) 07/22/18 14:13 Eosinophils # (Manual) 0.0 K/mm3 (0.0-0.4) 07/22/18 14:13 Basophils # (Manual) 0.0 K/mm3 (0.0-0.1) 07/22/18 14:13 Metamyelocytes # 0.0 K/mm3 07/22/18 14:13 Myelocytes # 0.0 K/mm3 07/22/18 14:13 Promyelocytes # 0.0 K/mm3 07/22/18 14:13 Blast Cells # 0.0 K/mm3 07/22/18 14:13 WBC Morphology Not Reportable 07/22/18 14:13 Hypersegmented Neuts Not Reportable 07/22/18 14:13 Hyposegmented Neuts Not Reportable 07/22/18 14:13 Hypogranular Neuts Not Reportable 07/22/18 14:13 Smudge Cells Not Reportable 07/22/18 14:13 Toxic Granulation Not Reportable 07/22/18 14:13 Toxic Vacuolation Not Reportable 07/22/18 14:13 Dohle Bodies Not Reportable 07/22/18 14:13 Pelger-Huet Anomaly Not Reportable 07/22/18 14:13 Kj Rods Not Reportable 07/22/18 14:13 Platelet Estimate Consistent w auto 07/22/18 14:13 Clumped Platelets Not Reportable 07/22/18 14:13 Plt Clumps, EDTA Not Reportable 07/22/18 14:13 Large Platelets Not Reportable 07/22/18 14:13 Giant Platelets Not Reportable 07/22/18 14:13 Platelet Satelliting Not Reportable 07/22/18 14:13 Plt Morphology Comment Not Reportable 07/22/18 14:13 RBC Morphology Not Reportable 07/22/18 14:13 Dimorphic RBCs Not Reportable 07/22/18 14:13 Polychromasia Not Reportable 07/22/18 14:13 Hypochromasia Not Reportable 07/22/18 14:13 Poikilocytosis Not Reportable 07/22/18 14:13 Anisocytosis 1+ 07/22/18 14:13 Microcytosis Not Reportable 07/22/18 14:13 Macrocytosis Not Reportable 07/22/18 14:13 Spherocytes Not Reportable 07/22/18 14:13 Pappenheimer Bodies Not Reportable 07/22/18 14:13 Sickle Cells Not Reportable 07/22/18 14:13 Target Cells Not Reportable 07/22/18 14:13 Tear Drop Cells Not Reportable 07/22/18 14:13 Ovalocytes Not Reportable 07/22/18 14:13 Stomatocytes Few 07/22/18 14:13 Helmet Cells Not Reportable 07/22/18 14:13 Euceda-Peterman Bodies Not Reportable 07/22/18 14:13 Red House Rings Not Reportable 07/22/18 14:13 Farhana Cells Not Reportable 07/22/18 14:13 Bite Cells Not Reportable 07/22/18 14:13 Crenated Cell Not Reportable 07/22/18 14:13 Elliptocytes Not Reportable 07/22/18 14:13 Acanthocytes (Spur) Not Reportable 07/22/18 14:13 Rouleaux Not Reportable 07/22/18 14:13 Hemoglobin C Crystals Not Reportable 07/22/18 14:13 Schistocytes Not Reportable 07/22/18 14:13 Malaria parasites Not Reportable 07/22/18 14:13 Ham Bodies Not Reportable 07/22/18 14:13 Hem Pathologist Commnt No 07/22/18 14:13 Sodium 136 mmol/L (137-145) L 07/27/18 07:09 Potassium 3.9 mmol/L (3.6-5.0) 07/27/18 07:09 Chloride 94.7 mmol/L (98-107) L 07/27/18 07:09 Carbon Dioxide 31 mmol/L (22-30) H 07/27/18 07:09 Anion Gap 14 mmol/L 07/27/18 07:09 BUN 10 mg/dL (7-17) 07/27/18 07:09 Creatinine 0.7 mg/dL (0.7-1.2) 07/27/18 07:09 Estimated GFR > 60 ml/min 07/27/18 07:09 BUN/Creatinine Ratio 14 % 07/27/18 07:09 Glucose 77 mg/dL (65-100) 07/27/18 07:09 Lactic Acid 1.20 mmol/L (0.7-2.0) 07/23/18 00:44 Calcium 8.9 mg/dL (8.4-10.2) 07/27/18 07:09 Total Bilirubin 1.10 mg/dL (0.1-1.2) 07/22/18 14:13 AST 20 units/L (5-40) 07/22/18 14:13 ALT < 5 units/L (7-56) L 07/22/18 14:13 Alkaline Phosphatase 87 units/L (35-129) 07/22/18 14:13 Total Protein 7.0 g/dL (6.3-8.2) 07/22/18 14:13 Albumin 3.1 g/dL (3.9-5) L 07/22/18 14:13 Albumin/Globulin Ratio 0.8 % 07/22/18 14:13 Vancomycin Trough 12.8 ug/mL (5.0-20.0) 07/25/18 17:20 Active Medications - Current Medications Current Medications: Generic Name Dose Route Start Last Admin Trade Name Freq PRN Reason Stop Dose Admin Acetaminophen 650 mg 07/22/18 16:36 07/25/18 23:11 Tylenol PO 650 mg Q4H PRN Administration Pain MILD(1-3)/Fever >100.5/BILL Albuterol 2.5 mg 07/22/18 16:36 07/25/18 22:11 Proventil IH 2.5 mg Q4HRT PRN Administration Shortness Of Breath Aspirin 81 mg 07/23/18 10:00 07/27/18 09:31 Halfprin Ec PO 81 mg QDAY BAY Administration Atazanavir 300 mg 07/23/18 10:00 07/27/18 09:31 Reyataz PO 300 mg QDAY BAY Administration Benzonatate 100 mg 07/22/18 22:00 07/27/18 16:06 Tessalon Perles PO 100 mg Q8HR BAY Administration Carvedilol 6.25 mg 07/22/18 22:00 07/27/18 09:33 Coreg PO 6.25 mg BID BAY Administration Darunavir 600 mg 07/22/18 22:00 07/27/18 09:32 Prezista PO 600 mg BID BAY Administration Emtricitabine 200 mg 07/24/18 10:00 07/27/18 09:32 Emtriva PO 200 mg QDAY BAY Administration Furosemide 40 mg 07/22/18 20:00 07/27/18 09:33 Lasix PO 40 mg QDAY BAY Administration Sodium Chloride 1,000 mls @ 42 mls/hr 07/22/18 18:00 07/26/18 06:38 Nacl 0.9% 1000 Ml IV Infused DIRECT BAY Infusion Cefepime HCl 2 gm in 100 mls @ 200 mls/hr 07/23/18 13:00 07/27/18 09:33 Maxipime/Ns 2 Gm/100 Ml IV 200 mls/hr Q12HR BAY Administration Protocol Micafungin Sodium 100 mg/ 100 mls @ 100 mls/hr 07/26/18 15:00 07/27/18 10:43 Sodium Chloride IV 100 mls/hr QDAY BAY Administration Protocol Lisinopril 10 mg 07/23/18 10:00 07/27/18 09:33 Zestril PO 10 mg QDAY BAY Administration Nystatin 500,000 unit 07/22/18 18:00 07/27/18 14:00 Nystatin PO 500,000 unit QID BAY Administration Ondansetron HCl 4 mg 07/22/18 16:36 07/27/18 16:13 Zofran IV 4 mg Q8H PRN Administration Nausea And Vomiting Oxycodone/Acetaminophen 1 tab 07/22/18 16:36 07/26/18 18:53 Percocet 5/325 PO 1 tab Q6H PRN Administration Pain, Moderate (4-6) Ritonavir 100 mg 07/22/18 22:00 07/27/18 09:32 Norvir PO 100 mg BID BAY Administration Sodium Chloride 10 ml 07/22/18 22:00 07/27/18 09:34 Sodium Chloride Flush Syringe 10 Ml IV 10 ml BID BAY Administration Sodium Chloride 10 ml 07/22/18 16:36 Sodium Chloride Flush Syringe 10 Ml IV PRN PRN LINE FLUSH Tenofovir Disoproxil Fumarate 300 mg 07/24/18 10:00 07/27/18 09:32 Viread PO 300 mg QDAY BAY Administration Trimethoprim/Sulfamethoxazole 2 each 07/26/18 18:00 07/27/18 14:00 Bactrim Ds PO 2 each Q8HR BAY Administration Nutrition/Malnutrition Assess - Dietary Evaluation Nutrition/Malnutrition Findings: Nutrition Notes Start: 07/23/18 13:58 Freq: Status: Active Protocol: Document 07/27/18 15:14 TW (Rec: 07/27/18 15:23 TW [id number]) Co-Sign 07/27/18 15:14 LP Nutrition Notes Initial or Follow up Brief Note Current Diagnosis COPD,Hypertension Other Pertinent Diagnosis Eczema, Chrohn's disease, HIV/ AIDS, Pneu Current Diet Regular Labs/Tests Reviewed Pertinent Medications Lasix Height 5 ft 6 in Weight 89.5 kg Stebbins Body Weight (kg) 59.09 BMI 31.8 Subjective/Other Information F/U for intakes. Pt reports having a good appetite and eating 100% of meals. Pt reports feeling nauseous at time of visit and asking RN for medication so she could eat. Percent of energy/protein needs met: 100%/100% Burn Absent Trauma Absent Current % PO Good (75-100%) Is patient on ventilator? No Is Patient Ambulatory and/or Out of Bed Yes REE-([facility]. [facility]-ambulatory/OOB) [ 2043.275 [id number]] Calculation Used for Recommendations [facility] Additional Notes pro: 72-910g/day (0.8-1g/kg) fluid: 1mL/kcal Nutrition Intervention Change Diet Order: Continue current Goal #1 Continue to meet at least 75% of kcal and pro needs by PO intake Revisit per MD consult or patient Sign Off request:
[2018-07-28] MEDS: TESSALON PERLES PO SCH ×2 (06:25→15:27)
[2018-07-28] MEDS: BACTRIM DS PO SCH ×2 (06:25→15:27)
[2018-07-28] MEDS: MAXIPIME/NS 2 GM/100 ML 2 GM/100 ML BAG IV SCH (09:52)
[2018-07-28] MEDS: REYATAZ PO SCH (09:53)
[2018-07-28] MEDS: HALFPRIN EC PO SCH (09:54)
[2018-07-28] MEDS: VIREAD PO SCH (09:54)
[2018-07-28] MEDS: PREZISTA PO SCH (09:54)
[2018-07-28] MEDS: NORVIR PO SCH (09:54)
[2018-07-28] MEDS: EMTRIVA PO SCH (09:55)
[2018-07-28] MEDS: LASIX PO SCH (10:03)
[2018-07-28] MEDS: MYCAMINE 100 MG in NACL 0.9% 100 ML IV SCH (10:05)
[2018-07-28] MEDS: COREG PO SCH (10:05)
[2018-07-28] MEDS: SODIUM CHLORIDE FLUSH SYRINGE 10 ML IV SCH (10:06)
[2018-07-28] MEDS: ZESTRIL PO SCH (10:16)
--- NOTE | 2018-07-28 10:47 | Discharge Summary ---
Providers - Providers Date of Admission: 07/22/18 16:36 Attending physician: FREDY WEAVER MD 07/23/18 10:36 Consult to Physician [CONS] Routine Comment: Consulting Provider: ADELE MARTINEZ Physician Instructions: Reason For Exam: SHORTNESS OF BREATH 07/23/18 12:15 Consult to Physician [CONS] Routine Comment: Consulting Provider: MATT CHIN Physician Instructions: Reason For Exam: Pneumonia, AIDS Primary care physician: DATA BASE DESIGN ANALYST Hospitalization Reason for admission: PNA Condition: Stable Hospital course: 42 YO Female with AIDS, Cardiomyopathy with EF 15%, HTN, Asthma, Chronic Respiratory Failure on 2.5L Home Oxygen, COPD, Eczema, Crohns Disease presents to ED for evaluation. Pt states that she has experienced subjective fever, productive cough with green sputum over the past 2 weeks, with worsening symptoms over the past 3 days. Pt was seen by her weatherization field technician Dr. Aquino and placed on doxycycline without improvement in symptoms. Pt was subsequently seen by her infectious disease physician, Dr. Portillo/Mateusz and was initiated on prednisone without improvement in symptoms. Pt transported to [facility] via private vehicle. Pt seen and evaluated in ED and found to have PATRICA Pneumonia, Acute on Chronic Respiratory Failure, Acidosis. Pt admitted to medical floor and placed on Airborne Precautions, and initiated on Pneumonia protocol. Pt admitted on 05/19/18 for Pneumonia/Respiratory Failure. All listed medication reconciled at admission. Pt denies chills, CP, Palpitations, NVD, Trauma, Skin Rash, Difficulty Swallowing, Prolonged Travel/Immobility, Unilateral Leg Swelling, Calf Pain, or Recent ill contacts. Management was as noted below. Today Patient feels better, fever resolved, cough improving. Still marked extensive thrush. Pulmonary is not planning to do another bronch. Will continue micafungin, levaquin and bactrim for now. At discharge will do Levaquin 750mg PO daily x 7 days, Bactrim DS 2 tabs PO TID x 21 days and Posaconazole 400 BID PO with meals for 21 days for fluconazole- resistant Oral Candidiasis. (1) Acute and chronic respiratory failure with hypoxia * Patient treated with nebs and abx, with pulmonary consulted and recommended no plan for Bronch and to follow with ID * She was down to her baseline HOME o2 level (2)Pulmonary Nodule per pulmonary possible biopsy vs bronchoscopy to evaluate nodule Prior pulmonary nodule-Repeat CT chest- per pulmonary- Reviewed CT chest although radiology report is still pending; R lung pneumonia has basically resolved; there is a nodule in the RML and what looks to be new nodules PATRICA and new areas of pleural-based consolidation PATRICA as well; Findings was discussed with the patient and she will follow with Pulmonary for repeat imaging. (3) Pneumonia- RUL Completed abx therapy (4) Hyponatremia syndrome Resolved (5) Acidosis Resolved (6) AIDS Resume antiretroviral therapy, PCP prophylaxis with bactrim. Follow with ID team outpatient (6) Crohns disease Controlled, No exacerbation at this time. (7) Oral Candidiasis: per ID management (8) Hypokalemia Replace Disposition: DC/TX-06 HOME UNDER HOME HLTH Time spent for discharge: 35 MINS Core Measure Documentation - Palliative Care Palliative Care/ Comfort Measures: Not Applicable - Core Measures Any of the following diagnoses?: none Exam - Physical Exam Narrative exam: General appearance: Present: resting comfortable - EENT Eyes: Present: PERRL ENT: hearing intact, clear oral mucosa - Neck Neck: Present: supple, normal ROM - Respiratory Respiratory effort: normal Respiratory: left: diminished, - Cardiovascular Heart Sounds: Present: S1 & S2. Absent: rub, click - Extremities Extremities: pulses symmetrical, No edema Peripheral Pulses: within normal limits - Abdominal General gastrointestinal: Present: soft, non-tender, non-distended, normal bowel sounds Female genitourinary: Present: normal - Integumentary Integumentary: Present: clear, warm, dry - Musculoskeletal Musculoskeletal: gait normal, strength equal bilaterally - Psychiatric Psychiatric: appropriate mood/affect, intact judgment & insight - Neurologic Neurologic: CNII-XII intact, moves all extremities - Constitutional Vitals: Temp Pulse Resp BP Pulse Ox 98.1 F 87 17 101/57 97 07/28/18 05:59 07/28/18 10:05 07/28/18 05:59 07/28/18 10:05 07/28/18 05:59 Plan Activity: advance as tolerated, fall precautions Diet: low fat Special Instructions: record daily BP diary, record blood sugar diary Additional Instructions: Recommend you follow with your PCP and Pulmonary doctor in 1 week to monitor and repeat imaging of the chest to ensure resolution of noted nodules Follow up with: PHUONG FIELDS MD [Primary Care Provider] - 3-5 Days RADHA AQUINO MD [Staff Physician] - 7 Days PROKESCH,MARCO A, MD [Referring] - 7 Days Prescriptions: Sulfamethoxazole/Trimethoprim [Bactrim DS TAB] 2 each PO Q8HR 21 Days tablet levoFLOXacin [Levaquin] 750 mg PO QDAY #7 tablet Posaconazole [Noxafil] 400 mg PO BID 21 Days #420 ml Benzonatate [Tessalon Perles] 100 mg PO Q8HR #14 capsule
--- NOTE | 2018-07-28 10:57 | Progress Note ---
Assessment and Plan Culture: 07/22/18 Blood:no growth to date 07/22/18 MRSA PCR: negative 07/26/18 Fungal: in progress 07/26/18 Cryptococcal antigen: negative A/P: 42 y/o female with history of AIDS CD4=1, VL 144,000 on 05/20/[address] Portillo/Mateusz, COPD with O2 dependence 2.[address] Aquino, cardiomyopathy with an EF of 15%, recurrent pneumonia s/p multiple bronch/BAL and recurrent oral candidiasis; admitted on 07/22/2018 due to worsening cough and fever for 2 weeks. 1) Acute on chronic respiratory failure secondary to bilateral nodular infiltrates and pneumonia: 2) Bilateral multifocal pnuemonia: likely invasive fungal pneumonia v/s PJP v/s other etiology; patient with recurrent pneumonia s/p multiple bronch/BAL positive for Gulshan glabrata and albicans, also history of recurrent oral candidiasis Fungitell test was negative in Feb 2018. Last BAL 05/21/2018 positive for Gulshan albicans, cytology negative for PJP, CMV,Fungi and malignancy. 3) HIV/AIDS: Secondary to [id number] HIV, highly treatment experienced, previously noncompliant but lately she has been compliant. She is o n an unusual regimen with 2 protease inhibitors (but that apparently is per some discussions with a physician at [facility]) and now also on Trogarzo. On norvir boosted darunavir twice a day, atazanavir once a day, continue nonformulary Descovy. 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 7) PCN allergy: remote per patient. she has taken Keflex in the past without issues and has tolerated Cefepime without issues here. Recs: - continue micafungin - suspect highly resistant Gulshan - continue bactrim DS 2 tab QID - continue Cefepime - f/u 1,3 [id number], Histoplasma Ag - f/u Aspergillus Galactomannan on blood - f/u CD4/VL - Continue norvir boosted darunavir twice a day, atazanavir once a day, continue Descovy (non formulary, so switched to TDF and FTC). - upon discharge will consider Levaquin 750mg PO q 24 hours to complete 7 days, Bactrim DS 2 tabs PO TID to complete 21 days and Posaconazole 400mg oral suspension BID PO with meals for 21 days -Posaconazole ordered for fluconazole-resistant oral candidiasis, discussed with case management- prescription on the chart [facility] M: [phone] O:[phone] Subjective Date of service: 07/28/18 Principal diagnosis: Pneumonia Interval history: Patient seen and examined. Stated that she was feeling better today. + cough, nonproductive. Outpatient medication regimen discussed, verbalized understanding. Objective - Exam Narrative Exam: General appearance: Alert in NAD, conversant Eyes: anicteric sclerae, moist conjunctivae; no lid-lag; PERRLA HENT: Atraumatic; oropharynx marked oral thrush Improved and no mucosal ulcerations/no oral thrush; normal hard and soft palate. Normal external ears. Neck: Trachea midline; supple, no thyromegaly or lymphadenopathy Lungs: sahra crackles, + cough, non productive CV: RRR Abdomen: Soft, non-tender; no masses or hepatosplenomegaly Extremities: No peripheral edema or extremity lymphadenopathy Skin: Normal temperature, turgor and texture; no rash, ulcers or subcutaneous nodules Psych: Appropriate affect, alert and oriented to person, place and time. Neuro: alert and oriented x 3. Moving all extermities - Constitutional Vitals: Vital Signs Temp Pulse Resp BP Pulse Ox 98.1 F 87 17 101/57 97 07/28/18 05:59 07/28/18 10:05 07/28/18 05:59 07/28/18 10:05 07/28/18 05:59 Temperature -Last 24 Hours Temperature 98.1 F Temperature 97.8 F Temperature 97.4 F Temperature 97.3 F Temperature 98.1 F - Labs CBC & Chem 7: 07/27/18 07:09 07/27/18 07:09
[2018-07-28] MEDS: NYSTATIN PO SCH (10:59)
[2018-07-28 11:58] VITALS: BP 111/79
--- NOTE | 2018-07-28 16:47 | Progress Note ---
Assessment and Plan 42 y/o female with known HIV/AIDs admitted with shortness of breath and concern for recurrent infection. 1.No objection to discharge from a pulmonary standpoint 2. Follow up with [facility] 10-14 days post discharge Subjective Date of service: 07/28/18 Principal diagnosis: Pneumonia Interval history: Patient being discharged today. Objective Vital Signs - 12hr 07/28/18 07/28/18 07/28/18 05:43 05:59 10:05 Temperature 97.8 F 98.1 F Pulse Rate 89 78 87 Respiratory 18 17 Rate Blood Pressure 99/54 91/58 101/57 O2 Sat by Pulse 93 97 Oximetry 07/28/18 07/28/18 11:56 14:17 Temperature 98.1 F Pulse Rate 96 H Respiratory 16 Rate Blood Pressure 111/79 O2 Sat by Pulse 92 97 Oximetry Constitutional: no acute distress, alert Eyes: non-icteric ENT: oropharynx moist Neck: supple Effort: normal Ascultation: Bilateral: clear Cardiovascular: regular rate and rhythm (no mrg) Gastrointestinal: normoactive bowel sounds, soft, non-tender, non-distended Integumentary: normal Extremities: no cyanosis, pink and warm Neurologic: normal mental status, non-focal exam, pupils equal and round, CN II- XII normal Psychiatric: mood appropriate, affect normal CBC and BMP: 07/27/18 07:09 07/27/18 07:09 Abnormal lab findings: Abnormal Labs 07/22/18 07/22/18 07/22/18 14:13 14:13 14:13 WBC RBC 3.29 L Hgb 9.3 L Hct 28.3 L RDW 19.1 H Seg Neuts % (Manual) 98.0 H Lymphocytes % (Manual) 0 L Seg Neutrophils # Man 7.9 H Lymphocytes # (Manual) 0.0 L Sodium 132 L Potassium 3.4 L Chloride 90.3 L Carbon Dioxide Creatinine 0.6 L Glucose 140 H Lactic Acid 2.10 H* ALT < 5 L Albumin 3.1 L 07/22/18 07/22/18 07/24/18 15:58 20:39 08:27 WBC 3.6 L RBC 3.33 L Hgb 9.5 L Hct 28.8 L RDW 18.6 H Seg Neuts % (Manual) Lymphocytes % (Manual) Seg Neutrophils # Man Lymphocytes # (Manual) Sodium Potassium Chloride Carbon Dioxide Creatinine Glucose Lactic Acid 4.00 H* 2.50 H* ALT Albumin 07/24/18 07/27/18 07/27/18 08:27 07:09 07:09 WBC 4.1 L RBC 3.24 L Hgb 9.2 L Hct 28.0 L RDW 18.7 H Seg Neuts % (Manual) Lymphocytes % (Manual) Seg Neutrophils # Man Lymphocytes # (Manual) Sodium 136 L Potassium 3.4 L Chloride 95.7 L 94.7 L Carbon Dioxide 31 H Creatinine Glucose Lactic Acid ALT Albumin
[2018-07-28 17:49] LABS: HIV-1 RNA QN PCR 4.45 Log cps/mL
[2018-07-28 21:02] LABS: CD4/CD8 Ratio 0.05 (0.86-5.00)
== END 2018-07-28 16:27 | disposition home health service (06) | DRG 974 ==
LOC: ED 12:49 → 3A 16:36
PROVIDERS: ADMIT Internal Medicine; ATTEND Internal Medicine
DX: B20 Human immunodeficiency virus [HIV] disease (principal); A41.9 Sepsis, unspecified organism; J96.21 Acute and chronic respiratory failure with hypoxia; J18.1 Lobar pneumonia, unspecified organism; E87.1 Hypo-osmolality and hyponatremia; B37.0 Candidal stomatitis; E87.6 Hypokalemia; J44.0 Chronic obstructive pulmonary disease with (acute) lower respiratory infection; I11.0 Hypertensive heart disease with heart failure; I50.9 Heart failure, unspecified; K50.90 Crohn's disease, unspecified, without complications; I42.0 Dilated cardiomyopathy; D63.8 Anemia in other chronic diseases classified elsewhere; R91.1 Solitary pulmonary nodule; L30.9 Dermatitis, unspecified; Z88.0 Allergy status to penicillin; Z87.891 Personal history of nicotine dependence; Z99.81 Dependence on supplemental oxygen
CPT/HCPCS: 36415; 71046; 71260; 80048; 80053; 80202; 82024; 82140; 85007; 85025; 85027; 86403; 87040; 87103; 87116; 87449; 87536; 94640; 94760; 96365; G0378; J0692; J1956; J2248; J2405; J3370; J7030; J7040; J7050; Q9967

== ENCOUNTER 2018-10-13 21:44 | Inpatient (IN) | payer MEDICAID ==
--- NOTE | 2018-10-13 21:50 | Emergency Department Report ---
Blank Doc - Documentation Documentation: This is a 42-year-old female that presents with SOB and vomiting. This initial assessment/diagnostic orders/clinical plan/treatment(s) is/are subject to change based on patient's health status, clinical progression and re- assessment by fellow clinical providers in the ED. Further treatment and workup at subsequent clinical providers discretion. Patient/guardians urged not to elope from the ED as their condition may be serious if not clinically assessed and managed. Initial orders include: 1- Patient sent to MAIN ED for further evaluation and treatment 2- labs 3- EKG 4- CXR
--- NOTE | 2018-10-13 22:32 | XRay Report ---
PROCEDURE: XR CHEST ROUTINE 2V TECHNIQUE: PA and lateral chest radiographs were obtained. HISTORY: Dyspnea COMPARISONS: Comparison is dated May 24, 2018. FINDINGS: Heart: Normal. Mediastinum/Vessels: Normal. Lungs/Pleural space: Normal. Bony thorax: No acute osseous abnormality. There is a right chest port catheter tip at the SVC. IMPRESSION: No acute abnormality identified in the chest This document is electronically signed by Tj Simon MD., October 13 2018 10:30:26 PM ET
--- NOTE | 2018-10-13 23:29 | Emergency Department Report ---
ED Fever HPI - General Chief Complaint: Dyspnea/Respdistress Stated Complaint: SOB/EMESIS/CHILLS Time Seen by Provider: 10/13/18 21:48 - History of Present Illness Initial Comments: Mrs. Hayes is a 42-year-old female with history of cardiomyopathy ejection fraction 15%, hypertension, asthma, oxygen dependence, COPD, Crohn's disease, AIDS CD4 count 2 who presents with fever chills shortness of breath vomiting for 2 days. Her personal physician placed her on outpatient doxycycline without improvement. She has a right-sided chest port. 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 Gradual onset of symptoms. Worsening in severity. Denies pain. Timing/Duration: other (2 days) Fever Severity/Quality: low grade Fever Therapy [employer]: other Associated Symptoms: cough ED Review of Systems ROS: Stated complaint: SOB/EMESIS/CHILLS Other details as noted in HPI Comment: All other systems reviewed and negative Constitutional: chills, fever, malaise Respiratory: cough, shortness of breath Gastrointestinal: nausea, vomiting ED Past Medical Hx - Past Medical History Previous Medical History?: Yes Hx Hypertension: Yes Hx Congestive Heart Failure: Yes (cardiomyopathy with EF of 15%) Hx Diabetes: No Hx Liver Disease: No Hx Renal Disease: No Hx Seizures: No Hx Asthma: Yes Hx COPD: Yes Hx HIV: Yes Additional medical history: Eczema, Bronchitis, crohns disease - Surgical History Past Surgical History?: Yes Hx Pacemaker: No Hx Internal Defibrillator: No Additional Surgical History: c section - Social History Smoking Status: Former Smoker Substance Use Type: None - Medications Home Medications: Home Medications Medication Instructions Recorded Confirmed Last Taken Type Atazanavir [Reyataz] 300 mg PO QDAY #30 capsule 02/28/18 07/22/18 Unknown Rx Carvedilol [Coreg] 6.25 mg PO BID #60 tablet 02/28/18 07/22/18 Unknown Rx Darunavir [Prezista] 600 mg PO BID tablet 02/28/18 07/22/18 Unknown Rx Furosemide [Lasix TAB] 40 mg PO QDAY #30 tablet 02/28/18 07/22/18 Unknown Rx Ipratropium/Albuterol Sulfate 1 ampul IH Q8HR PRN #30 ampul.neb 02/28/18 07/22/18 Unknown Rx [DUONEB *Not for PRN Use*] Lisinopril [Zestril TAB] 10 mg PO QDAY #30 tablet 02/28/18 07/22/18 Unknown Rx Nystatin [Nystatin SUSP] 500,000 unit PO QID 21 Days udc 02/28/18 07/22/18 Unknown Rx Ritonavir [Norvir] 100 mg PO BID tab 02/28/18 07/22/18 Unknown Rx Emtricitabine/Tenofov Alafenam 1 each PO DAILY 05/19/18 07/22/18 Unknown History [Descovy 200-25 mg Tablet] Fluconazole [Diflucan TAB] 400 mg PO QDAY 14 Days #28 tablet 05/25/18 07/22/18 Unknown Rx Sulfamethoxazole/Trimethoprim 1 each PO Q24HR #30 tablet 05/25/18 07/22/18 Unknown Rx [Bactrim DS TAB] Posaconazole [Noxafil] 400 mg PO BID 21 Days #420 ml 07/27/18 Unknown Rx Aspirin EC 81 mg PO QDAY tablet 07/28/18 Unknown Rx Benzonatate [Tessalon Perles] 100 mg PO Q8HR #14 capsule 07/28/18 Unknown Rx Sulfamethoxazole/Trimethoprim 2 each PO Q8HR 21 Days tablet 07/28/18 Unknown Rx [Bactrim DS TAB] levoFLOXacin [Levaquin] 750 mg PO QDAY #7 tablet 07/28/18 Unknown Rx ED Physical Exam - General Limitations: No Limitations General appearance: alert, in distress (mild respiratory distress), other (appears chronically ill) - Head Head exam: Present: atraumatic, normocephalic - Eye Eye exam: Present: normal appearance - ENT ENT exam: Present: mucous membranes dry - Neck Neck exam: Present: normal inspection, full ROM - Respiratory Respiratory exam: Present: respiratory distress, wheezes, decreased breath sounds. Absent: rales, rhonchi - Cardiovascular Cardiovascular Exam: Present: normal rhythm, tachycardia, normal heart sounds. Absent: systolic murmur, diastolic murmur, rubs, gallop - GI/Abdominal GI/Abdominal exam: Present: soft, normal bowel sounds. Absent: distended, tenderness, guarding, rebound - Extremities Exam Extremities exam: Present: normal inspection - Neurological Exam Neurological exam: Present: alert, oriented X3 - Psychiatric Psychiatric exam: Present: normal affect, normal mood - Skin Skin exam: Present: warm, dry, intact, normal color. Absent: rash ED Course Vital Signs 10/13/18 10/14/18 10/14/18 21:51 00:07 00:31 Temperature 100.5 F H 99.8 F H Pulse Rate 117 H 104 H 107 H Respiratory 20 28 H 26 H Rate Blood Pressure 137/69 125/77 Blood Pressure 125/77 [Left] O2 Sat by Pulse 92 98 95 Oximetry ED Medical Decision Making - Lab Data Result diagrams: 10/13/18 23:49 10/14/18 00:44 - EKG Data 10/14/18 00:05 EKG obtained 2201 Sinus tachycardia rate 110 beats a minute normal axis normal intervals no ST-T signs of ischemia no signs of pericarditis - Medical Decision Making mrs. Hayes presents with fever shortness of breath cough with history of HIV AIDS low CD4 count according to her report receiving infusion therapy for HIV. Suspect PCP pneumonia versus streptococcal pneumonia. Treatment in the ED include IV Bactrim, aztreonam vancomycin. Admitted to hospitalist service in fair condition CT chest showed bibasilar bronchial thickening scattered calcified granulomas at the lung bases Critical care attestation.: If time is entered above; I have spent that time in minutes in the direct care of this critically ill patient, excluding procedure time. ED Disposition Clinical Impression: AIDS, Sepsis, Pneumonia, COPD (chronic obstructive pulmonary disease) Disposition: OP ADMIT IP TO THIS HOSP Is pt being admited?: Yes Does the pt Need Aspirin: No Referrals: ABIGAIL GUTIERRES MD [Primary Care Provider] - 3-5 Days
[2018-10-13] MEDS ORDERED: VANCOMYCIN 2,000 MG in NACL 0.9% 500 ML 500 ML IV ONE (23:34)
[2018-10-13] MEDS ORDERED: DELTASONE PO ONE (23:36)
[2018-10-13] MEDS ORDERED: VANCOMYCIN PHARMACY TO DOSE IV SCH (23:45)
[2018-10-14 00:06] LABS: Hematocrit 36.6 % (30.3-42.9); Hemoglobin 12.7 gm/dl (10.1-14.3); Mean Corpuscular HGB Conc 35 % (30-34); Mean Corpuscular Volume 96 fl (79-97); Platelet Count 218 K/mm3 (140-440); Red Blood Count 3.81 M/mm3 (3.65-5.03); Red Cell Distribution Width 14.7 % (13.2-15.2)
[2018-10-14 00:19] LABS: INR 0.95 (0.87-1.13)
[2018-10-14 00:20] LABS: Partial Thromboplastin Time 32.8 Sec. (24.2-36.6)
[2018-10-14] MEDS ORDERED: TYLENOL PO ONE (00:25)
[2018-10-14] MEDS: AZACTAM/NS 1 GM/50 ML 1 GM/50 ML VIAL IV SCH ×3 (00:29→14:00)
--- NOTE | 2018-10-14 01:04 | Cat Scan Report ---
PROCEDURE: CT CHEST WO CON TECHNIQUE: Computerized axial tomography of the chest was performed without contrast material. This study is performed without intravenous contrast and the sensitivity for pathology, including neoplasm s, adenopathy, abscess, pulmonary embolism and aortic dissection, is reduced. CT DOSE LENGTH PRODUCT: mGycm HISTORY: fever cough HIV COMPARISONS: None . FINDINGS: Heart and pericardium: Normal. Thoracic aorta: Normal. Pulmonary vasculature: Normal. Lymph nodes: No enlarged thoracic lymph nodes. Lungs: The lungs are expanded. There is bilateral basilar bronchial thickening. There is no airspace consolidation. There are scattered calcified granulomas at the lung bases bilaterally.. Pleural space: There is no pleural effusion or pneumothorax.. Musculoskeletal structures: No significant abnormality. Upper abdominal structures: There is cholelithiasis.. IMPRESSION: The heart size is normal. There is no adenopathy. The lungs are expanded. There is bilateral basilar bronchial thickening. There is no airspace consoli dation. There are scattered calcified granulomas at the lung bases bilaterally.. There is no pleural effusion or pneumothorax.. This document is electronically signed by Armand Dukes MD., October 14 2018 01:02:33 AM ET
[2018-10-14 01:13] LABS: Alanine Aminotransferase 7 units/L (7-56); Albumin 3.6 g/dL (3.9-5); BUN/Creatinine Ratio 21; Blood Urea Nitrogen 19 mg/dL (7-17); Hemolysis Index 9
[2018-10-14] MEDS: D5W IV SCH ×3 (01:22→12:11)
[2018-10-14] MEDS: BACTRIM IV SCH ×3 (01:22→12:11)
[2018-10-14 01:25] LABS: Band Neutrophils # (Manual) 0.2 K/mm3; Basophils % (Manual) 0 % (0.0-1.8); Total Cells Counted 100
[2018-10-14 01:30] LABS: Anisocytosis 1+; Poikilocytosis 1+
[2018-10-14 01:32] LABS: Large Platelets 1+; Platelet Estimate Consistent w Auto
[2018-10-14] MEDS ORDERED: ATROVENT IH ONE (01:34)
[2018-10-14] MEDS ORDERED: PROVENTIL IH ONE (01:34)
--- NOTE | 2018-10-14 06:00 | History and Physical Report ---
History of Present Illness Date of examination: 10/14/18 Date of admission: 10/14/18 01:22 Chief complaint: Fever and chills and shortness of breath for 2 days History of present illness: 42-year-old female with history of HIV cardiomyopathy with ejection fraction 15 %, hypertension, asthma, oxygen dependence, COPD, Crohn's disease, AIDS CD4 count 2 presents with fever chills shortness of breath vomiting for 2 days. Fever associated with cough. Generalized weakness present. No dysuria. - Past Medical History Previous Medical History?: Yes Hypertension: Yes Congestive Heart Failure: Yes (cardiomyopathy with EF of 15%) Asthma: Yes COPD: Yes HIV: Yes Additional medical history: Eczema, Bronchitis, crohns disease Surgical History Past Surgical History?: Yes Additional Surgical History: c section Social History Smoking Status: Former Smoker Substance Use Type: None. Family history Htn Medications Home Medications: Home Medications Medication Instructions Recorded Confirmed Last Taken Type Atazanavir [Reyataz] 300 mg PO QDAY #30 capsule 02/28/18 07/22/18 Unknown Rx Carvedilol [Coreg] 6.25 mg PO BID #60 tablet 02/28/18 07/22/18 Unknown Rx Darunavir [Prezista] 600 mg PO BID tablet 02/28/18 07/22/18 Unknown Rx Furosemide [Lasix TAB] 40 mg PO QDAY #30 tablet 02/28/18 07/22/18 Unknown Rx Ipratropium/Albuterol Sulfate 1 ampul IH Q8HR PRN #30 ampul.neb 02/28/18 07/22/18 Unknown Rx [DUONEB *Not for PRN Use*] Lisinopril [Zestril TAB] 10 mg PO QDAY #30 tablet 02/28/18 07/22/18 Unknown Rx Nystatin [Nystatin SUSP] 500,000 unit PO QID 21 Days udc 02/28/18 07/22/18 Unknown Rx Ritonavir [Norvir] 100 mg PO BID tab 02/28/18 07/22/18 Unknown Rx Emtricitabine/Tenofov Alafenam 1 each PO DAILY 05/19/18 07/22/18 Unknown History [Descovy 200-25 mg Tablet] Fluconazole [Diflucan TAB] 400 mg PO QDAY 14 Days #28 tablet 05/25/18 07/22/18 Unknown Rx Sulfamethoxazole/Trimethoprim 1 each PO Q24HR #30 tablet 05/25/18 07/22/18 Unkn own Rx [Bactrim DS TAB] Posaconazole [Noxafil] 400 mg PO BID 21 Days #420 ml 07/27/18 Unknown Rx Aspirin EC 81 mg PO QDAY tablet 07/28/18 Unknown Rx Benzonatate [Tessalon Perles] 100 mg PO Q8HR #14 capsule 07/28/18 Unknown Rx Sulfamethoxazole/Trimethoprim 2 each PO Q8HR 21 Days tablet 07/28/18 Unknown Rx [Bactrim DS TAB] levoFLOXacin [Levaquin] 750 mg PO QDAY #7 tablet 07/28/18 Unknown Rx Review of Systems ROS: Stated complaint: SOB/EMESIS/CHILLS Other details as noted in HPI Nausea vomiting. Oral thrush present. Comment: All other systems reviewed and negative Constitutional: chills, fever, malaise Respiratory: cough, shortness of breath Gastrointestinal: nausea, vomiting 14 point review of systems done and otherwise negative. Medications and Allergies Allergies Allergy/AdvReac Type Severity Reaction Status Date / Time Penicillins Allergy Swelling Verified 12/14/14 17:38 Home Medications Medication Instructions Recorded Confirmed Last Taken Type Atazanavir [Reyataz] 300 mg PO QDAY #30 capsule 02/28/18 10/14/18 Unknown Rx Carvedilol [Coreg] 6.25 mg PO BID #60 tablet 02/28/18 10/14/18 Unknown Rx Darunavir [Prezista] 600 mg PO BID tablet 02/28/18 10/14/18 Unknown Rx Furosemide [Lasix TAB] 40 mg PO QDAY #30 tablet 02/28/18 10/14/18 Unknown Rx Ipratropium/Albuterol Sulfate 1 ampul IH Q8HR PRN #30 ampul.neb 02/28/18 10/14/18 Unknown Rx [DUONEB *Not for PRN Use*] Lisinopril [Zestril TAB] 10 mg PO QDAY #30 tablet 02/28/18 10/14/18 Unknown Rx Nystatin [Nystatin SUSP] 500,000 unit PO QID 21 Days udc 02/28/18 10/14/18 Unknown Rx Ritonavir [Norvir] 100 mg PO BID tab 02/28/18 10/14/18 Unknown Rx Emtricitabine/Tenofov Alafenam 1 each PO DAILY 05/19/18 10/14/18 Unknown History [Descovy 200-25 mg Tablet] Fluconazole [Diflucan TAB] 400 mg PO QDAY 14 Days #28 tablet 05/25/18 10/14/18 Unknown Rx Posaconazole [Noxafil] 400 mg PO BID 21 Days #420 ml 07/27/18 10/14/18 Unknown Rx Aspirin EC 81 mg PO QDAY tablet 07/28/18 10/14/18 Unknown Rx Benzonatate [Tessalon Perles] 100 mg PO Q8HR #14 capsule 07/28/18 10/14/18 Unknown Rx Active Meds: Active Medications Trimethoprim/Sulfamethoxazole (200 mg/ Dextrose) 262.5 mls @ 175 mls/hr IV Q6HR BAY; Protocol Last Admin: 10/14/18 01:22 Dose: 175 mls/hr Documented by: Aztreonam (Azactam/Ns 1 Gm/50 Ml) 1 gm in 50 mls @ 50 mls/hr IV Q8HR BAY; Protocol Last Admin: 10/14/18 00:29 Dose: 50 mls/hr Documented by: Vancomycin HCl 1,500 mg/ (Sodium Chloride) 530 mls @ 333.333 mls/hr IV Q12H BAY Exam - Constitutional Vitals: Temp Pulse Resp BP Pulse Ox 98.8 F 90 18 103/54 93 10/14/18 04:05 10/14/18 04:05 10/14/18 04:05 10/14/18 04:05 10/14/18 04:05 Results - Labs CBC & Chem 7: 10/13/18 23:49 10/14/18 00:44 Labs: Laboratory Last Values WBC 4.6 K/mm3 (4.5-11.0) 10/13/18 23:49 RBC 3.81 M/mm3 (3.65-5.03) 10/13/18 23:49 Hgb 12.7 gm/dl (10.1-14.3) 10/13/18 23:49 Hct 36.6 % (30.3-42.9) 10/13/18 23:49 MCV 96 fl (79-97) 10/13/18 23:49 MCH 33 pg (28-32) H 10/13/18 23:49 MCHC 35 % (30-34) H 10/13/18 23:49 RDW 14.7 % (13.2-15.2) 10/13/18 23:49 Plt Count 218 K/mm3 (140-440) 10/13/18 23:49 Add Manual Diff Complete 10/13/18 23:49 Total Counted 100 10/13/18 23:49 Seg Neuts % (Manual) 74.0 % (40.0-70.0) H 10/13/18 23:49 5.0 % 10/13/18 23:49 6.0 % (13.4-35.0) L 10/13/18 23:49 Reactive Lymphs % (Man) 0 % 10/13/18 23:49 12.0 % (0.0-7.3) H 10/13/18 23:49 2.0 % (0.0-4.3) 10/13/18 23:49 0 % (0.0-1.8) 10/13/18 23:49 0 % 10/13/18 23:49 1.0 % 10/13/18 23:49 0 % 10/13/18 23:49 0 % 10/13/18 23:49 Nucleated RBC % Not Reportable 10/13/18 23:49 Seg Neutrophils # Man 3.4 K/mm3 (1.8-7.7) 10/13/18 23:49 Band Neutrophils # 0.2 K/mm3 10/13/18 23:49 0.3 K/mm3 (1.2-5.4) L 10/13/18 23:49 Abs React Lymphs (Man) 0.0 K/mm3 10/13/18 23:49 0.6 K/mm3 (0.0-0.8) 10/13/18 23:49 0.1 K/mm3 (0.0-0.4) 10/13/18 23:49 0.0 K/mm3 (0.0-0.1) 10/13/18 23:49 0.0 K/mm3 10/13/18 23:49 0.0 K/mm3 10/13/18 23:49 0.0 K/mm3 10/13/18 23:49 Blast Cells # 0.0 K/mm3 10/13/18 23:49 WBC Morphology Not Reportable 10/13/18 23:49 Hypersegmented Neuts Not Reportable 10/13/18 23:49 Hyposegmented Neuts Not Reportable 10/13/18 23:49 Hypogranular Neuts Not Reportable 10/13/18 23:49 Not Reportable 10/13/18 23:49 Not Reportable 10/13/18 23:49 Not Reportable 10/13/18 23:49 Not Reportable 10/13/18 23:49 Not Reportable 10/13/18 23:49 Not Reportable 10/13/18 23:49 Consistent w auto 10/13/18 23:49 Not Reportable 10/13/18 23:49 Plt Clumps, EDTA Not Reportable 10/13/18 23:49 1+ 10/13/18 23:49 Not Reportable 10/13/18 23:49 Not Reportable 10/13/18 23:49 Plt Morphology Comment Not Reportable 10/13/18 23:49 RBC Morphology Not Reportable 10/13/18 23:49 Dimorphic RBCs Not Reportable 10/13/18 23:49 Not Reportable 10/13/18 23:49 Not Reportable 10/13/18 23:49 1+ 10/13/18 23:49 1+ 10/13/18 23:49 Not Reportable 10/13/18 23:49 Not Reportable 10/13/18 23:49 Not Reportable 10/13/18 23:49 Not Reportable 10/13/18 23:49 Not Reportable 10/13/18 23:49 Not Reportable 10/13/18 23:49 Not Reportable 10/13/18 23:49 Not Reportable 10/13/18 23:49 Not Reportable 10/13/18 23:49 Not Reportable 10/13/18 23:49 Not Reportable 10/13/18 23:49 Not Reportable 10/13/18 23:49 Not Reportable 10/13/18 23:49 Not Reportable 10/13/18 23:49 Not Reportable 10/13/18 23:49 Acanthocytes (Spur) Not Reportable 10/13/18 23:49 Rouleaux Not Reportable 10/13/18 23:49 Not Reportable 10/13/18 23:49 Not Reportable 10/13/18 23:49 Not Reportable 10/13/18 23:49 Not Reportable 10/13/18 23:49 Hem Pathologist Commnt No 10/13/18 23:49 PT 13.3 Sec. (12.2-14.9) 10/13/18 23:49 INR 0.95 (0.87-1.13) 10/13/18 23:49 APTT 32.8 Sec. (24.2-36.6) 10/13/18 23:49 Sodium 133 mmol/L (137-145) L 10/14/18 00:44 Potassium 4.4 mmol/L (3.6-5.0) 10/14/18 00:44 Chloride 94.0 mmol/L (98-107) L 10/14/18 00:44 Carbon Dioxide 25 mmol/L (22-30) 10/14/18 00:44 18 mmol/L 10/14/18 00:44 BUN 19 mg/dL (7-17) H 10/14/18 00:44 0.9 mg/dL (0.7-1.2) 10/14/18 00:44 Estimated GFR > 60 ml/min 10/14/18 00:44 21 % 10/14/18 00:44 Glucose 95 mg/dL (65-100) 10/14/18 00:44 Lactic Acid 0.90 mmol/L (0.7-2.0) 10/13/18 23:49 Calcium 9.0 mg/dL (8.4-10.2) 10/14/18 00:44 Magnesium 1.50 mg/dL (1.7-2.3) L 10/13/18 23:49 0.40 mg/dL (0.1-1.2) 10/14/18 00:44 AST 15 units/L (5-40) 10/14/18 00:44 ALT 7 units/L (7-56) 10/14/18 00:44 74 units/L (35-129) 10/14/18 00:44 267 units/L (91-180) H 10/13/18 23:49 < 0.010 ng/mL (0.00-0.029) 10/13/18 23:49 NT-Pro-B Natriuret Pep 117.6 pg/mL (0-450) 10/13/18 23:49 6.7 g/dL (6.3-8.2) 10/14/18 00:44 3.6 g/dL (3.9-5) L 10/14/18 00:44 1.2 % 10/14/18 00:44 - Imaging and Cardiology EKG: report reviewed (sinus tachycardia heart rate of 111 per minute. no acute ST-T wave changes) Chest x-ray: report reviewed Imaging and Cardiology: Chest x-ray IMPRESSION: No acute abnormality identified in the chest Assessment and Plan Advance Directives: Yes (full code) VTE prophylaxis?: Chemical Plan of care discussed with patient/family: Yes - Patient Problems (1) SIRS (systemic inflammatory response syndrome) Current Visit: Yes Status: Acute Plan to address problem: Patient with fever Normal white count Started on cefepime No vancomycin No focus of infection identified (2) AIDS Current Visit: Yes Status: Chronic Plan to address problem: Patient on multiple antiretroviral drugs Continue same Drug fever is a possibility (3) Hypomagnesemia Current Visit: Yes Status: Acute Plan to address problem: IV magnesium 2 g given Recheck magnesium level (4) Hyponatremia Current Visit: Yes Status: Acute Plan to address problem: Mild We will hold the Lasix if necessary (5) Oral candidiasis Current Visit: Yes Status: Acute Plan to address problem: Continue Diflucan (6) CHF (congestive heart failure) Current Visit: Yes Status: Chronic Qualifiers: Heart failure type: combined systolic and diastolic Plan to address problem: Continue Lasix (7) COPD (chronic obstructive pulmonary disease) Current Visit: Yes Status: Chronic Qualifiers: COPD type: unspecified COPD Qualified Code(s): J44.9 - Chronic obstructive pulmonary disease, unspecified Plan to address problem: Continue nebulizer treatments (8) Hypertension Current Visit: Yes Status: Chronic Qualifiers: Hypertension type: essential hypertension Qualified Code(s): I10 - Essential (primary) hypertension Plan to address problem: Continue antihypertensives (9) DVT prophylaxis Current Visit: Yes Status: Acute Plan to address problem: Patient initiated on heparin subcutaneous and GI prophylaxis
[2018-10-14] MEDS ORDERED: MAGNESIUM SULFATE 2GM/50ML 2 GM/50 ML BAG IV ONE (06:13)
[2018-10-14] MEDS ORDERED: DUONEB *Not for PRN Use IH (06:36)
[2018-10-14] MEDS ORDERED: PROVENTIL IH PRN (06:45)
[2018-10-14] MEDS ORDERED: MAXIPIME/NS 2 GM/100 ML 2 GM/100 ML BAG IV SCH (09:00)
[2018-10-14] MEDS: NYSTATIN PO SCH ×4 (09:31→21:42)
[2018-10-14] MEDS ORDERED: NON-FORMULARY (Emtricitabine/Tenofov Alafenam [Descovy 200-25 Mg Tablet] 1 EACH) PO SCH (10:00)
[2018-10-14] MEDS ORDERED: POSACONAZOLE PO SCH (10:00)
[2018-10-14] MEDS: COREG PO SCH ×2 (10:09→21:42)
[2018-10-14] MEDS: LASIX PO SCH (10:09)
[2018-10-14] MEDS: HALFPRIN EC PO SCH (10:09)
[2018-10-14] MEDS: DIFLUCAN PO SCH (10:09)
[2018-10-14] MEDS: PREZISTA PO SCH ×2 (10:10→21:41)
[2018-10-14] MEDS: REYATAZ PO SCH (10:10)
[2018-10-14] MEDS: NORVIR PO SCH ×2 (10:10→21:42)
[2018-10-14] MEDS: ZESTRIL PO SCH (10:11)
[2018-10-14] MEDS: HEPARIN SUB-Q SCH ×2 (10:19→21:47)
[2018-10-14 11:21] LABS: Bilirubin,Urine NEG (Negative); Blood,Urine NEG (Negative); Color,Urine Yellow (Yellow); Protein,Urine <15 mg/dL mg/dL (Negative); Urobilinogen,Urine < 2.0 mg/dL (<2.0)
--- NOTE | 2018-10-14 13:58 | Consultation ---
History of Present Illness - Reason for Consult Consult date: 10/14/18 HIV, AIDS, sepsis Requesting physician: ESSIE KRAUSE - History of Present Illness The patient is a 42-year-old female with advanced HIV/AIDS, uncontrolled, highly treatment experienced, [id number] HIV, COPD, chronic respiratory failure, dilated cardiomyopathy with CHF who is known to us from her previous hospitalizations in February 2018, May 2018 and July 2018. She is on an unusual regimen with 2 protease inhibitors (but that apparently is per some discussions with a physician at [facility]) and now also on Trogarzo since July 2018 getting the infusions every 2 weeks via a PORT. Her ART regimen is norvir boosted with darunavir twice a day, atazanavir once a day along with Descovy. She reports excellent compliance with Bactrim. She started developing a cough a couple of days prior to admission, contacted her sleep manager Dr. Aquino who prescribed her PO doxycycline. She also felt some chills. She then started vomiting and hence came to the hospital and was hospitalized. She was empirically started on cefepime, fluconazole and IV Bactrim along with IV vancomycin. Infectious diseases was consulted for additional recommendations. Currently, she feels completely back to baseline. Denies any more fever or chills. Her MAXIMUM TEMPERATURE was 100.5F on admission, afebrile today. She has some shortness of breath, reports a runny nose. Also reports that her thrush has now come back over the last few days once she was started on a steroid inhaler. She takes Noxafil and Diflucan at home for the thrush. Review of Systems: General: no fevers,chills or rigors HEENT: no new visual disturbance Respiratory: mild cough, no sputum, hemoptysis. Chronic shortness of breath + Cardiovascular: No chest pain, syncope Gastrointestinal: No nausea, vomiting or diarrhea Genitourinary: No dysuria or hematuria Musculoskeletal: No new or worsening neck pain or back pain Neurologic: No headaches, seizures Hematologic: No easy bruising or bleeding Endocrine: No night sweats or acute weight loss Skin: negative for rash, jaundice Psychiatric: No suicidal or homicidal ideation Past History Family history: hypertension Medications and Allergies Allergies Allergy/AdvReac Type Severity Reaction Status Date / Time Penicillins Allergy Swelling Verified 12/14/14 17:38 Home Medications Medication Instructions Recorded Confirmed Last Taken Type Atazanavir [Reyataz] 300 mg PO QDAY #30 capsule 02/28/18 10/14/18 Unknown Rx Carvedilol [Coreg] 6.25 mg PO BID #60 tablet 02/28/18 10/14/18 Unknown Rx Darunavir [Prezista] 600 mg PO BID tablet 02/28/18 10/14/18 Unknown Rx Furosemide [Lasix TAB] 40 mg PO QDAY #30 tablet 02/28/18 10/14/18 Unknown Rx Ipratropium/Albuterol Sulfate 1 ampul IH Q8HR PRN #30 ampul.neb 02/28/18 10/14/18 Unknown Rx [DUONEB *Not for PRN Use*] Lisinopril [Zestril TAB] 10 mg PO QDAY #30 tablet 02/28/18 10/14/18 Unknown Rx Nystatin [Nystatin SUSP] 500,000 unit PO QID 21 Days udc 02/28/18 10/14/18 Unknown Rx Ritonavir [Norvir] 100 mg PO BID tab 02/28/18 10/14/18 Unknown Rx Emtricitabine/Tenofov Alafenam 1 each PO DAILY 05/19/18 10/14/18 Unknown History [Descovy 200-25 mg Tablet] Fluconazole [Diflucan TAB] 400 mg PO QDAY 14 Days #28 tablet 05/25/18 10/14/18 Unknown Rx Posaconazole [Noxafil] 400 mg PO BID 21 Days #420 ml 07/27/18 10/14/18 Unknown Rx Aspirin EC 81 mg PO QDAY tablet 07/28/18 10/14/18 Unknown Rx Benzonatate [Tessalon Perles] 100 mg PO Q8HR #14 capsule 07/28/18 10/14/18 Unknown Rx Ibalizumab-Uiyk [Trogarzo] 800 mg IV PRN 10/14/18 10/14/18 Unknown History Active Meds: Active Medications Albuterol (Proventil) 2.5 mg IH Q4HRT PRN PRN Reason: Shortness Of Breath Aspirin (Halfprin Ec) 81 mg PO QDAY [facility] Last Admin: 10/14/18 10:09 Dose: 81 mg Documented by: Atazanavir (Reyataz) 300 mg PO QDAY [facility] Last Admin: 10/14/18 10:10 Dose: 300 mg Documented by: Benzonatate (Tessalon Perles) 100 mg PO Q8HR [facility] Carvedilol (Coreg) 6.25 mg PO BID [facility] Last Admin: 10/14/18 10:09 Dose: 6.25 mg Documented by: Darunavir (Prezista) 600 mg PO BID [facility] Last Admin: 10/14/18 10:10 Dose: 600 mg Documented by: Fluconazole (Diflucan) 400 mg PO QDAY [facility] Last Admin: 10/14/18 10:09 Dose: 400 mg Documented by: Furosemide (Lasix) 40 mg PO QDAY [facility] Last Admin: 10/14/18 10:09 Dose: 40 mg Documented by: Heparin Sodium (Porcine) (Heparin) 5,000 unit SUB-Q Q12HR [facility] Last Admin: 10/14/18 10:19 Dose: Not Given Documented by: Aztreonam (Azactam/Ns 1 Gm/50 Ml) 1 gm in 50 mls @ 50 mls/hr IV Q8HR [facility]; Pr otocol Last Admin: 10/14/18 06:23 Dose: 50 mls/hr Documented by: Lisinopril (Zestril) 10 mg PO QDAY [facility] Last Admin: 10/14/18 10:11 Dose: 10 mg Documented by: Miscellaneous Medication (Emtricitabine/Tenofov Alafenam [Descovy 200-25 Mg Tablet]) 1 each PO DAILY [facility] Miscellaneous Medication (Posaconazole [Noxafil]) 400 mg PO BID [facility] Nystatin (Nystatin) 500,000 unit PO QID [facility] Last Admin: 10/14/18 09:31 Dose: 500,000 unit Documented by: Ritonavir (Norvir) 100 mg PO BID [facility] Last Admin: 10/14/18 10:10 Dose: 100 mg Documented by: Physical Examination - Physical Exam Narrative exam: Physical Exam: Constitutional: Alert, cooperative. No acute distress Head, Ears, Nose: Normocephalic, atraumatic. External ears, nose normal Eyes: Conjunctivae/corneas clear. No icterus. No ptosis. Neck: Supple, no meningeal signs Oral: thrush + Cardiovascular: S1, S2 normal. Respiratory: clear to auscultation bilaterally GI: Soft, non-tender; bowel sounds normal. No peritoneal signs Musculoskeletal: No pedal edema, no cyanosis. Skin: No rash or abscess Hem/Lymphatic: No palpable cervical or supraclavicular nodes. No lymphangitis Psych: Mood ok. Affect normal Neurological: Awake, alert, oriented. No gross abnormality - Constitutional Vitals: Vital Signs Temp Pulse Resp BP Pulse Ox 98.3 F 78 18 114/74 95 10/14/18 12:17 10/14/18 12:17 10/14/18 12:17 10/14/18 12:17 10/14/18 12:17 Temperature -Last 24 Hours Temperature 98.3 F Temperature 97.9 F Temperature 98.8 F Temperature 98.8 F Temperature 99.8 F Temperature 100.5 F Results - Labs CBC & Chem 7: 10/13/18 23:49 10/14/18 00:44 Labs: Abnormal lab results 10/13/18 10/13/18 10/14/18 Range/Units 23:49 23:49 00:44 MCH 33 H (28-32) pg MCHC 35 H (30-34) % Seg Neuts % (Manual) 74.0 H (40.0-70.0) % Lymphocytes % (Manual) 6.0 L (13.4-35.0) % Monocytes % (Manual) 12.0 H (0.0-7.3) % Lymphocytes # (Manual) 0.3 L (1.2-5.4) K/mm3 Sodium 133 L (137-145) mmol/L Chloride 94.0 L (98-107) mmol/L BUN 19 H (7-17) mg/dL Magnesium 1.50 L (1.7-2.3) mg/dL Lactate Dehydrogenase 267 H (91-180) units/L Albumin 3.6 L (3.9-5) g/dL - Imaging and Cardiology Chest x-ray: report reviewed, image reviewed (Chest x-ray shows no acute abnormality.) CT scan - chest: report reviewed, image reviewed (CT chest does not show any ground glass opacities or air bronchograms to suggest pneumonia/consolidation.) Assessment and Plan Cultures: 10/21/2018 blood culture: In progress A/P: 42-year-old female with advanced HIV/AIDS, uncontrolled, highly treatment experienced, [id number] HIV, COPD, chronic respiratory failure, dilated cardiomyopathy with CHF who is known to us from her previous hospitalizations in February 2018, May 2018 and July 2018. She is on an unusual regimen with 2 protease inhibitors (but that apparently is per some discussions with a physician at [facility]) and now also on Trogarzo since July 2018 getting the infusions every 2 weeks via a PORT. Admitted with: 1) Low grade fever, runny nose, cough: possibly a viral URI. CT chest and CXR not consistent with pneumonia. No ground glass opacity to suggest PCP pneumonia. Also, patient remains compliant with Bactrim prophylaxis. 2) Chronic respiratory failure: multifactorial. Quit smoking. Has dilated cardiomyopathy, CHF and COPD. On home oxygen. 3) Advanced and resistant HIV/AIDS: on Trogarzo, infusion scheduled for tomorrow. She is on an unusual regimen with 2 protease inhibitors (but that apparently is per some discussions with a physician at [facility]). Continue norvir boosted darunavir twice a day, atazanavir once a day, continue nonformulary Descovy. Last CD4 in 07/2018 was 10. HIV RNA PCR was 28K. 4) Oral candidiasis:continue fluconazole. Upon discharge, patient will resume posaconazole. 5) Dilated cardiomyopathy: Presumed to be HIV related in etiology. Recs: discontinued IV Bactrim, Cefepime, Vancomycin. Suspect possible viral URI. Follow up blood cultures due to indwelling PORT. started PO Bactrim prophylaxis continue Fluconazole for thrush Continue home ART regimen: norvir boosted with darunavir twice a day, atazanavir once a day along with Descovy She is scheduled for her Trogarzo infusion tomorrow at her ID physician's clinic. This is the mainstay of her anti-retroviral therapy. If she remains afebrile, OK to discharge patient MD [facility] C: [phone] O: [phone] F: [phone]
[2018-10-14] MEDS: TESSALON PERLES PO SCH ×2 (14:00→21:42)
[2018-10-14] MEDS ORDERED: VANCOMYCIN 1,500 MG in NACL 0.9% 500 ML 500 ML IV SCH (15:00)
--- NOTE | 2018-10-14 15:44 | Event Note ---
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 Discussed with ID, recommended to continue home medications only Monitor overnight. If blood culture negative and remains afebrile possible discharge tomorrow morning
[2018-10-14] MEDS: BACTRIM DS PO SCH (17:29)
[2018-10-15] MEDS ORDERED: FIORICET PO PRN (01:56)
[2018-10-15] MEDS ORDERED: CEPACOL X STRENGTH MM PRN (01:57)
[2018-10-15] MEDS ORDERED: ALUM-MAG HYDROX-SIMETH 200-200-20MG/5ML PO PRN (01:58)
[2018-10-15] MEDS: TESSALON PERLES PO SCH (05:15)
[2018-10-15] MEDS: PEPCID PO SCH ×2 (05:17→09:31)
--- NOTE | 2018-10-15 08:49 | Discharge Summary ---
Providers - Providers Date of Admission: 10/14/18 01:22 Date of discharge: 10/15/18 Attending physician: TEO MEYER 10/14/18 06:42 Consult to Physician [CONS] Routine Comment: Consulting Provider: SHERMAN CARRANZA Physician Instructions: Reason For Exam: AIDS/Sepsis/Fever Primary care physician: ABIGAIL GUTIERRES Hospitalization Condition: Stable Pertinent studies: CXR CTA chest Hospital course: 42-year-old female with advanced HIV/AIDS, uncontrolled, highly treatment experienced, [id number] HIV, COPD, chronic respiratory failure, dilated cardiomyopathy with CHF who is known to us from her previous hospitalizations in February 2018, May 2018 and July 2018. She is on an unusual regimen with 2 protease inhibitors (but that apparently is per some discussions with a physician at [facility]) and now also on Trogarzo since July 2018 getting the infusions every 2 weeks via a PORT. Admitted with Low grade fever, runny nose, cough. ID was consulted and symptoms likely from viral URI. She remained afebrile. ID cleared her for discharge and she will f/u outpt. Discharge diagnosis: 1) Low grade fever, runny nose, cough: possibly a viral URI. CT chest and CXR not consistent with pneumonia. No ground glass opacity to suggest PCP pneumonia. Blood cx also negative. Also, patient remains compliant with Bactrim prophylaxis. 2) Chronic respiratory failure: multifactorial. due to CHF and COPD. On home oxygen. 3) Advanced and resistant HIV/AIDS: Cont home regimen. Last CD4 in 07/2018 was 10. HIV RNA PCR was 28K. 4) Oral candidiasis:continue fluconazole. Upon discharge, patient will resume posaconazole. 5) Dilated cardiomyopathy: Presumed to be HIV related in etiology. Disposition: DC-01 TO HOME OR SELFCARE Time spent for discharge: 34 minutes Core Measure Documentation - Palliative Care Palliative Care/ Comfort Measures: Not Applicable - Core Measures Any of the following diagnoses?: history only Exam - Constitutional Vitals: Temp Pulse Resp BP Pulse Ox 98.8 F 80 19 112/62 95 10/15/18 03:58 10/15/18 03:58 10/15/18 03:58 10/15/18 03:58 10/15/18 03:58 General appearance: Present: no acute distress, obese - EENT Eyes: Present: PERRL ENT: hearing intact, clear oral mucosa - Neck Neck: Present: supple, normal ROM - Respiratory Respiratory effort: normal Respiratory: bilateral: CTA - Cardiovascular Heart Sounds: Present: S1 & S2. Absent: rub, click - Extremities Extremities: pulses symmetrical, No edema Peripheral Pulses: within normal limits - Abdominal General gastrointestinal: Present: soft, non-tender, non-distended, normal bowel sounds - Integumentary Integumentary: Present: clear, warm, dry - Musculoskeletal Musculoskeletal: gait normal, strength equal bilaterally - Psychiatric Psychiatric: appropriate mood/affect, intact judgment & insight - Neurologic Neurologic: CNII-XII intact, moves all extremities Plan Activity: advance as tolerated Weight Bearing Status: Weight Bear as Tolerated Diet: low fat, low salt Special Instructions: restrict fluid intake to (1.2L daily), record daily weights Follow up with: ABIGAIL GUTIERRES MD [Primary Care Provider] - 3-5 Days SHERMAN CARRANZA MD [Staff Physician] - 7 Days
[2018-10-15] MEDS: PREZISTA PO SCH (09:30)
[2018-10-15] MEDS: NORVIR PO SCH (09:30)
[2018-10-15] MEDS: DIFLUCAN PO SCH (09:30)
[2018-10-15] MEDS: REYATAZ PO SCH (09:31)
[2018-10-15] MEDS: BACTRIM DS PO SCH (09:31)
[2018-10-15] MEDS: COREG PO SCH (09:31)
[2018-10-15] MEDS: LASIX PO SCH (09:31)
[2018-10-15] MEDS: NYSTATIN PO SCH (09:32)
[2018-10-15] MEDS: HALFPRIN EC PO SCH (09:32)
[2018-10-15] MEDS: ZESTRIL PO SCH (09:32)
[2018-10-15] MEDS: HEPARIN SUB-Q SCH (09:34)
[2018-10-15 09:50] VITALS: BP 115/72
[2018-10-15] MEDS ORDERED: ANTIBIOTIC OINT TP PRN (10:00)
--- NOTE | 2018-10-15 10:29 | Progress Note ---
Assessment and Plan Cultures: 10/21/2018 blood culture: In progress A/P: 42-year-old female with advanced HIV/AIDS, uncontrolled, highly treatment experienced, [id number] HIV, COPD, chronic respiratory failure, dilated cardiomyopathy with CHF who is known to us from her previous hospitalizations in February 2018, May 2018 and July 2018. She is on an unusual regimen with 2 protease inhibitors (but that apparently is per some discussions with a physician at [facility]) and now also on Trogarzo since July 2018 getting the infusions every 2 weeks via a PORT. Admitted with: 1) Low grade fever, runny nose, cough: possibly a viral URI. CT chest and CXR not consistent with pneumonia. No ground glass opacity to suggest PCP pneumonia. Also, patient remains compliant with Bactrim prophylaxis. 2) Chronic respiratory failure: multifactorial. Quit smoking. Has dilated cardiomyopathy, CHF and COPD. On home oxygen. 3) Advanced and resistant HIV/AIDS: on Trogarzo, infusion scheduled for t omorrow. She is on an unusual regimen with 2 protease inhibitors (but that apparently is per some discussions with a physician at [facility]). Continue norvir boosted darunavir twice a day, atazanavir once a day, continue nonformulary Descovy. Last CD4 in 07/2018 was 10. HIV RNA PCR was 28K. 4) Oral candidiasis:continue fluconazole. Upon discharge, patient will resume posaconazole. 5) Dilated cardiomyopathy: Presumed to be HIV related in etiology. Recs: continuie PO Bactrim prophylaxis continue Fluconazole for thrush Continue home ART regimen: norvir boosted with darunavir twice a day, atazanavir once a day along with Descovy She is scheduled for her Trogarzo infusion tomorrow at her ID physician's clinic. This is the mainstay of her anti-retroviral therapy. If she remains afebrile, OK to discharge patient [facility] M: [phone] O:[phone] Subjective Date of service: 10/15/18 Objective - Constitutional Vitals: Vital Signs Temp Pulse Resp BP Pulse Ox 98.8 F 80 19 115/72 98 10/15/18 03:58 10/15/18 09:38 10/15/18 09:38 10/15/18 09:32 10/15/18 09:38 Temperature -Last 24 Hours Temperature 98.8 F Temperature 99.0 F Temperature 98.0 F Temperature 98.0 F Temperature 98.3 F - Labs CBC & Chem 7: 10/13/18 23:49 10/14/18 00:44
[2018-10-15] MEDS ORDERED: FLUSH HEPARIN IV ONE (10:30)
== END 2018-10-15 11:11 | disposition home or self-care (01) | DRG 975 ==
LOC: ED 21:44 → 4A 10-14 01:22
PROVIDERS: ADMIT Internal Medicine; ATTEND Internal Medicine
DX: B20 Human immunodeficiency virus [HIV] disease (principal); E87.1 Hypo-osmolality and hyponatremia; A41.9 Sepsis, unspecified organism; B37.0 Candidal stomatitis; J96.10 Chronic respiratory failure, unspecified whether with hypoxia or hypercapnia; I50.42 Chronic combined systolic (congestive) and diastolic (congestive) heart failure; K50.90 Crohn's disease, unspecified, without complications; I42.0 Dilated cardiomyopathy; J44.9 Chronic obstructive pulmonary disease, unspecified; E83.42 Hypomagnesemia; J06.9 Acute upper respiratory infection, unspecified; I11.0 Hypertensive heart disease with heart failure; Z99.81 Dependence on supplemental oxygen; Z87.891 Personal history of nicotine dependence; Z79.82 Long term (current) use of aspirin; Z88.0 Allergy status to penicillin
CPT/HCPCS: 36415; 71046; 71250; 80048; 80053; 81001; 82140; 83615; 83735; 83880; 84484; 85007; 85025; 85610; 85730; 87040; 87086; 93005; 93010; 94640; 99285; G0378; J0692; J1642; J1644; J3370; J3475; J7040; J7512

== ENCOUNTER 2018-11-25 12:01 | Emergency (ER) | payer MEDICAID ==
--- NOTE | 2018-11-25 12:14 | Event Note ---
ED Screening Note Date of service: 11/25/18 Time: 12:09 ED Screening Note: 43 y/o female comes in for cough SOB. History of CHF, HIV asthma. on home oxygen 3 liter last night. Lying flat makes worst. Lying on left side makes it better. This initial assessment/diagnostic orders/clinical plan/treatment(s) is/are subject to change based on patients health status, clinical progression and re- assessment by fellow clinical providers in the ED. Further treatment and workup at subsequent clinical providers discretion. Patient/guardian urged not to elope from the ED as their condition may be serious if not clinically assessed and managed. Initial orders include: Patient to be seen in Main ER
[2018-11-25] MEDS ORDERED: LEVAQUIN 750MG/150ML 750 MG/150 ML BAG IV ONE (12:51)
[2018-11-25] MEDS ORDERED: DUONEB *Not for PRN Use IH ONE ×2 (12:56→16:12)
--- NOTE | 2018-11-25 12:56 | Emergency Department Report ---
ED Shortness of Breath HPI - General Chief Complaint: Dyspnea/Respdistress Stated Complaint: SOB/COUGH Time Seen by Provider: 11/25/18 12:49 Source: patient Mode of arrival: Wheelchair Limitations: No Limitations - History of Present Illness Initial Comments: 43 y/o female comes in for cough SOB. History of CHF, HIV asthma. on home oxygen 3 liter. Vision states symptoms have been going on for the past week, but has been progressively worsened. Today she was at her infectious disease doctor getting an infusion of trogarzo, when her I.D physician Dr. Child recommended that she comes to E.R. Her sob, is accompanied by fever, productive cough of white sputum, but no nausea or vomiting. Lying flat makes worst. Lying on left side makes it better. MD Complaint: shortness of breath, cough, chest pain Onset/Timin -: Gradual, week(s) Radiation: back Pain Scale: 4 Quality: dull Consistency: constant Improves With: upright position Worsens With: lying flat Known History Of: asthma, congestive heart failure, HIV Context: recent URI Associated Symptoms: fever, cough, sputum production Treatments Prior to Arrival: oxygen - Related Data Home Oxygen Therapy: Yes Home Oxygen Amount: 3 Liters Home Medications Medication Instructions Recorded Confirmed Last Taken Emtricitabine/Tenofov Alafenam 1 each PO DAILY 05/19/18 10/14/18 Unknown [Descovy 200-25 mg Tablet] Ibalizumab-Uiyk [Trogarzo] 800 mg IV PRN 10/14/18 10/14/18 Unknown Previous Rx's Medication Instructions Recorded Last Taken Type Atazanavir [Reyataz] 300 mg PO QDAY #30 capsule 02/28/18 Unknown Rx Carvedilol [Coreg] 6.25 mg PO BID #60 tablet 02/28/18 Unknown Rx Darunavir [Prezista] 600 mg PO BID tablet 02/28/18 Unknown Rx Furosemide [Lasix TAB] 40 mg PO QDAY #30 tablet 02/28/18 Unknown Rx Ipratropium/Albuterol Sulfate 1 ampul IH Q8HR PRN #30 ampul.neb 02/28/18 Unknown Rx [DUONEB *Not for PRN Use*] Lisinopril [Zestril TAB] 10 mg PO QDAY #30 tablet 10/28/18 Unknown Rx Nystatin [Nystatin SUSP] 500,000 unit PO QID 21 Days udc 02/28/18 Unknown Rx Ritonavir [Norvir] 100 mg PO BID tab 02/28/18 Unknown Rx Fluconazole [Diflucan TAB] 400 mg PO QDAY 14 Days #28 tablet 05/25/18 Unknown Rx Posaconazole [Noxafil] 400 mg PO BID 21 Days #420 ml 07/27/18 Unknown Rx Aspirin EC 81 mg PO QDAY tablet 07/28/18 Unknown Rx Benzonatate [Tessalon Perles] 100 mg PO Q8HR #14 capsule 07/28/18 Unknown Rx Allergies Allergy/AdvReac Type Severity Reaction Status Date / Time Penicillins Allergy Swelling Verified 12/14/14 17:38 ED Review of Systems ROS: Stated complaint: SOB/COUGH Other details as noted in HPI Comment: All other systems reviewed and negative Respiratory: shortness of breath, SOB with exertion, SOB at rest, wheezing Cardiovascular: chest pain ED Past Medical Hx - Past Medical History Hx Hypertension: Yes Hx Congestive Heart Failure: Yes (cardiomyopathy with EF of 15%) Hx Diabetes: No Hx Liver Disease: No Hx Renal Disease: No Hx Seizures: No Hx Asthma: Yes Hx COPD: Yes Hx HIV: Yes Additional medical history: Eczema, Bronchitis, crohns disease - Surgical History Hx Pacemaker: No Hx Internal Defibrillator: No Additional Surgical History: c section - Social History Smoking Status: Former Smoker - Medications Home Medications: Home Medications Medication Instructions Recorded Confirmed Last Taken Type Atazanavir [Reyataz] 300 mg PO QDAY #30 capsule 02/28/18 10/14/18 Unknown Rx Carvedilol [Coreg] 6.25 mg PO BID #60 tablet 02/28/18 10/14/18 Unknown Rx Darunavir [Prezista] 600 mg PO BID tablet 02/28/18 10/14/18 Unknown Rx Furosemide [Lasix TAB] 40 mg PO QDAY #30 tablet 02/28/18 10/14/18 Unknown Rx Ipratropium/Albuterol Sulfate 1 ampul IH Q8HR PRN #30 ampul.neb 02/28/18 10/14/18 Unknown Rx [DUONEB *Not for PRN Use*] Lisinopril [Zestril TAB] 10 mg PO QDAY #30 tablet 02/28/18 10/14/18 Unknown Rx Nystatin [Nystatin SUSP] 500,000 unit PO QID 21 Days udc 02/28/18 10/14/18 Unknown Rx Ritonavir [Norvir] 100 mg PO BID tab 02/28/18 10/14/18 Unknown Rx Emtricitabine/Tenofov Alafenam 1 each PO DAILY 05/19/18 10/14/18 Unknown History [Descovy 200-25 mg Tablet] Fluconazole [Diflucan TAB] 400 mg PO QDAY 14 Days #28 tablet 05/25/18 10/14/18 Unknown Rx Posaconazole [Noxafil] 400 mg PO BID 21 Days #420 ml 07/27/18 10/14/18 Unknown Rx Aspirin EC 81 mg PO QDAY tablet 07/28/18 10/14/18 Unknown Rx Benzonatate [Tessalon Perles] 100 mg PO Q8HR #14 capsule 07/28/18 10/14/18 Unknown Rx Ibalizumab-Uiyk [Trogarzo] 800 mg IV PRN 10/14/18 10/14/18 Unknown History ED Physical Exam - General Limitations: No Limitations ED Course Vital Signs 11/25/18 11/25/18 11/25/18 12:09 12:47 12:48 Temperature 100.0 F H 99.4 F Pulse Rate 112 H 104 H Respiratory 16 16 Rate Blood Pressure 136/81 Blood Pressure 117/58 [Left] O2 Sat by Pulse 92 96 96 Oximetry Critical care attestation.: If time is entered above; I have spent that time in minutes in the direct care of this critically ill patient, excluding procedure time. ED Disposition Condition: Stable
[2018-11-25 13:11] LABS: Hematocrit 34.9 % (30.3-42.9); Mean Corpuscular HGB Conc 34 % (30-34); Mean Corpuscular Volume 96 fl (79-97); Platelet Count 217 K/mm3 (140-440); Red Blood Count 3.66 M/mm3 (3.65-5.03); Red Cell Distribution Width 15.4 % (13.2-15.2)
--- NOTE | 2018-11-25 13:26 | XRay Report ---
CHEST 1 VIEW INDICATION: sob. COMPARISON: 10/13/2018 FINDINGS: Support devices: A right [id number]-c-Hwiv tip is in the right atrium and is unchanged compared to the pr evious exam. Heart: Normal. Lungs/Pleura: No acute air space or interstitial disease. Additional findings: None. IMPRESSION: 1. No acute findings. Signer Name: Kenyon Hale MD Signed: 11/25/2018 1:21 PM Workstation Name: [id number]
[2018-11-25 13:37] LABS: Alanine Aminotransferase 7 units/L (7-56); Albumin 3.5 g/dL (3.9-5); BUN/Creatinine Ratio 19; Blood Urea Nitrogen 17 mg/dL (7-17); Calcium 8.6 mg/dL (8.4-10.2); Hemolysis Index 5
[2018-11-25 14:36] LABS: Anisocytosis Few; Band Neutrophils # (Manual) 0.4 K/mm3; Basophils % (Manual) 0 % (0.0-1.8); Eosinophils % (Manual) 0 % (0.0-4.3); Hypochromasia Few; Macrocytosis Few; Platelet Estimate Consistent w Auto; Total Cells Counted 100
[2018-11-25] MEDS ORDERED: FLUSH HEPARIN IV ONE ×2 (18:39)
[2018-11-25 18:42] VITALS: BP 117/78
== END 2018-11-25 18:57 | disposition admitted as inpatient to this hospital (09) ==
LOC: ED 12:01
DX: R05 Cough (principal); R06.02 Shortness of breath; R07.9 Chest pain, unspecified; I50.9 Heart failure, unspecified; I11.0 Hypertensive heart disease with heart failure; J44.9 Chronic obstructive pulmonary disease, unspecified; Z99.81 Dependence on supplemental oxygen; Z88.0 Allergy status to penicillin; Z79.899 Other long term (current) drug therapy
CPT/HCPCS: 36415; 71045; 80053; 82140; 83880; 84484; 85007; 85025; 87040; 93005; 93010; 94640; 96365; 96366; 99284; J1642; J1956; 94644